=== PATIENT | female | born 1965 | race Caucasian/White ===

== ENCOUNTER 2020-09-02 04:01 | Emergency (ER) | payer MEDICARE, MEDICAID, SELFPAY ==
[2020-09-02] VITALS (8 sets, daily range): BP systolic 106–127; BP diastolic 58–75; PULSE 64–119; RESP 16–22; TEMP 36.1; O2SAT 95–97; BMI 29.5
--- NOTE | 2020-09-02 04:14 | CTR_ITS ---
PROCEDURE INFORMATION: Exam: CT Abdomen And Pelvis Without Contrast Exam date and time: 09/02/2020 4:22 AM Age: 54 years old Clinical indication: Abdominal pain; Flank; Right; Prior surgery; Surgery type: Cholecystectomy, hysterectomy; Patient HX: HX prior renal stones; Additional info: R flank pain TECHNIQUE: Imaging protocol: Computed tomography of the abdomen and pelvis without contrast. Radiation optimization: All CT scans at this facility use at least one of these dose optimization techniques: automated exposure control; mA and/or kV adjustment per patient size (includes targeted exams where dose is matched to clinical indication); or iterative reconstruction. COMPARISON: CT Abdomen/Pelvis Renal [id number] 01/22/2018 12:43 PM RADIATION DOSE METRICS: Total DLP (mGy-cm): 1278.47 FINDINGS: Liver: Normal. No mass. Gallbladder and bile ducts: Normal. No calcified stones. No ductal dilation. Pancreas: Normal. No ductal dilation. Spleen: Normal. No splenomegaly. Adrenal glands: Normal. No mass. Kidneys and ureters: There are multiple nonobstructing renal calculi present bilaterally largest are present within the right kidney measuring up to 7.8 mm. There is prominent hydronephrosis and hydroureter seen on the right. There is a partially obstructing distal right ureteral calculus seen along the right pelvic sidewall measuring 3 mm. A 2nd calcifications seen approximately 2.5 cm distal to the previous calcification measuring 3 mm in diameter. Stable calcifications seen within the right hemipelvis adjacent to the distal right ureter compatible with a phlebolith. Stomach and bowel: There is a prominent hiatal hernia present measuring 9.9 cm transverse dimension containing the proximal stomach. Appendix: The appendix is visualized and is normal in configuration. Intraperitoneal space: Unremarkable. No free air. No significant fluid collection. Vasculature: See Kidneys and ureters finding. Lymph nodes: Unremarkable. No enlarged lymph nodes. Urinary bladder: Unremarkable as visualized. Reproductive: Unremarkable as visualized. Bones/joints: Unremarkable. No acute fracture. Soft tissues: Unremarkable. CT/CT kidney stone [id number] IMPRESSION: 1. There are 2 partially obstructing distal right ureteral calculi present along the right pelvic sidewall, the more proximal calculus measures 3 mm, the more distal calcification measures approximately 3 mm . 2. Multiple bilateral nonobstructing renal calculi 3. Prominent hiatal hernia containing the proximal stomach Radiation Dose CTDIVOL = (mGy): DLP = 1278.47 (mGy-cm)
--- NOTE | 2020-09-02 04:14 | ED_ITS ---
Documented by User: Jeffry Dyer DO 09/02/20 04:52 HPI - Back Pain/Injury General: Chief Complaint: Back Pain/Injury Stated Complaint: back pain Time Seen by Provider: 09/02/20 04:14 History of Present Illness: HPI Narrative: 54-year-old lady with a history of multiple kidney stones. She wakes up this morning with right-sided back and flank pain radiating to her belly on the right side. No fever, no dysuria. No hematuria. She is very nauseated. MD elicited complaint: back pain Pertinent past history: kidney stones Onset (ago): minute(s) Timing: constant Severity: severe Similar Symptoms Previously: Yes Quality: stabbing Location: right lower back Radiation: abdomen Exacerbating factors: movement Relieving factors: none Associated symptoms: Reports nausea and vomiting; Deny chills, dysuria, fever(s) or hematuria Review of Systems Const: Denies: fever(s) or chills Card: Denies: chest pain or palpitations Resp: Denies: dyspnea, productive cough or non-productive cough GI: Reports: nausea and vomiting : Reports: flank pain; Denies: difficulty voiding, dysuria, urinary frequency or hematuria Neuro: Denies: dizziness or confusion Physical Exam Const: GENERAL APPEARANCE: cooperative, well developed, anxious and ill appearing ORIENTATION/CONSCIOUSNESS: Yes oriented to person, Yes oriented to place and Yes oriented to time HENMT: COMMON NORMALS: normocephalic, external ears normal and Normal external nose present HEAD & SCALP: normocephalic FACE & SINUS: normal facial exam NOSE: Normal external nose present and No nasal discharge present EXTERNAL EAR: Yes external ears normal Eye: COMMON NORMALS: Equal, round and reactive pupils present, EOMs intact bilaterally and conjunctivae normal EYELID: eyelids normal CONJUNCTIVA: Yes conjunctivae normal PUPIL: Yes Equal, round and reactive pupils present Neck/C-Spine: GENERAL: No tracheal deviation Chest: COMMONS NORMALS: normal inspection of the chest CHEST: No tenderness Resp: COMMON NORMALS: clear to auscultation bilaterally EFFORT & INSPECTION: No tachypneic, No respiratory distress, No retractions, No uses accessory muscles and No tracheal deviation AUSCULTATION: clear to auscultation bilaterally, no rhonchi, no wheezes and lung sounds not diminished Cardio: COMMON NORMALS: regular rate and regular rhythm RATE: regular rate RHYTHM: regular rhythm HEART SOUNDS: no murmurs PERIPHERAL PULSES: radial pulses present GI: INSPECTION: No abdominal distension AUSCULTATION: No Hyperactive bowel sounds present and No Hypoactive bowel sounds present PALPATION: Yes Tenderness to palpation present (GI) Details: RLQ, No Guarding due to palpation present (GI) and No Rigid due to palpation PERCUSSION: no dullness to percussion and no tympanic to percussion : BLADDER/KIDNEY EXAM: Yes CVA tenderness on the right Back/Pelvis: GENERAL BACK: Yes CVA tenderness Neuro: SENSORIUM/ORIENTATION: Yes oriented to person, Yes oriented to place and Yes oriented to time Psych: COMMON NORMALS: mental status grossly normal Skin: COMMON NORMALS: no rashes or lesions noted GENERAL SKIN EXAM: no rashes or lesions noted Course Vital Signs: Vital signs: Vital Signs Temperature 97.0 F L 09/02/20 04:06 Pulse Rate 74 09/02/20 06:00 Respiratory Rate 18 09/02/20 06:00 Blood Pressure 109/58 09/02/20 06:00 Pulse Oximetry 96 09/02/20 06:00 MDM - Back Pain/Injury MDM Narrative: Medical decision making narrative: 54-year-old female with right flank and belly pain. She has a history of kidney stones. Her white blood cell count is 6.1. Hemoglobin 13. She has been to CT, and appears to have a right ureteral stone with hydronephrosis. Awaiting further labs and urinalysis. She has received 1 mg of Dilaudid 4 mg of Zofran. She is getting another milligram of Dilaudid, as she is still in quite a bit of pain. She will be checked out to Dr. Eckert at shift change. Lab Data: Labs: Lab Results 09/02/20 09/02/20 09/02/20 Range/Units 04:30 04:30 04:30 WBC 6.1 (4.0-10.0) 10^3/ uL RBC 3.91 L (4.1-5.3) 10^6/u L Hgb 12.9 (11.5-15.3) g/dL Hct 38.9 (37.0-47.0) % MCV 99.5 H (81-99) fL MCH 33.0 (28.0-34.0) pg MCHC 33.2 (30.0-36.0) g/dL RDW 12.3 (12.1-15.1) % Plt Count 187 (130-400) 10^3/c mm MPV 9.2 (7.4-10.4) fL Neut % (Auto) 50.7 % Lymph % (Auto) 34.4 % [place] % (Auto) 9.3 % Eos % (Auto) 4.7 % Baso % (Auto) 0.7 % Neut # (Auto) 3.11 (1.8-7.7) 10^3/u L Lymph # (Auto) 2.1 (0.8-4.8) 10^3/u L [place] # (Auto) 0.6 (0.2-0.9) 10^3/u L Eos # (Auto) 0.3 (0.0-0.8) 10^3/u L Baso # (Auto) 0.0 (0.0-0.1) 10^3/u L Nucleated RBC % (a uto) 0 % Nucleated RBCs # 0.0 /100WBC Sodium 139 (136-145) mmol/L Potassium 4.0 (3.5-5.1) mmol/L Chloride 104 (98-107) mmol/L Carbon Dioxide 24 (22-29) mmol/L Anion Gap 15.0 (5-19) BUN 22 H (6-20) mg/dL Creatinine 0.6 (0.5-0.9) mg/dL GFR Calculation 105.0 (90-130) mL/min Glucose 125 H (65-115) mg/dL Calculated Osmolal ity 293 (285-295) mOsm/k g Calcium 8.9 (8.5-10.5) mg/dL Total Bilirubin 0.2 (0.15-1.2) mg/dL AST 16 (0-32) U/L ALT 14 (0-33) U/L Alkaline Phosphata se 72 (35-105) IU/L C-Reactive Protein 1.6 (0.0-4.9) mg/L Total Protein 6.4 L (6.6-8.7) g/dL Albumin 3.7 (3.5-5.2) g/dL Globulin 2.7 (1.3-4.6) g/dL Lipase 11 L (13-60) U/L Urine Color Yellow (Yellow) Urine Appearance Sl cloudy A (CLEAR) Urine pH 5 (5-7) Ur Specific Gravit y 1.025 (1.005-1.030) Urine Protein 1+ H (Negative) Urine Glucose (UA) Norm (Normal) Urine Ketones Negative (Negative) Urine Blood 3+ H (Negative) Urine Nitrate Negative (Negative) Urine Bilirubin Neg (Negative) Urine Urobilinogen Norm (Negative) mg/dL Ur Leukocyte Barbara ase 1+ H (Negative) Urine RBC 25-40 H (0-2) /hpf Urine WBC Too numerous to c nt H (0-5) /hpf Ur Squamous Epith Cells 5-10 H (0-5) /hpf Amorphous Sediment Not Reportable Urine Bacteria 1+ H (NONE) /hpf Discharge Plan Discharge Patient Disposition: Home Clinical Impression: Renal colic UTI (urinary tract infection) Qualifiers: Urinary tract infection type: site unspecified Hematuria presence: with hematuria Qualified Code(s): N39.0 - Urinary tract infection, site not specified Condition: Stable Prescriptions: New cefdinir 300 mg capsule 300 mg PO BID 10 Days Qty: 20 RF: 0 oxycodone-acetaminophen 10-325 mg tablet 1 tab PO Q6H PRN (Reason: pain) Qty: 20 RF: 0 promethazine 25 mg tablet 25 mg PO Q6H PRN (Reason: nausea and vomiting) Qty: 14 RF: 0 Discharge Orders: Discharge Order (Routine); Ordered 09/02/20 Ordered By: Kaylee Eckert Referrals: Jeremy Herbert MD [Physician] - 1-3 days (Call the office Thursday) Shari Gray DO [Primary Care Provider] - Discharge Diet: Usual diet Patient Instructions: Kidney Stones (ED), Urinary Tract Infection in Women (ED) Activity Restrictions/Additional Instructions: Return to the emergency department immediately if you develop a fever or if your pain cannot be controlled. Return as well for vomiting, inability to urinate. Call Dr. Herbert's office first thing in the morning on Thursday to let them know how you are doing and arrange follow-up. Use the pain medicine and nausea medicine as needed. Take the antibiotics exactly as prescribed. You can start your first dose tonight. You can also take [id number] Aleve or ibuprofen. Coding Level of Care Code ED Health Assistant for Tangela Fwd Exam Comprehensive Documented by User: Kaylee Eckert MD 09/02/20 06:13 HPI - Back Pain/Injury General: Chief Complaint: Back Pain/Injury Stated Complaint: back pain Time Seen by Provider: 09/02/20 04:14 Course ED course: I assumed care of this patient from Dr. Dyer at shift change. She was finally comfortable after her second dose of Dilaudid. She still having some pain and at times seemed quite uncomfortable. She declined further pain medicine. She does have evidence of UTI. I spoke to Dr. Herbert, who has seen the patient previously, and discussed the findings. The patient's preference is to go home. He agreed with that plan. I gave her a dose of Rocephin in the ER. I will send her home on some cefdinir. She also says she has done okay with oxycodone for kidney stones in the past. I prescribed that as well as Phenergan. She can also use itjo-swn-cxbmitc ibuprofen or Naprosyn. She has an allergy to Toradol that causes a rash but she is able to take those other NSAIDs. She understands that UTI with a kidney stone can be quite serious and she will return if she develops worsening symptoms including fever. Vital Signs: Vital signs: Vital Signs Temperature 97.0 F L 09/02/20 04:06 Pulse Rate 74 09/02/20 06:00 Respiratory Rate 18 09/02/20 06:00 Blood Pressure 109/58 09/02/20 06:00 Pulse Oximetry 96 09/02/20 06:00 MDM - Back Pain/Injury Lab Data: Labs: Lab Results 09/02/20 09/02/20 09/02/20 Range/Units 04:30 04:30 04:30 WBC 6.1 (4.0-10.0) 10^3/ uL RBC 3.91 L (4.1-5.3) 10^6/u L Hgb 12.9 (11.5-15.3) g/dL Hct 38.9 (37.0-47.0) % MCV 99.5 H (81-99) fL MCH 33.0 (28.0-34.0) pg MCHC 33.2 (30.0-36.0) g/dL RDW 12.3 (12.1-15.1) % Plt Count 187 (130-400) 10^3/c mm MPV 9.2 (7.4-10.4) fL Neut % (Auto) 50.7 % Lymph % (Auto) 34.4 % [place] % (Auto) 9.3 % Eos % (Auto) 4.7 % Baso % (Auto) 0.7 % Neut # (Auto) 3.11 (1.8-7.7) 10^3/u L Lymph # (Auto) 2.1 (0.8-4.8) 10^3/u L [place] # (Auto) 0.6 (0.2-0.9) 10^3/u L Eos # (Auto) 0.3 (0.0-0.8) 10^3/u L Baso # (Auto) 0.0 (0.0-0.1) 10^3/u L Nucleated RBC % (a uto) 0 % Nucleated RBCs # 0.0 /100WBC Sodium 139 (136-145) mmol/L Potassium 4.0 (3.5-5.1) mmol/L Chloride 104 (98-107) mmol/L Carbon Dioxide 24 (22-29) mmol/L Anion Gap 15.0 (5-19) BUN 22 H (6-20) mg/dL Creatinine 0.6 (0.5-0.9) mg/dL GFR Calculation 105.0 (90-130) mL/min Glucose 125 H (65-115) mg/dL Calculated Osmolal ity 293 (285-295) mOsm/k g Calcium 8.9 (8.5-10.5) mg/dL Total Bilirubin 0.2 (0.15-1.2) mg/dL AST 16 (0-32) U/L ALT 14 (0-33) U/L Alkaline Phosphata se 72 (35-105) IU/L C-Reactive Protein 1.6 (0.0-4.9) mg/L Total Protein 6.4 L (6.6-8.7) g/dL Albumin 3.7 (3.5-5.2) g/dL Globulin 2.7 (1.3-4.6) g/dL Lipase 11 L (13-60) U/L Urine Color Yellow (Yellow) Urine Appearance Sl cloudy A (CLEAR) Urine pH 5 (5-7) Ur Specific Gravit y 1.025 (1.005-1.030) Urine Protein 1+ H (Negative) Urine Glucose (UA) Norm (Normal) Urine Ketones Negative (Negative) Urine Blood 3+ H (Negative) Urine Nitrate Negative (Negative) Urine Bilirubin Neg (Negative) Urine Urobilinogen Norm (Negative) mg/dL Ur Leukocyte Barbara ase 1+ H (Negative) Urine RBC 25-40 H (0-2) /hpf Urine WBC Too numerous to c nt H (0-5) /hpf Ur Squamous Epith Cells 5-10 H (0-5) /hpf Amorphous Sediment Not Reportable Urine Bacteria 1+ H (NONE) /hpf Discharge Plan Discharge Patient Disposition: Home Clinical Impression: Renal colic UTI (urinary tract infection) Qualifiers: Urinary tract infection type: site unspecified Hematuria presence: with hematuria Qualified Code(s): N39.0 - Urinary tract infection, site not specified Condition: Stable Prescriptions: New cefdinir 300 mg capsule 300 mg PO BID 10 Days Qty: 20 RF: 0 oxycodone-acetaminophen 10-325 mg tablet 1 tab PO Q6H PRN (Reason: pain) Qty: 20 RF: 0 promethazine 25 mg tablet 25 mg PO Q6H PRN (Reason: nausea and vomiting) Qty: 14 RF: 0 Discharge Orders: Discharge Order (Routine); Ordered 09/02/20 Ordered By: Kaylee Eckert Referrals: Jeremy Herbert MD [Physician] - 1-3 days (Call the office Thursday) Shari Gray DO [Primary Care Provider] - Discharge Diet: Usual diet Patient Instructions: Kidney Stones (ED), Urinary Tract Infection in Women (ED) Activity Restrictions/Additional Instructions: Return to the emergency department immediately if you develop a fever or if your pain cannot be controlled. Return as well for vomiting, inability to urinate. Call Dr. Herbert's office first thing in the morning on Thursday to let them know how you are doing and arrange follow-up. Use the pain medicine and nausea medicine as needed. Take the antibiotics exactly as prescribed. You can start your first dose tonight. You can also take [id number] Aleve or ibuprofen. Coding Level of Care Code ED Health Assistant for Tangela Fwd Exam Comprehensive
[2020-09-02] MEDS: ondansetron 2 mg/ML SDV 2 mL 4 MG IVP (04:32)
[2020-09-02 04:35] LABS: Basophils % 0.7 %; Eosinophils # 0.3 10^3/uL (0.0-0.8); Eosinophils % 4.7 %; Hematocrit 38.9 % (37.0-47.0); Hemoglobin 12.9 g/dL (11.5-15.3); Lymphocytes # 2.1 10^3/uL (0.8-4.8); Lymphocytes % 34.4 %; Mean Corpuscular HGB Conc 33.2 g/dL (30.0-36.0); Mean Corpuscular Volume 99.5 fL (81-99); Mean Platelet Volume 9.2 fL (7.4-10.4); Monocytes # 0.6 10^3/uL (0.2-0.9); Monocytes % 9.3 %; Neutrophils # 3.11 10^3/uL (1.8-7.7); Neutrophils % 50.7 %; Nucleated Red Blood Cells % 0 %; Platelet Count 187 10^3/cmm (130-400); Red Blood Count 3.91 10^6/uL (4.1-5.3); Red Cell Distribution Width 12.3 % (12.1-15.1); White Blood Count 6.1 10^3/uL (4.0-10.0)
[2020-09-02] MEDS: HYDROmorphone 1 mg/mL INJ 1 mL IVP ×3 (04:35→06:35)
[2020-09-02] MEDS: sodium chloride 0.9% 1,000 ML 999 ML IV (04:37)
[2020-09-02 04:42] LABS: Urine Color Yellow (Yellow)
[2020-09-02 04:43] LABS: Add Urine Microscopic? YES; Bilirubin Urine Neg (Negative); Blood Urine 3+ (Negative); Glucose Urine UA Norm (Normal); Ketones Urine Negative (Negative); Leukocyte Esterase Urine 1+ (Negative); Nitrate Urine Negative (Negative); Protein Urine 1+ (Negative); Specific Gravity, Urine 1.025 (1.005-1.030); Urobilinogen Urine Norm (Negative); pH Urine 5 (5-7)
--- NOTE | 2020-09-02 04:49 | PC.NURSE ---
during pt rounding, pt stating no relief from pain. notified
[2020-09-02 04:58] LABS: Alanine Aminotransferase 14 U/L (0-33); Albumin Level 3.7 g/dL (3.5-5.2); Alkaline Phosphatase 72 IU/L (35-105); Aspartate Amino Transferase 16 U/L (0-32); Blood Urea Nitrogen 22 mg/dL (6-20); C Reactive Protein 1.6 mg/L (0.0-4.9); Calcium 8.9 mg/dL (8.5-10.5); Carbon Dioxide 24 mmol/L (22-29); Chloride 104 mmol/L (98-107); Globulin 2.7 g/dL (1.3-4.6); Glucose 125 mg/dL (65-115); Lipase 11 U/L (13-60); Osmolality Calculated 293 mOsm/kg (285-295); Sodium 139 mmol/L (136-145); Total Bilirubin 0.2 mg/dL (0.15-1.2); Total Protein 6.4 g/dL (6.6-8.7)
[2020-09-02 05:06] LABS: Add Urine Culture? Yes; Bacteria Urine 1+ /hpf; RBC Urine 25-40 /hpf (0-2); WBC Urine TOO NUMEROUS TO CNT /hpf (0-5)
[2020-09-02] MEDS: cefTRIAXone 1,000 MG in sodium chloride 0.9% (plus) 50 ML 100 MG IV (05:21)
--- NOTE | 2020-09-02 06:51 | PC.NURSE ---
pt requesting IVP pain meds prior to dc due to being Thursday and pharmacy opening late. Dr notified, orders placed in MAR
--- NOTE | 2020-09-04 08:04 | PC.NURSE ---
critical result for urine culture positive for ESBL taken and reported to Dr. Kebede
--- NOTE | 2020-09-04 15:08 | DCPLANNER ---
data deliverables manager had message to schedule a follow up appointment for patient with Dr. Herbert. data deliverables manager called the office of Dr. Herbert, spoke with Angeline, gave clinic patients information. data deliverables manager was told that patients information would be printed and reviewed. Clinic will call patient with appointment information.
--- NOTE | 2020-09-05 11:00 | DCPLANNER ---
Patient has a follow up appointment scheduled for , September 20, [address] at 2:[address] Herbert. Clinic will call patient with appointment information.
--- NOTE | 2020-11-02 12:24 | DCPLANNER ---
Patient had a follow up appointment with Dr. Herbert - patient did attend appointment
== END 2020-09-02 06:55 | disposition home or self-care (01) ==
PROVIDERS: Emergency Medicine; Emergency Provider Emergency Medicine; PCP Family Medicine
DX: N23 Unspecified renal colic (principal); N39.0 Urinary tract infection, site not specified
CPT/HCPCS: 12345; 74176; 80053; 81001; 83690; 85025; 86140; 87077; 87086; 87186; 96365; 96375; 96376; 99283; 99284; J0696; J1170; J2405; J7030

== ENCOUNTER 2020-09-14 07:41 | Outpatient (CLI) | payer MEDICARE, MEDICAID, SELFPAY ==
--- NOTE | 2020-09-14 07:55 | XR_ITS ---
WS: [id number] KUB, 09/14/2020 Clinical Data: Stones hx Comparison: CT abdomen and pelvis, 09/02/2020, KUB, 01/25/2018. Findings: No abnormal intraabdominal masses are seen. There is no dilatated small bowel or evidence of obstruc tion. There are bilateral renal calcifications. The distal right ureteral calcifications are not seen. Ther e is a large amount of fecal material present which obscures detail over both kidneys. There are clip s in the gallbladder fossa from a cholecystectomy. There are right lower quadrant sutures XR/XR KUB [id number] Impression: 1. Bilateral renal calculi. 2. No definite ureteral or bladder calculi.
== END 2020-09-14 07:42 | disposition home or self-care (01) ==
LOC: RAD 07:50
PROVIDERS: PCP Family Medicine; Visit Provider Nurse Practitioner Family
DX: N20.0 Calculus of kidney (principal); N20.1 Calculus of ureter
CPT/HCPCS: 74018; 81003; 87635

== ENCOUNTER 2020-09-20 12:52 | Day surgery (SDC) | payer MEDICARE, MEDICAID, SELFPAY ==
[2020-09-19 14:31] VITALS: BMI 26.6
--- NOTE | 2020-09-20 | SCC_ITS ---
Procedure Done: 1. Right retrograde ureteropyelogram 2. Cystoscopy, RIGHT: Ureteroscopy, ureteral stent 32.8 seconds of fluoroscopic guidance, for a cumulative dose of 7.09 mGy, was provided to Dr. Herbert by the radiology department. C-arm images of the abdomen were saved for the patient's permanent record. [facility]
--- NOTE | 2020-09-20 13:19 | SC_ITS ---
WS: [id number] Exam: C-arm FL for Urology Date/Time of Exam: 09/20/2020 1:19 PM Reason For Exam: Right ureteroscopy Limited AP C-arm images of the right abdomen are submitted for evaluation. A pigtail catheter is visualized in the proximal right ureter and right renal pelvis. Radiographic co ntrast has been injected through the catheter with opacification of the pyelocalyceal system. There i s mild fullness of the pyelocalyceal system. There is a filling defect within the lower calyx of the right kidney that corresponds to a renal stone which is been described previously. No other significa nt finding on this limited exam.
[2020-09-20 13:27] VITALS: BP 130/79; PULSE 42; RESP 18; TEMP 36.3; O2SAT 92
[2020-09-20] MEDS: sodium chloride 0.9% 1,000 ML 30 ML IV (13:39)
--- NOTE | 2020-09-20 13:40 | ANES.PREANE2 ---
Pre-Anesthetic Assessment Pre-Anesthetic Assessment: Height/Weight: Height 1.75 m Weight 81.647 kg Temp Pulse Resp BP Pulse Ox 97.3 F L 42 L 18 130/79 92 09/20/20 13:27 09/20/20 13:27 09/20/20 13:27 09/20/20 13:27 09/20/20 13:27 Preop Diagnosis: Refractory right renal colic secondary to 2 ureteral calculi Proposed Procedure: Operation Date: 09/20/20 14:25 Proposed Procedures p Laser Lithotripsy 44414 [id number] N20.0 N20.1(Not Applicable) - Jeremy Herbert MD s Cystoscopy(Not Applicable) - Jeremy Herbert MD s Retrograde Pyelogram(Right) - Jeremy Herbert MD s Ureteral Stent Placement(Not Applicable) - MD charli Pappas Ureteroscopy(Not Applicable) - Jeremy Herbert MD Familial anesthetic complications: Hard time waking up Was Beta Chikis taken within 24 hours: Yes Last intake: Intake NPO > 8 hrs Last Liquid Date 09/19/20 Last Liquid Time 23:30 Last Solid Date 09/19/20 Last Solid Time 23:30 Social: Social History: Tobacco Exam: Pre-Anes Outpt Exam: alert, oriented x 3 and regular rate & rhythm Additional Exam Findings (including area of procedure): coarse breath sounds b/l --> patient going to take inhalers Airway: Cervical ROM: WNL MP: 3 Dentition: Chipped Pulmonary: Pulmonary: Sleep apnea CV/HEM: CV/HEM: HTN GI: GI: GERD and Hiatus hernia Musc/skel: Musc/skel: Lower Back Pain Anesthetic Plan: ASA status: 2 Anesthesia: General Risk of > 500 ml blood loss (7ml/kg in children): No Meds/Allergies Current Medications: Current Medications Generic Name Dose Route Start Last Admin Trade Name Freq PRN Reason Stop Dose Admin Sodium Chloride 1,000 mls @ 30 ml s/hr 09/20/20 13:30 09/20/20 13:39 Sodium Chloride 0.9% IV 09/21/20 13:29 30 mls/hr .Q24H CHRIS Administration PFSH Anesthesia PFSH: Medical History Recurrent UTI Renal calculi Right ureteral calculus Surgical History H/O lithotripsy Hx of section X4 Hx of cholecystectomy Hx of hysterectomy Status post extracorporeal shock wave therapy Family History Other CAD (coronary artery disease) Cancer Chronic kidney disease (CKD) Hypertension Social History Smoking and tobacco status: current every day smoker Alcohol intake: current Alcohol intake frequency: holidays/special occasions only Adopted: No Caregiver/support person: No Lives independently: No Household members: spouse Marital status: Current occupational status: retired Data Anesthesia Cardiac Studies: No Data to Display
--- NOTE | 2020-09-20 14:45 | P.HPUD_ITS ---
Surgery/Procedure H&P Update DATE OF PROCEDURE: September 20, 2020 DATE H&P PERFORMED: 09/14/20 H&P UPDATE INFORMATION: I have reviewed H&P completed within last 30 days, I have examined patient prior to procedure, No changes to prior documentation and H&P is in [facility] on date indicated PREOP DIAGNOSIS: Refractory right renal colic secondary to 2 ureteral calculi PLANNED PROCEDURE: Operation Date: 09/20/20 14:25 Proposed Procedures p Laser Lithotripsy 31496 [id number] N20.0 N20.1(Not Applicable) - Jeremy Herbert MD s Cystoscopy(Not Applicable) - Jeremy Herbert MD s Retrograde Pyelogram(Right) - MD charli Pappas Ureteral Stent Placement(Not Applicable) - MD charli Pappas Ureteroscopy(Not Applicable) - Jeremy Herbert MD
--- NOTE | 2020-09-20 14:46 | P.OP_ITS ---
Operative Report Date of procedure: September 20, 2020 Pre-op Diagnosis: Refractory right renal colic secondary to 2 ureteral calculi Post-op diagnosis: same Procedure Done: 1. Right retrograde ureteropyelogram 2. Cystoscopy, RIGHT: Ureteroscopy, ureteral stent Pathology: none sent Surgeon: Keon Anesthesia: General Estimated blood loss: Minimal Urine output: Not measured Complications: None Findings: 1. Normal right retrograde ureteropyelogram 2. No evidence of residual stones in the right ureter. Findings are consistent with spontaneously passed stones. 3. Could not identify an obvious source of her persistent pain. Condition: stable Disposition: PACU Brief History: Kush is a very pleasant 55-year-old white female with a history of recurrent UTIs as well as recurrent urolithiasis. Recently she presented with complaints of right flank pain to the emergency department and a CT scan demonstrated 2 stones in the right distal ureter with moderate obstructive changes proximally. Urine culture did grow bacteria but there was no evidence of any systemic concerns. She was placed on antibiotic therapy and preferred to try to see if she could pass the stones. She continues to do well from a infectious perspective but continued to have significant pain on the right flank down into the right groin. Ultimately she elected to proceed with intervention because of the severity of pain. Admitted now for endoscopic treatment of the stones. We discussed stent versus no stent and she would prefer not to have one if it is safe to do so. Procedure: After routine preoperative evaluation examination and obtaining of informed consent she was taken to the operating suite on 09/20/2020 where general anesthesia was administered without difficulty after appropriate timeout was performed SCDs confirmed to be functioning, preoperative antibiotics administered, beta-daryl protocol confirmed. Prepped and draped in usual sterile fashion in dorsolithotomy position paying careful attention to avoiding pressure points. 21 Moldovan cystoscope with 30 degree lens was introduced into the urethra meatus and advanced into the bladder under videoscopy. Bladder was systematically examined. No stones were seen. No gross abnormality identified. An 8 Moldovan cone-tipped catheter was intubated into the right ureteral orifice for right retrograde ureteropyelogram: Contrast was injected in essentially the ureter appeared normal in its course and caliber without any obvious filling defects consistent with the stone seen on CT scan. Flexible tip guidewire was advanced up the right ureter bypassing the area of the stones curling in the upper pole calyx. An offset semirigid ureteroscope was then advanced up the ureter next to the guidewire. The scope was passed all the way to the UPJ and no stones were identified. The ureter did appear to be somewhat dilated and consistent with recently passed stones. The ureter was carefully inspected as the scope was removed and entry findings were confirmed, no stones. The cystoscope was then backloaded over the guidewire and a 4.7 Moldovan by 26 cm double-pigtail stent was advanced over the guidewire through the cystoscope into appropriate position as confirmed via fluoroscopy and cystoscopy. A string was left attached to the stent and was secured to the mons pubis with tape. The bladder was drained after reinspection and again confirmation of no stones in the bladder. She tolerated the procedure well without complications and was awakened in the operating room and returned to the recovery room in stable condition. PLANS: 1. Anticipate discharge from outpatient surgery today 2. Continue oral antibiotics 3. Try to maintain the stent through the weekend and then can remove at home or in my clinic on Thursday. We will schedule a follow-up on Thursday for that.
[2020-09-20] MEDS: midazolam 1 mg/mL INJ 2 mL 2 MG IVP (14:48)
[2020-09-20] MEDS: levofloxacin-dextrose 5 % 500 MG/100 ML PREMIX 100 MG IV (14:57)
[2020-09-20] MEDS: iohexol 300 mg/mL 50 mL Btl VAGINAL (15:20)
[2020-09-20 15:35] VITALS: BP 134/60; PULSE 81; RESP 16; TEMP 36.3; O2SAT 97
[2020-09-20 15:40] VITALS: BP 122/58; PULSE 50; RESP 20; O2SAT 100
[2020-09-20 15:45] VITALS: BP 126/56; PULSE 55; RESP 20; O2SAT 100
--- NOTE | 2020-09-20 15:54 | ANE.PACU2 ---
Inpatient post-anesthesia follow up: Airway intact: Yes Vital signs: Temperature 97.4 F Pulse Rate 55 Respiratory Rate 20 Blood Pressure 126/56 Pulse Oximetry 100 Oxygen Delivery Me thod Room Air Oxygen Flow Rate 10 Fraction of Inspir ed Oxygen Hydration adequate: Yes Nausea and vomiting: No Pain level: 2 Mental status: Baseline
[2020-09-20 16:10] VITALS: BP 108/69; PULSE 56; RESP 18; TEMP 36.3; O2SAT 100
[2020-09-20] MEDS: HYDROcodone-acetaminophen 5-325 mg Tablet 1 TAB PO (16:18)
== END 2020-09-20 16:43 | disposition home or self-care (01) ==
PROVIDERS: PCP Family Medicine; Visit Provider Urology
PROC: 0TJB8ZZ Inspection of Bladder, Via Natural or Artificial Opening Endoscopic (ICD-10-PCS; CPT 52000; 2020-09-20 14:25)
PROC: (CPT 74420; 2020-09-20 14:25)
PROC: (CPT 50605; 2020-09-20 14:25)
PROC: 0TJ98ZZ Inspection of Ureter, Via Natural or Artificial Opening Endoscopic (ICD-10-PCS; CPT 52351; 2020-09-20 14:25)
DX: N20.2 Calculus of kidney with calculus of ureter (principal); G47.30 Sleep apnea, unspecified; I10 Essential (primary) hypertension; K21.9 Gastro-esophageal reflux disease without esophagitis; F17.210 Nicotine dependence, cigarettes, uncomplicated
CPT/HCPCS: 52332; 52351; 12345; 76000; 96374; C2625; J0131; J1956; J2250; J2405; J2704; J2710; J3010; J3490; J7030; Q9967

== ENCOUNTER 2020-10-06 04:09 | Inpatient (IN) | payer MEDICARE, MEDICAID, SELFPAY ==
[2020-10-06] VITALS (27 sets, daily range): BP systolic 88–133; BP diastolic 52–96; PULSE 81–121; RESP 16–22; TEMP 36.7–37.2; O2SAT 94–98
--- NOTE | 2020-10-06 | SCC_ITS ---
Procedure Done: 1. Cystoscopy, RIGHT: Ureteroscopy laser and stent 2. Right retrograde ureteropyelogram 27.3 seconds of fluoroscopic guidance, for a cumulative dose of 7.89 mGy, was provided to Dr. Herbert by the radiology department. C-arm images of the abdomen were saved for the patient's permanent record. [facility]
--- NOTE | 2020-10-06 05:58 | PM.HP ---
Providers/Chief Complaint Admitting Physician: Avelino Santos MD Primary Care Provider: Shari Gray DO History of Present Illness Kush Cruz is a 55 year old female with past medical history of recurrent UTI, COPD, GERD, depression, dyslipidemia, is a direct admit from [facility] ER patient was seen at the ER for severe right flank pain, as well as right-sided abdominal pain, she was worked up for right flank pain, CT abdomen pelvis without contrast showed, 7 * 7 mm stone in the right distal ureter, with severe right hydroureteronephrosis, with marked right perinephric edema, and moderate right perinephric fluid. Patient was transferred for the management of above-mentioned findings. Upon arrival, she is complaining of severe right flank pain, described the pain as sharp, 10 out of 10 in severity, radiating to right groin, mildly relieved with pain medication ,associated with nausea as well as 1 episode of nonbilious nonbloody vomiting. On review of system she denies any fever, hematuria, cough, chest pain. Pertinent labs done at [facility] ER : Urinalysis: Dirty , CBC and CMP has been reviewed, no significant abnormality, BUN and creatinine: 21/1.01, normal LFT, normal electrolytes. CBC: No leukocytosis, stable H&H ( ) Vitals: Afebrile, tachycardic, tachypneic, saturating above 90% on 2 liters oxygen via nasal cannula. Review of Systems Const: Denies: fever(s), chills, body aches, change in appetite or diaphoresis Card: Denies: palpitations, edema, swelling of feet/ankles, dyspnea on exertion, orthopnea or leg pain with exertion Resp: Denies: dyspnea, productive cough, wheezing or pain on inspiration : Denies: flank pain Musc: Denies: extremity swelling Neuro: Denies: headache(s), difficulty walking or confusion Medications/Allergies Home Medications Medication Instructions Recorded Confirmed Last Taken Type promethazine 25 mg PO Q6H PRN #14 tab 09/02/20 09/20/20 09/18/20 Rx albuterol sulfate 90 mcg/actuation 2 puff INHALATION Q6H PRN 09/14/20 09/20/20 09/20/20 History aerosol inhaler atorvastatin 20 mg tablet 20 mg PO DAILY 09/14/20 09/20/20 09/19/20 History ibuprofen 200 mg capsule 200 mg PO Q6H PRN 09/14/20 09/20/20 09/19/20 History metoprolol tartrate 50 mg tablet 50 mg PO BID 09/14/20 09/20/20 09/20/20 10:00 History sulfamethoxazole 800 1 tab PO BID #20 tab 09/14/20 09/20/20 09/19/20 Rx mg-trimethoprim 160 mg tablet tamsulosin 0.4 mg capsule 0.4 mg PO DAILY #30 cap 09/14/20 09/20/20 09/19/20 Rx zolpidem 10 mg tablet 10 mg PO .AT NIGHT tab 09/14/20 09/20/20 09/19/20 History Allergies Allergy/AdvReac Type Severity Reaction Status Date / Time ketorolac [From Toradol] Allergy ALGY-Rash Verified 09/19/20 14:25 simvastatin Allergy ADR-Vomitin Verified 09/19/20 14:25 g PFSH Acute PFSH: Medical History Recurrent UTI Renal calculi Right ureteral calculus Surgical History H/O lithotripsy Hx of section X4 Hx of cholecystectomy Hx of hysterectomy Status post extracorporeal shock wave therapy Family History Other CAD (coronary artery disease) Cancer Chronic kidney disease (CKD) Hypertension Social History Smoking and tobacco status: current every day smoker Alcohol intake: current Alcohol intake frequency: holidays/special occasions only Adopted: No Caregiver/support person: No Lives independently: No Household members: spouse Marital status: Current occupational status: retired Vitals/I&O/Wt Weight last 48 hrs Weight 85.411 kg Weight 85.36 kg Physical Exam Const: COMMON NORMALS: patient oriented x3 HENMT: COMMON NORMALS: normocephalic and atraumatic HEAD & SCALP: normocephalic and atraumatic Eye: COMMON NORMALS: no scleral icterus Chest: COMMONS NORMALS: normal inspection of the chest and normal palpation of entire chest wall CHEST: Yes Symmetrical chest wall rise Resp: COMMON NORMALS: normal respiratory effort, No retractions, No use of accessory muscles and clear to auscultation bilaterally EFFORT & INSPECTION: Yes symmetric chest movement AUSCULTATION: clear to auscultation bilaterally Cardio: COMMON NORMALS: regular rate, regular rhythm, S1 normal heart sound present, S2 normal heart sound present, No gallops present (Cardio), No murmurs present (Cardio), No rub (Cardio) and Peripheral pulses 2+ throughout RATE: regular rate RHYTHM: regular rhythm HEART SOUNDS: S1 normal heart sound present and S2 normal heart sound present PERIPHERAL PULSES: Peripheral pulses 2+ throughout GI: COMMON NORMALS: Normal to inspection, nondistended, normoactive bowel sounds present, Soft to palpation, non-tender, No hepatosplenomegaly present and no masses AUSCULTATION: Yes normoactive bowel sounds PALPATION: Yes Soft to palpation and Yes No hepatosplenomegaly present RECTAL EXAM: deferred : OTHER: Rt CVA Tenderness Present Extremity: COMMON NORMALS: no clubbing, cyanosis or edema and no pedal edema Neuro: COMMON NORMALS: patient oriented x3 A&P Assessment and plan (1) Hydronephrosis due to obstruction of ureter: severe right hydroureteronephrosis IV hydration normal saline 150 cc an hour. Morphine 2 mg IV every 4 hours daily Continue tamsulosin Urology consult Ceftriaxone 1 mg IV every 24h hours daily Status: Acute (2) Right ureteral calculus: Plan as 1 Status: Acute (3) Renal calculi: Plan as 1 Status: Acute (4) Recurrent UTI: Continue ceftriaxone 1 mg IV every 24 hours daily Status: Acute (5) COPD (chronic obstructive pulmonary disease): Currently saturating well on 2 L oxygen via nasal cannula, no wheezing, no rhonchi no rales Nebs as needed Continue supplemental oxygen Status: Acute (6) GERD (gastroesophageal reflux disease): Status: Acute (7) Depression: Status: Acute Additional A&P Information DVT PPX: On loveox 40 mg s Daily Code Status:Full code Disposition :Home Attestations Medical Necessity Statement*: Patient is to be in hospital for the management of severe right hydroureteronephrosis. Anticipated length of stay greater than 2 midnight. Coding Level of Care Code Acute Prosthetic Lab Technician for [facility] Fwd Diagnoses Hydronephrosis due to obstruction of ureter N13.2 Right ureteral calculus N20.1 Renal calculi N20.0 Recurrent UTI N39.0 COPD (chronic obstructive pulmonary disease) J44.9 GERD (gastroesophageal reflux disease) K21.9 Depression F32.9
[2020-10-06] MEDS: morphine 4 mg/mL SDV 1 mL 2 MG IVP ×5 (05:59→23:21)
[2020-10-06] MEDS: enoxaparin 40 mg/0.4 mL Syringe SUBCUT (06:17)
[2020-10-06] MEDS: sodium chloride 0.9% 1,000 ML 150 ML IV ×2 (06:17→13:46)
[2020-10-06] MEDS: famotidine 20 mg/2 mL INJ IVP ×2 (06:19→18:10)
[2020-10-06 06:45] LABS: Basophils % 0.3 %; Hematocrit 35.4 % (37.0-47.0); Hemoglobin 12.1 g/dL (11.5-15.3); Lymphocytes # 0.3 10^3/uL (0.8-4.8); Lymphocytes % 3.4 %; Mean Corpuscular HGB Conc 34.2 g/dL (30.0-36.0); Mean Corpuscular Hemoglobin 32.5 pg (28.0-34.0); Mean Corpuscular Volume 95.2 fL (81-99); Mean Platelet Volume 9.2 fL (7.4-10.4); Monocytes # 0.4 10^3/uL (0.2-0.9); Monocytes % 5.7 %; Neutrophils # 6.99 10^3/uL (1.8-7.7); Neutrophils % 90.3 %; Nucleated Red Blood Cells % 0 %; Platelet Count 139 10^3/cmm (130-400); Red Blood Count 3.72 10^6/uL (4.1-5.3); Red Cell Distribution Width 12.2 % (12.1-15.1); White Blood Count 7.7 10^3/uL (4.0-10.0)
[2020-10-06 06:56] LABS: Lactic Sepsis W/Reflex 1.1 mmol/L (0.5-2.2)
[2020-10-06] MEDS: cefTRIAXone 2,000 MG in sodium chloride 0.9% (plus) 50 ML 100 MG IV (07:33)
[2020-10-06 07:59] LABS: Alanine Aminotransferase 9 U/L (0-33); Albumin Level 3.5 g/dL (3.5-5.2); Alkaline Phosphatase 56 IU/L (35-105); Anion Gap 14.2 (5-19); Aspartate Amino Transferase 13 U/L (0-32); Blood Urea Nitrogen 18 mg/dL (6-20); Carbon Dioxide 25 mmol/L (22-29); Chloride 102 mmol/L (98-107); Globulin 2.2 g/dL (1.3-4.6); Glucose 119 mg/dL (65-115); Osmolality Calculated 289 mOsm/kg (285-295); Potassium 3.2 mmol/L (3.5-5.1); Sodium 138 mmol/L (136-145); Total Bilirubin 0.7 mg/dL (0.15-1.2); Total Protein 5.7 g/dL (6.6-8.7)
--- NOTE | 2020-10-06 08:07 | P.CONIM_ITS ---
Providers/Reason For Consult Consulting Physican/Specialty*: Herbert/urology Reason for Consult*: Large obstructing right distal ureteral stone with UTI Attending Physician: Debra Simpson MD Primary Care Provider: Shari Gray DO History of Present Illness History of Present Illness Kush Cruz is a 55 year old female well-known to me with a history of complicated urolithiasis and multiple episodes of UTIs and obstructing stones with a least 1 episode of urinary sepsis related to that. She was recently diagnosed via CT scan in early September to have 2 small stones that were obstructing in her right distal ureter. She continued to have pain. Could not clearly see the stones on follow-up KUBs but because of the pain she was taken to the operating room on 09/20/2020 where ureteroscopy and retrograde pyelogram showed that the stones had passed. The severely dilated RIGHT ureter had normalized in size. It was presumed at that time that she probably had some edematous changes causing the symptoms. She was known to have other stones in her kidney that were much larger than the stones that she had passed. A string was left on the stent and she was instructed to remove it after the weekend. She presented to our emergency department after evaluation at [facility] ER for severe increasing right-sided flank pain. A CT scan was performed there that showed a 7 x 7 right distal ureteral stone with severe right hydroureteronephrosis. Was transferred for further evaluation. White count was normal. She was afebrile. Her urine though showed evidence of an infection and for that reason she was started on antibiotics. This morning her pain is still quite severe. Her vital signs are stable. I have recommended proceeding to the operating room for treatment of the stone in the absence of any septic symptoms and specifically to avoid progression to sepsis due to obstructive infectious process. If her clinical picture deteriorates prior to time available in the operating room a stent will be the priority with delayed treatment of the stone. I have reviewed the CT scan report and waiting for loading of the CT scan images to confirm the above from [facility]. Have discussed with Ms. Cruz the plans and options she has elected to proceed with surgical intervention including cystoscopy, RIGHT: Retrograde, ureteroscopy, laser, stent. Given her propensity to drop stones down probably in response to a dilated ureter from multiple ureteral stone episodes we will also reviewed the possibility of trying to become stone free with ESWL or other residual renal calculi at some point. Informed consent was obtained. Review of Systems Narrative: Constitutional: No fever or chills. Significant malaise and discomfort associated with renal colic. HEENT: No change in vision change in hearing difficulty swallowing Cardiovascular: Denies chest pain palpitations Respiratory: No shortness of breath. No wheezing no coughing Gastrointestinal: Severe abdominal pain associated with right renal colic. Also has some nausea. Genitourinary: Right renal colic. Does have some urinary urgency. Musculoskeletal: No deformity, no joint warmth Skin: Denies jaundice rashes or lesions Neuro: Denies seizures, slurred speech, unilateral extremity weakness Psychiatric: Severe anxiety related to her renal colic. No other mental status changes. Oriented. Alert. Endocrine: No flushing. Hematologic lymphatic: Denies easy bruising easy bleeding or lymphadenopathy Allergic: No hives Meds/Allergies Home Medications and Allergies Home Medications Medication Instructions Recorded Confirmed Last Taken Type promethazine 25 mg PO Q6H PRN #14 tab 09/02/20 09/20/20 09/18/20 Rx albuterol sulfate 90 mcg/actuation 2 puff INHALATION Q6H PRN 09/14/20 09/20/20 09/20/20 History aerosol inhaler atorvastatin 20 mg tablet 20 mg PO DAILY 09/14/20 09/20/20 09/19/20 History ibuprofen 200 mg capsule 200 mg PO Q6H PRN 09/14/20 09/20/20 09/19/20 History metoprolol tartrate 50 mg tablet 50 mg PO BID 09/14/20 09/20/20 09/20/20 10:00 History sulfamethoxazole 800 1 tab PO BID #20 tab 09/14/20 09/20/20 09/19/20 Rx mg-trimethoprim 160 mg tablet tamsulosin 0.4 mg capsule 0.4 mg PO DAILY #30 cap 09/14/20 09/20/20 09/19/20 Rx zolpidem 10 mg tablet 10 mg PO .AT NIGHT tab 09/14/20 09/20/20 09/19/20 History Allergies Allergy/AdvReac Type Severity Reaction Status Date / Time ketorolac [From Toradol] Allergy ALGY-Rash Verified 09/19/20 14:25 simvastatin Allergy ADR-Vomitin Verified 09/19/20 14:25 g Current Medications Current Medications Generic Name Dose Route Start Last Admin Trade Name Freq PRN Reason Stop Dose Admin Enoxaparin Sodium 40 mg 10/06/20 06:00 10/06/20 06:17 Enoxaparin 40 Mg/0.4 Ml Syringe SUBCUT 40 mg Q24H CHRIS Administration Famotidine 20 mg 10/06/20 06:00 10/06/20 06:19 Famotidine 20 Mg/2 Ml Inj IVP 20 mg Q12H CHRIS Administration Sodium Chloride 1,000 mls @ 150 mls/hr 10/06/20 06:00 10/06/20 06:17 Sodium Chloride 0.9% IV 150 mls/hr .Q6H40M CHRIS Administration Ceftriaxone Sodium 2,000 mg/ 50 mls @ 100 mls/hr 10/06/20 06:00 10/06/20 07:33 Sodium Chloride IV 100 mls/hr Q24H CHRIS Administration Protocol Morphine Sulfate 2 mg 10/06/20 05:49 10/06/20 08:01 Morphine 4 Mg/Ml Sdv 1 Ml IVP 2 mg Q4H PRN Administration SEVERE PAIN PFSH Acute PFSH: Medical History Recurrent UTI Renal calculi Right ureteral calculus Surgical History H/O lithotripsy Hx of section X4 Hx of cholecystectomy Hx of hysterectomy Status post extracorporeal shock wave therapy Family History Other CAD (coronary artery disease) Cancer Chronic kidney disease (CKD) Hypertension Social History Smoking and tobacco status: current every day smoker Alcohol intake: current Alcohol intake frequency: holidays/special occasions only Adopted: No Caregiver/support person: No Lives independently: No Household members: spouse Marital status: Current occupational status: retired Vitals/I&O/Wt Last Vital Signs Temp 98.1 F 10/06/20 05:49 Pulse 120 H 10/06/20 06:34 Resp 16 10/06/20 08:01 BP 131/73 10/06/20 05:49 Pulse Ox 96 10/06/20 08:01 Weight last 48 hrs Weight 188 lb 4.8 oz Weight 188 lb 3 oz Physical Exam Const: COMMON NORMALS: alert and well nourished GENERAL APPEARANCE: well kempt and well developed ORIENTATION/CONSCIOUSNESS: not confused HENMT: COMMON NORMALS: normocephalic and atraumatic HEAD & SCALP: normocephalic and atraumatic Eye: COMMON NORMALS: conjunctivae normal and no scleral icterus CONJUNCTIVA: Yes conjunctivae normal Neck/C-Spine: COMMON NORMALS: full ROM GENERAL: Yes normal visual inspection Lymph: LYMPHATIC: no lymphadenopathy noted and no lymphedema noted Resp: COMMON NORMALS: normal respiratory effort and clear to auscultation elena aterally EFFORT & INSPECTION: No labored and No Actively coughing AUSCULTATION: clear to auscultation bilaterally Cardio: COMMON NORMALS: regular rate and regular rhythm RATE: regular rate RHYTHM: regular rhythm GI: PALPATION: No Bladder palpation abnormal : COMMON NORMALS: No no CVA tenderness and Yes normal external appearance BLADDER/KIDNEY EXAM: No no CVA tenderness, No Bladder palpation abnormal and Yes CVA tenderness on the right Back/Pelvis: COMMON NORMALS: negative for no CVA tenderness Extremity: COMMON NORMALS: no clubbing, cyanosis or edema Neuro: COMMON NORMALS: no focal motor deficits SENSORIUM/ORIENTATION: Yes alert Psych: COMMON NORMALS: mental status grossly normal APPEARANCE: Yes well kempt ATTITUDE: Yes engaged MOOD & AFFECT: Yes anxious (Secondary to the pain) MEMORY/COGNITION: Yes memory grossly intact and Yes cognition grossly intact INSIGHT: Good insight present (Psych) JUDGEMENT: Good judgement present (Psych) Skin: COMMON NORMALS: no rashes or lesions noted and no jaundice GENERAL SKIN EXAM: no rashes or lesions noted A&P Assessment and plan (1) Right ureteral calculus: Severe refractory symptoms secondary to large distal ureteral stone. Complicated by UTI. Recommend urgent trip to the operating room for cystoscopy, retrograde, ureteroscopy, laser, stent. Status: Acute (2) Renal calculi: Status: Acute (3) Acute cystitis with hematuria: No evidence of sepsis. Status: Acute (4) Hydronephrosis due to obstruction of ureter: Status: Acute Consult Attestations Medical Necessity Statement: Refractory severe renal colic from a large obstructing right distal ureteral stone complicated by UTI. No evidence of sepsis yet. Will require surgical intervention. Coding Level of Care Code Acute Acquisition Associate for [facility] Fwd Exam Comprehensive Diagnoses Right ureteral calculus N20.1 Renal calculi N20.0 Acute cystitis with hematuria N30.01 Hydronephrosis due to obstruction of ureter N13.2
--- NOTE | 2020-10-06 08:31 | PC.NURSE ---
NOTIFIED DR. TA OF PTS AM MEDS, RECEIVED VERBAL ORDER TO HOLD PO AM MEDS AT THIS TIME. PT IS NPO AT THIS TIME.
[2020-10-06 08:37] LABS: Calcium 8.5 mg/dL (8.5-10.5)
[2020-10-06] MEDS: morphine 4 mg/mL SDV 1 mL 1 MG IVP (09:24)
--- NOTE | 2020-10-06 09:45 | PC.NURSE ---
PT TAKEN TO THE OR FOR SURGERY
--- NOTE | 2020-10-06 10:03 | P.ANESASSM_ITS ---
Pre-Anesthetic Assessment Pre-Anesthetic Assessment: Height/Weight: Height 1.75 m Weight 85.36 kg Temp Pulse Resp BP Pulse Ox 98.3 F 105 H 16 132/84 95 10/06/20 08:00 10/06/20 08:28 10/06/20 09:24 10/06/20 08:00 10/06/20 09:24 Preop Diagnosis: Refractory right renal colic secondary to 2 ureteral calculi Proposed Procedure: Operation Date: 10/06/20 12:05 Proposed Procedures p Cystoscopy(Not Applicable) - Jeremy Herbert MD s Ureteroscopy, Cystoscopy & Laser with Stent(Right) - Jeremy Herbert MD Was Beta Chikis taken within 24 hours: N/A Social: Social History: Tobacco and No alcohol Exam: Pre-Anes Outpt Exam: alert, oriented x 3 and regular rate & rhythm Additional Exam Findings (including area of procedure): Rhonchi Airway: Submandibular: WNL Cervical ROM: WNL MP: 2 Dentition: Full Pulmonary: Pulmonary: COPD CV/HEM: CV/HEM: None reported : : UTI Comments: Renal calculi Hepatic: Hepatic: None reported GI: GI: GERD Metabolic: Metabolic: None reported Musc/skel: Musc/skel: None reported Neuropsych: Neuropsych: Anxiety and Depression Anesthetic Plan: ASA status: 3 Anesthesia: General Risk of > 500 ml blood loss (7ml/kg in children): No Meds/Allergies Current Medications: Current Medications Generic Name Dose Route Start Last Admin Trade Name Freq PRN Reason Stop Dose Admin Atorvastatin Calci um 20 mg 10/06/20 09:00 10/06/20 08:31 Atorvastatin 40 Mg Tablet PO Not Given DAILY CHRIS Enoxaparin Sodium 40 mg 10/06/20 06:00 10/06/20 06:17 Enoxaparin 40 Mg /0.4 Ml Syringe SUBCUT 40 mg Q24H CHRIS Administration Famotidine 20 mg 10/06/20 06:00 10/06/20 06:19 Famotidine 20 Mg /2 Ml Inj IVP 20 mg Q12H CHRIS Administration Sodium Chloride 1,000 mls @ 150 m ls/hr 10/06/20 06:00 10/06/20 06:17 Sodium Chloride 0.9% IV 150 mls/hr .Q6H40M CHRIS Administration Ceftriaxone Sodium 2,000 mg/ 50 mls @ 100 mls/ hr 10/06/20 06:00 10/06/20 07:33 Sodium Chloride IV 100 mls/hr Q24H CHRIS Administration Protocol Metoprolol Tartrat e 50 mg 10/06/20 09:00 10/06/20 08:31 Metoprolol Tartr ate 50 Mg Tablet PO Not Given BID CHRIS Tamsulosin HCl 0.4 mg 10/06/20 09:00 10/06/20 08:31 Tamsulosin 0.4 M g Capsule PO Not Given DAILY CHRIS PFSH Anesthesia PFSH: Medical History Recurrent UTI Renal calculi Right ureteral calculus Surgical History H/O lithotripsy Hx of section X4 Hx of cholecystectomy Hx of hysterectomy Status post extracorporeal shock wave therapy Family History Other CAD (coronary artery disease) Cancer Chronic kidney disease (CKD) Hypertension Social History Smoking and tobacco status: current every day smoker Alcohol intake: current Alcohol intake frequency: holidays/special occasions only Adopted: No Caregiver/support person: No Lives independently: No Household members: spouse Marital status: Current occupational status: retired Data Anesthesia CBC & Chem 7: 10/06/20 06:22 10/06/20 06:22 Other Labs: Laboratory Results - last 48 hr 10/06/20 10/06/20 10/06/20 06:22 06:22 06:22 WBC 7.7 RBC 3.72 L Hgb 12.1 Hct 35.4 L MCV 95.2 MCH 32.5 MCHC 34.2 RDW 12.2 Plt Count 139 MPV 9.2 Neut % (Auto) 90.3 Lymph % (Auto) 3.4 [place] % (Auto) 5.7 Eos % (Auto) 0.0 Baso % (Auto) 0.3 Neut # (Auto) 6.99 Lymph # (Auto) 0.3 L [place] # (Auto) 0.4 Eos # (Auto) 0.0 Baso # (Auto) 0.0 Nucleated RBC % (auto) 0 Nucleated RBCs # 0.0 PT 12.40 INR 0.90 Sodium 138 Potassium 3.2 L Chloride 102 Carbon Dioxide 25 Anion Gap 14.2 BUN 18 Creatinine 1.1 H GFR Calculation 52.0 L Glucose 119 H Calculated Osmolality 289 Lactic Acid Calcium 8.5 Total Bilirubin 0.7 AST 13 ALT 9 Alkaline Phosphatase 56 Total Protein 5.7 L Albumin 3.5 Globulin 2.2 10/06/20 06:22 WBC RBC Hgb Hct MCV MCH MCHC RDW Plt Count MPV Neut % (Auto) Lymph % (Auto) [place] % (Auto) Eos % (Auto) Baso % (Auto) Neut # (Auto) Lymph # (Auto) [place] # (Auto) Eos # (Auto) Baso # (Auto) Nucleated RBC % (auto) Nucleated RBCs # PT INR Sodium Potassium Chloride Carbon Dioxide Anion Gap BUN Creatinine GFR Calculation Glucose Calculated Osmolality Lactic Acid 1.1 Calcium Total Bilirubin AST ALT Alkaline Phosphatase Total Protein Albumin Globulin Cardiac Studies: No Data to Display
[2020-10-06] MEDS: HYDROmorphone 1 mg/mL INJ 1 mL 0.5 MG IVP (10:05)
--- NOTE | 2020-10-06 10:06 | PM.OP ---
Operative Report Date of procedure: October 06, 2020 Pre-op Diagnosis: Refractory right renal colic from large right distal ureteral stone Post-op diagnosis: same Post-op Findings: Same Procedure Done: 1. Cystoscopy, RIGHT: Ureteroscopy laser and stent 2. Right retrograde ureteropyelogram Implants: 7 x 28 ureteral stent Pathology: Stone fragments (sand) Surgeon: Keon Anesthesia: General Estimated blood loss: Minimal Urine output: Not measured Complications: None Findings: Large stone found in the expected position. Fragmented with laser lithotripsy. Stent left indwelling Condition: stable Disposition: PACU Brief History: Kush is a very pleasant 55-year-old white female with a history of complicated stones including urosepsis related to stones obstructive pyelonephritis and multiple spontaneously passed stones as well as interventions required. About a month ago she was evaluated for 2 small right distal ureteral stones that were causing obstruction but they were confirmed to have spontaneously passed at time of endoscopy. She had multiple stones in her right kidney and at that evaluation 1 was in the lower pole and one was in the upper pole. Since then she has dropped down the lower pole stone and presented to the emergency department this morning after being initially evaluated at [facility] for right renal colicky symptoms with CT scan showing a 7 mm plus stone in the right ureter near the pelvic inlet. Her pain was refractory. She was also discovered to have a bladder infection without any systemic symptoms of infection. White count was normal. No fever. Because of the refractory nature of her pain, the decreased likelihood of spontaneous passage based on the size, and the concern related to the acute cystitis with potential progression to sepsis, it was decided to proceed with surgical intervention with time available for treatment of the stone. Informed consent was obtained. Procedure: After urgent evaluation examination and obtaining of informed consent she was taken to the operating suite on 10/06/2020 where general anesthesia was administered without difficulty after appropriate timeout was performed, SCDs confirmed to be functioning, preoperative antibiotics administered, beta-daryl protocol confirmed. Prepped and draped in usual sterile fashion in dorsolithotomy position paying careful attention to avoiding pressure points 21 Dutch cystoscope with 30 degree lens was introduced into the urethral meatus and advanced into the bladder under videoscopy. The bladder was systematically examined. No stones were seen. An 8 Dutch cone-tipped catheter was intubated into the right ureteral orifice for right retrograde ureteropyelogram: Only enough contrast was injected to show the ureter distal to the stone and a very slight amount that projected proximal for no more than 1 inch. A flexible tip guidewire was then advanced up the right ureter bypassing the stone and curling in the area of the upper pole calyx. The distal ureter was dilated with a 15 Dutch 4 cm balloon with no waist. The wire was secured to the drapes as a safety wire. An offset semirigid ureteroscope was then advanced up the right ureter next to the wire to the stone which was identified in its expected position. A 365 ?m thulium superpulse laser fiber was utilized to fragment the stone to small pieces that were flushed out and withdrawn as well with parachute basket. The ureter was inspected and there was significant amount of edema around the location of the stone and for that reason it was decided to leave a stent in. A 7 Dutch by 28 cm double-pigtail stent without string was advanced over the guidewire through the cystoscope into appropriate position as confirmed via fluoroscopy and cystoscopy. The bladder was drained and the procedure was completed. She tolerated the procedure well without complications and no sign of progressive infectious concerns. WAs awakened in the operating room and returned to the recovery in stable condition. PLANS: 1. She will be continued on inpatient status for coverage of the infection with IV antibiotics.
[2020-10-06 10:07] LABS: Procalcitonin 7.27 ng/mL (0-0.5)
--- NOTE | 2020-10-06 10:24 | SUR.PREOP ---
1005- DILAUDID 0.5 MG GIVEN TO AYDEE OTERO PER DR DUGGAN FOR ADMINISTRATION WITH PROCEDURE.
--- NOTE | 2020-10-06 10:28 | SC_ITS ---
WS: [id number] [facility] REASON FOR EXAM: SURGICAL PROCEDURE FINDINGS: Single AP view of the right abdomen, intraprocedural. Proximal end of the ureteral stent just inferior to the cholecystectomy clips. Injected contrast is n ow identified. There may be calculi or calculus fragments related to the right kidney. SC/[facility] IMPRESSION: Ureteral stent placement as above.
[2020-10-06] MEDS: iohexol 300 mg/mL 50 mL Btl (OR ONLY) XX (11:10)
--- NOTE | 2020-10-06 11:45 | P.PCN_ITS ---
PACU note PACU note: VSS, Good respiratory effort, report to BANKRUPTCY PARALEGAL Post-Anesthesia Exam: awake Disposition: back to floor
--- NOTE | 2020-10-06 11:45 | PM.PACU ---
PACU note PACU note: VSS, Good respiratory effort, report to OVERHEAD CRANE TECHNICIAN Post-Anesthesia Exam: awake Disposition: back to floor
--- NOTE | 2020-10-06 11:49 | P.PN_ITS ---
Subjective Subjective: Interval history: Chart reviewed, taken to OR emergently earlier this AM for ureteroscopy and stent placement by Dr. Herbert. So far has been hemodynamically stable, afebrile. Seen upon return from OR, groggy and falling asleep while trying to eat lunch. Gurrola catheter in place. Seems to be wheezing, is on 2 L NC, will request Neb treatment. Medications: Reviewed: Yes Medication Review Details: Active Medications Generic Name Dose Route Start Last Admin Trade Name Freq PRN Reason Stop Dose Admin Acetaminophen 650 mg 10/06/20 05:49 Acetaminophen 32 5 Mg Tablet PO Q6H PRN Mild/Mod Pain Or Temp >/= 101 Albuterol Sulfate 2 puff 10/06/20 05:57 Albuterol 8 Gm M di INHALATION Q6H PRN sob Atorvastatin Calci um 20 mg 10/06/20 09:00 10/06/20 08:31 Atorvastatin 40 Mg Tablet PO Not Given DAILY CHRIS Bisacodyl 10 mg 10/06/20 05:49 Bisacodyl 5 Mg T ablet PO DAILY PRN CONSTIPATION Enoxaparin Sodium 40 mg 10/06/20 06:00 10/06/20 06:17 Enoxaparin 40 Mg /0.4 Ml Syringe SUBCUT 40 mg Q24H CHRIS Administration Famotidine 20 mg 10/06/20 06:00 10/06/20 06:19 Famotidine 20 Mg /2 Ml Inj IVP 20 mg Q12H CHRIS Administration Fentanyl 50 mcg 10/06/20 10:04 Fentanyl 50 Mcg/ Ml Inj 2ml IVP Q10M PRN Preop Pain Fentanyl 50 mcg 10/06/20 10:04 Fentanyl 50 Mcg/ Ml Inj 2ml IVP 10/07/20 10:05 Q5M PRN Pain level 6-10 P ACU Phase I Hydromorphone HCl 2 mg 10/06/20 05:49 Hydromorphone 4 Mg Tablet PO Q6H PRN SEVERE PAIN Hydromorphone HCl 0.25 mg 10/06/20 10:04 Hydromorphone 1 Mg/Ml Inj 1 Ml IVP 10/07/20 10:05 Q10M PRN Pain level 4-6 PA CU Phase I Hydromorphone HCl 0.5 mg 10/06/20 10:04 10/06/20 10:05 Hydromorphone 1 Mg/Ml Inj 1 Ml IVP 10/07/20 10:05 0.5 mg Q10M PRN Administration Pain level 7-10 P ACU Phase I Sodium Chloride 1,000 mls @ 150 m ls/hr 10/06/20 06:00 10/06/20 06:17 Sodium Chloride 0.9% IV 150 mls/hr .Q6H40M CHRIS Administration Ceftriaxone Sodium 2,000 mg/ 50 mls @ 100 mls/ hr 10/06/20 06:00 10/06/20 07:33 Sodium Chloride IV 100 mls/hr Q24H CHRIS Administration Protocol Sodium Chloride 1,000 mls @ 30 ml s/hr 10/06/20 10:15 Sodium Chloride 0.9% IV 10/07/20 10:14 .Q24H CHRIS Sodium Chloride 500 mls @ 999 mls /hr 10/06/20 10:04 Sodium Chloride 0.9% IV .Q31M PRN HYPOTENSION Meperidine HCl 12.5 mg 10/06/20 10:04 Meperidine 50 Mg /Ml Inj IVP 10/07/20 10:05 Q5M PRN Shivering PACU Ph ase I Metoprolol Tartrat e 50 mg 10/06/20 09:00 10/06/20 08:31 Metoprolol Tartr ate 50 Mg Tablet PO Not Given BID CHRSI Morphine Sulfate 2 mg 10/06/20 09:14 Morphine 4 Mg/Ml Sdv 1 Ml IVP Q2H PRN SEVERE PAIN Naloxone HCl 0.1 mg 10/06/20 05:49 Naloxone 0.4 Mg/ Ml Sdv IVP Q2M PRN OPIATERV Ondansetron HCl 4 mg 10/06/20 05:49 Ondansetron 2 Mg /Ml Sdv 2 Ml IVP Q8H PRN vomiting, or N/V if npo Ondansetron HCl 4 mg 10/06/20 10:04 Ondansetron 2 Mg /Ml Sdv 2 Ml IVP Q5M PRN NAUSEA AND VOMITI NG Ondansetron HCl 4 mg 10/06/20 10:04 Ondansetron 2 Mg /Ml Sdv 2 Ml IVP 10/07/20 10:05 Q5M PRN Nausea PACU Phase I Ondansetron HCl 4 mg 10/06/20 10:04 Ondansetron 2 Mg /Ml Sdv 2 Ml IVP Q15M PRN Nausea/Vomiting P ACU PHASE II Tamsulosin HCl 0.4 mg 10/06/20 09:00 10/06/20 08:31 Tamsulosin 0.4 M g Capsule PO Not Given DAILY [facility] Zolpidem Tartrate 10 mg 10/06/20 21:00 Zolpidem 10 Mg T ablet PO BEDTIME CHRIS ketorolac [From Toradol] Allergy (Verified 09/19/20 14:25) ALGY-Rash simvastatin Allergy (Verified 09/19/20 14:25) ADR-Vomiting Vitals/I&O/Wt Last Vital Signs Temp 98.0 F 10/06/20 11:34 Pulse 98 10/06/20 11:40 Resp 18 10/06/20 11:40 BP 117/75 10/06/20 11:40 Pulse Ox 97 10/06/20 11:40 10/05/20 10/06/20 10/06/20 22:59 06:59 14:59 Intake Total 0 / 0 Output Total 0 / 0 Balance 0 / 0 Weight last 48 hrs Weight 85.411 kg Weight 85.36 kg Physical Exam Const: COMMON NORMALS: no acute distress and patient oriented x3 GENERAL APPEARANCE: cooperative, comfortable and lethargic ORIENTATION/CONSCIOUSNESS: Yes lethargic HENMT: COMMON NORMALS: normocephalic, atraumatic, hearing grossly normal bilaterally and moist oral mucous membranes HEAD & SCALP: normocephalic and atraumatic Eye: COMMON NORMALS: Equal, round and reactive pupils present, EOMs intact bilaterally and conjunctivae normal CONJUNCTIVA: Yes conjunctivae normal PUPIL: Yes Equal, round and reactive pupils present Neck/C-Spine: COMMON NORMALS: full ROM GENERAL: Yes normal visual inspection and Yes trachea midline Resp: COMMON NORMALS: normal respiratory effort, No retractions and No use of accessory muscles EFFORT & INSPECTION: Yes able to speak in complete sen tences, Yes symmetric chest movement and No tachypneic AUSCULTATION: wheezes expiratory wheezes OTHER: -on 2 L NC Cardio: COMMON NORMALS: regular rate, regular rhythm, S1 normal heart sound present, S2 normal heart sound present and No murmurs present (Cardio) RATE: regular rate RHYTHM: regular rhythm HEART SOUNDS: S1 normal heart sound pr esent and S2 normal heart sound present GI: COMMON NORMALS: Normal to inspection, nondistended, normoactive bowel sounds present, Soft to palpation and non-tender PALPATION: Yes Soft to palpation : BLADDER/KIDNEY EXAM: Yes catheter in place Catheter type (Female): urethral Extremity: COMMON NORMALS: normal to inspection, full ROM and no clubbing, cyanosis or edema; negative for no pedal edema Neuro: COMMON NORMALS: patient oriented x3, moves all extremities, no focal motor deficits and no sensory deficits noted SENSORIUM/ORIENTATION: Yes lethargic Psych: COMMON NORMALS: mental status grossly normal, Normal thought process present, cooperative, normal affect and speech normal SPEECH: Yes normal speech THOUGHT PROCESS: Normal thought process present Skin: COMMON NORMALS: no rashes or lesions noted, no jaundice, no petechiae and no mottling GENERAL SKIN EXAM: no rashes or lesions noted Urinary Catheter Management^: Gurrola: Cath Placed During This Visit: yes Urinary Catheter Date of Insertion: 10/06/20 Urinary Catheter Time of Insertion: 11:22 Data : 10/06/20 06:22 10/06/20 06:22 A&P Assessment and plan (1) Right ureteral calculus: -with increased pain -known large distal ureteral stone -concurrent UTI -s/p emergent cystoscopy with R ureteroscopy laser and stent placement by Dr. Raheem fairbanks -IVF hydration, pain control, and antiemetics PRN -on Ceftriaxone -has Gurrola catheter in place Status: Acute (2) Renal calculi: -as noted above Status: Acute (3) Hydronephrosis due to obstruction of ureter: -s/p R ureteral stent placement Status: Acute (4) Depression: -resume meds Status: Chronic Qualifiers: Depression Type: unspecified Qualified Code(s): F32.9 - Major depressive disorder, single episode, unspecified (5) GERD (gastroesophageal reflux disease): -continue famotidine Status: Chronic Qualifiers: Esophagitis presence: esophagitis presence not specified Qualified C ode(s): K21.9 - Gastro-esophageal reflux disease without esophagitis (6) Recurrent UTI: -UA indicative of infection -f/u urine and blood cx -continue IV antibiotics; grew ESBL E.coli in last set of urine cx so switch to primaxin Status: Acute (7) COPD (chronic obstructive pulmonary disease): -not oxygen dependent at baseline -continue to monitor respiratory status -supplemental oxygen as needed Status: Chronic Qualifiers: COPD type: unspecified COPD Qualified Code(s): J44.9 - Chronic obstructive pulmonary disease, unspecified Additional A&P Information -diet when appropriate -GI ppx with PPI -DVT ppx with SCDs -Dispo: home -Code status: FULL code Attestations Medical Necessity Statement*: Patient requires hospitalization for continued IV antibiotic therapy, IV fluid hydration secondary to complicated UTI be with right ureteral stent placement due to hydronephrosis and large distal ureteral stone. Time Spent in Patient Care: 16 - 35 minutes (>than 50% of time spent in counselling and/or direct pt care on unit) . Coding Level of Care Code Acute It Engineer for Chg Fwd Exam Comprehensive Diagnoses Right ureteral calculus N20.1 Renal calculi N20.0 Hydronephrosis due to obstruction of ureter N13.2 Depression F32.9 Depression Type: unspecified GERD (gastroesophageal reflux disease) K21.9 Esophagitis presence: esophagitis presence not specified Recurrent UTI N39.0 COPD (chronic obstructive pulmonary disease) J44.9 COPD type: unspecified COPD
--- NOTE | 2020-10-06 11:50 | ANE.PACU2 ---
Inpatient post-anesthesia follow up: Airway intact: Yes Vital signs: Temperature 98.0 F Pulse Rate 98 Respiratory Rate 18 Blood Pressure 117/75 Pulse Oximetry 97 Oxygen Delivery Me thod Nasal Cannula Oxygen Flow Rate 2 Fraction of Inspir ed Oxygen Hydration adequate: Yes Nausea and vomiting: No Pain level: 5 Mental status: Baseline
--- NOTE | 2020-10-06 15:02 | PC.CHAP ---
Pastoral Care Encounter/Spiritual Assessment Type of Contact [] Declined senior safety management consultant visit [] Patient/Family/Request visit [] Outpatient visit [] Follow-up visit [] Physician referral [] Code/Alert [x] Routine visit [] Staff referral [] Actively dying [] Patient sleeping [] Family support [] [] Out of room [] Palliative care [] [] Receiving care in room [] Pre-surgical visit [] Trauma [] Long length of stay [] ICU visit [] Other: Relational/Emotional Strength [] Patient feels connected with others/family/visitors/staff [] Distress [] Loneliness/isolation [] Abandonment Spirituality of Patient [] Person of Sarah [] Attends Spiritism of their Sarah [] Believes in Prayer [] Reads Bible or Scientologist materials [] There are Spiritual issues to be addressed Hvac Installation Technician Interventions [] Prayer [] Active listening [] Non-anxious presence [] Spiritual/emotional support [] Crisis/trauma care [] Spiritual counseling [] Bereavement support [] Provided bereavement packet [] Provided Bible/devotional materials [] Provided toy/stuffed animal, coloring book to patient or family member [] Provided Communion [] Anointing/Convent [] Salvation [] Completed spiritual assessment [] Other: Impact on Illness or Injury [] Angry [] Fearful [] Anxious [] Often cries [] Exhaustion [] Unable to work [] Unable to attend anabaptism [] Unable to walk/stand [] Unable to read [] Unable to drive [] Unable to eat/drink [] Unable to sleep [] Unable to be with family [] Patient intubated [] Other: Summary Time spent with patient
[2020-10-06 17:05] LABS: Glucose Point of Care 173 mg/dL (70-110)
[2020-10-06] MEDS: metoprolol tartrate 50 mg Tablet PO (18:09)
[2020-10-07] VITALS (8 sets, daily range): BP systolic 109–130; BP diastolic 65–76; PULSE 82–104; RESP 16–20; TEMP 37.1; O2SAT 92–97
[2020-10-07] MEDS: sodium chloride 0.9% 1,000 ML 150 ML IV (00:46)
[2020-10-07] MEDS: morphine 4 mg/mL SDV 1 mL 2 MG IVP ×2 (02:26→04:50)
[2020-10-07 05:27] LABS: Basophils % 0.4 %; Eosinophils # 0.2 10^3/uL (0.0-0.8); Eosinophils % 1.9 %; Hematocrit 30.4 % (37.0-47.0); Hemoglobin 10.3 g/dL (11.5-15.3); Lymphocytes # 0.7 10^3/uL (0.8-4.8); Lymphocytes % 7.3 %; Mean Corpuscular HGB Conc 33.9 g/dL (30.0-36.0); Mean Corpuscular Hemoglobin 32.1 pg (28.0-34.0); Mean Corpuscular Volume 94.7 fL (81-99); Mean Platelet Volume 10.1 fL (7.4-10.4); Monocytes # 0.7 10^3/uL (0.2-0.9); Monocytes % 7.5 %; Neutrophils # 7.38 10^3/uL (1.8-7.7); Neutrophils % 80.7 %; Nucleated Red Blood Cells % 0 %; Platelet Count 105 10^3/cmm (130-400); Red Blood Count 3.21 10^6/uL (4.1-5.3); Red Cell Distribution Width 12.6 % (12.1-15.1); White Blood Count 9.2 10^3/uL (4.0-10.0)
[2020-10-07] MEDS: enoxaparin 40 mg/0.4 mL Syringe SUBCUT (05:42)
--- NOTE | 2020-10-07 05:53 | PC.NURSE ---
SHIFT SUMMARY Has received IV Morphine several times tonight for c/o pain in RLQ abdomen. Tried po Dilaudid once but c/o did not help. Is going to try it again this morning. Wants to go home but is aware cannot go if pain is unrelieved and may need to have more IV antibiotics for infection. Has had 1050 ml urine output per Gurrola. Urine cloudy with mucous and sediment small amt of blood streaking once. Pt was up to bathroom X2 attempt to have a BM. c/o some pressure. Only passed gas. Has taken po fluids well. IV infusing at 150ml/hr rate.
[2020-10-07 05:58] LABS: Anion Gap 10.5 (5-19); Blood Urea Nitrogen 18 mg/dL (6-20); Calcium 8.2 mg/dL (8.5-10.5); Carbon Dioxide 24 mmol/L (22-29); Chloride 104 mmol/L (98-107); Glomerular Filtration Rate 65.5 mL/min (90-130); Glucose 107 mg/dL (65-115); Magnesium 1.4 mg/dL (1.7-2.3); Osmolality Calculated 282 mOsm/kg (285-295); Phosphorus 1.9 mg/dL (2.5-4.5); Potassium 3.5 mmol/L (3.5-5.1); Sodium 135 mmol/L (136-145)
[2020-10-07] MEDS: famotidine 20 mg/2 mL INJ IVP (06:30)
[2020-10-07 06:57] LABS: Slide Review Slide Review Perform
[2020-10-07] MEDS: ipratropium-albuterol 3 mL Neb INHALATION (08:18)
[2020-10-07] MEDS: atorvastatin 40 mg Tablet 20 MG PO (08:23)
[2020-10-07] MEDS: metoprolol tartrate 50 mg Tablet PO (08:24)
--- NOTE | 2020-10-07 08:24 | P.DS_ITS ---
Discharge Providers Date of Admission: 10/06/20 04:09 Date of Discharge: October 07, 2020 Attending Provider at Admission: Avelino Santos MD Attending Provider at Discharge: Debra Simpson MD Primary Care Provider: Shari Gray DO Diagnoses at Discharge Discharge Diagnosis (1) Right ureteral calculus: Status: Resolved Permanent problem details: Left mid/distal Large obstructing ureteral stone complicated by UTI. Treated with urgent ureteroscopy laser lithotripsy 10/06/20 (2) Renal calculi: Status: Acute (3) Hydronephrosis due to obstruction of ureter: Status: Resolved (4) Depression: Status: Chronic Qualifiers: Depression Type: unspecified Qualified Code(s): F32.9 - Major depressive disorder, single episode, unspecified (5) GERD (gastroesophageal reflux disease): Status: Chronic Qualifiers: Esophagitis presence: esophagitis presence not specified Qualified Code(s): K21.9 - Gastro-esophageal reflux disease without esophagitis (6) Recurrent UTI: Status: Acute (7) COPD (chronic obstructive pulmonary disease): Status: Chronic Qualifiers: COPD type: unspecified COPD Qualified Code(s): J44.9 - Chronic obstructive pulmonary disease, unspecified Reason for Visit Reason for Visit: Brief History: Refractory right renal colicky symptoms secondary to large right ureteral calculus with acute cystitis symptoms. Hospital Course Hospital Course Patient was initially evaluated at [facility] and was found to have a 8 was transferred to [facility] emergency department and direct admitted to the hospitalist service for refractory symptoms. Mm stone in the right distal ureter causing obstruction. Urinalysis did show evidence of a UTI but her white count was elevated and she had no fever. Her pain was very poorly controlled. On the morning of 10/06/2020 she was evaluated by urology and recommendations were made to proceed to surgical intervention due to the severity of her symptoms and the concern regarding her UTI. Intraoperatively she was found to have a large obstructing stone as expected per CT scan. Her urine did look infected. She was hemodynamically stable and for that reason the stone was treated with laser lithotripsy and she did well. There is no evidence of any progression of infectious concerns intraoperatively or postoperatively. Remained afebrile throughout her postoperative course. Pain resolved after procedure. She was still having some stent discomfort but this was well controlled. Was maintained on antibiotics through her hospital stay and continued at discharge. Discharged on postoperative day #1 in stable condition. She was originally placed on inpatient status anticipating >2 midnight hospital stay but she improved dramatically after treatment of the stone and antibiotic therapy. She was deemed to be a good candidate for further convalescence at home. Reviewed the need to communicate regarding her pending cultures. Was to continue antibiotics until after treatment of the remaining large renal calculi with ESWL most likely on 10/15/2020. Physical Exam Const: COMMON NORMALS: no acute distress, alert and well nourished GENERAL APPEARANCE: well kempt and well developed ORIENTATION/CONSCIOUSNESS: not confused OTHER: Huge improvement clinically. Pain well controlled. HENMT: COMMON NORMALS: normocephalic and atraumatic HEAD & SCALP: normocephalic and atraumatic Eye: COMMON NORMALS: conjunctivae normal and no scleral icterus CONJUNCTIVA: Yes conjunctivae normal Neck/C-Spine: COMMON NORMALS: full ROM GENERAL: Yes normal visual inspection Resp: COMMON NORMALS: normal respiratory effort EFFORT & INSPECTION: No labored and No Actively coughing Extremity: COMMON NORMALS: no clubbing, cyanosis or edema Neuro: COMMON NORMALS: no focal motor deficits SENSORIUM/ORIENTATION: Yes alert Psych: COMMON NORMALS: mental status grossly normal APPEARANCE: Yes grossly normal and Yes well kempt ATTITUDE: Yes calm and Yes engaged Skin: COMMON NORMALS: no rashes or lesions noted GENERAL SKIN EXAM: no rashes or lesions noted Urinary Catheter Management^: Gurrola: Cath Placed During This Visit: yes Reason for Continuing Indwelling Catheter: Acute Urinary Retention or Obstruction Urinary Catheter Date of Insertion: 10/06/20 Urinary Catheter Time of Insertion: 11:22 Discharge Data Data Completed and Pending: Pending at discharge Category Date Time Status C-arm FL for Urol ogy Routine Exams 10/06/20 10:28 Taken Blood Culture Sta t Lab 10/06/20 15:43 Results Magnesium AM LABS Lab 10/08/20 04:00 Ordered Magnesium AM LABS Lab 10/09/20 04:00 Ordered Phosphorus AM LAB S Lab 10/08/20 04:00 Ordered Phosphorus AM LAB S Lab 10/09/20 04:00 Ordered Stone Analysis Ro utine Lab 10/06/20 11:30 Ordered Urine Culture Rou alisson Lab 10/06/20 08:00 Received Labs from last 24 hours 1210/07/20 10/07/20 04:49 04:49 04:49 WBC 9.2 RBC 3.21 L Hgb 10.3 L Hct 30.4 L MCV 94.7 MCH 32.1 MCHC 33.9 RDW 12.6 Plt Count 105 L MPV 10.1 Neut % (Auto) 80.7 Lymph % (Auto) 7.3 [place] % (Auto) 7.5 Eos % (Auto) 1.9 Baso % (Auto) 0.4 Neut # (Auto) 7.38 Lymph # (Auto) 0.7 L [place] # (Auto) 0.7 Eos # (Auto) 0.2 Baso # (Auto) 0.0 Nucleated RBC % (a uto) 0 Nucleated RBCs # 0.0 Sodium 135 L Potassium 3.5 Chloride 104 Carbon Dioxide 24 Anion Gap 10.5 BUN 18 Creatinine 0.9 GFR Calculation 65.5 L Glucose 107 POC Glucose Calculated Osmolal ity 282 L Calcium 8.2 L Phosphorus 1.9 L Magnesium 1.4 L Total Protein Procalcitonin 10/06/20 10/06/20 16:55 06:22 WBC RBC Hgb Hct MCV MCH MCHC RDW Plt Count MPV Neut % (Auto) Lymph % (Auto) [place] % (Auto) Eos % (Auto) Baso % (Auto) Neut # (Auto) Lymph # (Auto) [place] # (Auto) Eos # (Auto) Baso # (Auto) Nucleated RBC % (a uto) Nucleated RBCs # Sodium Potassium 3.2 L Chloride Carbon Dioxide Anion Gap BUN Creatinine 1.1 H GFR Calculation 52.0 L Glucose 119 H POC Glucose 173 Calculated Osmolal ity Calcium 8.5 Phosphorus Magnesium Total Protein 5.7 L Procalcitonin 7.27 H Vitals: Last Vital Signs Temp 98.7 F 10/07/20 07:29 Pulse 104 H 10/07/20 08:18 Resp 18 10/07/20 08:18 BP 111/65 10/07/20 07:29 Pulse Ox 92 10/07/20 08:18 Discharge Plan Discharge Patient Disposition: Home Condition: Stable Prescriptions: New levofloxacin 500 mg tablet 500 mg PO DAILY 14 Days Qty: 14 RF: 1 Deputy 5-325 mg tablet 1 tab PO Q8H PRN (Reason: pain) Qty: 15 RF: 0 Continued atorvastatin 20 mg tablet 20 mg PO DAILY@09 RF: 0 metoprolol tartrate 50 mg tablet 50 mg PO Q12H RF: 0 zolpidem 10 mg tablet 10 mg PO DAILY@2100 RF: 0 ibuprofen 200 mg capsule 200 mg PO Q6H PRN (Reason: Pain) RF: 0 albuterol sulfate [Ventolin HFA] 90 mcg/actuation HFA aerosol inhaler 2 puff inhalation Q6H PRN (Reason: sob) RF: 0 tamsulosin 0.4 mg capsule 0.4 mg PO DAILY Qty: 30 RF: 0 promethazine 25 mg tablet 25 mg PO Q6H PRN (Reason: nausea and vomiting) Qty: 14 RF: 0 omeprazole 40 mg capsule,delayed release(DR/EC) 40 mg PO DAILY@09 RF: 0 alprazolam 0.25 mg tablet 0.25 mg PO BID PRN (Reason: Anxiety) RF: 0 buspirone 15 mg tablet 15 mg PO BID@,21 RF: 0 Symbicort 160-4.5 mcg/actuation HFA aerosol inhaler See Rx Instructions .ROUTE .COMPLEX RF: 0 Discontinued sulfamethoxazole-trimethoprim 800-160 mg tablet 1 tab PO BID Qty: 20 RF: 0 Discharge Orders: Discharge Order (Routine); Ordered 10/07/20 Ordered By: Jeremy Herbert Referrals: Jeremy Herbert MD [Physician] - 10/10/20 (With KUB first before visit. Tentative plan for ESWL 10/15/2020.) Discharge Diet: Usual diet Discharge Activity: Increase activity as tolerated Activity Restrictions/Additional Instructions: 1. Plan on shockwave treatment to the kidney stone that remains 05/15/2020. We will follow-up Thursday of next week for confirmation of that along with a plain x-ray. 2. Please call my office Thursday or Thursday to confirm culture results and correctness of Levaquin as your antibiotic. Discharge Attestations Time Spent in Discharge Care*: greater than 30 min Quality Metrics Clinical Quality Measures During this hospital stay, did patient experience: None Coding Level of Care Code Acute Senior It Auditor for Tjg Fwd Diagnoses Right ureteral calculus N20.1 Renal calculi N20.0 Hydronephrosis due to obstruction of ureter N13.2 Depression F32.9 Depression Type: unspecified GERD (gastroesophageal reflux disease) K21.9 Esophagitis presence: esophagitis presence not specified Recurrent UTI N39.0 COPD (chronic obstructive pulmonary disease) J44.9 COPD type: unspecified COPD
[2020-10-07] MEDS: acetaminophen 325 mg Tablet 650 MG PO (08:26)
--- NOTE | 2020-10-07 08:42 | P.PN_ITS ---
Subjective Subjective: Interval history: Hemodynamically stable, afebrile, on RA, had 1050 mL urine output overnight. Is POD # 1 s/p emergent cystoscopy, ureteroscopy and R stent placement. Discontinue Gurrola catheter, required 2 mg dose of Morphine IV and 2 mg dose of dilaudid PO overnight for pain control. Discharge home today. Medications: Reviewed: Yes Medication Review Details: Active Medications Generic Name Dose Route Start Last Admin Trade Name Freq PRN Reason Stop Dose Admin Acetaminophen 650 mg 10/06/20 05:49 10/07/20 08:26 Acetaminophen 32 5 Mg Tablet PO 650 mg Q6H PRN Administration Mild/Mod Pain Or Temp >/= 101 Albuterol/Ipratrop ium 3 ml 10/06/20 15:30 10/07/20 08:18 Ipratropium-Albu terol 3 Ml Neb INHALATION 3 ml Q6H PRN Administration SHORTNESS OF JUAN TH Atorvastatin Calci um 20 mg 10/06/20 09:00 10/07/20 08:23 Atorvastatin 40 Mg Tablet PO 20 mg DAILY CHRIS Administration Bisacodyl 10 mg 10/06/20 05:49 Bisacodyl 5 Mg T ablet PO DAILY PRN CONSTIPATION Enoxaparin Sodium 40 mg 10/06/20 06:00 10/07/20 05:42 Enoxaparin 40 Mg /0.4 Ml Syringe SUBCUT 40 mg Q24H CHRIS Administration Famotidine 20 mg 10/06/20 06:00 10/07/20 06:30 Famotidine 20 Mg /2 Ml Inj IVP 20 mg Q12H CHRIS Administration Hydromorphone HCl 2 mg 10/06/20 05:49 10/07/20 06:22 Hydromorphone 4 Mg Tablet PO 2 mg Q6H PRN Administration SEVERE PAIN Sodium Chloride 1,000 mls @ 150 m ls/hr 10/06/20 06:00 10/07/20 00:46 Sodium Chloride 0.9% IV 150 mls/hr .Q6H40M CHRIS Administration Imipenem/Cilastati n Sodium 500 100 mls @ 200 mls /hr 10/06/20 13:00 10/07/20 08:19 mg/ Sodium Chlor ruben IV 200 mls/hr Q6H CHRIS Administration Protocol Levofloxacin 500 mg 10/08/20 06:00 Levofloxacin 500 Mg Tablet PO DAILY@0600 [facility] Protocol Metoprolol Tartrat e 50 mg 10/06/20 09:00 10/07/20 08:24 Metoprolol Tartr ate 50 Mg Tablet PO 50 mg BID CHRIS Administration Morphine Sulfate 2 mg 10/06/20 09:14 10/07/20 04:50 Morphine 4 Mg/Ml Sdv 1 Ml IVP 2 mg Q2H PRN Administration SEVERE PAIN Naloxone HCl 0.1 mg 10/06/20 05:49 Naloxone 0.4 Mg/ Ml Sdv IVP Q2M PRN OPIATERV Ondansetron HCl 4 mg 10/06/20 05:49 Ondansetron 2 Mg /Ml Sdv 2 Ml IVP Q8H PRN vomiting, or N/V if npo Zolpidem Tartrate 10 mg 10/06/20 21:00 10/06/20 20:29 Zolpidem 10 Mg T ablet PO 10 mg BEDTIME CHRIS Administration ketorolac [From Toradol] Allergy (Verified 09/19/20 14:25) ALGY-Rash simvastatin Allergy (Verified 09/19/20 14:25) ADR-Vomiting Vitals/I&O/Wt Last Vital Signs Temp 98.7 F 10/07/20 07:29 Pulse 104 H 10/07/20 08:18 Resp 18 10/07/20 08:18 BP 111/65 10/07/20 07:29 Pulse Ox 92 10/07/20 08:18 10/06/20 10/07/20 10/07/20 22:59 06:59 14:59 Intake Total 1740 / 2890 580 / 3470 Output Total 1050 / 1050 350 / 350 Balance 1740 / 2890 -470 / 2420 -350 / -350 Weight last 48 hrs Weight 85.411 kg Weight 85.36 kg Physical Exam Const: COMMON NORMALS: no acute distress, patient oriented x3 and alert GENERAL APPEARANCE: cooperative and comfortable HENMT: COMMON NORMALS: normocephalic, atraumatic, hearing grossly normal bilaterally and moist oral mucous membranes HEAD & SCALP: normocephalic and atraumatic Eye: COMMON NORMALS: Equal, round and reactive pupils present, EOMs intact bilaterally and conjunctivae normal CONJUNCTIVA: Yes conjunctivae normal PUPIL: Yes Equal, round and reactive pupils present Neck/C-Spine: COMMON NORMALS: full ROM GENERAL: Yes normal visual inspection and Yes trachea midline Resp: COMMON NORMALS: normal respiratory effort, No retractions and No use of accessory muscles EFFORT & INSPECTION: Yes able to speak in complete sentences, Yes symmetric chest movement and No tachypneic AUSCULTATION: wheezes expiratory wheezes OTHER: -on RA Cardio: COMMON NORMALS: regular rate, regular rhythm, S1 normal heart sound present, S2 normal heart sound present and No murmurs present (Cardio) RATE: regular rate RHYTHM: regular rhythm HEART SOUNDS: S1 normal heart sound present and S2 normal heart sound present GI: COMMON NORMALS: Normal to inspection, nondistended, normoactive bowel sounds present, Soft to palpation and non-tender PALPATION: Yes Soft to palpation : BLADDER/KIDNEY EXAM: Yes catheter in place Catheter type (Female): urethral Extremity: COMMON NORMALS: normal to inspection, full ROM and no clubbing, cyanosis or edema; negative for no pedal edema Neuro: COMMON NORMALS: patient oriented x3, moves all extremities, no focal motor deficits and no sensory deficits noted SENSORIUM/ORIENTATION: Yes alert Psych: COMMON NORMALS: mental status grossly normal, Normal thought process present, cooperative, normal affect and speech normal SPEECH: Yes normal speech THOUGHT PROCESS: Normal thought process present Skin: COMMON NORMALS: no rashes or lesions noted, no jaundice, no petechiae and no mottling GENERAL SKIN EXAM: no rashes or lesions noted Urinary Catheter Management^: Gurrola: Cath Placed During This Visit: yes Reason for Continuing Indwelling Catheter: Acute Urinary Retention or Obstru ction Urinary Catheter Date of Insertion: 10/06/20 Urinary Catheter Time of Insertion: 11:22 Data : 10/07/20 04:49 10/07/20 04:49 Micro: Microbiology 10/06/20 08:00 Urine Culture - Preliminary Urine,Voided 10/06/20 15:43 Blood Culture - Preliminary Blood SPECIMEN COLLECTED 10/06/20 06:22 Blood Culture - Preliminary Blood SPECIMEN COLLECTED A&P Assessment and plan (1) Right ureteral calculus: -with increased pain -known large distal ureteral stone -concurrent UTI -s/p emergent cystoscopy with R ureteroscopy laser and stent placement by Dr. Herbert: POD # 1 -IVF hydration, pain control, and antiemetics PRN -on Ceftriaxone -has Gurrola catheter in place; d/c today Status: Resolved (2) Renal calculi: -as noted above Status: Acute (3) Hydronephrosis due to obstruction of ureter: -s/p R ureteral stent placement; POD # 1 Status: Resolved (4) Depression: -resume meds Status: Chronic Qualifiers: Depression Type: unspecified Qualified Code(s): F32.9 - Major depressive disorder, single episode, unspecified (5) GERD (gastroesophageal reflux disease): -continue famotidine Status: Chronic Qualifiers: Esophagitis presence: esophagitis presence not specified Qualified Code(s): K21.9 - Gastro-esophageal reflux disease without esophagitis (6) Recurrent UTI: -UA indicative of infection -f/u blood cx -urine cx: GNRs, low colony count -continue IV antibiotics; grew ESBL E.coli in last set of urine cx so switched to primaxin Status: Acute (7) COPD (chronic obstructive pulmonary disease): -not oxygen dependent at baseline -continue to monitor respiratory status -supplemental oxygen as needed Status: Chronic Qualifiers: COPD type: unspecified COPD Qualified Code(s): J44.9 - Chronic obstructive pulmonary disease, unspecified Additional A&P Information -diet when appropriate -GI ppx with PPI -DVT ppx with SCDs -Dispo: home -Code status: FULL code Attestations Medical Necessity Statement*: Discharge home today Time Spent in Patient Care: less than 15 minutes (>than 50% of time spent in counselling and/or direct pt care on unit) . Coding Level of Care Code Acute Temporary Office Assistant for Chg Fwd Exam Comprehensive Diagnoses Right ureteral calculus N20.1 Renal calculi N20.0 Hydronephrosis due to obstruction of ureter N13.2 Depression F32.9 Depression Type: unspecified GERD (gastroesophageal reflux disease) K21.9 Esophagitis presence: esophagitis presence not specified Recurrent UTI N39.0 COPD (chronic obstructive pulmonary disease) J44.9 COPD type: unspecified COPD
[2020-10-07] MEDS: levoFLOXacin 500 mg Tablet PO (09:52)
--- NOTE | 2020-10-08 11:03 | PC.RESP ---
Smoking Cessation and Pulmonary Rehab packet sent to patient.
[2020-10-14 03:23] LABS: Stone Source RIGHT URETERAL STONE
--- NOTE | 2020-10-15 15:19 | PC.SOCIAL ---
Discussed with Dr Guillaume Micro results showing 1 of 4 BC positive for Ecoli ESBL. Per Dr Guillaume this is likely not a contaminate. Since patient has been dc'd since 10/07/2020 recommend to follow up and see how patient is doing. If asymptomatic including no fever have her continue oral Levaquin and follow up with PCP. Called patient who indicates she overall does not feel well. She is weaker than normal and has no energy. She is not having fever at this time. She saw Dr Herbert today and wanted me to reach out to him first to see if he recommends anything other than what she is currently on. Called Rocío Herbert nurse and per Rocío it would be best if this is discussed with primary care. Per Rocío patient procedure has been rescheduled with Dr Herbert to 10/22/2020. Called Dr Gray office and spoke with her nurse Melvina. She was very helpful. We discussed micro results and patient not feeling well. She was in agreement that culture results be faxed to her attention and she will call patient to get her in tomorrow with Dr Gray. Faxed results with confirmation that they were sent successfully. Called patient back to update her and she verbalized understanding. She also indicates Melvina has called her and appt is set for tomorrow at 11am. She appreciates the follow up call and plans to attend appointment.
== END 2020-10-07 10:05 | disposition home or self-care (01) | DRG 661 ==
PROVIDERS: Urology; Admitting Provider Internal Medicine; PCP Family Medicine; Visit Provider Family Medicine
PROC: 0TJB8ZZ Inspection of Bladder, Via Natural or Artificial Opening Endoscopic (ICD-10-PCS; CPT 52000; principal; 2020-10-06 11:45)
PROC: 0TJ98ZZ Inspection of Ureter, Via Natural or Artificial Opening Endoscopic (ICD-10-PCS; CPT 52351; 2020-10-06 11:45)
PROC: 0T768DZ Dilation of Right Ureter with Intraluminal Device, Via Natural or Artificial Opening Endoscopic (ICD-10-PCS; 2020-10-06 11:45)
PROC: 0T768DZ Dilation of Right Ureter with Intraluminal Device, Via Natural or Artificial Opening Endoscopic (ICD-10-PCS; CPT 50605; 2020-10-06 11:45)
PROC: 0T768DZ Dilation of Right Ureter with Intraluminal Device, Via Natural or Artificial Opening Endoscopic (ICD-10-PCS; CPT 74420; 2020-10-06 11:45)
DX: N13.2 Hydronephrosis with renal and ureteral calculous obstruction (principal); Z87.440 Personal history of urinary (tract) infections; J44.9 Chronic obstructive pulmonary disease, unspecified; K21.9 Gastro-esophageal reflux disease without esophagitis; F32.9 Major depressive disorder, single episode, unspecified; E78.5 Hyperlipidemia, unspecified; F17.210 Nicotine dependence, cigarettes, uncomplicated; Z87.442 Personal history of urinary calculi; N39.0 Urinary tract infection, site not specified; B96.20 Unspecified Escherichia coli [E. coli] as the cause of diseases classified elsewhere
CPT/HCPCS: 12345; 36415; 36416; 76000; 80048; 80053; 82365; 82962; 83605; 83735; 84100; 84145; 85025; 85610; 87040; 87077; 87086; 87186; 87205; 88300; 94640; 96372; 96375; C2625; J0330; J0696; J0743; J1100; J1170; J1650; J2270; J2405; J2704; J3010; J3490; J7030

== ENCOUNTER 2020-10-15 08:03 | Outpatient (CLI) | payer MEDICARE, MEDICAID, SELFPAY ==
--- NOTE | 2020-10-15 07:15 | XR_ITS ---
WS: [id number] KUB, 10/15/2020 Clinical Data: RENAL STONE Comparison: C-arm fluoroscopy of the right abdomen, 10/06/2020. Findings: The right ureteral stent appears to extend from the bladder into the right renal pelvis. There is a l arge amount of fecal material throughout the colon obscuring detail. There are clips in the right upp er quadrant from surgery. XR/XR KUB [id number] Impression: Satisfactory placement of right ureteral stent.
== END 2020-10-15 08:04 | disposition home or self-care (01) ==
PROVIDERS: PCP Family Medicine; Visit Provider Urology
DX: N20.0 Calculus of kidney (principal); Z96.0 Presence of urogenital implants
CPT/HCPCS: 74018; 81003

== ENCOUNTER → 2020-10-16 16:02 | Outpatient (BNVA) | payer MEDICARE, MEDICAID, SELFPAY | PROVIDERS: PCP Family Medicine; Visit Provider Urology | DX: Z20.828 Contact with and (suspected) exposure to other viral communicable diseases (principal); N20.0 Calculus of kidney; Z01.812 Encounter for preprocedural laboratory examination | CPT/HCPCS: 87635 ==

== ENCOUNTER 2020-10-22 11:44 | Day surgery (SDC) | payer MEDICARE, MEDICAID, SELFPAY ==
[2020-10-19 12:40] VITALS: BMI 26.6
--- NOTE | 2020-10-22 11:53 | XRR_ITS ---
PROCEDURE INFORMATION: Exam: XR Abdomen, 1 View Exam date and time: 10/22/2020 12:09 PM Age: 55 years old Clinical indication: Screening exam; Other: Preop right eswl TECHNIQUE: Imaging protocol: XR of the abdomen. Views: Frontal supine view of the abdomen. 1 View. COMPARISON: CR XR KUB [id number] 10/15/2020 8:15 AM FINDINGS: Tubes, catheters and devices: A right side ureteral stent is in place in good position appearing similar to prior examination. Gastrointestinal tract: Normal. No bowel dilation. Evidence of cholecystectomy is seen with metallic surgical clips in the right upper quadrant. There is moderate colonic fecal stasis in the ascending and transverse colon. Organs: The right kidney is partially obscured by colonic contents. Bones/joints: Unremarkable. XR/XR KUB [id number] IMPRESSION: 1. No acute findings. 2. Status post cholecystectomy 3. Right side ureteral stent in good position.
[2020-10-22 12:16] VITALS: BP 129/44; PULSE 66; RESP 18; TEMP 36.6; O2SAT 96
--- NOTE | 2020-10-22 12:39 | W.PM.OPSUD ---
Surgery/Procedure H&P Update DATE OF PROCEDURE: October 22, 2020 DATE H&P PERFORMED: 10/15/20 H&P UPDATE INFORMATION: I have reviewed H&P completed within last 30 days, I have examined patient prior to procedure, No changes to prior documentation and H&P is in [facility] [place] on date indicated PREOP DIAGNOSIS: Right renal calculus PLANNED PROCEDURE: Operation Date: 10/22/20 13:25 Proposed Procedures p right ESWL 92871 n20.0(Right) - Jeremy Herbert MD
--- NOTE | 2020-10-22 12:50 | ANES.PREANE2 ---
Pre-Anesthetic Assessment Pre-Anesthetic Assessment: Height/Weight: Height 1.75 m Weight 81.647 kg Temp Pulse Resp BP Pulse Ox 97.8 F 66 18 129/44 96 10/22/20 12:16 10/22/20 12:16 10/22/20 12:16 10/22/20 12:16 10/22/20 12:16 Preop Diagnosis: Right renal calculus Proposed Procedure: Operation Date: 10/22/20 13:25 Proposed Procedures p right ESWL 50905 n20.0(Right) - Jeremy Herbert MD Was Beta Chikis taken within 24 hours: Yes Last intake: Intake Last Liquid Date 10/21/20 Last Solid Date 10/21/20 Social: Social History: Tobacco and No alcohol Exam: Pre-Anes Outpt Exam: alert, oriented x 3 and regular rate & rhythm Additional Exam Findings (including area of procedure): Rhonchi Airway: Submandibular: WNL Cervical ROM: WNL MP: 2 Dentition: Full Pulmonary: Pulmonary: COPD CV/HEM: CV/HEM: HTN : Comments: Stones Hepatic: Hepatic: None reported GI: GI: GERD Metabolic: Metabolic: None reported Musc/skel: Musc/skel: None reported Neuropsych: Neuropsych: Anxiety Anesthetic Plan: ASA status: 3 Anesthesia: General Risk of > 500 ml blood loss (7ml/kg in children): No PFSH Anesthesia PFSH: Medical History Recurrent UTI Renal calculi Right ureteral calculus Left mid/distal Large obstructing ureteral stone complicated by UTI. Treated with urgent ureteroscopy laser lithotripsy 10/06/20 Surgical History H/O lithotripsy Hx of section X4 Hx of cholecystectomy Hx of hysterectomy Status post extracorporeal shock wave therapy Family History Other CAD (coronary artery disease) Cancer Chronic kidney disease (CKD) Hypertension Social History Smoking and tobacco status: current every day smoker Alcohol intake: current Alcohol intake frequency: holidays/special occasions only Adopted: No Caregiver/support person: No Lives independently: No Household members: spouse Marital status: Current occupational status: retired Data Anesthesia Cardiac Studies: No Data to Display
[2020-10-22] MEDS: midazolam 1 mg/mL INJ 2 mL 2 MG IVP (13:14)
[2020-10-22] MEDS: sodium chloride 0.9% 1,000 ML 30 ML IV (13:15)
[2020-10-22 13:50] VITALS: RESP 18
[2020-10-22] MEDS: fentaNYL 50 mcg/mL INJ 2mL IVP (13:50)
[2020-10-22] MEDS: levofloxacin-dextrose 5 % 500 MG/100 ML PREMIX 100 MG IV (14:00)
--- NOTE | 2020-10-22 14:49 | P.OP_ITS ---
Operative Report Date of procedure: October 22, 2020 Pre-op Diagnosis: Right renal calculus Post-op diagnosis: same Procedure Done: 1. Extracorporeal shockwave lithotripsy right upper pole stone Pathology: none sent Surgeon: Keon Title I Instructional Assistant: Lithotripsy Kennel Technician: Rolando Youngblood Anesthesia: General Estimated blood loss: None Urine output: Not measured Complications: None Findings: Stone easily localized. Treated with 2500 shocks with excellent fragmentation. Condition: stable Disposition: PACU Brief History: Kush is a very pleasant 55-year-old white female with a history of bilateral renal calculi requiring multiple procedures over the years. She recently was treated for obstructing stone in the right mid ureter. Prior to that she had passed a couple small stones. There is a residual right upper pole stone and she wanted to try to become free of all the larger stones in her kidneys. Admitted today for ESWL to the right upper pole calculus. Procedure: After routine preoperative evaluation examination and obtaining of informed consent she was taken to the operating suite on 10/22/2020 where general anesthesia was administered without difficulty after appropriate timeout was performed, SCDs confirmed to be functioning, preoperative antibiotics administered, beta-daryl protocol confirmed. Positioned on the Dornier unit such that the stone was located at the focal point with a shock head positioned posteriorly. The stone was easily identified. Shockwave was initiated at a rate of 70 and later advanced to 90. Intensity was initiated at 1 and advanced to 4 with a several minute pause after about 300 shocks. The stone appeared to change early. By the completion of the procedure it could not be readily identified. She was cardiac gated due to some intermittent PVCs but without any blood pressure issues. Tolerated the procedure well without complications and was awakened in the operating room and returned to the recovery room in stable condition. PLANS: 1. Anticipate discharge from outpatient surgery 2. Follow-up in approximately 1 week with a plain x-ray possible stent removal.
[2020-10-22 14:53] VITALS: BP 132/60; PULSE 63; RESP 18; TEMP 36.1; O2SAT 99
[2020-10-22 15:00] VITALS: BP 125/72; PULSE 64; RESP 17; TEMP 36.1; O2SAT 96
[2020-10-22 15:07] VITALS: BP 111/69; PULSE 65; RESP 18; TEMP 36.1; O2SAT 97
[2020-10-22] MEDS: HYDROcodone-acetaminophen 5-325 mg Tablet 1 TAB PO (15:44)
[2020-10-22 15:45] VITALS: BP 131/82; PULSE 62; RESP 18; O2SAT 97
--- NOTE | 2020-10-22 16:06 | ANE.PACU2 ---
Inpatient post-anesthesia follow up: Airway intact: Yes Vital signs: Temperature 97 F Pulse Rate 62 Respiratory Rate 18 Blood Pressure 131/82 Pulse Oximetry 97 Oxygen Delivery Me thod Room Air Oxygen Flow Rate Fraction of Inspir ed Oxygen Hydration adequate: Yes Nausea and vomiting: No Pain level: 2 Mental status: Baseline
== END 2020-10-22 16:05 | disposition home or self-care (01) ==
PROVIDERS: PCP Family Medicine; Visit Provider Urology
PROC: (CPT 50590; principal; 2020-10-22 13:25)
DX: N20.0 Calculus of kidney (principal); J44.9 Chronic obstructive pulmonary disease, unspecified; I10 Essential (primary) hypertension; K21.9 Gastro-esophageal reflux disease without esophagitis; F41.9 Anxiety disorder, unspecified; Z82.49 Family history of ischemic heart disease and other diseases of the circulatory system; F17.210 Nicotine dependence, cigarettes, uncomplicated
CPT/HCPCS: 50590; 12345; 74018; J1956; J2250; J2370; J2704; J2710; J3010; J3490; J7030

== ENCOUNTER 2020-10-30 13:30 | Outpatient (CLI) | payer MEDICARE, MEDICAID, SELFPAY ==
--- NOTE | 2020-10-30 13:34 | XR_ITS ---
WS: [id number] Exam: XR KUB [id number] Date/Time of Exam: 10/30/2020 1:34 PM Reason For Exam: stones Comparison 10/22/2020. A right ureteral stent is in place appearing to be in satisfactory position unchanged. There are calc ifications visualized over both renal silhouette suggesting renal calculi. No bowel obstruction or f ree air. Signs of prior cholecystectomy. Moderate amount retained stool in the colon. Visualized orga n margins are intact. XR/XR KUB [id number] IMPRESSION: 1. Right ureteral stent appearing be in the satisfactory position unchanged. 2. Small calcifications are visualized over both renal silhouettes that may rep resent renal calculi.
== END 2020-10-30 13:31 | disposition home or self-care (01) ==
PROVIDERS: PCP Family Medicine; Visit Provider Urology
DX: N20.0 Calculus of kidney (principal); Z96.0 Presence of urogenital implants
CPT/HCPCS: 74018

== ENCOUNTER → 2020-10-31 14:15 | Outpatient (BNVA) | payer MEDICARE, MEDICAID, SELFPAY | PROVIDERS: PCP Family Medicine; Visit Provider Urology | DX: N30.01 Acute cystitis with hematuria (principal); Z96.0 Presence of urogenital implants | CPT/HCPCS: 81003; 87086 ==

== ENCOUNTER 2020-12-27 07:08 | Emergency (ER) | payer MEDICARE, MEDICAID, SELFPAY ==
[2020-12-27 07:14] VITALS: BP 150/95; PULSE 98; RESP 18; TEMP 36.3; O2SAT 97; BMI 26.6
--- NOTE | 2020-12-27 07:24 | W.ED.FEMALGU ---
HPI - Female Genitourinary General: Chief complaint: Urogenital-Female Stated complaint: R flank pain Time Seen by Provider: 12/27/20 07:14 Source: patient Mode of arrival: ambulatory Limitations: no limitations History of Present Illness: HPI Narrative: 55-year-old female comes in with right flank pain and nausea and vomiting starting at 4:00 this morning. Patient has had a history of renal calculi in the past. Patient comes in appears to be moderate to severe pain. Patient appears well. Patient appears no acute distress. Patient in October 2020 had a obstructing renal calculi that required intervention due to secondary infection. Patient had a stent removed at the end of 2019. Patient also has a history of COPD, depression, GERD, hiatal hernia, hysterectomy, cholecystectomy. Review of Systems General: Reports: 10 or more systems reviewed and unremarkable except in HPI and below : Reports: flank pain (right side) PFSH ED PFSH: Medical History Recurrent UTI Renal calculi Right ureteral calculus Left mid/distal Large obstructing ureteral stone complicated by UTI. Treated with urgent ureteroscopy laser lithotripsy 10/06/20 Surgical History H/O lithotripsy Hx of section X4 Hx of cholecystectomy Hx of hysterectomy Status post extracorporeal shock wave therapy Family History Mother , at age 53 Heart attack Father No problems noted. Other CAD (coronary artery disease) Cancer Chronic kidney disease (CKD) Hypertension Social History Smoking and tobacco status: current every day smoker Alcohol intake: current Alcohol intake frequency: holidays/special occasions only Adopted: No Caregiver/support person: No Lives independently: No Household members: spouse Marital status: Current occupational status: retired History of recent travel: No Physical Exam Const: COMMON NORMALS: no acute distress and patient oriented x3 GENERAL APPEARANCE: cooperative HENMT: COMMON NORMALS: normocephalic and Normal external nose present HEAD & SCALP: normal to inspection and normocephalic NOSE: Normal external nose present MOUTH: Normal oral and palatal mucosa present Eye: GENERAL EYE: appearance normal, both eyes and all related structures Neck/C-Spine: COMMON NORMALS: full ROM Chest: COMMONS NORMALS: normal inspection of the chest Resp: COMMON NORMALS: normal respiratory effort EFFORT & INSPECTION: Yes able to speak in complete sentences Cardio: COMMON NORMALS: regular rate and regular rhythm RATE: regular rate RHYTHM: regular rhythm GI: COMMON NORMALS: non-tender : BLADDER/KIDNEY EXAM: Yes CVA tenderness on the right Back/Pelvis: COMMON NORMALS: thoracic and lumbar spine normal to inspection Extremity: COMMON NORMALS: normal to inspection Neuro: COMMON NORMALS: patient oriented x3 and moves all extremities Psych: COMMON NORMALS: mental status grossly normal and cooperative Skin: COMMON NORMALS: no rashes or lesions noted GENERAL SKIN EXAM: no rashes or lesions noted Course ED course: 832, radiologist contacted me regarding abnormal CT of the abdomen pelvis, notes significant hydronephrosis of the right kidney with a 4.7 mm stone distally in the ureter. There is also noticeable edema around the kidney. wjw Vital Signs: Vital signs: Vital Signs Temperature 97.3 F L 12/27/20 07:14 Pulse Rate 92 12/27/20 08:00 Respiratory Rate 18 12/27/20 09:22 Blood Pressure 160/85 12/27/20 08:00 Pulse Oximetry 97 12/27/20 08:14 MDM - Female MDM Narrative: Medical decision making narrative: 55-year-old female comes in today with complaints of right flank pain with nausea and vomiting starting this morning. Patient believes she has a renal stone. Patient does have a history of multiple renal stones. Patient routinely sees Dr. Herbert for the care of her renal stones. Last episode was in September of this year. Exam notes right flank pain tenderness upon percussion. Abdomen soft nontender. Bowel sounds are normal. Skin is warm and dry. Vital signs are normal. Patient denies any fever. Differential diagnosis includes not limited to renal calculi, UTI, pyelonephritis, bowel obstruction, appendicitis. Urinalysis noted no white blood cells or significant amount of blood, patient's white blood cell count on her lab was 6.8, potassium was 3.0, blood glucose [address], [address] scan of the abdomen pelvis for renal study indicated a 4.7 mm distal stone with significant hydronephrosis to the right kidney. Reviewed the exam with Dr. Herbert who recommended patient home and rest and medications for pain control and recommendations to follow-up with him in the office. No signs of significant infection was noted at this time. We was able to get patient's pain under control with morphine and hydromorphone. Patient reports understanding of care plan and understands the need for follow-up or return to the ER. Lab Data: Labs: Lab Results 12/27/20 12/27/20 12/27/20 Range/Units 07:37 07:37 08:45 WBC 6.8 (4.0-10.0) 10^3/ uL RBC 3.70 L (4.1-5.3) 10^6/u L Hgb 12.0 (11.5-15.3) g/dL Hct 36.4 L (37.0-47.0) % MCV 98.4 (81-99) fL MCH 32.4 (28.0-34.0) pg MCHC 33.0 (30.0-36.0) g/dL RDW 13.2 (12.1-15.1) % Plt Count 173 (130-400) 10^3/c mm MPV 9.3 (7.4-10.4) fL Neut % (Auto) 62.1 % Lymph % (Auto) 25.0 % [place] % (Auto) 8.8 % Eos % (Auto) 3.1 % Baso % (Auto) 0.7 % Neut # (Auto) 4.21 (1.8-7.7) 10^3/u L Lymph # (Auto) 1.7 (0.8-4.8) 10^3/u L [place] # (Auto) 0.6 (0.2-0.9) 10^3/u L Eos # (Auto) 0.2 (0.0-0.8) 10^3/u L Baso # (Auto) 0.1 (0.0-0.1) 10^3/u L Nucleated RBC % (a uto) 0 % Nucleated RBCs # 0.0 /100WBC Sodium 139 (136-145) mmol/L Potassium 3.0 L (3.5-5.1) mmol/L Chloride 103 (98-107) mmol/L Carbon Dioxide 26 (22-29) mmol/L Anion Gap 13.0 (5-19) BUN 18 (6-20) mg/dL Creatinine 0.6 (0.5-0.9) mg/dL GFR Calculation 104.6 (90-130) mL/min Glucose 128 H (65-115) mg/dL Calculated Osmolal ity 292 (285-295) mOsm/k g Calcium 8.7 (8.5-10.5) mg/dL Total Bilirubin 0.2 (0.15-1.2) mg/dL AST 10 (0-32) U/L ALT 9 (0-33) U/L Alkaline Phosphata se 70 (35-105) IU/L Total Protein 6.2 L (6.6-8.7) g/dL Albumin 3.7 (3.5-5.2) g/dL Globulin 2.5 (1.3-4.6) g/dL Urine Color Yellow (Yellow) Urine Appearance Clear (CLEAR) Urine pH 7 (5-7) Ur Specific Gravit y 1.010 (1.005-1.030) Urine Protein Neg (Negative) Urine Glucose (UA) Norm (Normal) Urine Ketones Negative (Negative) Urine Blood Neg (Negative) Urine Nitrate Negative (Negative) Urine Bilirubin Neg (Negative) Urine Urobilinogen Norm (Negative) mg/dL Ur Leukocyte Barbara ase Negative (Negative) Discharge Plan Discharge Patient Disposition: Home Clinical Impression: Renal calculi Condition: Stable Prescriptions: New hydrocodone-acetaminophen 7.5-325 mg tablet 1 tab PO Q6H PRN (Reason: pain) Qty: 20 RF: 0 Continued tamsulosin 0.4 mg capsule See Rx Instructions .ROUTE .COMPLEX Qty: 30 RF: 0 No Action atorvastatin 20 mg tablet 20 mg PO DAILY@09 RF: 0 metoprolol tartrate 50 mg tablet 50 mg PO Q12H RF: 0 ibuprofen 200 mg capsule 200 mg PO Q6H PRN (Reason: Pain) RF: 0 albuterol sulfate [Ventolin HFA] 90 mcg/actuation HFA aerosol inhaler 2 puff inhalation Q6H PRN (Reason: sob) RF: 0 sulfamethoxazole-trimethoprim 800-160 mg tablet 1 tab PO BID Qty: 20 RF: 0 promethazine 25 mg tablet 25 mg PO Q6H PRN (Reason: nausea and vomiting) Qty: 14 RF: 0 omeprazole 40 mg capsule,delayed release(DR/EC) 40 mg PO DAILY@09 RF: 0 alprazolam 0.25 mg tablet 0.25 mg PO BID PRN (Reason: Anxiety) RF: 0 budesonide-formoterol [Symbicort] 160-4.5 mcg/actuation HFA aerosol inhaler See Rx Instructions .ROUTE .COMPLEX RF: 0 Discharge Orders: Discharge ED (Routine); Ordered 12/27/20 Ordered By: Joselo Pedro Referrals: Shari Gray DO [Primary Care Provider] - Discharge Diet: Usual diet Discharge Activity: Increase activity as tolerated Patient Instructions: Renal Colic (ED), Opioid Safety Activity Restrictions/Additional Instructions: Medications as directed. Follow-up with Dr. Herbert's office in the morning. Return to the emergency department for high fever or uncontrolled pain. Coding Level of Care Code ED Box Truck [employer]her for Tangela Reyes Exam Comprehensive
--- NOTE | 2020-12-27 07:26 | CT_ITS ---
WS: [id number] CT ABDOMEN PELVIS TECHNIQUE: Noncontrast CT of the abdomen and pelvis with coronal and sagittal reformatted images. CLINICAL INFORMATION: right flank pain COMPARISON: CT October 06, 2020 DLP: 1596.[address] scans at [facility] use at least one of these dose optimization techniques: automat ed exposure control; mA and/or kV adjustment per patient size (includes targeted exams where dose is matched to clinical indication); or iterative reconstruction. FINDINGS: Obstructing calculus in the distal one third right ureter in the pelvis measuring 4.7 mm. Advanced ri ght hydronephrosis with right ureterectasis. Inflammatory stranding and edema about the right kidney. Normal liver. Cholecystectomy clips. Large esophageal hiatal hernia. Slight hazy groundglass infiltra te in the right middle lobe with parenchymal nodularity. This may be infectious or inflammatory. A fe w micronodular infiltrates in right lower lobe. Normal noncontrast spleen. Fatty atrophy of the pancreas. Aortic calcification. Sigmoid diverticulosi s. No evidence of high-grade small or large bowel obstruction. Grade 1-2 [address] on L[address]. [address]/CT kidney stone [id number] IMPRESSION: 1. Obstructing distal one third right ureteral stone measuring 4.7 mm. Advance d right hydronephrosis with ureterectasis. 2. Large esophageal hiatal hernia. 3. Sigmoid diverticulosis. No evidence of acute diverticulitis. 4. Slight hazy groundglass infiltrates with micronodular in the right middle l obe. A few micronodular infiltrates in right lower lobe. This is likely infecti ous or inflammatory. Recommend correlation for pneumonitis. Notified DONNA Patel at 12/27/2020 8:32 AM.
[2020-12-27 07:38] VITALS: RESP 18
[2020-12-27] MEDS: ondansetron 2 mg/ML SDV 2 mL 4 MG IVP (07:38)
[2020-12-27] MEDS: morphine 4 mg/mL SDV 1 mL IVP ×2 (07:38→08:14)
[2020-12-27 07:50] LABS: Basophils # 0.1 10^3/uL (0.0-0.1); Basophils % 0.7 %; Eosinophils # 0.2 10^3/uL (0.0-0.8); Eosinophils % 3.1 %; Hematocrit 36.4 % (37.0-47.0); Lymphocytes # 1.7 10^3/uL (0.8-4.8); Mean Corpuscular Hemoglobin 32.4 pg (28.0-34.0); Mean Corpuscular Volume 98.4 fL (81-99); Mean Platelet Volume 9.3 fL (7.4-10.4); Monocytes # 0.6 10^3/uL (0.2-0.9); Monocytes % 8.8 %; Neutrophils # 4.21 10^3/uL (1.8-7.7); Neutrophils % 62.1 %; Nucleated Red Blood Cells % 0 %; Platelet Count 173 10^3/cmm (130-400); Red Cell Distribution Width 13.2 % (12.1-15.1); White Blood Count 6.8 10^3/uL (4.0-10.0)
[2020-12-27 08:00] VITALS: BP 160/85; PULSE 92; RESP 18; O2SAT 98
[2020-12-27 08:07] LABS: Alanine Aminotransferase 9 U/L (0-33); Albumin Level 3.7 g/dL (3.5-5.2); Alkaline Phosphatase 70 IU/L (35-105); Aspartate Amino Transferase 10 U/L (0-32); Blood Urea Nitrogen 18 mg/dL (6-20); Calcium 8.7 mg/dL (8.5-10.5); Carbon Dioxide 26 mmol/L (22-29); Chloride 103 mmol/L (98-107); Globulin 2.5 g/dL (1.3-4.6); Glomerular Filtration Rate 104.6 mL/min (90-130); Glucose 128 mg/dL (65-115); Osmolality Calculated 292 mOsm/kg (285-295); Sodium 139 mmol/L (136-145); Total Bilirubin 0.2 mg/dL (0.15-1.2); Total Protein 6.2 g/dL (6.6-8.7)
[2020-12-27 08:14] VITALS: RESP 18; O2SAT 97
[2020-12-27 09:22] VITALS: RESP 18
[2020-12-27] MEDS: HYDROmorphone 1 mg/mL INJ 1 mL IVP (09:22)
[2020-12-27 09:57] LABS: Add Urine Microscopic? NO
[2020-12-27 10:00] LABS: Bilirubin Urine Neg (Negative); Blood Urine Neg (Negative); Glucose Urine UA Norm (Normal); Ketones Urine Negative (Negative); Leukocyte Esterase Urine Negative (Negative); Nitrate Urine Negative (Negative); Protein Urine Neg (Negative); Urine Appearance Clear (CLEAR); Urine Color Yellow (Yellow); Urobilinogen Urine Norm (Negative); pH Urine 7 (5-7)
[2020-12-27 10:12] VITALS: BP 118/68; PULSE 94; RESP 18; O2SAT 95
== END 2020-12-27 10:12 | disposition home or self-care (01) ==
PROVIDERS: Emergency Provider Nurse Practitioner Family; PCP Family Medicine
DX: R11.2 Nausea with vomiting, unspecified (principal); N20.0 Calculus of kidney; Z87.442 Personal history of urinary calculi; F17.210 Nicotine dependence, cigarettes, uncomplicated
CPT/HCPCS: 74176; 80053; 81003; 85025; 96374; 96375; 96376; 99283; J1170; J2270; J2405

== ENCOUNTER 2021-01-13 19:58 | Inpatient (IN) | payer MEDICARE, MEDICAID, SELFPAY ==
[2021-01-13 20:02] VITALS: BP 195/81; PULSE 126; RESP 26; TEMP 36.4; O2SAT 90; BMI 233.3
--- NOTE | 2021-01-13 20:19 | XR_ITS ---
WS: [id number] XR chest 1V portable [id number] REASON FOR EXAM: dyspnea FINDINGS: The heart appears more prominent than on the previous examination of 09/29/2017. The heart is at the upper limits of normal in size. Moderate sized hiatal hernia present on previous examination of 09/29/2017. Calcified granulomatous disease in both hemithoraces. Questionable linear densities with vague lung o pacification in the right lower midlung field. Not readily identifiable on the previous examination. Degenerative changes in both glenohumeral joints. Mild degenerative spondylosis in the mid and lower thoracic spine. XR/XR chest 1V portable [id number] IMPRESSION: Increased prominence of the cardiac silhouette compared with the previous exami nation as above. Equivocal findings for pulmonary infiltrate. Follow-up chest x-ray in one week as clinically warranted.
--- NOTE | 2021-01-13 20:28 | ECG_ITS ---
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 Measurements Intervals [place] Rate: 118 P: 77 AL: 115 QRS: 59 QRSD: 127 T: 12 QT: 251 QTc: 352 Interpretive Statements SINUS TACHYCARDIA WITH SHORT AL INTERVAL POSSIBLE RIGHT VENTRICULAR CONDUCTION DELAY [RSR (QR) IN V1/V2] NONSPECIFIC ST & T-WAVE ABNORMALITY ABNORMAL RHYTHM ECG Compared to ECG 09/29/2017 23:39:32 Sinus rhythm no longer present Incomplete right bundle-branch block no longer present T-wave abnormality still present Electronically Signed On 01-13-2021 22:44:[address] Ramirez M[address] [id number]
--- NOTE | 2021-01-13 20:29 | ED_ITS ---
HPI - SOB/Dyspnea General: Chief Complaint: Shortness of Breath/Dyspnea Stated Complaint: SOB Time Seen by Provider: 01/13/21 20:15 History of Present Illness: HPI Narrative: The patient is a 55-year-old female with past medical history anxiety, asthma, COPD who comes to the ER complaining of increasing shortness of breath over the last week. She says she has been out of town in [place] and did not want to go to the hospital there because she knew she would be admitted and did not want to get admitted out of state she wanted to hang out with her children. MD elicited complaint: shortness of breath Associated symptoms: Deny abdominal pain, chest pain, dizziness, extremity pain, orthopnea, palpitations or polyuria Review of Systems General: Reports: 10 or more systems reviewed and unremarkable except in HPI and below Const: Denies: fatigue Eyes: Denies: change in vision, blurry vision or eye redness ENMT: Denies: throat pain, swelling of lips/tongue, ear or mastoid pain or nasal congestion Card: Denies: chest pain, palpitations, irregular heart rhythm, edema, dyspnea on exertion or orthopnea Resp: Reports: dyspnea; Denies: productive cough or non-productive cough GI: Denies: abdominal pain, diarrhea or GI cramping : Denies: flank pain, difficulty voiding, urinary frequency or urinary urgency Musc: Denies: neck pain, back pain, extremity pain, joint pain, joint redness, limited range of motion or muscle weakness Skin/Breast: Denies: rash, pruritus, erythema, skin pain or skin tenderness Neuro: Denies: headache(s), numbness in extremities, weakness in extremities, sensory changes, difficulty walking, dizziness, confusion or Slurred speech present Psych: Denies: anxiety or depression Endo: Denies: polyuria All/Imm: Denies: urticaria, throat swelling or tongue swelling PFSH ED PFSH: Medical History (Updated 01/15/21 @ 11:28 by Reece Ballard MD) HTN (hypertension) Hyperlipidemia Recurrent UTI Renal calculi Right ureteral calculus Left mid/distal Large obstructing ureteral stone complicated by UTI. Treated with urgent ureteroscopy laser lithotripsy 10/06/20 Surgical History H/O lithotripsy Hx of section X4 Hx of cholecystectomy Hx of hysterectomy Status post extracorporeal shock wave therapy Family History Mother , at age 53 Heart attack Father No problems noted. Other CAD (coronary artery disease) Cancer Chronic kidney disease (CKD) Hypertension Social History Smoking and tobacco status: current every day smoker Alcohol intake: current Alcohol intake frequency: holidays/special occasions only Adopted: No Caregiver/support person: No Lives independently: No Household members: spouse Marital status: Current occupational status: retired History of recent travel: No Physical Exam Const: COMMON NORMALS: no acute distress, average body habitus, patient oriented x3, no limitations, healthy appearing, alert and well nourished GENERAL APPEARANCE: cooperative, comfortable, well kempt and well developed ORIENTATION/CONSCIOUSNESS: Yes awake, Yes oriented to person, Yes oriented to place and Yes oriented to time HENMT: COMMON NORMALS: normocephalic, external ears normal and Normal external nose present HEAD & SCALP: normal to inspection and normocephalic NOSE: Normal external nose present EXTERNAL EAR: Yes external ears normal MOUTH: Normal oral and palatal mucosa present THROAT: posterior oropharynx normal Eye: COMMON NORMALS: Equal, round and reactive pupils present and EOMs intact bilaterally GENERAL EYE: appearance normal, both eyes and all related structures PUPIL: Yes Equal, round and reactive pupils present Neck/C-Spine: COMMON NORMALS: full ROM, no lymphadenopathy, no meningeal signs and no JVD GENERAL: Yes normal visual inspection Lymph: LYMPHATIC: no lymphadenopathy noted Chest: COMMONS NORMALS: normal inspection of the chest and normal palpation of entire chest wall Resp: COMMON NORMALS: normal respiratory effort, No retractions, No use of accessory muscles, clear to auscultation bilaterally and percussion normal EFFORT & INSPECTION: Yes able to speak in complete sentences AUSCULTATION: clear to auscultation bilaterally PERCUSSION: percussion normal Cardio: COMMON NORMALS: no JVD, regular rhythm, S1 normal heart sound present, S2 normal heart sound present and Peripheral pulses 2+ throughout RATE: tachycardic RHYTHM: regular rhythm HEART SOUNDS: S1 normal heart sound present and S2 normal heart sound present PERIPHERAL PULSES: Peripheral pulses 2+ throughout GI: COMMON NORMALS: Normal to inspection, nondistended, normoactive bowel sounds present, Soft to palpation, non-tender and no masses INSPECTION: Yes normal to inspection PALPATION: Yes Soft to palpation : COMMON NORMALS: Yes no CVA tenderness BLADDER/KIDNEY EXAM: Yes no CVA tenderness Back/Pelvis: COMMON NORMALS: no CVA tenderness, thoracic and lumbar spine normal to inspection, no thoracic nor lumbar tenderness and thoraco-lumbar ROM normal Extremity: COMMON NORMALS: normal to inspection, full ROM, capillary refill normal, no joint enlargement and no pedal edema GENERAL: Yes normal exam except as noted Neuro: COMMON NORMALS: patient oriented x3, CN's II-XII intact bilaterally, moves all extremities, no focal motor deficits, no sensory deficits noted and gait normal SENSORIUM/ORIENTATION: Yes alert, Yes oriented to person, Yes oriented to place and Yes oriented to time MENINGEAL SIGNS: Yes no meningeal signs Psych: COMMON NORMALS: mental status grossly normal, Normal thought process present, cooperative, normal affect and speech normal APPEARANCE: Yes well kempt ATTITUDE: Yes calm SPEECH: Yes normal speech THOUGHT PROCESS: Normal thought process present Skin: COMMON NORMALS: no rashes or lesions noted GENERAL SKIN EXAM: no rashes or lesions noted Course Vital Signs: Vital signs: Vital Signs Temperature 97.9 F 01/15/21 07:08 Pulse Rate 91 01/15/21 08:25 Respiratory Rate 16 01/15/21 08:22 Blood Pressure 118/56 01/15/21 07:08 Pulse Oximetry 94 01/15/21 08:22 MDM - SOB/Dyspnea MDM Narrative: Medical decision making narrative: the patient came to ED complaining of dyspnea for past week worse today after a long road trip. Troponin was elevated to 200 and CTA shows bilateral PEs with mild right heart strain. She was consented and given lovenox. Dr. Johnson accepts for admission Lab Data: Labs: Lab Results 01/13/21 01/13/21 01/13/21 Range/Units 21:05 21:05 21:05 WBC 7.6 (4.0-10.0) 10^3/ uL RBC 3.64 L (4.1-5.3) 10^6/u L Hgb 11.8 (11.5-15.3) g/dL Hct 36.1 L (37.0-47.0) % MCV 99.2 H (81-99) fL MCH 32.4 (28.0-34.0) pg MCHC 32.7 (30.0-36.0) g/dL RDW 13.6 (12.1-15.1) % Plt Count 222 (130-400) 10^3/c mm MPV 9.3 (7.4-10.4) fL Neut % (Auto) 90.3 % Lymph % (Auto) 6.9 % [place] % (Auto) 2.1 % Eos % (Auto) 0.0 % Baso % (Auto) 0.3 % Neut # (Auto) 6.83 (1.8-7.7) 10^3/u L Lymph # (Auto) 0.5 L (0.8-4.8) 10^3/u L [place] # (Auto) 0.2 (0.2-0.9) 10^3/u L Eos # (Auto) 0.0 (0.0-0.8) 10^3/u L Baso # (Auto) 0.0 (0.0-0.1) 10^3/u L Nucleated RBC % (a uto) 0 % Nucleated RBCs # 0.0 /100WBC D-Dimer 3.05 H (0-0.59) ug/mIFE U Sodium 140 (136-145) mmol/L Potassium 3.5 (3.5-5.1) mmol/L Chloride 103 (98-107) mmol/L Carbon Dioxide 22 (22-29) mmol/L Anion Gap 18.5 (5-19) BUN 18 (6-20) mg/dL Creatinine 0.7 (0.5-0.9) mg/dL GFR Calculation 87.5 L (90-130) mL/min Glucose 148 H (65-115) mg/dL Calculated Osmolal ity 295 (285-295) mOsm/k g Lactate (0.5-2.2) mmol/L Calcium 9.1 (8.5-10.5) mg/dL Total Bilirubin 0.2 (0.15-1.2) mg/dL AST 43 H (0-32) U/L ALT 32 (0-33) U/L Alkaline Phosphata se 86 (35-105) IU/L Troponin T Baselin e (0-10) ng/L Troponin T 120 Min [place] (0-10) ng/L Delta Troponin T (0-10) ABS# Troponin T Hi Sens 6Hr (0-10) ng/L Troponin T Hi Sens 6Hr Delta (0-12) ng/L NT-Pro-B Natriuret Pep 773 H (0-125) pg/mL Total Protein 6.9 (6.6-8.7) g/dL Albumin 4.3 (3.5-5.2) g/dL Globulin 2.6 (1.3-4.6) g/dL HCG, Qual (Negative) Urine Color (Yellow) Urine Appearance (CLEAR) Urine pH (5-7) Ur Specific Gravit y (1.005-1.030) Urine Protein (Negative) Urine Glucose (UA) (Normal) Urine Ketones (Negative) Urine Blood (Negative) Urine Nitrate (Negative) Urine Bilirubin (Negative) Urine Urobilinogen (Negative) mg/dL Ur Leukocyte Barbara ase (Negative) Urine RBC (0-2) /hpf Urine WBC (0-5) /hpf Ur Squamous Epith Cells (0-5) /hpf Amorphous Sediment Urine Bacteria (NONE) /hpf SARS-CoV-2 Ag (Rap id) (Negative) 01/13/21 01/13/21 01/13/21 Range/Units 21:05 21:05 21:05 WBC (4.0-10.0) 10^3/ uL RBC (4.1-5.3) 10^6/u L Hgb (11.5-15.3) g/dL Hct (37.0-47.0) % MCV (81-99) fL MCH (28.0-34.0) pg MCHC (30.0-36.0) g/dL RDW (12.1-15.1) % Plt Count (130-400) 10^3/c mm MPV (7.4-10.4) fL Neut % (Auto) % Lymph % (Auto) % [place] % (Auto) % Eos % (Auto) % Baso % (Auto) % Neut # (Auto) (1.8-7.7) 10^3/u L Lymph # (Auto) (0.8-4.8) 10^3/u L [place] # (Auto) (0.2-0.9) 10^3/u L Eos # (Auto) (0.0-0.8) 10^3/u L Baso # (Auto) (0.0-0.1) 10^3/u L Nucleated RBC % (a uto) % Nucleated RBCs # /100WBC D-Dimer (0-0.59) ug/mIFE U Sodium (136-145) mmol/L Potassium (3.5-5.1) mmol/L Chloride (98-107) mmol/L Carbon Dioxide (22-29) mmol/L Anion Gap (5-19) BUN (6-20) mg/dL Creatinine (0.5-0.9) mg/dL GFR Calculation (90-130) mL/min Glucose (65-115) mg/dL Calculated Osmolal ity (285-295) mOsm/k g Lactate 1.8 (0.5-2.2) mmol/L Calcium (8.5-10.5) mg/dL Total Bilirubin (0.15-1.2) mg/dL AST (0-32) U/L ALT (0-33) U/L Alkaline Phosphata se (35-105) IU/L Troponin T Baselin e 200 H* (0-10) ng/L Troponin T 120 Min [place] (0-10) ng/L Delta Troponin T (0-10) ABS# Troponin T Hi Sens 6Hr (0-10) ng/L Troponin T Hi Sens 6Hr Delta (0-12) ng/L NT-Pro-B Natriuret Pep (0-125) pg/mL Total Protein (6.6-8.7) g/dL Albumin (3.5-5.2) g/dL Globulin (1.3-4.6) g/dL HCG, Qual Negative (Negative) Urine Color (Yellow) Urine Appearance (CLEAR) Urine pH (5-7) Ur Specific Gravit y (1.005-1.030) Urine Protein (Negative) Urine Glucose (UA) (Normal) Urine Ketones (Negative) Urine Blood (Negative) Urine Nitrate (Negative) Urine Bilirubin (Negative) Urine Urobilinogen (Negative) mg/dL Ur Leukocyte Barbara ase (Negative) Urine RBC (0-2) /hpf Urine WBC (0-5) /hpf Ur Squamous Epith Cells (0-5) /hpf Amorphous Sediment Urine Bacteria (NONE) /hpf SARS-CoV-2 Ag (Rap id) (Negative) 01/13/21 01/13/21 01/14/21 Range/Units 21:05 22:07 00:00 WBC (4.0-10.0) 10^3/ uL RBC (4.1-5.3) 10^6/u L Hgb (11.5-15.3) g/dL Hct (37.0-47.0) % MCV (81-99) fL MCH (28.0-34.0) pg MCHC (30.0-36.0) g/dL RDW (12.1-15.1) % Plt Count (130-400) 10^3/c mm MPV (7.4-10.4) fL Neut % (Auto) % Lymph % (Auto) % [place] % (Auto) % Eos % (Auto) % Baso % (Auto) % Neut # (Auto) (1.8-7.7) 10^3/u L Lymph # (Auto) (0.8-4.8) 10^3/u L [place] # (Auto) (0.2-0.9) 10^3/u L Eos # (Auto) (0.0-0.8) 10^3/u L Baso # (Auto) (0.0-0.1) 10^3/u L Nucleated RBC % (a uto) % Nucleated RBCs # /100WBC D-Dimer (0-0.59) ug/mIFE U Sodium (136-145) mmol/L Potassium (3.5-5.1) mmol/L Chloride (98-107) mmol/L Carbon Dioxide (22-29) mmol/L Anion Gap (5-19) BUN (6-20) mg/dL Creatinine (0.5-0.9) mg/dL GFR Calculation (90-130) mL/min Glucose (65-115) mg/dL Calculated Osmolal ity (285-295) mOsm/k g Lactate (0.5-2.2) mmol/L Calcium (8.5-10.5) mg/dL Total Bilirubin (0.15-1.2) mg/dL AST (0-32) U/L ALT (0-33) U/L Alkaline Phosphata se (35-105) IU/L Troponin T Baselin e (0-10) ng/L Troponin T 120 Min [place] 236.7 H (0-10) ng/L Delta Troponin T 36.7 H* (0-10) ABS# Troponin T Hi Sens 6Hr (0-10) ng/L Troponin T Hi Sens 6Hr Delta (0-12) ng/L NT-Pro-B Natriuret Pep (0-125) pg/mL Total Protein (6.6-8.7) g/dL Albumin (3.5-5.2) g/dL Globulin (1.3-4.6) g/dL HCG, Qual (Negative) Urine Color Yellow (Yellow) Urine Appearance Clear (CLEAR) Urine pH 7 (5-7) Ur Specific Gravit y 1.010 (1.005-1.030) Urine Protein Trace (Negative) Urine Glucose (UA) Trace H (Normal) Urine Ketones Negative (Negative) Urine Blood Neg (Negative) Urine Nitrate Negative (Negative) Urine Bilirubin Neg (Negative) Urine Urobilinogen Norm (Negative) mg/dL Ur Leukocyte Barbara ase Negative (Negative) Urine RBC 0-4 H (0-2) /hpf Urine WBC 0-4 H (0-5) /hpf Ur Squamous Epith Cells 0-4 H (0-5) /hpf Amorphous Sediment Not Reportable Urine Bacteria Trace (NONE) /hpf SARS-CoV-2 Ag (Rap id) Negative (Negative) 01/14/21 Range/Units 04:15 WBC (4.0-10.0) 10^3/ uL RBC (4.1-5.3) 10^6/u L Hgb (11.5-15.3) g/dL Hct (37.0-47.0) % MCV (81-99) fL MCH (28.0-34.0) pg MCHC (30.0-36.0) g/dL RDW (12.1-15.1) % Plt Count (130-400) 10^3/c mm MPV (7.4-10.4) fL Neut % (Auto) % Lymph % (Auto) % [place] % (Auto) % Eos % (Auto) % Baso % (Auto) % Neut # (Auto) (1.8-7.7) 10^3/u L Lymph # (Auto) (0.8-4.8) 10^3/u L [place] # (Auto) (0.2-0.9) 10^3/u L Eos # (Auto) (0.0-0.8) 10^3/u L Baso # (Auto) (0.0-0.1) 10^3/u L Nucleated RBC % (a uto) % Nucleated RBCs # /100WBC D-Dimer (0-0.59) ug/mIFE U Sodium (136-145) mmol/L Potassium (3.5-5.1) mmol/L Chloride (98-107) mmol/L Carbon Dioxide (22-29) mmol/L Anion Gap (5-19) BUN (6-20) mg/dL Creatinine (0.5-0.9) mg/dL GFR Calculation (90-130) mL/min Glucose (65-115) mg/dL Calculated Osmolal ity (285-295) mOsm/k g Lactate (0.5-2.2) mmol/L Calcium (8.5-10.5) mg/dL Total Bilirubin (0.15-1.2) mg/dL AST (0-32) U/L ALT (0-33) U/L Alkaline Phosphata se (35-105) IU/L Troponin T Baselin e (0-10) ng/L Troponin T 120 Min [place] (0-10) ng/L Delta Troponin T (0-10) ABS# Troponin T Hi Sens 6Hr 229.7 H (0-10) ng/L Troponin T Hi Sens 6Hr Delta 29.7 H* (0-12) ng/L NT-Pro-B Natriuret Pep (0-125) pg/mL Total Protein (6.6-8.7) g/dL Albumin (3.5-5.2) g/dL Globulin (1.3-4.6) g/dL HCG, Qual (Negative) Urine Color (Yellow) Urine Appearance (CLEAR) Urine pH (5-7) Ur Specific Gravit y (1.005-1.030) Urine Protein (Negative) Urine Glucose (UA) (Normal) Urine Ketones (Negative) Urine Blood (Negative) Urine Nitrate (Negative) Urine Bilirubin (Negative) Urine Urobilinogen (Negative) mg/dL Ur Leukocyte Barbara ase (Negative) Urine RBC (0-2) /hpf Urine WBC (0-5) /hpf Ur Squamous Epith Cells (0-5) /hpf Amorphous Sediment Urine Bacteria (NONE) /hpf SARS-CoV-2 Ag (Rap id) (Negative) Discharge Plan Discharge Patient Disposition: Admitted As Inpatient Admit Provider: Donn Johnson Clinical Impression: Pulmonary embolism Condition: Stable Coding Level of Care Code ED Socially Responsible Investment Adviser for Tangela Reyes
[2021-01-13 21:08] VITALS: BP 181/109; PULSE 115; RESP 19; O2SAT 97
[2021-01-13] MEDS: sodium chloride 0.9% 1,000 ML 999 ML IV (21:08)
[2021-01-13 21:15] VITALS: BP 181/109; PULSE 111; RESP 17; O2SAT 97
[2021-01-13 21:28] LABS: Basophils % 0.3 %; Hematocrit 36.1 % (37.0-47.0); Hemoglobin 11.8 g/dL (11.5-15.3); Lymphocytes # 0.5 10^3/uL (0.8-4.8); Lymphocytes % 6.9 %; Mean Corpuscular HGB Conc 32.7 g/dL (30.0-36.0); Mean Corpuscular Hemoglobin 32.4 pg (28.0-34.0); Mean Corpuscular Volume 99.2 fL (81-99); Mean Platelet Volume 9.3 fL (7.4-10.4); Monocytes # 0.2 10^3/uL (0.2-0.9); Monocytes % 2.1 %; Neutrophils # 6.83 10^3/uL (1.8-7.7); Neutrophils % 90.3 %; Nucleated Red Blood Cells % 0 %; Platelet Count 222 10^3/cmm (130-400); Red Blood Count 3.64 10^6/uL (4.1-5.3); Red Cell Distribution Width 13.6 % (12.1-15.1); White Blood Count 7.6 10^3/uL (4.0-10.0)
[2021-01-13 21:30] LABS: HCG, Serum Qual Negative (Negative)
[2021-01-13 21:37] LABS: Lactate (Lactic Acid level) 1.8 mmol/L (0.5-2.2)
[2021-01-13 21:39] LABS: SARS Covid-2 Antigen Negative (Negative)
[2021-01-13 21:48] LABS: Troponin(5th) Baseline 200 ng/L (0-10)
[2021-01-13 21:49] LABS: Alanine Aminotransferase 32 U/L (0-33); Albumin Level 4.3 g/dL (3.5-5.2); Alkaline Phosphatase 86 IU/L (35-105); Anion Gap 18.5 (5-19); Aspartate Amino Transferase 43 U/L (0-32); Blood Urea Nitrogen 18 mg/dL (6-20); Calcium 9.1 mg/dL (8.5-10.5); Carbon Dioxide 22 mmol/L (22-29); Chloride 103 mmol/L (98-107); Globulin 2.6 g/dL (1.3-4.6); Glomerular Filtration Rate 87.5 mL/min (90-130); Glucose 148 mg/dL (65-115); NT Pro B Type Natriuretic Pept 773 pg/mL (0-125); Osmolality Calculated 295 mOsm/kg (285-295); Potassium 3.5 mmol/L (3.5-5.1); Sodium 140 mmol/L (136-145); Total Bilirubin 0.2 mg/dL (0.15-1.2); Total Protein 6.9 g/dL (6.6-8.7)
--- NOTE | 2021-01-13 21:52 | CTR_ITS ---
PROCEDURE INFORMATION: Exam: CT Angiography Chest With Contrast Exam date and time: 01/13/2021 10:26 PM Age: 55 years old Clinical indication: Abnormal findings; Abnormal diagnostic tests; Elevated d-dimer; Patient HX: Elev d-dimer w SOB worsening x 1 week; Additional info: R/O pe TECHNIQUE: Imaging protocol: Computed tomographic angiography of the chest with contrast. 3D rendering (Not supervised by radiologist): MIP and/or 3D reconstructed images were created by the technologist. Radiation optimization: All CT scans at this facility use at least one of these dose optimization techniques: automated exposure control; mA and/or kV adjustment per patient size (includes targeted exams where dose is matched to clinical indication); or iterative reconstruction. Contrast material: OMNI 350; Contrast volume: 70 ml; Contrast route: INTRAVENOUS (IV); COMPARISON: CT chest w con* [id number] 08/21/2015 10:01 AM RADIATION DOSE METRICS: Total DLP (mGy-cm): 602.3 FINDINGS: Pulmonary arteries: Bilateral segmental to subsegmental branch pulmonary emboli. Aorta: Unremarkable. No aortic aneurysm. No aortic dissection. Lungs: Right middle lobe atelectasis versus infiltrate. Pleural spaces: Unremarkable. No pneumothorax. No pleural effusion. Heart: Mild leftward deviation of the intraventricular septum with right ventricular enlargement suggesting a degree of right heart strain. Mediastinal space: Large hiatal hernia. Lymph nodes: Unremarkable. No enlarged lymph nodes. Kidneys and ureters: Bilateral nonobstructing renal calyceal stones. Bones/joints: Unremarkable. No acute fracture. Soft tissues: Unremarkable. CT/CT angio chest PE protcl [id number] IMPRESSION: 1. Bilateral segmental to subsegmental branch pulmonary emboli. 2. Mild leftward deviation of the intraventricular septum with right ventricular enlargement suggesting a degree of right heart strain. 3. Right middle lobe atelectasis versus infiltrate. 4. Bilateral nonobstructing renal calyceal stones. 5. Large hiatal hernia. THIS REPORT CONTAINS FINDINGS THAT MAY BE CRITICAL TO PATIENT CARE. The findings were verbally communicated via telephone conference with [facility] at 11:24 PM CDT on 01/13/2021. The findings were acknowledged and understood. Radiation Dose CTDIVOL = (mGy): DLP = 602.3 (mGy-cm)
[2021-01-13 21:57] LABS: D Dimer 3.05 ug/mIFEU (0-0.59)
[2021-01-13 22:22] LABS: Add Urine Microscopic? YES; Bilirubin Urine Neg (Negative); Blood Urine Neg (Negative); Glucose Urine UA Trace (Normal); Ketones Urine Negative (Negative); Leukocyte Esterase Urine Negative (Negative); Nitrate Urine Negative (Negative); Protein Urine Trace (Negative); Urine Appearance Clear (CLEAR); Urine Color Yellow (Yellow); Urobilinogen Urine Norm (Negative); pH Urine 7 (5-7)
[2021-01-13 22:30] VITALS: BP 156/119; PULSE 114; RESP 20; O2SAT 95
[2021-01-13 22:32] LABS: Add Urine Culture? No; Bacteria Urine TRACE /hpf; RBC Urine 0-4 /hpf (0-2); Squamous Epithelial Cell Urine 0-4 /hpf (0-5); WBC Urine 0-4 /hpf (0-5)
[2021-01-13] MEDS: iohexol 350 mg/mL 100 mL Btl IV (22:52)
[2021-01-14] VITALS (30 sets, daily range): BP systolic 120–181; BP diastolic 67–98; PULSE 90–125; RESP 18–41; TEMP 36.5–36.9; O2SAT 92–96
[2021-01-14] MEDS: enoxaparin 80 mg/0.8 mL Syringe 70 MG SUBCUT ×2 (00:15→10:31)
[2021-01-14] MEDS: LORazepam 2 mg/mL INJ 1 mL 0.5 MG IVP (00:20)
--- NOTE | 2021-01-14 00:24 | P.HP_ITS ---
Providers/Chief Complaint Primary Care Provider: Shari Gray DO Chief Complaint: SOB History of Present Illness Kush Cruz is a 55 year old female with a history of recurrent nephrolithiasis, has had multiple procedures over the years, recently had infected right ureteral calculus in early October 2020 underwent ESWL, history of COPD, hypertension, anxiety, chronic pain on hydrocodone, hyperlipidemia who presents to [facility] due to complaints of shortness of breath. Patient tells me that she traveled down to [facility] to see her daughter, about a week ago, she started to develop shortness of breath, shortness of breath primarily with exertion, but she still was able to see the sites in [facility] and still have a good time. However she notices that over the next few days she started develop more shortness of breath with minimal exertion, no fevers, chills, no cough, she is a smoker, no hemoptysis, no calf pain, no calf swelling. She tells me that she was driving back this weekend from [facility], [facility] when she was noticing that she became quite short of breath with even minimal exertion such as getting out of her car, when she got to [place], she came to the emergency room. In the emergency room patient was found to have elevated troponins as high as 200, CT angiogram showing a bilateral segmental and subsegmental PEs, she has sinus tachycardia, evidence of right heart strain, blood pressures she was hypertensive, respiratory rate 15-20, hospitalist team was called for admission. Review of Systems Const: Denies: fever(s), chills, fatigue or malaise Eyes: Denies: change in vision or blurry vision ENMT: Denies: nasal congestion Card: Denies: chest pain, palpitations, irregular heart rhythm, edema, lightheadedness, syncope or pre-syncope Resp: Reports: dyspnea; Denies: productive cough, non-productive cough or wheezing GI: Denies: abdominal pain, nausea, vomiting, hematemesis, diarrhea, constipation, hematochezia or melena : Denies: flank pain, dysuria or urinary frequency Musc: Denies: neck pain or back pain Skin/Breast: Denies: rash Neuro: Denies: headache(s), dizziness or vertigo Endo: Denies: polyuria or polydipsia Medications/Allergies Home Medications Medication Instructions Recorded Confirmed Last Taken Type promethazine 25 mg PO Q6H PRN #14 tab 09/02/20 10/31/20 10/05/20 Rx albuterol sulfate 90 mcg/actuation 2 puff INHALATION Q6H PRN 09/14/20 10/31/20 09/20/20 History aerosol inhaler atorvastatin 20 mg tablet 20 mg PO DAILY@09/14/20 10/31/20 10/05/20 History ibuprofen 200 mg capsule 200 mg PO Q6H PRN 09/14/20 10/31/20 10/05/20 History metoprolol tartrate 50 mg tablet 50 mg PO Q12H 09/14/20 10/31/20 09/20/20 10:00 History alprazolam 0.25 mg PO BID PRN 10/06/20 10/31/20 Unknown History budesonide-formoterol [Symbicort] See Rx Instructions .ROUTE .COMPLEX 10/06/20 10/31/20 Unknown History omeprazole 40 mg PO DAILY@10/06/20 10/31/20 Unknown History sulfamethoxazole 800 1 tab PO BID #20 tab 11/01/20 Unknown Rx mg-trimethoprim 160 mg tablet hydrocodone-acetaminophen 1 tab PO Q6H PRN #20 tab 12/27/20 Unknown Rx tamsulosin See Rx Instructions .ROUTE 12/27/20 Unknown Rx .COMPLEX #30 cap Allergies Allergy/AdvReac Type Severity Reaction Status Date / Time ketorolac [From Toradol] Allergy ALGY-Rash Verified 01/13/21 20:08 simvastatin Allergy ADR-Vomitin Verified 01/13/21 20:08 g PFSH Acute PFSH: Medical History Recurrent UTI Renal calculi Right ureteral calculus Left mid/distal Large obstructing ureteral stone complicated by UTI. Treated with urgent ureteroscopy laser lithotripsy 10/06/20 Surgical History H/O lithotripsy Hx of section X4 Hx of cholecystectomy Hx of hysterectomy Status post extracorporeal shock wave therapy Family History Mother , at age 53 Heart attack Father No problems noted. Other CAD (coronary artery disease) Cancer Chronic kidney disease (CKD) Hypertension Social History Smoking and tobacco status: current every day smoker Alcohol intake: current Alcohol intake frequency: holidays/special occasions only Adopted: No Caregiver/support person: No Lives independently: No Household members: spouse Marital status: Current occupational status: retired History of recent travel: No Vitals/I&O/Wt Last Vital Signs Temp 97.5 F L 01/13/21 20:02 Pulse 114 H 01/13/21 22:30 Resp 20 H 01/13/21 22:30 BP 156/119 01/13/21 22:30 Pulse Ox 95 01/13/21 22:30 Weight last 48 hrs Weight 716.676 kg Physical Exam Const: COMMON NORMALS: no acute distress and patient oriented x3 GENERAL APPEARANCE: cooperative and comfortable HENMT: COMMON NORMALS: normocephalic HEAD & SCALP: normocephalic Eye: COMMON NORMALS: Equal, round and reactive pupils present and EOMs intact bilaterally GENERAL EYE: appearance normal, both eyes and all related structures PUPIL: Yes Equal, round and reactive pupils present Neck/C-Spine: COMMON NORMALS: full ROM, no lymphadenopathy, no JVD and Thyroid normal THYROID: Thyroid normal Lymph: LYMPHATIC: no lymphadenopathy noted Resp: COMMON NORMALS: normal respiratory effort, No retractions, No use of accessory muscles and clear to auscultation bilaterally AUSCULTATION: clear to auscultation bilaterally Cardio: COMMON NORMALS: no JVD, regular rate, regular rhythm, S1 normal heart sound present, S2 normal heart sound present, No gallops present (Cardio), No clicks present (Cardio) and No murmurs present (Cardio) RATE: tachycardic HEART SOUNDS: S1 normal heart sound present and S2 normal heart sound present GI: COMMON NORMALS: Normal to inspection, nondistended, normoactive bowel sounds present, Soft to palpation, non-tender and No hepatosplenomegaly present PALPATION: Yes Soft to palpation and Yes No hepatosplenomegaly present Extremity: COMMON NORMALS: normal to inspection, full ROM and no pedal edema Neuro: COMMON NORMALS: patient oriented x3, CN's II-XII intact bilaterally, moves all extremities and no focal motor deficits Psych: COMMON NORMALS: mental status grossly normal, Normal thought process present and cooperative THOUGHT PROCESS: Normal thought process present Data : 01/13/21 21:05 01/13/21 21:05 A&P Assessment and plan (1) Bilateral pulmonary embolism: Bilateral segmental and subsegmental PEs with evidence of right heart strain,with sinus tachycardia -Etiology possibly secondary to surgeries, long drive to [place] Plan: -Admit to CSU -Therapeutic Lovenox -Cardiac echocardiogram -Bilateral lower extremity ultrasound -Full code -Lovenox for DVT prophylaxis Status: Acute (2) NSTEMI (non-ST elevated myocardial infarction): Baseline troponin 200 EKG shows sinus tachycardia, no acute ST-T wave changes No chest pain complaints Likely type II NSTEMI from right heart strain from pulmonary emboli Plan: -Admit to CSU, continue aspirin, statin, beta-daryl -Continue Lovenox -Trend troponins, serial EKGs, serial troponins -Cardiac echo -Discussed with cardiology based on clinical findings Status: Acute (3) COPD (chronic obstructive pulmonary disease): Status: Chronic Qualifiers: COPD type: unspecified COPD Qualified Code(s): J44.9 - Chronic obstructive pulmonary disease, unspecified Attestations Medical Necessity Statement*: Patient requires hospitalization, outpatient with observation, for bilateral pulmonary emboli, NSTEMI Coding Level of Care Code Acute Radio Despatcher for [facility] Fwd Exam Comprehensive Diagnoses Bilateral pulmonary embolism I26.99 NSTEMI (non-ST elevated myocardial infarction) I21.4 COPD (chronic obstructive pulmonary disease) J44.9 COPD type: unspecified COPD
[2021-01-14 01:27] LABS: Troponin 5 2HR 236.7 ng/L (0-10); Troponin 5 2HR Delta 36.7 ABS# (0-10)
--- NOTE | 2021-01-14 02:09 | USCV_ITS ---
Kush Cruz Age: 55 Gender: F : 1965 Exam Date: 01/14/2021 06:15 Ordering Phys: Donn Johnson MD Technologist: Ayleen Ramos [place] [facility] [place]: SOB HISTORY: SOB PROCEDURES: Venous duplex imaging was performed in bilateral lower extremities. The following venous structures were evaluated: common femoral vein, profunda vein, proximal portion of the greater saphenous vein, superficial femoral vein, and the popliteal vein. In addition, the posterior tibial and peroneal trunk were evaluated. Serial compression, augmentation maneuvers, and spectral Doppler flow evaluation were performed. FINDINGS: No evidence of DVT seen in any vessel visualized at this time. CONCLUSIONS No evidence of right lower extremity DVT. No evidence of left lower extremity DVT. Feliciano Pandey MD (Electronically Signed) Final Date: 14 January 2021 09:05 S
--- NOTE | 2021-01-14 02:09 | USCV_ITS ---
Kush Cruz Age: 55 Gender: F : 1965 Exam Date: 01/14/2021 15:45 Ordering Phys: Donn Johnson MD Technologist: Ayleen Ramos Exam Location: [facility] [place] Indication: RIGHT HEAT STRAIN BP: 120 / 67 HR: 92 Rhythm: Other Technical Quality: Fair MEASUREMENTS (Male / Female) Normal Values 2D ECHO LV Diastolic Diameter PLAX 4.1 cm 4.2 - 5.9 / 3.9 - 5.3 cm LV Systolic Diameter PLAX 3.0 cm IVS Diastolic Thickness 1.4 cm 0.6 - 1.0 / 0.6 - 0.9 cm IVS Systolic Thickness 1.8 cm LVPW Diastolic Thickness 1.3 cm 0.6 - 1.0 / 0.6 - 0.9 cm LVPW Systolic Thickness 1.9 cm LV Ejection Fraction 2D Teich 52.8 % LV Ejection Fraction MOD 2C 65.1 % LV Ejection Fraction 2C AL 64.6 % LA Diameter 3.3 cm LA Width 3.6 cm LA Height 4.9 cm RA Width 3.2 cm RA Height 4.8 cm Aorta at Sinotubular Diameter 2.8 cm M-MODE LV Diastolic Diameter MM 4.7 cm 4.2 - 5.9 / 3.9 - 5.3 cm LV Systolic Diameter MM 3.3 cm LV Ejection Fraction MM Teich 57.9 % IVS Diastolic Thickness MM 1.2 cm 0.6 - 1.0 / 0.6 - 0.9 cm IVS Systolic Thickness MM 1.8 cm LVPW Diastolic Thickness MM 1.1 cm 0.6 - 1.0 / 0.6 - 0.9 cm LVPW Systolic Thickness MM 1.5 cm Aortic Annulus Diameter 3.0 cm LA Ao Ratio MM 1.1 MV E Point Septal Separation 0.5 cm DOPPLER LVOT Peak Velocity 108.7 cm/s MV Area PHT 4.9 cm squared Mitral E to A Ratio 0.9 MV E' Velocity 25.5 cm/s Mitral E to MV E' Ratio 6.8 Mitral E to LV E' Lateral Ratio 8.3 Mitral E to LV E' Septal Ratio 5.8 TR Peak Velocity 311.9 cm/s TR Peak Gradient 38.9 mmHg TR Mean Velocity 219.9 cm/s TR Mean Gradient 22.7 mmHg TR Velocity Time Integral 90.7 cm Right Atrial Pressure 3.0 mmHg Pulmonary Artery Systolic Pressu 41.9 mmHg PV Peak Velocity 60.0 cm/s RV Acceleration Time 0.1 s RV Ejection Time 0.3 s RV AcT/ET 0.2 FINDINGS Left Ventricle Normal left ventricular size, systolic function and wall thickness, with no regional wall motion abnormalities. Left ventricular ejection fraction is estimated at 65 %. Grade II diastolic dysfunction, moderately elevated filling pressures. Flattened septum in systole consistent with right ventricle pressure overload. Right Ventricle Dilated right ventricle with decreased right ventricular systolic function. There is akinesis of right ventricular free wall with relative sparing of apical segment. Right ventricular systolic pressure 41.9 mmHg. Right Atrium Normal right atrial size. Left Atrium Mildly increased left atrial size. Mitral Valve Thickened mitral valve. No mitral valve stenosis. Trace mitral valve regurgitation. Aortic Valve Structurally normal trileaflet aortic valve. Tricuspid Valve Structurally normal tricuspid valve. [id number] tricuspid valve regurgitation. Pulmonic Valve Structurally normal pulmonic valve. No pulmonary valve stenosis. Trace pulmonary valve regurgitation. Pericardium No pericardial effusion. Aorta Normal-sized aortic root. Inferior vena cava not well visualized. CONCLUSIONS 1. Normal left ventricular size, systolic function and wall thickness, with no regional wall motion abnormalities. Left ventricular ejection fraction is estimated at 65 %. Grade II diastolic dysfunction, moderately elevated filling pressures. Flattened septum in systole consistent with right ventricle pressure overload. 2. Dilated right ventricle with decreased right ventricular systolic function. There is akinesis of right ventricular free wall with relative sparing of apical segment. 3. [id number] tricuspid valve regurgitation. 4. Pulmonary artery pressure estimated at 42 mmHg. 5. These findings are suggestive of Perkins sign. Onelia Gabriel MD (Electronically Signed) Final Date: 14 January 2021 17:40 S
[2021-01-14] MEDS: metoprolol tartrate 50 mg Tablet PO ×2 (03:05→13:56)
[2021-01-14] MEDS: HYDROcodone-acetaminophen 7.5-325 mg Tablet 1 TAB PO ×4 (03:36→20:51)
[2021-01-14] MEDS: quetiapine 25 mg Tablet 50 MG PO (03:37)
[2021-01-14 05:10] LABS: Troponin 5 6HR 229.7 ng/L (0-10); Troponin 5 6HR Delta 29.7 ng/L (0-12)
--- NOTE | 2021-01-14 07:35 | PC.NURSE ---
Patient recieved on unit via ER personell and wheel chair. Patient alert and oriented with no skin issues noted at this time. Patient voicing pain in lower back which is known to be chronic pain. No chest pain or SOB at this time. Patient requested her seroquel that she takes at home and got order from provider to continue this medication. Patient voicing pain continually but drifting off to snoring shortly after. Patient also wears a Bipap at pressure of 14 mmHg at home. No oxygen usage but does have nebulizer that she states only used once or twice a month. Patient does have a harsh non productive cough noted. Provider notified and SCD therapy on hold at this time due to bilateral pulmonary emboli. Bedside report given this am to Lalit MASTERS and Sara MASTERS. Will continue to monitor and assist as needed following CPOC.
[2021-01-14] MEDS: albuterol 8 gm MDI 2 PUFF INHALATION (08:09)
[2021-01-14] MEDS: aspirin 81 mg EC Tablet PO (08:29)
[2021-01-14] MEDS: atorvastatin 40 mg Tablet 20 MG PO (08:29)
[2021-01-14] MEDS: pantoprazole DR 40 mg Tablet PO (08:29)
[2021-01-14] MEDS: tamsulosin 0.4 mg Capsule PO (08:29)
--- NOTE | 2021-01-14 09:00 | PC.OT ---
OT screen completed. Pt independently doffed/donned socks, ambulated to bathroom and completed toileting, washed hands at sink, as well as moved her bedside table to the other side of her bed to sit in bedside chair, no devices needed, no loss of balance. Pt reported no concerns for return to home. OT not indicated at this time.
--- NOTE | 2021-01-14 09:43 | PC.CHAP ---
Pastoral Care Encounter/Spiritual Assessment Type of Contact [] Declined holistic pulser visit [] Patient/Family/Request visit [] Outpatient visit [] Follow-up visit [] Physician referral [] Code/Alert [x] Routine visit [] Staff referral [] Actively dying [] Patient sleeping [] Family support [] [] Out of room [] Palliative care [] [] Receiving care in room [] Pre-surgical visit [] Trauma [] Long length of stay [] ICU visit [] Other: Relational/Emotional Strength [] Patient feels connected with others/family/visitors/staff [] Distress [] Loneliness/isolation [] Abandonment Spirituality of Patient [] Person of Sarah [] Attends Tenriism of their Sarah [] Believes in Prayer [] Reads Bible or Sabianism materials [] There are Spiritual issues to be addressed [place] Utility Worker Interventions [x] Prayer [x] Active listening [x] Non-anxious presence [x] Spiritual/emotional support [] Crisis/trauma care [] Spiritual counseling [] Bereavement support [] Provided bereavement packet [] Provided Bible/devotional materials [] Provided toy/stuffed animal, coloring book to patient or family member [] Provided Communion [] Anointing/[place] [] Salvation [x] Completed spiritual assessment [] Other: Impact on Illness or Injury [] Angry [] Fearful [] Anxious [] Often cries [] Exhaustion [] Unable to work [] Unable to attend druze [] Unable to walk/stand [] Unable to read [] Unable to drive [] Unable to eat/drink [] Unable to sleep [] Unable to be with family [] Patient intubated [] Other: Summary patient setting in chair.. feeling much stronger.. working on computer. Time spent with patient 10 min
[2021-01-14] MEDS: ALPRAZolam 0.25 mg Tablet PO ×2 (10:36→20:51)
--- NOTE | 2021-01-14 15:14 | PC.NURSE ---
Ultrasound called Called Ultrasound x2 to perform her echocardiogram.
--- NOTE | 2021-01-14 18:13 | PM.CONSULT ---
Providers/Reason For Consult Consulting Physican/Specialty*: Hector Verde MD/ Pulmonary Critical Care Medicine Reason for Consult*: Bilateral PE with Right heart strain Requesting Physcian: Abdifatah Winston Attending Physician: Abdifatah Winston Primary Care Provider: Shari Gray DO History of Present Illness History of Present Illness Kush Cruz is a 55 year old female with a history of recurrent nephrolithiasis, has had multiple procedures over the years, recently had infected right ureteral calculus in early October 2020 underwent ESWL, history of COPD, hypertension, anxiety, chronic pain on hydrocodone, hyperlipidemia admitted to [facility] for bilateral PE after a long drive to and fro to [facility] from [facility]. She reportedly drove to [facility] to see her daughter about a week ago and then developed shortness of breath with exertion but was able to visit several places and drove back last weekend to [place] and noticed shortness of breath even with minimal exertion like getting out of her car which prompted her to come to [facility] ER Yesterday. She denied fevers, chills, cough, hemoptysis, leg pain, calf swelling. In the emergency room patient was found to have elevated troponins as high as 200, CT angiogram showing a bilateral segmental and subsegmental PEs and evidence of right heart strain. Patient is hemodynamically stable with sinus tachycardia. Today seen patient at bedside and saturating 95% on room air. She reported improvement in her dyspnea and denied any chest pain since admission. Currently on Lovenox 70 mg twice daily for PE. Bilateral lower extremity Doppler did not show any evidence of DVT. Patient underwent 3 procedures for her recurrent nephrolithiasis in September-October 2020 but none of them led to prolonged immobilization. She also reported driving long distances for several years now. Admitted smoking half pack per day for last 31 years still smoking currently. Reported being diagnosed with COPD and says she uses Symbicort and had PFTs several months ago. Review of Systems General: Reports: 10 or more systems reviewed and unremarkable except in HPI and below Meds/Allergies Home Medications and Allergies Home Medications Medication Instructions Recorded Confirmed Last Taken Type albuterol sulfate 90 mcg/actuation 2 puff INHALATION Q6H PRN 09/14/20 01/14/21 09/20/20 History aerosol inhaler atorvastatin 20 mg tablet 20 mg PO DAILY@09 09/14/20 01/14/21 10/05/20 History metoprolol tartrate 50 mg tablet 100 mg PO Q12H 09/14/20 01/14/21 09/20/20 10:00 History budesonide-formoterol [Symbicort] See Rx Instructions .ROUTE .COMPLEX 10/06/20 01/14/21 Unknown History omeprazole 40 mg PO DAILY@09 10/06/20 01/14/21 Unknown History tamsulosin See Rx Instructions .ROUTE 12/27/20 01/14/21 Unknown Rx .COMPLEX #30 cap ibuprofen 800 mg PO Q6H PRN 01/14/21 01/14/21 Unknown History oxycodone-acetaminophen 1 tab PO Q12H PRN 01/14/21 01/14/21 Unknown History quetiapine 100 mg PO BID@01/14/21 01/14/21 Unknown History Allergies Allergy/AdvReac Type Severity Reaction Status Date / Time ketorolac [From Toradol] Allergy ALGY-Rash Verified 01/13/21 20:08 simvastatin Allergy ADR-Vomitin Verified 01/13/21 20:08 g Current Medications Current Medications Generic Name Dose Route Start Last Admin Trade Name Freq PRN Reason Stop Dose Admin Hydrocodone Bitart/Acetaminophen 1 tab 01/14/21 02:09 01/14/21 16:25 Hydrocodone-Acetaminophen 7.5-325 Mg Tablet PO 1 tab Q6H PRN Administration pain Albuterol Sulfate 2 puff 01/14/21 02:09 01/14/21 08:09 Albuterol 8 Gm Mdi INHALATION 2 puff Q6H PRN Administration sob Alprazolam 0.25 mg 01/14/21 02:09 01/14/21 10:36 Alprazolam 0.25 Mg Tablet PO 0.25 mg BID PRN Administration Anxiety Aspirin 81 mg 01/14/21 09:00 01/14/21 08:29 Aspirin 81 Mg Ec Tablet PO 81 mg DAILY CHRIS Administration Atorvastatin Calcium 20 mg 01/14/21 09:00 01/14/21 08:29 Atorvastatin 40 Mg Tablet PO 20 mg DAILY@09 CHRIS Administration Enoxaparin Sodium 70 mg 01/14/21 11:30 01/14/21 10:31 Enoxaparin 80 Mg/0.8 Ml Syringe SUBCUT 70 mg Q12H CHRIS Administration Metoprolol Tartrate 50 mg 01/14/21 02:09 01/14/21 13:56 Metoprolol Tartrate 50 Mg Tablet PO 50 mg Q12H CHRIS Administration Pantoprazole Sodium 40 mg 01/14/21 09:00 01/14/21 08:[address] 40 Mg Tablet PO 40 mg DAILY@09 CHRIS Administration Quetiapine Fumarate 50 mg 01/14/21 03:30 01/14/21 03:37 Quetiapine 25 Mg Tablet PO 50 mg BEDTIME CHRIS Administration Fluticasone/Salmeterol 1 puff 01/14/21 08:00 01/14/21 08:08 Fluticasone-Salmeterol 500-50 Diskus INHALATION 1 puff BID.RESPIRATORY CHRIS Administration Tamsulosin HCl 0.4 mg 01/14/21 09:00 01/14/21 08:29 Tamsulosin 0.4 Mg Capsule PO 0.4 mg DAILY CHRIS Administration PFSH Acute PFSH: Medical History (Updated 01/16/21 @ 08:16 by Hector Verde MD) HTN (hypertension) Hyperlipidemia Recurrent UTI Renal calculi Right ureteral calculus Left mid/distal Large obstructing ureteral stone complicated by UTI. Treated with urgent ureteroscopy laser lithotripsy 10/06/20 Surgical History H/O lithotripsy Hx of section X4 Hx of cholecystectomy Hx of hysterectomy Status post extracorporeal shock wave therapy Family History Mother , at age 53 Heart attack Father No problems noted. Other CAD (coronary artery disease) Cancer Chronic kidney disease (CKD) Hypertension Social History Smoking and tobacco status: current every day smoker Alcohol intake: current Alcohol intake frequency: holidays/special occasions only Adopted: No Caregiver/support person: No Lives independently: No Household members: spouse Marital status: Current occupational status: retired History of recent travel: No Vitals/I&O/Wt Last Vital Signs Temp 97.9 F 01/14/21 16:00 Pulse 94 01/14/21 16:00 Resp 20 H 01/14/21 16:00 BP 134/85 03/15/21 16:00 Pulse Ox 95 01/14/21 16:00 01/14/21 01/14/21 01/14/21 06:59 14:59 22:59 Intake Total 1120 / 1120 798 / 798 444 / 1242 Balance 1120 / 1120 798 / 798 444 / 1242 Weight last 48 hrs Weight 1580 lb Physical Exam Narrative: EXAM NARRATIVE: General: alert, NAD HEENT: conj clear, EOMI, PERRL, mmm, Neck: supple, no meningismus Heme: no cervical LAP Pulmonary: Bilateral air entry present throughout, diffuse mid to end expiratory wheeze bilaterally Cardiovascular: rrr, nl s1s2, no mrg Abdomen: soft, nt, nd, no r/g, bs+ Extremities: pulses +, no edema, no c/c : no CVA tenderness Skin: intact, no rash MSK: no back or neck pain Neurologic: grossly intact Data Labs: Other Labs: Laboratory Results WBC 7.6 10^3/uL (4.0- 10.0) 01/13/21 21:05 RBC 3.64 10^6/uL (4.1 -5.3) L 01/13/21 21:05 Hgb 11.8 g/dL (11.5-1 5.3) 01/13/21 21:05 Hct 36.1 % (37.0-47.0 ) L 01/13/21 21:05 MCV 99.2 fL (81-99) H 01/13/21 21:05 MCH 32.4 pg (28.0-34. 0) 01/13/21 21:05 MCHC 32.7 g/dL (30.0-3 6.0) 01/13/21 21:05 RDW 13.6 % (12.1-15.1 ) 01/13/21 21:05 Plt Count 222 10^3/cmm (130 -400) 01/13/21 21:05 MPV 9.3 fL (7.4-10.4) 01/13/21 21:05 Neut % (Auto) 90.3 % 01/13/21 21:05 Lymph % (Auto) 6.9 % 01/13/21 21:05 [place] % (Auto) 2.1 % 01/13/21 21:05 Eos % (Auto) 0.0 % 01/13/21 21:05 Baso % (Auto) 0.3 % 01/13/21 21:05 Neut # (Auto) 6.83 10^3/uL (1.8 -7.7) 01/13/21 21:05 Lymph # (Auto) 0.5 10^3/uL (0.8- 4.8) L 01/13/21 21:05 [place] # (Auto) 0.2 10^3/uL (0.2- 0.9) 01/13/21 21:05 Eos # (Auto) 0.0 10^3/uL (0.0- 0.8) 01/13/21 21:05 Baso # (Auto) 0.0 10^3/uL (0.0- 0.1) 01/13/21 21:05 Nucleated RBC % (a uto) 0 % 01/13/21 21: Nucleated RBCs # 0.0 /100WBC 01/13/21 21:05 D-Dimer 3.05 ug/mIFEU (0- 0.59) H 01/13/21 21:05 Sodium 140 mmol/L (136-1 45) 01/13/21 21:05 Potassium 3.5 mmol/L (3.5-5 .1) 01/13/21 21:05 Chloride 103 mmol/L (98-10 7) 01/13/21 21:05 Carbon Dioxide 22 mmol/L (22-29) 01/13/21 21:05 Anion Gap 18.5 (5-19) 01/13/21 21:05 BUN 18 mg/dL (6-20) 01/13/21 21:05 Creatinine 0.7 mg/dL (0.5-0. 9) 01/13/21 21:05 GFR Calculation 87.5 mL/min (90-1 30) L 01/13/21 21:05 Glucose 148 mg/dL (65-115 ) H 01/13/21 21:05 Calculated Osmolal ity 295 mOsm/kg (285- 295) 01/13/21 21:05 Lactate 1.8 mmol/L (0.5-2 .2) 01/13/21 21:05 Calcium 9.1 mg/dL (8.5-10 .5) 01/13/21 21:05 Total Bilirubin 0.2 mg/dL (0.15-1 .2) 01/13/21 21:05 AST 43 U/L (0-32) H 01/13/21 21:05 ALT 32 U/L (0-33) 01/13/21 21:05 Alkaline Phosphata se 86 IU/L (35-105) 01/13/21 21:05 Troponin T Baselin e 200 ng/L (0-10) H* 01/13/21 21:05 Troponin T 120 Min tunica-biloxi 236.7 ng/L (0-10) H 01/14/21 00:00 Delta Troponin T 36.7 ABS# (0-10) H* 01/14/21 00:00 Troponin T Hi Sens 6Hr 229.7 ng/L (0-10) H 01/14/21 04:15 Troponin T Hi Sens 6Hr Delta 29.7 ng/L (0-12) H* 01/14/21 04:15 NT-Pro-B Natriuret Pep 773 pg/mL (0-125) H 01/13/21 21:05 Total Protein 6.9 g/dL (6.6-8.7 ) 01/13/21 21:05 Albumin 4.3 g/dL (3.5-5.2 ) 01/13/21 21:05 Globulin 2.6 g/dL (1.3-4.6 ) 01/13/21 21:05 HCG, Qual Negative (Negati ve) 01/13/21 21:05 Urine Color Yellow (Yellow) 01/13/21 22:07 Urine Appearance Clear (CLEAR) 01/13/21 22:07 Urine pH 7 (5-7) 01/13/21 22:07 Ur Specific Gravit y 1.010 (1.005-1.0 30) 01/13/21 22:07 Urine Protein Trace (Negative) 01/13/21 22:07 Urine Glucose (UA) Trace (Normal) H 01/13/21 22:07 Urine Ketones Negative (Negati ve) 01/13/21 22:07 Urine Blood Neg (Negative) 01/13/21 22:07 Urine Nitrate Negative (Negati ve) 01/13/21 22:07 Urine Bilirubin Neg (Negative) 01/13/21 22:07 Urine Urobilinogen Norm mg/dL (Negat anny) 01/13/21 22:07 Ur Leukocyte Barbara ase Negative (Negati ve) 01/13/21 22:07 Urine RBC 0-4 /hpf (0-2) H 01/13/21 22:07 Urine WBC 0-4 /hpf (0-5) H 01/13/21 22:07 Ur Squamous Epith Cells 0-4 /hpf (0-5) H 01/13/21 22:07 Amorphous Sediment Not Reportable 01/13/21 22:07 Urine Bacteria Trace /hpf (NONE) 01/13/21 22:07 SARS-CoV-2 Ag (Rap id) Negative (Negati ve) 01/13/21 21:05 Impressions Chest X-Ray 01/13/21 20:19 IMPRESSION: Increased prominence of the cardiac silhouette compared with the previous examination as above. Equivocal findings for pulmonary infiltrate. Follow-up chest x-ray in one week as clinically warranted. Chest CTA 01/13/21 21:52 IMPRESSION: 1. Bilateral segmental to subsegmental branch pulmonary emboli. 2. Mild leftward deviation of the intraventricular septum with right ventricular enlargement suggesting a degree of right heart strain. 3. Right middle lobe atelectasis versus infiltrate. 4. Bilateral nonobstructing renal calyceal stones. 5. Large hiatal hernia. THIS REPORT CONTAINS FINDINGS THAT MAY BE CRITICAL TO PATIENT CARE. The findings were verbally communicated via telephone conference with TRAM ART at 11:24 PM CDT on 01/13/2021. The findings were acknowledged and understood. Radiation Dose CTDIVOL = (mGy): DLP = 602.3 (mGy-cm) A&P Assessment and plan (1) NSTEMI (non-ST elevated myocardial infarction): Status: Acute (2) Bilateral pulmonary embolism: Status: Acute (3) COPD (chronic obstructive pulmonary disease): Status: Chronic Qualifiers: COPD type: unspecified COPD Qualified Code(s): J44.9 - Chronic obstructive pulmonary disease, unspecified (4) BRAYDON (obstructive sleep apnea): Status: Acute #Provoked bilateral PE - On therapeutic elliquis 10 mg PO q 12 - [place] for RLL pleuritic chest pain - pending ECHo to evaluate RV pressures # COPD - On Duoneb scheduled nebs - counselled to quit smoking - PFTs as outpatient # Patient reported using CPAP at night for BRAYDON - Does not remember her settings - sleep retitration as outpt. #Significantly elevated Troponins likely secondary to PE # Cannot rule out underlying CAD - in view of significant CAD risk factors - cardiology consulted and pt is planned to get Stress test - Echo pending - ASA, lipitor, metoprolol recommendations conveyed to Hospitalist taking care of the patient. Consult Attestations Medical Necessity Statement: Continue admission for assessment management of exten additionally assess for underlying coronary disease given elevated troponin, risk factors. Time Spent in Patient Care: (>than 50% of time spent in counselling and/or direct pt care on unit). Critical Care Time: Critical Care Time (min): 45 Coding Level of Care Code New Pt Acute Ore Crusher for Tangela Reyes Patient Type New History Comprehensive Exam Comprehensive Medical Decision Making High Complexity Diagnoses NSTEMI (non-ST elevated myocardial infarction) I21.4 Bilateral pulmonary embolism I26.99 COPD (chronic obstructive pulmonary disease) J44.9 COPD type: unspecified COPD BRAYDON (obstructive sleep apnea) G47.33 Time Spent (min) 45
--- NOTE | 2021-01-14 18:19 | PM.CONSULT ---
Providers/Reason For Consult Consulting Physican/Specialty*: Dr. Gabriel, cardiology Reason for Consult*: Elevated troponin Attending Physician: Abdifatah Winston Primary Care Provider: Shari Gray DO History of Present Illness History of Present Illness Kush Cruz is a 55 year old female past medical history of hypertension, hyperlipidemia chronic active smoker who presented with complaints of shortness of breath and one episode of chest discomfort. Patient took a 2-week trip to [facility]. She drove her car for 10 to 11 hours up there and then got back yesterday. Patient states that on her way home she was feeling short of breath with minimal exertion and had 1 episode of sharp chest discomfort. She came to the ER right away on arrival to [place]. She was found to have bilateral PE on CT chest. she smokes half pack per day and has been doing so since 24 years of age. Patient states that she is pretty active at baseline with her grandchildren and takes care of her 9-year-old grandchild who lives with her. Denies having any exertional dyspnea or chest discomfort. She gives family history of massive AK in mother in her 50s. Prior cardiac work-up. On arrival to ER her troponins were noted to be elevated and hence I have been asked to evaluate the patient. Review of Systems Const: Denies: fever(s), chills, fatigue or malaise Eyes: Denies: change in vision or blurry vision ENMT: Denies: nasal congestion Card: Denies: chest pain, palpitations, irregular heart rhythm, edema, lightheadedness, syncope or pre-syncope Resp: Reports: dyspnea; Denies: productive cough, non-productive cough or wheezing GI: Denies: abdominal pain, nausea, vomiting, hematemesis, diarrhea, constipation, hematochezia or melena : Denies: flank pain, dysuria or urinary frequency Musc: Denies: neck pain or back pain Skin/Breast: Denies: rash Neuro: Denies: headache(s), dizziness or vertigo Endo: Denies: polyuria or polydipsia Meds/Allergies Home Medications and Allergies Home Medications Medication Instructions Recorded Confirmed Last Taken Type albuterol sulfate 90 mcg/actuation 2 puff INHALATION Q6H PRN 11/13/20 03/15/21 11/19/20 History aerosol inhaler atorvastatin 20 mg tablet 20 mg PO DAILY@09/14/20 01/14/21 10/05/20 History metoprolol tartrate 50 mg tablet 100 mg PO Q12H 09/14/20 01/14/21 09/20/20 10:00 History budesonide-formoterol [Symbicort] See Rx Instructions .ROUTE .COMPLEX 10/06/20 01/14/21 Unknown History omeprazole 40 mg PO DAILY@10/06/20 01/14/21 Unknown History tamsulosin See Rx Instructions .ROUTE 12/27/20 01/14/21 Unknown Rx .COMPLEX #30 cap ibuprofen 800 mg PO Q6H PRN 01/14/21 01/14/21 Unknown History oxycodone-acetaminophen 1 tab PO Q12H PRN 01/14/21 01/14/21 Unknown History quetiapine 100 mg PO BID@01/14/21 01/14/21 Unknown History Allergies Allergy/AdvReac Type Severity Reaction Status Date / Time ketorolac [From Toradol] Allergy ALGY-Rash Verified 01/13/21 20:08 simvastatin Allergy ADR-Vomitin Verified 01/13/21 20:08 g Current Medications Current Medications Generic Name Dose Route Start Last Admin Trade Name Freq PRN Reason Stop Dose Admin Hydrocodone Bitart/Acetaminophen 1 tab 01/14/21 02:09 01/14/21 16:25 Hydrocodone-Acetaminophen 7.5-325 Mg Tablet PO 1 tab Q6H PRN Administration pain Albuterol Sulfate 2 puff 01/14/21 02:09 01/14/21 08:09 Albuterol 8 Gm Mdi INHALATION 2 puff Q6H PRN Administration sob Alprazolam 0.25 mg 01/14/21 02:09 01/14/21 10:36 Alprazolam 0.25 Mg Tablet PO 0.25 mg BID PRN Administration Anxiety Aspirin 81 mg 01/14/21 09:00 01/14/21 08:29 Aspirin 81 Mg Ec Tablet PO 81 mg DAILY CHRIS Administration Atorvastatin Calcium 20 mg 01/14/21 09:00 01/14/21 08:29 Atorvastatin 40 Mg Tablet PO 20 mg DAILY@09 CHRIS Administration Enoxaparin Sodium 70 mg 01/14/21 11:30 01/14/21 10:31 Enoxaparin 80 Mg/0.8 Ml Syringe SUBCUT 70 mg Q12H CHRIS Administration Metoprolol Tartrate 50 mg 01/14/21 02:09 01/14/21 13:56 Metoprolol Tartrate 50 Mg Tablet PO 50 mg Q12H CHRIS Administration Pantoprazole Sodium 40 mg 01/14/21 09:00 01/14/21 08:[address] 40 Mg Tablet PO 40 mg DAILY@09 CHRIS Administration Quetiapine Fumarate 50 mg 01/14/21 03:30 01/14/21 03:37 Quetiapine 25 Mg Tablet PO 50 mg BEDTIME CHRIS Administration Fluticasone/Salmeterol 1 puff 01/14/21 08:00 01/14/21 08:08 Fluticasone-Salmeterol 500-50 Diskus INHALATION 1 puff BID.RESPIRATORY CHRIS Administration Tamsulosin HCl 0.4 mg 01/14/21 09:00 01/14/21 08:29 Tamsulosin 0.4 Mg Capsule PO 0.4 mg DAILY CHRIS Administration PFSH Acute PFSH: Medical History (Updated 01/14/21 @ 18:36 by Onelia Gabriel MD) HTN (hypertension) Hyperlipidemia Recurrent UTI Renal calculi Right ureteral calculus Left mid/distal Large obstructing ureteral stone complicated by UTI. Treated with urgent ureteroscopy laser lithotripsy 10/06/20 Surgical History H/O lithotripsy Hx of section X4 Hx of cholecystectomy Hx of hysterectomy Status post extracorporeal shock wave therapy Family History Mother , at age 53 Heart attack Father No problems noted. Other CAD (coronary artery disease) Cancer Chronic kidney disease (CKD) Hypertension Social History Smoking and tobacco status: current every day smoker Alcohol intake: current Alcohol intake frequency: holidays/special occasions only Adopted: No Caregiver/support person: No Lives independently: No Household members: spouse Marital status: Current occupational status: retired History of recent travel: No Vitals/I&O/Wt Last Vital Signs Temp 97.9 F 01/14/21 16:00 Pulse 94 01/14/21 16:00 Resp 20 H 01/14/21 16:00 BP 134/85 01/14/21 16:00 Pulse Ox 95 01/14/21 16:00 01/14/21 01/14/21 01/14/21 06:59 14:59 22:59 Intake Total 1120 / 1120 798 / 798 444 / 1242 Balance 1120 / 1120 798 / 798 444 / 1242 Weight last 48 hrs Weight 1580 lb Physical Exam Narrative: EXAM NARRATIVE: GENERAL: Averagely built and averagely nourished in no acute distress HEENT: Extraocular movement intact. Pupils equal round reactive to light. No pallor or icterus. NECK: central trachea, no JVD. No carotid bruit. CARDIOVASCULAR SYSTEM: S1-S2 regular. No S3 or S4 present. No murmur rubs or gallops. RESPIRATORY SYSTEM: Chest clear to auscultation. No wheezes rhonchi or rubs heard. No use of accessory muscles. ABDOMEN: Soft, nontender and nondistended. Normal bowel sounds present. EXTREMITIES: No cyanosis or clubbing. Trace edema. No signs of chronic venous insufficiency. EMPLOYMENT INSTRUCTIONAL ASSOCIATE: Patient is alert oriented ?3. No focal neurological deficits. SKIN: Normal turgor and temperature. No breakdown, rash or nail changes noted. PSYCH: Normal insight and judgment. No suicidal or homicidal ideations. Data Labs: Other Labs: Baseline troponin T of 200 at 2 hr of 237 and at 6 hours of 230. NT proBNP 773. Rapid Covid antigen testing negative. Imaging^: Other Imaging: I personally reviewed and interpreted this imaging study as follows: My impression: Echocardiogram 14 January 2021 CONCLUSIONS 1. Normal left ventricular size, systolic function and wall thickness, with no regional wall motion abnormalities. Left ventricular ejection fraction is estimated at 65 %. Grade II diastolic dysfunction, moderately elevated filling pressures. Flattened septum in systole consistent with right ventricle pressure overload. 2. Dilated right ventricle with decreased right ventricular systolic function. There is akinesis of right ventricular free wall with relative sparing of apical segment. 3. [id number] tricuspid valve regurgitation. 4. Pulmonary artery pressure estimated at 42 mmHg. 5. These findings are suggestive of Perkins sign. Radiologist's impression: Venous duplex 14 January 2021 with no evidence of DVT. CTA Chest: Radiologist's impression: IMPRESSION: 1. Bilateral segmental to subsegmental branch pulmonary emboli. 2. Mild leftward deviation of the intraventricular septum with right ventricular enlargement suggesting a degree of right heart strain. 3. Right middle lobe atelectasis versus infiltrate. 4. Bilateral nonobstructing renal calyceal stones. 5. Large hiatal hernia. Other Data: Other data: EKG showed sinus tachycardia with short AR interval of 415 ms. Possible right ventricular conduction delay. Nonspecific ST and T wave abnormality. A&P Assessment and plan (1) Bilateral pulmonary embolism: Provoked PE first episode; -Currently on therapeutic Lovenox. Status: Acute (2) NSTEMI (non-ST elevated myocardial infarction): NSTEMI type II in setting of PE. -Patient does have multiple CAD risk factors of hypertension, dyslipidemia, smoking and family history. -She would benefit from stress testing, however patient is symptom-free in the hospital. -Patient's shortness of breath has significantly improved since arrival to the ER initiation of therapeutic Lovenox. No recurrent episodes of chest discomfort. -Current to monitor patient's symptoms closely -Continue aspirin, statin and beta-daryl. Status: Acute (3) GERD (gastroesophageal reflux disease): Status: Chronic Qualifiers: Esophagitis presence: esophagitis presence not specified Qualified Code(s): K21.9 - Gastro-esophageal reflux disease without esophagitis (4) HTN (hypertension): Status: Acute Qualifiers: Hypertension type: essential hypertension Qualified Code(s): I10 - Essential (primary) hypertension (5) Hyperlipidemia: Status: Acute Qualifiers: Hyperlipidemia type: mixed hyperlipidemia Qualified Code(s): E78.2 - Mixed hyperlipidemia Additional A&P Information RV dysfunction from acute PE Thank you for allowing me to participate in patient's care. Please feel free to call with questions or concerns Consult Attestations Medical Necessity Statement: As per primary team Coding Level of Care Code Acute Coating Supervisor for [facility] Fwd Diagnoses Bilateral pulmonary embolism I26.99 NSTEMI (non-ST elevated myocardial infarction) I21.4 GERD (gastroesophageal reflux disease) K21.9 Esophagitis presence: esophagitis presence not specified HTN (hypertension) I10 Hypertension type: essential hypertension Hyperlipidemia E78.2 Hyperlipidemia type: mixed hyperlipidemia
--- NOTE | 2021-01-14 20:37 | P.PN_ITS ---
Subjective Subjective: Interval history: She states overall is doing little bit better. Denies chest pain. Has been getting up little bit. Doing all right on room air. Denies cough. Denies hemoptysis. Denies dizziness or lightheadedness. No lower extremity swelling. Vitals/I&O/Wt Last Vital Signs Temp 98 F 01/14/21 20:00 Pulse 91 01/14/21 20:00 Resp 24 H 01/14/21 20:00 BP 122/73 01/14/21 20:00 Pulse Ox 93 01/14/21 20:00 01/14/21 01/14/21 01/14/21 06:59 14:59 22:59 Intake Total 1120 / 1120 798 / 798 444 / 1242 Balance 1120 / 1120 798 / 798 444 / 1242 Weight last 48 hrs Weight 716.676 kg Physical Exam Narrative: EXAM NARRATIVE: Up in chair. In good spirits. Const: COMMON NORMALS: no acute distress and patient oriented x3 HENMT: COMMON NORMALS: oropharynx normal Neck/C-Spine: COMMON NORMALS: no JVD Resp: COMMON NORMALS: normal respiratory effort and clear to auscultation bilaterally AUSCULTATION: clear to auscultation bilaterally Cardio: COMMON NORMALS: no JVD, regular rhythm, S1 normal heart sound present, S2 normal heart sound present and No murmurs present (Cardio) RHYTHM: regular rhythm HEART SOUNDS: S1 normal heart sound present and S2 normal heart sound present GI: COMMON NORMALS: Normal to inspection, nondistended, normoactive bowel sounds present, Soft to palpation and non-tender PALPATION: Yes Soft to palpation Extremity: COMMON NORMALS: no joint enlargement and no pedal edema Neuro: COMMON NORMALS: patient oriented x3 and moves all extremities Skin: COMMON NORMALS: no rashes or lesions noted GENERAL SKIN EXAM: no rashes or lesions noted Data : 01/13/21 21:05 01/13/21 21:05 A&P Assessment and plan (1) Bilateral pulmonary embolism: Pending echo with septal flattening, consistent with right ventricular pressure overload. Normal EF. Grade 2 diastolic dysfunction. Akinesis of right ventricular free wall. Decreased systolic function. Mild to moderate TR. PA pressure 42 mmHg by estimate. Discussed with her. Intermediate risk PE. Signs of RV overload, will diminish systolic function. Does not appear to have signs of right heart failure at this time. Hemodynamically stable. Doing well on room air. Does have quite significant troponin elevation. Discussed with her consideration of demand ischemia, consideration of underlying coronary disease given multiple risk factors. Appreciate cardiology, pulmonology consultation. Continue anticoagulation. Consider transition tomorrow to oral therapy. For now given elevated risk of worsening outcome, monitor in the hospital. She is agreeable with plan. Status: Acute (2) NSTEMI (non-ST elevated myocardial infarction): Given risk factors for CAD would benefit from risk stratification. Appreciate cardiology recommendations with regards to modality and timing. Status: Acute (3) COPD (chronic obstructive pulmonary disease): Status: Chronic Qualifiers: COPD type: unspecified COPD Qualified Code(s): J44.9 - Chronic obstructive pulmonary disease, unspecified Attestations Medical Necessity Statement*: Requires admission or 2 midnights for assessment of management of extensive bilateral PE, with troponin elevation lady with risk factors for CAD, with signs of right ventricular overload and intermediate risk of deterioration and complications. Monitor in the hospital while initiating and transitioning to oral anticoagulation. Coding Level of Care Code Acute Digital Content Coordinator for [facility]ild Diagnoses Bilateral pulmonary embolism I26.99 NSTEMI (non-ST elevated myocardial infarction) I21.4 COPD (chronic obstructive pulmonary disease) J44.9 COPD type: unspecified COPD
[2021-01-14] MEDS: quetiapine 100 mg Tablet PO (20:51)
[2021-01-14] MEDS: ipratropium-albuterol 3 mL Neb NEBULIZER (20:52)
[2021-01-15] VITALS (18 sets, daily range): BP systolic 99–120; BP diastolic 56–73; PULSE 80–101; RESP 14–24; TEMP 36.4–36.8; O2SAT 90–97
[2021-01-15] MEDS: enoxaparin 80 mg/0.8 mL Syringe 70 MG SUBCUT (00:18)
[2021-01-15] MEDS: metoprolol tartrate 50 mg Tablet PO ×2 (02:16→15:26)
[2021-01-15] MEDS: ipratropium-albuterol 3 mL Neb NEBULIZER ×4 (02:49→20:19)
[2021-01-15] MEDS: HYDROcodone-acetaminophen 7.5-325 mg Tablet 1 TAB PO ×4 (03:39→21:39)
[2021-01-15 05:01] LABS: Basophils % 0.7 %; Eosinophils # 0.2 10^3/uL (0.0-0.8); Eosinophils % 2.9 %; Hematocrit 31.7 % (37.0-47.0); Hemoglobin 10.1 g/dL (11.5-15.3); Lymphocytes # 2.4 10^3/uL (0.8-4.8); Lymphocytes % 43.8 %; Mean Corpuscular HGB Conc 31.9 g/dL (30.0-36.0); Mean Corpuscular Hemoglobin 32.4 pg (28.0-34.0); Mean Corpuscular Volume 101.6 fL (81-99); Mean Platelet Volume 9.5 fL (7.4-10.4); Monocytes # 0.4 10^3/uL (0.2-0.9); Monocytes % 7.2 %; Nucleated Red Blood Cells % 0 %; Platelet Count 180 10^3/cmm (130-400); Red Blood Count 3.12 10^6/uL (4.1-5.3); Red Cell Distribution Width 13.8 % (12.1-15.1); White Blood Count 5.6 10^3/uL (4.0-10.0)
[2021-01-15 05:23] LABS: Alanine Aminotransferase 39 U/L (0-33); Albumin Level 3.4 g/dL (3.5-5.2); Alkaline Phosphatase 69 IU/L (35-105); Anion Gap 15.4 (5-19); Aspartate Amino Transferase 30 U/L (0-32); Blood Urea Nitrogen 26 mg/dL (6-20); Calcium 8.4 mg/dL (8.5-10.5); Carbon Dioxide 21 mmol/L (22-29); Chloride 107 mmol/L (98-107); Globulin 2.4 g/dL (1.3-4.6); Glomerular Filtration Rate 87.5 mL/min (90-130); Glucose 137 mg/dL (65-115); Magnesium 1.6 mg/dL (1.7-2.3); Osmolality Calculated 297 mOsm/kg (285-295); Phosphorus 4.2 mg/dL (2.5-4.5); Potassium 3.4 mmol/L (3.5-5.1); Sodium 140 mmol/L (136-145); Thyroid Stimulating Hormone 1.75 uIU/mL (0.27-4.20); Total Bilirubin 0.2 mg/dL (0.15-1.2); Total Protein 5.8 g/dL (6.6-8.7)
[2021-01-15 05:25] LABS: Lactate (Lactic Acid level) 2.5 mmol/L (0.5-2.2)
[2021-01-15 05:27] LABS: NT Pro B Type Natriuretic Pept 2298 pg/mL (0-125)
--- NOTE | 2021-01-15 08:58 | PC.CHAP ---
Pastoral Care Encounter/Spiritual Assessment Type of Contact [] Declined nurse assessor visit [] Patient/Family/Request visit [] Outpatient visit [] Follow-up visit [] Physician referral [] Code/Alert [x] Routine visit [] Staff referral [] Actively dying [] Patient sleeping [] Family support [] [] Out of room [] Palliative care [] [] Receiving care in room [] Pre-surgical visit [] Trauma [] Long length of stay [] ICU visit [] Other: Relational/Emotional Strength [] Patient feels connected with others/family/visitors/staff [] Distress [] Loneliness/isolation [] Abandonment Spirituality of Patient [] Person of Sarah [] Attends Orthodox of their Sarah [] Believes in Prayer [] Reads Bible or Caodaism materials [] There are Spiritual issues to be addressed Handy Man Interventions [x] Prayer [] Active listening [] Non-anxious presence [] Spiritual/emotional support [] Crisis/trauma care [] Spiritual counseling [] Bereavement support [] Provided bereavement packet [] Provided Bible/devotional materials [] Provided toy/stuffed animal, coloring book to patient or family member [] Provided Communion [] Anointing/Ball [] Salvation [x] Completed spiritual assessment [] Other: Impact on Illness or Injury [] Angry [] Fearful [] Anxious [] Often cries [] Exhaustion [] Unable to work [] Unable to attend islam [] Unable to walk/stand [] Unable to read [] Unable to drive [] Unable to eat/drink [] Unable to sleep [] Unable to be with family [] Patient intubated [] Other: Summary breathing has improved.. setting up in bed and hoping to return home today Time spent with patient 5 min
[2021-01-15] MEDS: pantoprazole DR 40 mg Tablet PO (09:09)
[2021-01-15] MEDS: quetiapine 100 mg Tablet PO ×2 (09:10→18:17)
[2021-01-15] MEDS: atorvastatin 40 mg Tablet 20 MG PO (09:10)
[2021-01-15] MEDS: aspirin 81 mg EC Tablet PO (09:11)
--- NOTE | 2021-01-15 09:38 | P.PN_ITS ---
Subjective Subjective: Interval history: She has episodes of sharp pleuritic chest pain today. Continues to have shortness of breath though somewhat improved. Medications: Reviewed: Yes Medication Review Details: Current Medications Acetaminophen (Acetaminophen 325 Mg Tablet) 650 mg PO Q6H PRN PRN Reason: Mild/Mod Pain Or Temp >/= 101 Hydrocodone Bitart/Acetaminophen (Hydrocodone-Acetaminophen 7.5-325 Mg Tablet) 1 tab PO Q6H PRN PRN Reason: pain Last Admin: 01/15/21 09:09 Dose: 1 tab Documented by: Albuterol Sulfate (Albuterol 8 Gm Mdi) 2 puff INHALATION Q6H PRN PRN Reason: sob Last Admin: 01/14/21 08:09 Dose: 2 puff Documented by: Albuterol/Ipratropium (Ipratropium-Albuterol 3 Ml Neb) 3 ml NEBULIZER Q6H.RESPIRATORY [facility] Last Admin: 01/15/21 08:22 Dose: 3 ml Documented by: Alprazolam (Alprazolam 0.25 Mg Tablet) 0.25 mg PO BID PRN PRN Reason: Anxiety Last Admin: 01/14/21 20:51 Dose: 0.25 mg Documented by: Apixaban (Apixaban 5 Mg Tablet) 10 mg PO Q12H [facility] Aspirin (Aspirin 81 Mg Ec Tablet) 81 mg PO DAILY [facility] Last Admin: 01/15/21 09:11 Dose: 81 mg Documented by: Atorvastatin Calcium (Atorvastatin 40 Mg Tablet) 20 mg PO DAILY@09 [facility] Last Admin: 01/15/21 09:10 Dose: 20 mg Documented by: Metoprolol Tartrate (Metoprolol Tartrate 50 Mg Tablet) 50 mg PO Q12H [facility] Last Admin: 01/15/21 02:16 Dose: 50 mg Documented by: Ondansetron HCl (Ondansetron 2 Mg/Ml Sdv 2 Ml) 4 mg IVP Q8H PRN PRN Reason: vomiting, or N/V if npo Pantoprazole Sodium (Pantoprazole Dr 40 Mg Tablet) 40 mg PO DAILY@09 [facility] Last Admin: 01/15/21 09:09 Dose: 40 mg Documented by: Quetiapine Fumarate (Quetiapine 100 Mg Tablet) 100 mg PO BID [facility] Last Admin: 01/15/21 09:10 Dose: 100 mg Documented by: Fluticasone/Salmeterol (Fluticasone-Salmeterol 500-50 Diskus) 1 puff INHALATION BID.RESPIRATORY [facility] Last Admin: 01/15/21 08:22 Dose: 1 puff Documented by: Tamsulosin HCl (Tamsulosin 0.4 Mg Capsule) 0.4 mg PO DAILY [facility] Last Admin: 01/15/21 09:12 Dose: Not Given Documented by: Vitals/I&O/Wt Last Vital Signs Temp 97.9 F 01/15/21 07:08 Pulse 91 01/15/21 08:25 Resp 16 01/15/21 08:22 BP 118/56 01/15/21 07:08 Pulse Ox 94 01/15/21 08:22 01/14/21 01/15/21 01/15/21 22:59 06:59 14:59 Intake Total 444 / 1242 150 / 1392 240 / 240 Balance 444 / 1242 150 / 1392 240 / 240 Weight last 48 hrs Weight 1580 lb Physical Exam Narrative: EXAM NARRATIVE: GENERAL: Averagely built and averagely nourished in no acute distress HEENT: Extraocular movement intact. Pupils equal round reactive to light. No pallor or icterus. NECK: central trachea, no JVD. No carotid bruit. CARDIOVASCULAR SYSTEM: S1-S2 regular. No S3 or S4 present. No murmur rubs or gallops. RESPIRATORY SYSTEM: Chest clear to auscultation. No wheezes rhonchi or rubs heard. No use of accessory muscles. ABDOMEN: Soft, nontender and nondistended. Normal bowel sounds present. EXTREMITIES: No cyanosis or clubbing. Trace edema. No signs of chronic venous insufficiency. INFORMATION SERVICES MANAGER: Patient is alert oriented ?3. No focal neurological deficits. SKIN: Normal turgor and temperature. No breakdown, rash or nail changes noted. PSYCH: Normal insight and judgment. No suicidal or homicidal ideations. Data : 01/15/21 04:34 01/15/21 04:34 A&P Assessment and plan (1) Bilateral pulmonary embolism: Provoked PE first episode; -Currently on therapeutic Lovenox. Status: Acute (2) NSTEMI (non-ST elevated myocardial infarction): Likely NSTEMI type II in setting of PE. -Patient does have multiple CAD risk factors of hypertension, dyslipidemia, smoking and family history. -Patient's shortness of breath has significantly improved since arrival to the ER initiation of therapeutic Lovenox. -Current to monitor patient's symptoms closely -Continue aspirin, statin and beta-daryl. -Plan for stress test in morning. Status: Acute (3) GERD (gastroesophageal reflux disease): Status: Chronic Qualifiers: Esophagitis presence: esophagitis presence not specified Qualified Code(s): K21.9 - Gastro-esophageal reflux disease without esophagitis (4) HTN (hypertension): Status: Acute Qualifiers: Hypertension type: essential hypertension Qualified Code(s): I10 - Essential (primary) hypertension (5) Hyperlipidemia: Status: Acute Qualifiers: Hyperlipidemia type: mixed hyperlipidemia Qualified Code(s): E78.2 - Mixed hyperlipidemia Additional A&P Information RV dysfunction from acute PE: Repeat echocardiogram as an outpatient. Thank you for allowing me to participate in patient's care. Please feel free to call with questions or concerns Attestations Medical Necessity Statement*: As per primary team Time Spent in Patient Care: 16 - 35 minutes (>than 50% of time spent in counselling and/or direct pt care on unit) . Coding Level of Care Code Acute Recruitment Manager for [facility] Diagnoses Bilateral pulmonary embolism I26.99 NSTEMI (non-ST elevated myocardial infarction) I21.4 GERD (gastroesophageal reflux disease) K21.9 Esophagitis presence: esophagitis presence not specified HTN (hypertension) I10 Hypertension type: essential hypertension Hyperlipidemia E78.2 Hyperlipidemia type: mixed hyperlipidemia
[2021-01-15] MEDS: apixaban 5 mg Tablet 10 MG PO ×2 (11:02→21:39)
--- NOTE | 2021-01-15 13:44 | ECG_ITS ---
[facility] Test Date: 2021-01-16 Pat Name: Kush Cruz Department: Room: 111 Gender: Female [place] Actor: : 1965 Requested By: Onelia Gabriel Order Number: [id number] Rachele MD: Onelia Gabriel M.D. Interpretive Statements NAME OF STUDY: LEXISCAN SESTAMIBI STRESS TEST INDICATION: Chest pain/nstemi, PROCEDURE: At the baseline, the blood pressure was 134/77 mmHg, oxygen saturation 92% with a heart rate of 87 beats per minute. The electrocardiogram showed normal sinus rhythm, normal axis with nonspecific T wave changes. The Lexiscan was infused over a period of 20 seconds. A total of 0.4 milligrams of Lexiscan was infused. The stress phase was continued for a total of 5 minutes. Heart rate at the end of the stress phase was 97 bpm, oxygen saturation 90 with a blood pressure of 149/55 mmHg. The EKG at the peak infusion revealed sinus rhythm with no significant ST-T wave changes. Sestamibi was injected 20 seconds after the Lexiscan infusion. Blood pressure at the end of the recovery phase was 141/59 mmHg, oxygen saturation 88% with a heart rate of 96 beats per minute. CONCLUSION: 1. Normal EKG response to LexiScan infusion. 2. No LexiScan induced chest pain or cardiac arrhythmia. 3. Normal blood pressure and heart rate response. 4. Sestamibi/sestamibi perfusion scan pending; see separate report. Electronically Signed On 01-16-2021 10:57:16 CDT by Onelia Gabriel M.D. [id number]
--- NOTE | 2021-01-15 21:09 | PM.PN ---
Subjective Subjective: Interval history: She is doing all right today, although he is having some chest discomfort which is made worse by inspiration on the right side. Appears he required some oxygen overnight. Did not have her CPAP. Was not started on CPAP, but was placed on nasal cannula of several liters. Vitals/I&O/Wt Last Vital Signs Temp 98.2 F 01/15/21 20:44 Pulse 98 01/15/21 20:44 Resp 21 H 01/15/21 20:44 BP 99/69 01/15/21 20:44 Pulse Ox 90 01/15/21 20:44 01/15/21 01/15/21 01/15/21 06:59 14:59 22:59 Intake Total 150 / 1392 684 / 684 240 / 924 Balance 150 / 1392 684 / 684 240 / 924 Physical Exam Narrative: EXAM NARRATIVE: Up in bed. In good spirits. Const: COMMON NORMALS: no acute distress and patient oriented x3 HENMT: COMMON NORMALS: oropharynx normal Neck/C-Spine: COMMON NORMALS: no JVD Resp: COMMON NORMALS: normal respiratory effort and clear to auscultation bilaterally AUSCULTATION: clear to auscultation bilaterally Cardio: COMMON NORMALS: no JVD, regular rhythm, S1 normal heart sound present, S2 normal heart sound present and No murmurs present (Cardio) RHYTHM: regular rhythm HEART SOUNDS: S1 normal heart sound present and S2 normal heart sound present GI: COMMON NORMALS: Normal to inspection, nondistended, normoactive bowel sounds present, Soft to palpation and non-tender PALPATION: Yes Soft to palpation Extremity: COMMON NORMALS: no joint enlargement and no pedal edema Neuro: COMMON NORMALS: patient oriented x3 and moves all extremities Skin: COMMON NORMALS: no rashes or lesions noted GENERAL SKIN EXAM: no rashes or lesions noted Data : 01/15/21 04:34 01/15/21 04:34 A&P Assessment and plan (1) Bilateral pulmonary embolism: Appears to be, hypoxic overnight requiring several liters of oxygen, although also did not have CPAP which she normally uses. Patient is being brought for tonight. Will also request for overnight pulse oximetry monitoring tonight, pending additional assessment by stress testing tomorrow. We also transition her today to [facility] after discussion of different options of anticoagulation, and risks and benefits. Monitor oxygenation, saturations appear to have decreased to bit into the low 90s. Blood pressure appears to be also softer. Will cut down metoprolol to 12.5 mg twice a day. Hold tamsulosin for now. Pending echo with septal flattening, consistent with right ventricular pressure overload. Normal EF. Grade 2 diastolic dysfunction. Akinesis of right ventricular free wall. Decreased systolic function. Mild to moderate TR. PA pressure 42 mmHg by estimate. Status: Acute (2) NSTEMI (non-ST elevated myocardial infarction): Appreciate cardiology recommendation. Discussed today. Additional assessment requested for tomorrow with stress testing. Given risk factors for CAD would benefit from risk stratification. Status: Acute (3) COPD (chronic obstructive pulmonary disease): Status: Chronic Qualifiers: COPD type: unspecified COPD Qualified Code(s): J44.9 - Chronic obstructive pulmonary disease, unspecified Additional A&P Information Hypokalemia: Replaced Attestations Medical Necessity Statement*: Continue admission for assessment management of extensive PE, with noted hypoxia, continue oxygenation monitoring, transition to oral anticoagulation, monitor blood pressure which is becoming lower, optimize antihypertensives, additionally assess for underlying coronary disease given elevated troponin, risk factors. Coding Level of Care Code Acute Shovel Loader Operator for [facility] Amy Diagnoses Bilateral pulmonary embolism I26.99 NSTEMI (non-ST elevated myocardial infarction) I21.4 COPD (chronic obstructive pulmonary disease) J44.9 COPD type: unspecified COPD
[2021-01-15] MEDS: potassium chloride ER 20 mEq Tablet PO (21:40)
[2021-01-15] MEDS: magnesium sulfate premix 2 GM/50 ML PIGGYBACK IV (21:40)
[2021-01-16] VITALS (86 sets, daily range): BP systolic 113–141; BP diastolic 55–103; PULSE 74–105; RESP 11–27; TEMP 36.6–37.3; O2SAT 86–97
--- NOTE | 2021-01-16 | NMCV_ITS ---
NM rolanda perf SPECT r/s* [id number] Kush Cruz Age: 55 Gender: F : 1965 Exam Date: 01/16/2021 07:33 Ordering Phys: Onelia Gabriel MD ([email or web address]) Technologist: PRINCESS Sharma Exam Location: [facility] Indications: SHORTNESS OF BREATH STRESS TEST Please see separate stress test report in [facility] for full findings IMAGE PROTOCOL Rest/Stress 1 Lexiscan Day Radiopharmaceutical Dose (mCi) Administration Site Administered by Rest: Tc-99m 10.8 IV PRINCESS Sharma Sestamibi Stress:Tc-99m 32.7 IV PRINCESS Connelly Sestamibi Rest: 16-Jan-2021 60 Discovery 630 Stress: 16-Jan-2021 30 Discovery 630 0.4mg Lexiscan. Images obtained in supine and prone position. SPECT RESULTS Technical Quality: Excellent Raw Data Analysis: Normal Image Corrections: No attenuation or motion correction applied Summed Stress Score: 0 Summed Rest Score: 0 Summed Difference Score: 0 PERFUSION FINDINGS SPECT images demonstrate homogeneous tracer distribution throughout the myocardium. FUNCTIONAL RESULTS (calculated via Gated SPECT) Stress Image LV EF (%): 67 Stress EDV (mL):100 TID: 1.49 Stress ESV (mL):33 FUNCTIONAL FINDINGS: The left ventricle is normal in size. Transient Ischemia Dilatation of 1.5. There is normal left ventricular systolic function. The left ventricular ejection fraction is normal with a value of 67%. There is normal left ventricular wall thickening with no regional wall motion abnormality. Normal end-diastolic and end-systolic volumes. IMPRESSIONS 1. Myocardial perfusion imaging is normal. 2. Overall left ventricular systolic function is normal without regional wall motion abnormalities. 3. The left ventricular ejection fraction is normal with a value of 67%. 4. Transient ischemic dilation index elevated at 1.5. This may represent hypertensive response or subendocardial ischemia. Clinical correlation is advised. 5. No prior similar studies to compare. Onelia Gabriel MD (Electronically Signed) Final Date: 16 January 2021 10:40 S
[2021-01-16] MEDS: ipratropium-albuterol 3 mL Neb NEBULIZER ×2 (02:39→15:20)
[2021-01-16] MEDS: HYDROcodone-acetaminophen 7.5-325 mg Tablet 1 TAB PO ×3 (03:49→17:30)
[2021-01-16 04:48] LABS: Basophils % 0.4 %; Eosinophils # 0.1 10^3/uL (0.0-0.8); Eosinophils % 2.6 %; Hematocrit 28.7 % (37.0-47.0); Hemoglobin 9.2 g/dL (11.5-15.3); Lymphocytes # 1.5 10^3/uL (0.8-4.8); Lymphocytes % 32.3 %; Mean Corpuscular HGB Conc 32.1 g/dL (30.0-36.0); Mean Corpuscular Hemoglobin 32.5 pg (28.0-34.0); Mean Corpuscular Volume 101.4 fL (81-99); Mean Platelet Volume 9.7 fL (7.4-10.4); Monocytes # 0.5 10^3/uL (0.2-0.9); Monocytes % 9.7 %; Neutrophils # 2.52 10^3/uL (1.8-7.7); Neutrophils % 54.6 %; Nucleated Red Blood Cells % 0 %; Platelet Count 161 10^3/cmm (130-400); Red Blood Count 2.83 10^6/uL (4.1-5.3); Red Cell Distribution Width 13.8 % (12.1-15.1); White Blood Count 4.6 10^3/uL (4.0-10.0)
[2021-01-16 05:13] LABS: Alanine Aminotransferase 32 U/L (0-33); Albumin Level 3.2 g/dL (3.5-5.2); Alkaline Phosphatase 63 IU/L (35-105); Anion Gap 13.9 (5-19); Aspartate Amino Transferase 19 U/L (0-32); Blood Urea Nitrogen 28 mg/dL (6-20); Carbon Dioxide 21 mmol/L (22-29); Chloride 108 mmol/L (98-107); Globulin 2.2 g/dL (1.3-4.6); Glomerular Filtration Rate 87.5 mL/min (90-130); Glucose 92 mg/dL (65-115); Magnesium 2.1 mg/dL (1.7-2.3); Osmolality Calculated 293 mOsm/kg (285-295); Potassium 3.9 mmol/L (3.5-5.1); Sodium 139 mmol/L (136-145); Total Bilirubin 0.2 mg/dL (0.15-1.2); Total Protein 5.4 g/dL (6.6-8.7)
[2021-01-16 05:16] LABS: NT Pro B Type Natriuretic Pept 1908 pg/mL (0-125)
--- NOTE | 2021-01-16 06:45 | PC.PT ---
Supervising therapist wrote for D/C PT on 01/14/21. Please refer to OT note for further information.
--- NOTE | 2021-01-16 08:15 | P.PN_ITS ---
Subjective Subjective: Interval history: No new complaints. Medications: Reviewed: Yes Medication Review Details: Current Medications Acetaminophen (Acetaminophen 325 Mg Tablet) 650 mg PO Q6H PRN PRN Reason: Mild/Mod Pain Or Temp >/= 101 Hydrocodone Bitart/Acetaminophen (Hydrocodone-Acetaminophen 7.5-325 Mg Tablet) 1 tab PO Q6H PRN PRN Reason: pain Last Admin: 01/15/21 09:09 Dose: 1 tab Documented by: Albuterol Sulfate (Albuterol 8 Gm Mdi) 2 puff INHALATION Q6H PRN PRN Reason: sob Last Admin: 01/14/21 08:09 Dose: 2 puff Documented by: Albuterol/Ipratropium (Ipratropium-Albuterol 3 Ml Neb) 3 ml NEBULIZER Q6H.RESPIRATORY [facility] Last Admin: 01/15/21 08:22 Dose: 3 ml Documented by: Alprazolam (Alprazolam 0.25 Mg Tablet) 0.25 mg PO BID PRN PRN Reason: Anxiety Last Admin: 01/14/21 20:51 Dose: 0.25 mg Documented by: Apixaban (Apixaban 5 Mg Tablet) 10 mg PO Q12H [facility] Aspirin (Aspirin 81 Mg Ec Tablet) 81 mg PO DAILY [facility] Last Admin: 01/15/21 09:11 Dose: 81 mg Documented by: Atorvastatin Calcium (Atorvastatin 40 Mg Tablet) 20 mg PO DAILY@09 [facility] Last Admin: 01/15/21 09:10 Dose: 20 mg Documented by: Metoprolol Tartrate (Metoprolol Tartrate 50 Mg Tablet) 50 mg PO Q12H [facility] Last Admin: 01/15/21 02:16 Dose: 50 mg Documented by: Ondansetron HCl (Ondansetron 2 Mg/Ml Sdv 2 Ml) 4 mg IVP Q8H PRN PRN Reason: vomiting, or N/V if npo Pantoprazole Sodium (Pantoprazole Dr 40 Mg Tablet) 40 mg PO DAILY@09 [facility] Last Admin: 01/15/21 09:09 Dose: 40 mg Documented by: Quetiapine Fumarate (Quetiapine 100 Mg Tablet) 100 mg PO BID [facility] Last Admin: 01/15/21 09:10 Dose: 100 mg Documented by: Fluticasone/Salmeterol (Fluticasone-Salmeterol 500-50 Diskus) 1 puff INHALATION BID.RESPIRATORY [facility] Last Admin: 01/15/21 08:22 Dose: 1 puff Documented by: Tamsulosin HCl (Tamsulosin 0.4 Mg Capsule) 0.4 mg PO DAILY [facility] Last Admin: 01/15/21 09:12 Dose: Not Given Documented by: Vitals/I&O/Wt Last Vital Signs Temp 97.8 F 01/16/21 07:30 Pulse 87 01/16/21 07:30 Resp 18 01/16/21 07:30 BP 128/84 01/16/21 07:30 Pulse Ox 95 01/16/21 07:30 01/15/21 01/16/21 01/16/21 22:59 06:59 14:59 Intake Total 540 / 1224 480 / 1704 Balance 540 / 1224 480 / 1704 Physical Exam Narrative: EXAM NARRATIVE: GENERAL: Averagely built and averagely nourished in no acute distress HEENT: Extraocular movement intact. Pupils equal round reactive to light. No pallor or icterus. NECK: central trachea, no JVD. No carotid bruit. CARDIOVASCULAR SYSTEM: S1-S2 regular. No S3 or S4 present. No murmur rubs or gallops. RESPIRATORY SYSTEM: Chest clear to auscultation. No wheezes rhonchi or rubs heard. No use of accessory muscles. ABDOMEN: Soft, nontender and nondistended. Normal bowel sounds present. EXTREMITIES: No cyanosis or clubbing. Trace edema. No signs of chronic venous insufficiency. 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 No focal neurological deficits. SKIN: Normal turgor and temperature. No breakdown, rash or nail changes noted. PSYCH: Normal insight and judgment. No suicidal or homicidal ideations. Data : 01/16/21 04:19 01/16/21 04:19 A&P Assessment and plan (1) Bilateral pulmonary embolism: Provoked PE first episode; -On Eliquis Status: Acute (2) NSTEMI (non-ST elevated myocardial infarction): Likely NSTEMI type II in setting of PE. -Patient does have multiple CAD risk factors of hypertension, dyslipidemia, smoking and family history. -Patient's shortness of breath has significantly improved since arrival to the ER initiation of therapeutic Lovenox. -Current to monitor patient's symptoms closely -Continue aspirin, statin and beta-daryl. -No ischemia on stress test. TID elevated but clinically asymptomatic. -Manage medically. -Follow up in 4-6 week in [facility]. Status: Acute (3) GERD (gastroesophageal reflux disease): Status: Chronic Qualifiers: Esophagitis presence: esophagitis presence not specified Qualified Code(s): K21.9 - Gastro-esophageal reflux disease without esophagitis (4) HTN (hypertension): Status: Acute Qualifiers: Hypertension type: essential hypertension Qualified Code(s): I10 - Essential (primary) hypertension (5) Hyperlipidemia: Status: Acute Qualifiers: Hyperlipidemia type: mixed hyperlipidemia Qualified Code(s): E78.2 - Mixed hyperlipidemia Additional A&P Information RV dysfunction from acute PE: Repeat echocardiogram as an outpatient. Thank you for allowing me to participate in patient's care. Please feel free to call with questions or concerns Attestations Medical Necessity Statement*: Stable to be discharged Time Spent in Patient Care: 16 - 35 minutes (>than 50% of time spent in counselling and/or direct pt care on unit) . Coding Level of Care Code Acute Music Artist for [facility] Diagnoses Bilateral pulmonary embolism I26.99 NSTEMI (non-ST elevated myocardial infarction) I21.4 GERD (gastroesophageal reflux disease) K21.9 Esophagitis presence: esophagitis presence not specified HTN (hypertension) I10 Hypertension type: essential hypertension Hyperlipidemia E78.2 Hyperlipidemia type: mixed hyperlipidemia
[2021-01-16] MEDS: regadenoson 0.4 Mg/5 ml Syringe IVP (08:18)
[2021-01-16] MEDS: quetiapine 100 mg Tablet PO ×2 (10:34→17:30)
[2021-01-16] MEDS: aspirin 81 mg EC Tablet PO (10:34)
[2021-01-16] MEDS: apixaban 5 mg Tablet 10 MG PO ×2 (10:35→17:30)
[2021-01-16] MEDS: metoprolol tartrate 25 mg Tablet 12.5 MG PO (10:35)
[2021-01-16] MEDS: pantoprazole DR 40 mg Tablet PO (10:35)
[2021-01-16] MEDS: atorvastatin 40 mg Tablet 20 MG PO (10:36)
--- NOTE | 2021-01-16 11:00 | PC.NURSE ---
Patient returned from nuclear medicine at 0945. Patient asked for a pain pill at 0955. Patient off unit at 1000. She told that she was taking a walk . Patient returned to unit at 1030. She tated she was outside talking to her .
--- NOTE | 2021-01-16 20:40 | P.DS_ITS ---
Discharge Providers Date of Admission: 01/14/21 20:29 Date of Discharge: January 16, 2021 Attending Provider at Admission: Donn Johnson MD Attending Provider at Discharge: Abdifatah Winston Primary Care Provider: Shari Gray DO Diagnoses at Discharge Discharge Diagnosis (1) Bilateral pulmonary embolism: Status: Acute (2) NSTEMI (non-ST elevated myocardial infarction): Status: Acute (3) GERD (gastroesophageal reflux disease): Status: Chronic Qualifiers: Esophagitis presence: esophagitis presence not specified Qualified Code(s): K21.9 - Gastro-esophageal reflux disease without esophagitis (4) HTN (hypertension): Status: Acute Qualifiers: Hypertension type: essential hypertension Qualified Code(s): I10 - Essential (primary) hypertension (5) Hyperlipidemia: Status: Acute Qualifiers: Hyperlipidemia type: mixed hyperlipidemia Qualified Code(s): E78.2 - Mixed hyperlipidemia Reason for Visit Reason for Visit: SOB Hospital Course Hospital Course Very pleasant 55-year-old lady traveling here from [place], was admitted and treated for extensive bilateral PE noted on work-up on admission with CTA, with imaging features of right ventricular overload, although without clinical right heart failure. She was treated with Lovenox initially, subsequent transition to Eliquis. Lower extremity ultrasound negative for VTE. He remained hemodyna mically stable. Consideration was given to catheter directed thrombolysis, although she did well without requiring this. Was noted to have elevated troponins on presentation, and with risk factors for coronary disease, including smoking, hypertension, family history, was additionally assessed by cardiology. Was assessed by echocardiography with normal ejection fraction, grade 2 diastolic function, dilated right ventricle, kinesis of right ventricular free wall with relative sparing of apical segment, mild to moderate TVR, pulmonary artery pressure 42 mmHg. Underwent additional assessment by stress testing without finding of acute ischemia, but with transient ischemic dilation index elevated at 1.5. Possibly presenting hypertensive response or subendocardial ischemia. Discussed results with cardiology and with her. She is encouraged to continue to optimize risk factors of coronary disease. We have had extensive discussion regarding smoking cessation, optimization of blood pressure control. Please assist her with these tasks. She is asked to follow-up with cardiology. She qualified for 2 L of oxygen by nasal cannula with exertion which is arranged for her. She will continue on CPAP nightly for BRAYDON. Physical Exam Narrative: EXAM NARRATIVE: Up in bed. In good spirits. Denies any discomfort. Happy about discharge. Feels ready to return home. Const: COMMON NORMALS: no acute distress and patient oriented x3 HENMT: COMMON NORMALS: oropharynx normal Neck/C-Spine: COMMON NORMALS: no JVD Resp: COMMON NORMALS: normal respiratory effort and clear to auscultation bilaterally AUSCULTATION: clear to auscultation bilaterally Cardio: COMMON NORMALS: no JVD, regular rhythm, S1 normal heart sound present, S2 normal heart sound present and No murmurs present (Cardio) RHYTHM: regular rhythm HEART SOUNDS: S1 normal heart sound present and S2 normal heart sound present GI: COMMON NORMALS: Normal to inspection, nondistended, normoactive bowel sounds present, Soft to palpation and non-tender PALPATION: Yes Soft to palpation Extremity: COMMON NORMALS: no joint enlargement and no pedal edema Neuro: COMMON NORMALS: patient oriented x3 and moves all extremities Skin: COMMON NORMALS: no rashes or lesions noted GENERAL SKIN EXAM: no rashes or lesions noted Discharge Data Data Completed and Pending: Completed Studies During Hospitalization Category Date Time Status CT angio chest PE protcl [id number] Stat Cat Scan 01/13/21 21:52 Completed Sestamibi Stress Test Request Routi ne Exams 01/15/21 13:44 Completed XR chest 1V palmer ble [id number] Urgent Exams 01/13/21 20:19 Completed NM rolanda perf SPECT r/s* [id number] Routin e Nuc Med 01/16/21 Completed CV echo complete* [id number] Routine Ultrasound 01/14/21 02:09 [place] [id number] Routin e Ultrasound 01/14/21 02:09 Completed Pending at discharge Category Date Time Status Arterial Blood Ga s W/Coox Stat Lab 01/13/21 20:19 Ordered Labs from last 24 hours 01/16/21 01/16/21 01/16/21 04:19 04:19 04:19 WBC 4.6 RBC 2.83 L Hgb 9.2 L Hct 28.7 L MCV 101.4 H MCH 32.5 MCHC 32.1 RDW 13.8 Plt Count 161 MPV 9.7 Neut % (Auto) 54.6 Lymph % (Auto) 32.3 [place] % (Auto) 9.7 Eos % (Auto) 2.6 Baso % (Auto) 0.4 Neut # (Auto) 2.52 Lymph # (Auto) 1.5 [place] # (Auto) 0.5 Eos # (Auto) 0.1 Baso # (Auto) 0.0 Nucleated RBC % (a uto) 0 Nucleated RBCs # 0.0 Sodium 139 Potassium 3.9 Chloride 108 H Carbon Dioxide 21 L Anion Gap 13.9 BUN 28 H Creatinine 0.7 GFR Calculation 87.5 L Glucose 92 Calculated Osmolal ity 293 Calcium 8.0 L Magnesium 2.1 Total Bilirubin 0.2 AST 19 ALT 32 Alkaline Phosphata se 63 NT-Pro-B Natriuret Pep 1908 H Total Protein 5.4 L Albumin 3.2 L Globulin 2.2 Vitals: Last Vital Signs Temp 99.1 F 01/16/21 14:42 Pulse 105 H 01/16/21 16:40 Resp 21 H 01/16/21 16:40 BP 141/103 01/16/21 16:40 Pulse Ox 93 01/16/21 16:40 Discharge Plan Discharge Patient Disposition: Home Condition: Stable Prescriptions: New metoprolol tartrate 25 mg Tablet 12.5 mg PO Q12H Qty: 15 RF: 0 Eliquis 5 mg Tablet 10 mg PO Q12H Qty: 120 RF: 0 aspirin 81 mg Tablet,Delayed Release (Dr/Ec) 81 mg PO DAILY Qty: 30 RF: 0 nicotine 14 mg/24 hr patch 24 hour 1 patch transdermal DAILY Qty: 30 RF: 0 nicotine (polacrilex) 2 mg gum 2 mg buccal Q1H PRN (Reason: nicotine cravings) Qty: 120 RF: 0 Continued atorvastatin 20 mg tablet 20 mg PO DAILY@ RF: 0 albuterol sulfate [Ventolin HFA] 90 mcg/actuation HFA aerosol inhaler 2 puff inhalation Q6H PRN (Reason: sob) RF: 0 ibuprofen 800 mg tablet 800 mg PO Q6H PRN (Reason: Pain) RF: 0 quetiapine 100 mg tablet 100 mg PO BID@ RF: 0 oxycodone-acetaminophen 5-325 mg tablet 1 tab PO Q12H PRN (Reason: Pain) RF: 0 omeprazole 40 mg capsule,delayed release(DR/EC) 40 mg PO DAILY@09 RF: 0 budesonide-formoterol [Symbicort] 160-4.5 mcg/actuation HFA aerosol inhaler See Rx Instructions .ROUTE .COMPLEX RF: 0 Held tamsulosin 0.4 mg capsule See Rx Instructions .ROUTE .COMPLEX Qty: 30 RF: 0 Hold Instructions: Resume on 01/30/21. Discontinued metoprolol tartrate 50 mg tablet 100 mg PO Q12H RF: 0 Discharge Orders: Discharge Order (Routine); Ordered 01/16/21 Ordered By: Abdifatah Winston Other Ambulatory Orders: DME: Oxygen (Order) Location: None Selected Ordered By: Abdifatah Winston Referrals: Shari Gray DO [Primary Care Provider] - 4-7 days Onelia Gabriel MD [Physician] - 1 month (February 14 at 11:00) Discharge Diet: Usual diet Discharge Activity: Increase activity as tolerated and Oxygen as instructed Patient Instructions: Apixaban (By mouth), Pulmonary Embolism (DC), How to Stop Smoking (GEN) Activity Restrictions/Additional Instructions: Target oxygen saturation of 92%. If you experience severe shortness of breath, chest pain, fainting or any other concerning symptoms call 911 immmediately. Please stop smoking as discussed. Please never smoke anywhere near oxygen due to severe fire risk, risk of skin and airway lee and . Please continue to monitor your blood pressures. Your metoprolol dose was decreased to avoid low blood pressures. Please hold tamsulosin for now as well. If blood pressure is low, do not take metoprolol. Contact your doctor. If pressures very low, (less than 80/40), please call 911. Please avoid any injury. Be mindful that Eliquis and aspirin increase your risk of bleeding. Discharge Attestations Time Spent in Discharge Care*: greater than 30 min Quality Metrics Clinical Quality Measures During this hospital stay, did patient experience: VTE Contraindication to Overlap Therapy: Overlap therapy prescribed VTE Discharge Education: Education about anticoagulant therapy/Care Notes given, Education about treatment options/disease process, Medication side effects education and Follow-up arranged Coding Level of Care Code Acute Chg FW DC note Diagnoses Bilateral pulmonary embolism I26.99 NSTEMI (non-ST elevated myocardial infarction) I21.4 GERD (gastroesophageal reflux disease) K21.9 Esophagitis presence: esophagitis presence not specified HTN (hypertension) I10 Hypertension type: essential hypertension Hyperlipidemia E78.2 Hyperlipidemia type: mixed hyperlipidemia
== END 2021-01-16 18:00 | disposition home or self-care (01) | DRG 280 ==
LOC: ER 20:15 → CSU 01-14 00:48
PROVIDERS: Admitting Provider Family Medicine; Emergency Provider Family Medicine; PCP Family Medicine; Visit Provider Internal Medicine
DX: I21.4 Non-ST elevation (NSTEMI) myocardial infarction (principal); I26.99 Other pulmonary embolism without acute cor pulmonale; J44.9 Chronic obstructive pulmonary disease, unspecified; K21.9 Gastro-esophageal reflux disease without esophagitis; G47.33 Obstructive sleep apnea (adult) (pediatric); E78.2 Mixed hyperlipidemia; I10 Essential (primary) hypertension; F17.210 Nicotine dependence, cigarettes, uncomplicated
CPT/HCPCS: 36415; 71045; 71275; 78452; 80053; 81001; 83605; 83735; 83880; 84100; 84443; 84484; 84703; 85025; 85378; 87426; 93005; 93017; 93306; 93970; 94640; 94660; 94762; 96361; 96372; 96374; 96375; 99285; A9500; G0378; J1650; J2060; J2785; J3475; J3535; J7030; Q9967

== ENCOUNTER 2021-05-09 08:39 | Outpatient (CLI) | payer MEDICARE, MEDICAID, SELFPAY ==
--- NOTE | 2021-05-09 08:53 | XR_ITS ---
WS: [id number] KUB, AP view, 05/09/2021 Clinical Data: stones Comparison: KUB, 10/20/2020. Findings: The right ureteral stent has been removed. There are calcifications overlying both kidneys. There are clips in the right upper quadrant from a cholecystectomy. Fecal material and colon gas obscure detai l over both kidneys. XR/XR KUB [id number] Impression: Bilateral renal calculi.
== END 2021-05-09 08:40 | disposition home or self-care (01) ==
PROVIDERS: PCP Family Medicine; Visit Provider Urology
DX: N20.0 Calculus of kidney (principal)
CPT/HCPCS: 74018; 81003

== ENCOUNTER 2021-06-07 11:02 | Outpatient (CLI) | payer MEDICARE, MEDICAID, SELFPAY ==
[2021-06-07 11:52] LABS: Basophils # 0.1 10^3/uL (0.0-0.1); Basophils % 1.1 %; Eosinophils # 0.3 10^3/uL (0.0-0.8); Eosinophils % 4.4 %; Hematocrit 29.2 % (37.0-47.0); Hemoglobin 8.9 g/dL (11.5-15.3); Lymphocytes # 1.6 10^3/uL (0.8-4.8); Lymphocytes % 28.2 %; Mean Corpuscular HGB Conc 30.5 g/dL (30.0-36.0); Mean Corpuscular Hemoglobin 29.3 pg (28.0-34.0); Mean Corpuscular Volume 96.1 fL (81-99); Mean Platelet Volume 9.8 fL (7.4-10.4); Monocytes # 0.5 10^3/uL (0.2-0.9); Monocytes % 8.8 %; Neutrophils # 3.27 10^3/uL (1.8-7.7); Neutrophils % 57.3 %; Nucleated Red Blood Cells % 0 %; Platelet Count 303 10^3/cmm (130-400); Red Blood Count 3.04 10^6/uL (4.1-5.3); Red Cell Distribution Width 15.1 % (12.1-15.1); White Blood Count 5.7 10^3/uL (4.0-10.0)
[2021-06-07 12:34] LABS: Alanine Aminotransferase 9 U/L (0-33); Albumin Level 3.9 g/dL (3.5-5.2); Alkaline Phosphatase 83 IU/L (35-105); Anion Gap 12.9 (5-19); Aspartate Amino Transferase 12 U/L (0-32); Blood Urea Nitrogen 15 mg/dL (6-20); Calcium 8.4 mg/dL (8.5-10.5); Carbon Dioxide 24 mmol/L (22-29); Chloride 108 mmol/L (98-107); Globulin 2.5 g/dL (1.3-4.6); Glucose 91 mg/dL (65-115); Magnesium 1.5 mg/dL (1.7-2.3); NT Pro B Type Natriuretic Pept 297 pg/mL (0-125); Osmolality Calculated 292 mOsm/kg (285-295); Potassium 3.9 mmol/L (3.5-5.1); Sodium 141 mmol/L (136-145); Total Bilirubin 0.2 mg/dL (0.15-1.2); Total Protein 6.4 g/dL (6.6-8.7)
== END 2021-06-07 11:03 | disposition home or self-care (01) ==
LOC: LAB 11:09
PROVIDERS: PCP Family Medicine; Visit Provider Internal Medicine Cardiovascular Disease
DX: E78.2 Mixed hyperlipidemia (principal); I26.09 Other pulmonary embolism with acute cor pulmonale; I10 Essential (primary) hypertension; Z20.822 Contact with and (suspected) exposure to COVID-19
CPT/HCPCS: 80053; 83735; 83880; 85025; 87635

== ENCOUNTER 2023-06-07 10:38 | Emergency (ER) | payer MEDICARE, MEDICAID, SELFPAY ==
[2023-06-07 10:58] VITALS: BP 133/96; PULSE 100; RESP 20; O2SAT 91; BMI 28.0
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
[2023-06-07] MEDS: HYDROmorphone 1 mg/mL INJ 1 mL 0.5 MG IVP ×2 (11:24→15:54)
[2023-06-07] MEDS: ondansetron 2 mg/ML SDV 2 mL 4 MG IVP (11:24)
[2023-06-07 11:50] VITALS: PULSE 80; O2SAT 95
[2023-06-07 11:56] LABS: Basophils # 0.1 10^3/uL (0.0-0.1); Basophils % 0.4 %; Eosinophils # 0.1 10^3/uL (0.0-0.8); Eosinophils % 0.5 %; Hematocrit 37.4 % (37.0-47.0); Hemoglobin 11.8 g/dL (11.5-15.3); Lymphocytes % 7.2 %; Mean Corpuscular HGB Conc 31.6 g/dL (30.0-36.0); Mean Corpuscular Hemoglobin 28.7 pg (28.0-34.0); Mean Platelet Volume 9.7 fL (7.4-10.4); Monocytes # 0.9 10^3/uL (0.2-0.9); Monocytes % 6.3 %; Neutrophils # 11.71 10^3/uL (1.8-7.7); Neutrophils % 85.2 %; Nucleated Red Blood Cells % 0 %; Platelet Count 259 10^3/cmm (130-400); Red Blood Count 4.11 10^6/uL (4.1-5.3); Red Cell Distribution Width 14.8 % (12.1-15.1); White Blood Count 13.7 10^3/uL (4.0-10.0)
[2023-06-07 12:04] LABS: Alanine Aminotransferase 10 U/L (0-33); Albumin Level 3.9 g/dL (3.5-5.2); Alkaline Phosphatase 90 U/L (35-105); Anion Gap 16.5 (5-19); Aspartate Amino Transferase 12 U/L (0-32); Blood Urea Nitrogen 14 mg/dL (6-20); Calcium 8.9 mg/dL (8.5-10.5); Carbon Dioxide 23 mmol/L (22-29); Chloride 101 mmol/L (98-107); Creatinine Clr Calc Pharmacy 74.4508; Globulin 2.8 g/dL (1.3-4.6); Glomerular Filtration Rate 57.6 mL/min (90-130); Glucose 110 mg/dL (65-115); Lipase 16 U/L (13-60); Osmolality Calculated 285 mOsm/kg (285-295); Potassium 3.5 mmol/L (3.5-5.1); Sodium 137 mmol/L (136-145); Total Bilirubin 0.4 mg/dL (0.15-1.2); Total Protein 6.7 g/dL (6.6-8.7)
[2023-06-07] MEDS: acetaminophen 1,000 MG/100 ML PIGGYBACK 400 MG IV (12:32)
[2023-06-07] MEDS: LORazepam 2 mg/mL INJ 1 mL 0.5 MG IVP (12:32)
[2023-06-07 12:43] LABS: Specific Gravity, Urine 1.015 (1.005-1.030); Urine Appearance Cloudy (CLEAR); Urine Color Yellow (Yellow); pH Urine 6 (5-7)
[2023-06-07 12:44] LABS: Add Urine Microscopic? YES; Bilirubin Urine Neg (Negative); Blood Urine 3+ (Negative); Glucose Urine UA Norm (Normal); Ketones Urine Negative (Negative); Leukocyte Esterase Urine 1+ (Negative); Nitrate Urine Positive (Negative); Protein Urine 3+ (Negative); Urobilinogen Urine Norm (Negative)
[2023-06-07 12:47] LABS: RBC Urine 40-50 /hpf (0-2); WBC Urine TOO NUMEROUS TO CNT /hpf (0-5)
[2023-06-07 12:48] LABS: Squamous Epithelial Cell Urine RARE /hpf (0-5)
[2023-06-07 12:49] LABS: Add Urine Culture? Yes; Bacteria Urine 4+ /hpf
--- NOTE | 2023-06-07 12:51 | CTR_ITS ---
PROCEDURE INFORMATION: Exam: CT Abdomen And Pelvis Without Contrast Exam date and time: 06/07/2023 2:19 PM Age: 57 years old Clinical indication: Abdominal pain; Flank; Right; Prior surgery; Surgery date: 6+ months; Surgery type: Gb, hyster, multiple renal calculus; Additional info: R flank pain/rlq pain, hematuria, UTI, HX stones TECHNIQUE: Imaging protocol: Computed tomography of the abdomen and pelvis without contrast. Radiation optimization: All CT scans at this facility use at least one of these dose optimization techniques: automated exposure control; mA and/or kV adjustment per patient size (includes targeted exams where dose is matched to clinical indication); or iterative reconstruction. REPORTING DATA: Count of CT and Cardiac NM exams in prior 12 months: This patient has received 0 known CTs and 0 known cardiac nuclear medicine studies in the 12 months prior to the current study. COMPARISON: CT abdomen pelvis w con* [id number] 05/07/2021 3:14 PM RADIATION DOSE METRICS: Total DLP (mGy-cm): 748.83 FINDINGS: Detailed evaluation of the abdominal and pelvic viscera is somewhat limited in the absence of intravenous contrast. Inferior thorax: Hyperinflation and mild interstitial prominence. Large hiatal hernia and prominent posterior mediastinal fat. Liver: Fatty infiltration of the liver. 11 mm lipoma in the hepatic dome. Gallbladder and bile ducts: Status post cholecystectomy. Pancreas: No pancreatic mass or ductal dilatation. Spleen: No splenomegaly. Adrenal glands: Unremarkable adrenals. Kidneys and ureters: Multiple subcentimeter nonobstructing bilateral renal calculi, including a 6 mm left renal calculus. Left renal scarring. Extensive infiltration of left perinephric fat along with mild perinephric fluid and thickening of the perirenal fascia. Marked right hydronephrosis, without obstructing urolithiasis. If pyelonephritis is of clinical concern, delayed postcontrast CT imaging may be of benefit for further evaluation if clinically indicated. Stomach and bowel: Proximal duodenal dilatation with abrupt transition in caliber in the midline of the transverse duodenum. Mild small bowel dilatation without a focal transition zone. Diverticula, without pericolonic inflammation. Appendix : No acute appendicitis. Intraperitoneal space: No significant intraperitoneal fluid. Vasculature: Vascular calcification. No abdominal aortic aneurysm. Lymph nodes: Multiple lymph nodes, the majority of which are subcentimeter in size. Urinary bladder: Circumferential bladder wall thickening. Reproductive: Status post hysterectomy. Bones/joints: 8 mm anterolisthesis of L4 on L5. Degenerative change and disc bulging with spinal stenosis at the L4-L5 level. Soft tissues: Injection granulomata. CT/CT kidney stone [id number] IMPRESSION: 1. Extensive infiltration of left perinephric fat along with mild perinephric fluid and thickening of the perirenal fascia. Marked right hydronephrosis, without obstructing urolithiasis. If pyelonephritis is of clinical concern, delayed postcontrast CT imaging may be of benefit for further evaluation if clinically indicated. 2. Multiple subcentimeter nonobstructing bilateral renal calculi, including a 6 mm left renal calculus. 3. Circumferential bladder wall thickening. 4. Additional findings as described above.
[2023-06-07] MEDS: sodium chloride 0.9% 1,000 ML 999 ML IV (14:31)
[2023-06-07 14:48] LABS: Lactic Sepsis W/Reflex 1.6 mmol/L (0.5-2.2)
--- NOTE | 2023-06-07 14:56 | PC.PHAR ---
Addendum entered by Vannesa Tyler 06/07/23 15:00: pt states she no longer has any kind of inhalers Original Note: pt states she takes care of her own medications-pt states she hasnt take any of her medications for 2 weeks except for her quetiapine 100mg hs ext shows last filled 08/19/22 30d/s 100mg bid pt states she had a build up of this medication-pt states she uses [facility] to fill her rxs called [facility] wp states they havent filled for the pt recently-notes are made in the pharmacy comments
[2023-06-07] MEDS: cefTRIAXone 1,000 MG in sodium chloride 0.9% (plus) 50 ML 100 MG IV (15:56)
[2023-06-07 18:36] VITALS: BP 141/90; PULSE 68; RESP 18; O2SAT 96
[2023-06-07 19:00] VITALS: BP 131/69; PULSE 58; RESP 18; O2SAT 96
[2023-06-07] MEDS: lactated ringers 1,000 ML 100 ML IV (19:18)
== END 2023-06-07 21:01 | disposition left against medical advice (07) ==
PROVIDERS: Physician Assistant; Emergency Provider Emergency Medicine; PCP Family Medicine
DX: A41.9 Sepsis, unspecified organism (principal); N11.1 Chronic obstructive pyelonephritis; J44.9 Chronic obstructive pulmonary disease, unspecified; I10 Essential (primary) hypertension; E78.5 Hyperlipidemia, unspecified; Z87.442 Personal history of urinary calculi; F17.210 Nicotine dependence, cigarettes, uncomplicated
CPT/HCPCS: 36415; 74176; 80053; 81001; 83605; 83690; 85025; 87040; 87077; 87086; 87186; 87205; 96365; 96366; 96367; 96376; 99285; J0131; J0696; J1170; J2060; J2405; J7030; J7120

== ENCOUNTER 2023-06-07 21:28 | Emergency (ER) | payer MEDICARE, MEDICAID, SELFPAY ==
[2023-06-07 21:44] VITALS: BP 86/61; PULSE 113; RESP 16; TEMP 36.8; O2SAT 91; BMI 28.0
--- NOTE | 2023-06-07 21:45 | W.ED.FEMALGU ---
HPI - Female Genitourinary General: Chief complaint: Urogenital-Female Stated complaint: Uti\Possible Kidney Stone Time Seen by Provider: 06/07/23 21:40 History of Present Illness: Mr. Cruz returns to the emergency department shortly after leaving against medical advice having to deal with personal issues. No significant changes since prior. Denies chest pain, shortness of breath, fevers. Has had return of pain identical to prior. Moderate to severe in intensity. No other specific changes in health, exacerbating, or alleviating factors identified. Review of Systems General: Reports: 10 or more systems reviewed and unremarkable except in HPI and below PFSH ED PFSH: Medical History Bilateral pulmonary embolism COPD (chronic obstructive pulmonary disease) GERD (gastroesophageal reflux disease) HTN (hypertension) Hyperlipidemia BRAYDON (obstructive sleep apnea) Recurrent UTI Renal calculi Right flank pain Right ureteral calculus Left mid/distal Large obstructing ureteral stone complicated by UTI. Treated with urgent ureteroscopy laser lithotripsy 10/06/20 Right ureteral calculus Surgical History H/O lithotripsy Hx of section X4 Hx of cholecystectomy Hx of hysterectomy Status post extracorporeal shock wave therapy Family History Mother , at age 53 Heart attack Father No problems noted. Other CAD (coronary artery disease) Cancer Chronic kidney disease (CKD) Hypertension Social History Smoking and tobacco status: current every day smoker Alcohol intake: current Alcohol intake frequency: holidays/special occasions only Adopted: No Caregiver/support person: No Lives independently: No Household members: spouse Marital status: Current occupational status: retired Physical Exam Const: COMMON NORMALS: alert GENERAL APPEARANCE: cooperative and well developed HENMT: COMMON NORMALS: normocephalic and atraumatic HEAD & SCALP: normocephalic and atraumatic Eye: COMMON NORMALS: conjunctivae normal CONJUNCTIVA: Yes conjunctivae normal SCLERA: sclerae normal Neck/C-Spine: COMMON NORMALS: supple GENERAL: Yes trachea midline Resp: COMMON NORMALS: normal respiratory effort AUSCULTATION: wheezes Cardio: COMMON NORMALS: regular rhythm RATE: tachycardic RHYTHM: regular rhythm GI: COMMON NORMALS: Soft to palpation PALPATION: Yes Soft to palpation and No Tenderness to palpation present (GI) : OTHER: Right flank tenderness, no peritonitis Extremity: GENERAL: Yes normal exam except as noted and No edema Neuro: COMMON NORMALS: moves all extremities SENSORIUM/ORIENTATION: Yes alert and No Orientation impaired Psych: COMMON NORMALS: mental status grossly normal and Normal thought process present THOUGHT PROCESS: Normal thought process present Course Vital Signs: Vital signs: Vital Signs Temperature 98.2 F 06/07/23 21:44 Pulse Rate 113 H 06/07/23 21:44 Respiratory Rate 16 06/07/23 21:44 Blood Pressure 86/61 06/07/23 21:44 Pulse Oximetry 91 06/07/23 21:44 Oxygen Delivery Me thod Room Air 06/07/23 21:44 MDM - Female Medical Decision Making Patient returns. She remains satisfactory for transfer and we are pending bed at [facility] where she was previously accepted. I will order additional fluids, recheck lactic acid, continue symptom treatment. Discussed with Dr. Dang Per urology note previously for informational purposes: [facility] [address] [address] Preload Signed Patient: Kush Cruz Age/Sex: 55 / F ADM Date: 05/22/[address]: Jeremy Herbert MD Report Number: [id number] Urological Complaints Details Kush Cruz PCP: Dr. Gray Problems following: UROLITHIASIS Multi-stone former. ?Multiple procedures required over the years. Bilateral renal calculi Right ureteroscopy laser lithotripsy without stent December 2016 Multiple other stones treated including an infected right ureteral calculus early October 2020 and right upper pole stone treated late October 2020 to try to become stone free. CURRENT VISIT 05/22/21:? UROLOGY F/U Chronic right ureteral stone, ? impacted, discovered in but due to other health concerns and patient's decisions not followed up on until recently after stone reconfirmed on emergent CT in [place] while traveling. 6mm, obstructing, with mod-severe hydronephrosis. Films obtained and reviewed. Stone not readily ID'd on KUB. Now for f/u to plan for definitive therapy Current data UA: KUB: Symptoms: Discussion: PRIOR VISITS 05/09/2021: UROLOGY follow-up visit Last visit was 10/30/2020 in follow-up of UROLITHIASIS having undergone ESWL to right upper pole stone with what appeared to be some residual stone fragments. Stent was removed without difficulty.? Scheduled for follow-up KUB. Summary of outside records: [facility] 01/14/21 -01/16/21. Admitted for extensive bilateral pulmonary emboli and treated accordingly.? Remained hemodynamically stable. Converted to Eliquis at discharge. Oxygen was prescribed. Follow-up scheduled with Dr. Gray and Dr. Gabriel ?? ? Called recently with concern of a stone. Current data Additional information: 12/27/2020 CT scan revealed a 4.7 mm obstructing right distal ureteral stone./ Additional history: Began vomiting blood on 05/06/2021. She was taken to the [facility], received blood. She elected to leave the hospital and come home. She was told that her right flank pain was related to a kidney stone. UA: 0-3 RBCs KUB: unable to identify a calcification in the area of the right ureter. Symptoms: Has been experiencing intermittent right flank pain since December. Denies passage of stone. Discussion: CT Report from [facility] notes a 6mm right mid ureteral calculus with moderate to severe right hydronephrosis. Recommend obtaining the CT scan from [place] before proceeding with surgical intervention. Suspect that the stone seen on 05/07/2021 CT is the same stone identified on 12/27/2020. She is scheduled to she her primary care today to discuss workup for GI bleed. Plan: follow-up TBA. Reviewed the importance of follow-up and treating the stone.? Her right kidney is at risk.? We will find a time next week to treat the stone. 01/29/2021: UROLOGY follow-up visit? DID NOT KEEP APPOINTMENT 10/30/2020: UROLOGY follow-up visit Last visit in the clinic was on 10/15/2020 in preparation for treatment of right upper pole stone. On 10/22/2020 she underwent ESWL to a right upper pole stone with what appeared to be good change.? She had been previously treated with laser lithotripsy of an obstructing right mid ureteral stone with infectious complications.? She wanted to try to become stone free. Back now for reevaluation. Current data UA: Too numerous to count RBCs.? 0-4 white cells.? Some bacteria.? Nitrite positive. KUB: Stent in good position.? There still appears to be some of the right upper pole stone remaining. Symptoms: Typical stent symptoms.? No fever or chills.? She is still quite tired and has not recovered her energy but she is doing better every day. Discussion: Recommended stent removal CYSTOSCOPY/STENT REMOVAL: Timeout performed prior to the procedure Anesthesia: none Informed consent obtained Routine prep. ?? ? Findings: Stent in the expected position.? Minimal encrustation.? No other gross bladder pathology noted. Grasping forceps used through the cystoscope to easily remove the stent. 10/15/2020: UROLOGY follow-up visit Last office visit was 09/14/2020 for follow-up of right distal ureteral stones diagnosed on 09/02/2020. Was unable to identify the stones on KUB. She continued to remain symptomatic. Plan was to proceed with surgical intervention on 09/20/2020. On 09/20/2020, she underwent cystoscopy, right ureteroscopy, right retrograde ureteropyelogram, ureteral stent. Operative findings: Ureter appeared to be somewhat dilated and consistent with recent passage of stones. Stent was left in place and she was instructed that she could remove it at home. Summary of outside records: [facility] (10/06/2020 through 10/07/2020) Hospitalized for a large left mid/distal right ureteral calculus complicated by UTI. Underwent ureteroscopy with laser lithotripsy on 10/06/2020. Was discharged home on LEVAQUIN. Back now for follow-up. Has elected to proceed with ESWL to try to become stone free.? Target will be right upper pole stone 10/10/2020: UROLOGY follow-up visit ? DID NOT KEEP APPOINTMENT 09/14/2020: UROLOGY follow-up visit ? Summary of my old records: Last visit was December 2017 in follow-up of complex stone disease with 2 large stones previously treated with ESWL in the development of Steinstrasse around the stent requiring laser lithotripsy to free the stent for removal. ?There was no real encrustation just stent impacted in cluster of small fragments surrounding the stent. Stone analysis: 30% calcium oxalate monohydrate 70% calcium phosphate She missed her 07/28/2018 and 09/01/2018 appointments. ? Summary of outside records: Emergency department visit 09/02/2020 Presented with complaints of acute onset of right flank pain typical for prior renal colic with abrupt onset that same day.? Severe nausea and emesis.? No fever or chills.? No dysuria. Work-up: Urinalysis showed too numerous to count white cells 25-40 red cells 5-10 squamous epithelial cells and nitrite negative urine. White count was normal. Creatinine 0.6. Clinically she did not have a significant urinary tract infection but she was covered with antibiotics. CT scan: 2 partially obstructing right distal ureteral stones both measuring about 3 mm. Multiple bilateral renal calculi. She elected conservative trial in hopes of spontaneous passage.? Urine culture grew >100,000 ESBL E. coli; sensitive to Augmentin, Cipro, Levaquin, nitrofurantoin, tetracycline, and Bactrim; resistant to cefuroxime, and ampicillin. Urology consult was requested. Current data UA: 0-4 WBCs, nitrite negative KUB: Unable to identify the right distal ureteral stones on KUB, able to identify bilateral renal stones. Symptoms: Continues to have right flank pain and occasional nausea. Denies fever or chills. States that she had some irritative voiding symptoms the day after she was seen in the ER but has not had any since then, she has not been straining her urine. Discussion: Unable to identify the stones on today's KUB, she continues to remain symptomatic. She would like to proceed with surgical intervention later next week. We will plan on cystoscopy, right: Retrograde, ureteroscopy, laser, stent; reviewed risk, benefits, and alternatives; informed consent obtained. Will prescribe BACTRIM DS based on recent urine culture. Will also prescribe tamsulosin and Percocet. Instructed her to strain all voids. Plan: Outpatient surgery 09/20/2020. Dictated By: Jeremy Herbert MD Signed By: <Electronically signed by Jeremy Herbert MD>\ Signed Date/Time: 05/22/21 0543 Medical Records I reviewed the patient's medical records. Lab Data I reviewed the patient's lab results. Discharge Plan Discharge Patient Disposition: Xfer Short-Term Hosp Clinical Impression: Pyelonephritis, Sepsis, Ureteral obstruction Condition: Stable Referrals: Shari Gray DO [Primary Care Provider] - Coding Level of Care Code ED Supervisor Adult Education for Tangela Reyes
[2023-06-07 22:12] VITALS: PULSE 100; RESP 16; O2SAT 99
[2023-06-07] MEDS: ipratropium-albuterol 3 mL Neb INHALATION (22:12)
[2023-06-07] MEDS: lactated ringers 1,000 ML 999 ML IV (22:17)
[2023-06-07 22:18] VITALS: RESP 24; O2SAT 98
[2023-06-07] MEDS: HYDROmorphone 1 mg/mL INJ 1 mL 0.5 MG IVP (22:18)
[2023-06-07 22:25] VITALS: BP 96/78; PULSE 102; RESP 22; O2SAT 92
[2023-06-07 22:30] LABS: Lactic Sepsis W/Reflex 2.8 mmol/L (0.5-2.2)
[2023-06-07] MEDS: sodium chloride 0.9% 1,000 ML 999 ML IV (23:00)
[2023-06-07 23:03] VITALS: BP 115/63; PULSE 98; RESP 20; O2SAT 94
[2023-06-07 23:59] LABS: Reflex Lactate Order REFLEX LACTIC ORDERD
[2023-06-08 00:25] VITALS: RESP 20; O2SAT 97
[2023-06-08] MEDS: HYDROmorphone 1 mg/mL INJ 1 mL 0.5 MG IVP (00:25)
[2023-06-08 00:29] VITALS: BP 102/81; PULSE 94; RESP 25; O2SAT 98
[2023-06-08 00:48] LABS: Lactic Acid level (Lactate) 1.5 mmol/L (0.5-2.2)
[2023-06-08 01:07] VITALS: BP 135/83; PULSE 97; RESP 20; O2SAT 98
--- NOTE | 2023-06-08 06:17 | PC.NURSE ---
Blood culture results faxed to [facility] by abraham castrejon.
== END 2023-06-08 01:10 | disposition short-term general hospital (02) ==
PROVIDERS: Emergency Medicine; Emergency Provider Emergency Medicine; PCP Family Medicine
DX: A41.9 Sepsis, unspecified organism (principal); N11.1 Chronic obstructive pyelonephritis
CPT/HCPCS: 36415; 83605; 94640; 96361; 96374; 99284; J1170; J7030; J7120

== ENCOUNTER 2023-07-27 15:38 | Emergency (ER) | payer MEDICARE, MEDICAID, SELFPAY ==
[2023-07-27 15:56] VITALS: BP 162/84; PULSE 99; RESP 15; TEMP 36.8; O2SAT 95; BMI 28.0
--- NOTE | 2023-07-27 17:39 | W.ED.FEMALGU ---
HPI - Female Genitourinary General: Chief complaint: Urogenital-Female Stated complaint: urinary Time Seen by Provider: 07/27/23 17:39 Source: patient Mode of arrival: ambulatory [facility] ED PFSH: Medical History Bilateral pulmonary embolism COPD (chronic obstructive pulmonary disease) GERD (gastroesophageal reflux disease) HTN (hypertension) Hyperlipidemia BRAYDON (obstructive sleep apnea) Recurrent UTI Renal calculi Right flank pain Right ureteral calculus Left mid/distal Large obstructing ureteral stone complicated by UTI. Treated with urgent ureteroscopy laser lithotripsy 10/06/20 Right ureteral calculus Surgical History H/O lithotripsy Hx of section X4 Hx of cholecystectomy Hx of hysterectomy Status post extracorporeal shock wave therapy Family History Mother , at age 53 Heart attack Father No problems noted. Other CAD (coronary artery disease) Cancer Chronic kidney disease (CKD) Hypertension Social History Smoking and tobacco status: current every day smoker Alcohol intake: current Alcohol intake frequency: holidays/special occasions only Adopted: No Caregiver/support person: No Lives independently: No Household members: spouse Marital status: Current occupational status: retired Course Vital Signs: Vital signs: Vital Signs Temperature 98.3 F 07/27/23 15:56 Pulse Rate 99 07/27/23 15:56 Respiratory Rate 15 07/27/23 15:56 Blood Pressure 162/84 07/27/23 15:56 Pulse Oximetry 95 07/27/23 15:56 Oxygen Delivery Nd thod Room Air 07/27/23 15:56 Discharge Plan Discharge Condition: Stable Prescriptions: No Action metoprolol tartrate 25 mg tablet 25 mg PO Q12H Qty: 180 0RF Eliquis 5 mg tablet 5 mg PO Q12H Qty: 60 1RF Rx Instructions: MUST make follow-up for further refills atorvastatin 20 mg tablet 20 mg PO DAILY@09 Qty: 30 1RF Rx Instructions: MUST make follow-up for further refills furosemide [Lasix] 20 mg tablet 20 mg PO DAILY Qty: 30 0RF Rx Instructions: MUST make follow-up for further refills quetiapine 100 mg tablet 100 mg PO BEDTIME nicotine 14 mg/24 hr patch 24 hour 1 patch transdermal DAILY Qty: 30 0RF omeprazole 40 mg capsule,delayed release(DR/EC) 40 mg PO DAILY Referrals: Shari Gray DO [Primary Care Provider] - Coding Level of Care Code ED Wildlife Rehabilitator for Tangela Reyes
[2023-07-27 18:11] LABS: Add Urine Culture? Yes; Add Urine Microscopic? YES; Bacteria Urine TRACE /hpf; Bilirubin Urine Neg (Negative); Blood Urine 3+ (Negative); Glucose Urine UA Norm (Normal); Ketones Urine Negative (Negative); Leukocyte Esterase Urine 2+ (Negative); Nitrate Urine Negative (Negative); Protein Urine 3+ (Negative); RBC Urine TOO NUMEROUS TO CNT /hpf (0-2); Squamous Epithelial Cell Urine 0-4 /hpf (0-5); Urine Appearance Cloudy (CLEAR); Urine Color Brown (Yellow); Urobilinogen Urine Norm (Negative); WBC Urine 0-4 /hpf (0-5); pH Urine 5 (5-7)
== END 2023-07-27 17:54 | disposition left against medical advice (07) ==
PROVIDERS: Emergency Medicine; Emergency Provider Family Medicine; PCP Family Medicine
DX: Z53.21 Procedure and treatment not carried out due to patient leaving prior to being seen by health care provider (principal)
CPT/HCPCS: 81001; 87086; 99283

== ENCOUNTER 2023-07-29 13:18 | Emergency (ER) | payer MEDICARE, MEDICAID, SELFPAY ==
[2023-07-29 13:25] VITALS: BP 130/78; PULSE 109; RESP 18; TEMP 36.6; O2SAT 97; BMI 28.0
--- NOTE | 2023-07-29 13:33 | ED_ITS ---
HPI - Female Genitourinary General: Chief complaint: Urogenital-Female Stated complaint: was here a couple a days ago same thing Time Seen by Provider: 07/29/23 13:32 Source: patient Mode of arrival: ambulatory Limitations: no limitations History of Present Illness: Patient is a 57-year-old female with past medical history including PE, COPD, hypertension, recurrent UTI, history of nephrolithiasis requiring intervention?presents to ED today with complaint of gross hematuria, dysuria, frequency and urgency and concerns for urinary tract infection. Patient was seen at our facility on 06/[address] scan showing: CT/CT kidney stone [id number] IMPRESSION: 1. Extensive infiltration of left perinephric fat along with mild perinephric fluid and thickening of the perirenal fascia. Marked right hydronephrosis, without obstructing urolithiasis. If pyelonephritis is of clinical concern, delayed postcontrast CT imaging may be of benefit for further evaluation if clinically indicated. 2. Multiple subcentimeter nonobstructing bilateral renal calculi, including a 6 mm left renal calculus. 3. Circumferential bladder wall thickening. 4. Additional findings as described above. Patient was subsequently transferred to [facility] where she received a right ureter stent. Patient states she has not followed up with urology following this appointment. She states she did travel to [facility] recently (about 2 weeks ago) to visit her kids/grandchildren and states she began having UTI-like symptoms while there. She states she was seen at a clinic there and had a urinalysis performed which looked positive for infection so was placed on 7 to 10 days of Bactrim. Subsequent culture showed no growth. Patient states she completed this course but symptoms have not improved. She is not running fevers. MD elicited complaint: dysuria, pelvic pain, back pain and flank pain Pertinent past history: pyelonephritis and other (kidney stones) Onset (ago): day(s) Severity: moderate Female Urogenital Radiation: Suprapubic and R Flank Quality of pain: sharp and stabbing Vaginal discharge: none Vaginal bleeding: none Urinary symptoms: Dysuria, Flank Pain, Frequency, Hematuria and Urgency Exacerbating factors: urination Relieving factors: none Associated symptoms: Reports no associated symptoms and abdominal pain; Deny headache(s) or nausea Treatment prior to arrival: none Patient : No Review of Systems Const: Denies: fever(s), chills, body aches, fatigue or malaise Card: Denies: chest pain Resp: Denies: dyspnea GI: Reports: abdominal pain; Denies: nausea, vomiting, diarrhea or change in bowel habits : Reports: flank pain, difficulty voiding, dysuria, urinary frequency, urinary urgency, urinary hesitancy and hematuria Musc: Reports: back pain (R flank); Denies: neck pain, extremity pain, extremity swelling, joint pain or joint swelling Skin/Breast: Denies: rash Neuro: Denies: headache(s) or dizziness PFSH ED PFSH: Medical History Bilateral pulmonary embolism COPD (chronic obstructive pulmonary disease) GERD (gastroesophageal reflux disease) HTN (hypertension) Hyperlipidemia BRAYDON (obstructive sleep apnea) Recurrent UTI Renal calculi Right flank pain Right ureteral calculus Left mid/distal Large obstructing ureteral stone complicated by UTI. Treated with urgent ureteroscopy laser lithotripsy 10/06/20 Right ureteral calculus Surgical History H/O lithotripsy Hx of section X4 Hx of cholecystectomy Hx of hysterectomy Status post extracorporeal shock wave therapy Family History Mother , at age 53 Heart attack Father No problems noted. Other CAD (coronary artery disease) Cancer Chronic kidney disease (CKD) Hypertension Social History Smoking and tobacco status: current every day smoker Alcohol intake: current Alcohol intake frequency: holidays/special occasions only Adopted: No Caregiver/support person: No Lives independently: No Household members: spouse Marital status: Current occupational status: retired Physical Exam Const: COMMON NORMALS: no acute distress, average body habitus, patient oriented x3, no limitations, alert and well nourished GENERAL APPEARANCE: cooperative ORIENTATION/CONSCIOUSNESS: Yes awake, Yes oriented to person, Yes oriented to place and Yes oriented to time HENMT: COMMON NORMALS: normocephalic and atraumatic HEAD & SCALP: normal to inspection, normocephalic and atraumatic Eye: COMMON NORMALS: no scleral icterus Neck/C-Spine: COMMON NORMALS: full ROM, no lymphadenopathy, supple and no meningeal signs Resp: COMMON NORMALS: normal respiratory effort and clear to auscultation bi laterally AUSCULTATION: clear to auscultation bilaterally Cardio: COMMON NORMALS: regular rate and regular rhythm RATE: regular rate RHYTHM: regular rhythm GI: COMMON NORMALS: Normal to inspection, nondistended, normoactive bowel sounds present, Soft to palpation, No hepatosplenomegaly present and no masses INSPECTION: Yes normal to inspection PALPATION: Yes Soft to palpation, Yes Tenderness to palpation present (GI) (suprapubic), No Guarding due to palpation present (GI), No Rigid due to palpation and Yes No hepatosplenomegaly present : BLADDER/KIDNEY EXAM: Yes CVA tenderness on the right Back/Pelvis: COMMON NORMALS: thoracic and lumbar spine normal to inspection, no thoracic nor lumbar tenderness and thoraco-lumbar ROM normal GENERAL BACK: Yes CVA tenderness Extremity: COMMON NORMALS: normal to inspection GENERAL: Yes normal exam except as noted Neuro: COMMON NORMALS: patient oriented x3, moves all extremities, no focal motor deficits and no sensory deficits noted SENSORIUM/ORIENTATION: Yes alert, Yes oriented to person, Yes oriented to place and Yes oriented to time MENINGEAL SIGNS: Yes no meningeal signs Skin: COMMON NORMALS: no rashes or lesions noted GENERAL SKIN EXAM: no rashes or lesions noted Course Vital Signs: Vital signs: Vital Signs Temperature 97.9 F 07/29/23 13:25 Pulse Rate 85 07/29/23 15:35 Respiratory Rate 18 07/29/23 15:18 Blood Pressure 153/98 07/29/23 16:10 Pulse Oximetry 97 07/29/23 16:10 Oxygen Delivery Me thod Room Air 07/29/23 16:10 MDM - Female Medical Decision Making Patient here for complaints of hematuria, urgency, frequency, dysuria. She had a urine culture performed in [facility]. I was able to view these results on patient's portal on her phone. Culture showed no growth. She is here for continued symptoms. She has a known right ureter stent that was placed in early June. She has not had any urology follow-up for this. Stent was performed by Dr. Taylor [facility]. I spoke to Dr. Bryant who is on-call for their group today and he feels like symptoms are most likely just related to the presence of the ureter stent and not necessarily infection-recommend she contact Dr. Taylor's office for follow up. She is not tachycardic or febrile. She has a normal white count. I will go ahead and place her on antibiotics as a precautionary as I do not know when she will receive urology follow up. She will be discharged home with pain and nausea meds. Of note her potassium and magnesium are low. She was provided supplementation for these. Recommend these get rechecked through primary care within the next 1 to 2 weeks. Return ED precautions given. Lab Data 07/29/23 13:52 07/29/23 13:52 Laboratory Results WBC 6.05 10^3/uL (3.29-11.43) 07/29/23 13:52 RBC 4.02 10^6/uL (3.85-5.65) 07/29/23 13:52 Hgb 12.10 g/dL (11.27-16.99) 07/29/23 13:52 Hct 36.3 % (36-47) 07/29/23 13:52 MCV 90.3 fl (85-98) 07/29/23 13:52 MCH 30.1 pg (27-33) 07/29/23 13:52 MCHC 33.3 g/dL (30-55) 07/29/23 13:52 RDW 14.4 % (12.1-15.1) 07/29/23 13:52 Plt Count 191 10^3/cmm (157-399) 07/29/23 13:52 MPV 9.2 fL (7.4-10.4) 07/29/23 13:52 Neut % (Auto) 67.3 % 07/29/23 13:52 Lymph % (Auto) 21.5 % 07/29/23 13:52 Kings % (Auto) 6.9 % 07/29/23 13:52 Eos % (Auto) 3.3 % 07/29/23 13:52 Baso % (Auto) 0.7 % 07/29/23 13:52 Neut # (Auto) 4.07 10^3/uL (1.8-7.7) 07/29/23 13:52 Lymph # (Auto) 1.3 10^3/uL (0.8-4.8) 07/29/23 13:52 Kings # (Auto) 0.4 10^3/uL (0.2-0.9) 07/29/23 13:52 Eos # (Auto) 0.2 10^3/uL (0.0-0.8) 07/29/23 13:52 Baso # (Auto) 0.0 10^3/uL (0.0-0.1) 07/29/23 13:52 Nucleated RBC % (auto) 0 % 07/29/23 13:52 Nucleated RBCs # 0.0 /100WBC 07/29/23 13:52 Sodium 139 mmol/L (136-145) 07/29/23 13:52 Potassium 2.9 mmol/L (3.5-5.1) L 07/29/23 13:52 Chloride 102 mmol/L (98-107) 07/29/23 13:52 Carbon Dioxide 24 mmol/L (22-29) 07/29/23 13:52 Anion Gap 15.9 (5-19) 07/29/23 13:52 BUN 22 mg/dL (6-20) H 07/29/23 13:52 Creatinine 1.1 mg/dL (0.5-0.9) H 07/29/23 13:52 GFR Calculation 51.6 mL/min (90-130) L 07/29/23 13:52 Glucose 123 mg/dL (65-115) H 07/29/23 13:52 Calculated Osmolality 293 mOsm/kg (285-295) 07/29/23 13:52 Lactic Acid 1.8 mmol/L (0.5-2.2) 07/29/23 13:52 Calcium 8.8 mg/dL (8.5-10.5) 07/29/23 13:52 Magnesium 1.5 mg/dL (1.7-2.3) L 07/29/23 13:52 Total Bilirubin 0.4 mg/dL (0.15-1.2) 07/29/23 13:52 AST 10 U/L (0-32) 07/29/23 13:52 ALT 9 U/L (0-33) 07/29/23 13:52 Alkaline Phosphatase 91 U/L (35-105) 07/29/23 13:52 Total Protein 6.8 g/dL (6.6-8.7) 07/29/23 13:52 Albumin 4.1 g/dL (3.5-5.2) 07/29/23 13:52 Globulin 2.7 g/dL (1.3-4.6) 07/29/23 13:52 Urine Color Red (Yellow) A 07/29/23 13:49 Urine Appearance Cloudy (CLEAR) A 07/29/23 13:49 Urine pH 6 (5-7) 07/29/23 13:49 Ur Specific [place] 1.020 (1.005-1.030) 07/29/23 13:49 Urine Protein 3+ (Negative) H 07/29/23 13:49 Urine Glucose (UA) Trace (Normal) H 07/29/23 13:49 Urine Ketones 1+ (Negative) H 07/29/23 13:49 Urine Blood 3+ (Negative) H 07/29/23 13:49 Urine Nitrate Negative (Negative) 07/29/23 13:49 Urine Bilirubin Neg (Negative) 07/29/23 13:49 Urine Urobilinogen Norm mg/dL (Negative) 07/29/23 13:49 Ur Leukocyte Esterase 2+ (Negative) H 07/29/23 13:49 Urine RBC Too numerous to cnt /hpf (0-2) H 07/29/23 13:49 Urine WBC 10-15 /hpf (0-5) H 07/29/23 13:49 Ur Squamous Epith Cells Rare /hpf (0-5) 07/29/23 13:49 Amorphous Sediment Not Reportable 07/29/23 13:49 Urine Bacteria Trace /hpf (NONE) 07/29/23 13:49 Urine Mucus None /hpf 07/29/23 13:49 All radiology interpretation(s) finalized by discharge Discharge Plan Discharge Patient Disposition: Home Clinical Impression: Ureteral stent present Condition: Stable Prescriptions: New Cipro 500 mg tablet 500 mg PO Q12H Qty: 14 0RF hydrocodone-acetaminophen 5-325 mg tablet 1 tab PO Q6H PRN (Reason: pain) Qty: 14 0RF ondansetron 4 mg tablet,disintegrating 4 mg PO Q8H PRN (Reason: nausea and vomiting) Qty: 14 0RF No Action metoprolol tartrate 25 mg tablet 25 mg PO Q12H Qty: 180 0RF atorvastatin 20 mg tablet 20 mg PO DAILY@09 Qty: 30 1RF Rx Instructions: MUST make follow-up for further refills quetiapine 100 mg tablet 100 mg PO BEDTIME omeprazole 40 mg capsule,delayed release(/EC) 40 mg PO DAILY Discharge Orders: Discharge ED (Routine); Ordered 07/29/23 Ordered By: Kathia Morris Referrals: Shari Gray DO [Primary Care Provider] - Activity Restrictions/Additional Instructions: As we discussed please contact Dr. Taylor's office with [facility] and schedule your follow-up visit. You need to return to the emergency department for severe worsening pain, fevers, repetitive episodes of vomiting, inability to hold down your antibiotics, generally feeling worse or unwell, or any other concerns you may have. Coding Level of Care Code ED Syrup Maker Cook for Tangela Reyes
--- NOTE | 2023-07-29 13:50 | CT_ITS ---
WS: [id number] CT ABDOMEN AND PELVIS NONCONTRAST HISTORY: R flank/abd pain/hematuria/ureter stent/UTI symptoms TECHNIQUE: Imaging performed through the abdomen and pelvis. Coronal and sagittal reformats are submi tted. All CT scans at [facility] use at least one of these dose optimization techniques: auto mated exposure control; mA and/or kV adjustment per patient size (includes targeted exams where dose is matched to clinical indication); or iterative reconstruction. DLP: 634.56 mGy.cm COMPARISON: 06/07/2023 Lower thorax: Hyperinflated lungs. Normal size heart. Large hiatal hernia. Liver: Mild hepatic steatosis. Again noted is a lipoma near the hepatic dome. Gallbladder: Prior cholecystectomy. Pancreas: Normal size and attenuation. Normal pancreatic duct. No pancreatitis or mass. Spleen: Normal. Adrenal glands: Normal. No mass. Right kidney: Since the prior examination RIGHT ureteral stent has been placed but the proximal pigta il is in an extrarenal pelvis. The distal pigtail is in the urinary bladder. There is mild diffuse th ickening of the ureteral wall and also of the renal pelvis but much improved since the prior study. P reviously described perinephric stranding has resolved. Nonobstructing calcifications in the renal pe lvis. Left kidney: Numerous nonobstructing renal calculi. No perinephric stranding. Aorta: Mild atherosclerosis abdominal aorta with no aneurysm. No free fluid, intraperitoneal air or significant lymphadenopathy. GI tract: Large hiatal hernia. No small bowel obstruction. There is increased fecal material in the R IGHT colon. No obstructive process. Normal appendix. Minimal diverticular disease. Abdominal wall: Negative. No hernia. Pelvis: No free fluid. No adenopathy. Urinary bladder is only minimally distended. There is a tiny ca lcification in the LEFT posterior pelvis which is probably external to the bladder. Osseous structures: L4 anterolisthesis. IMPRESSION: 1. Double-pigtail RIGHT ureteral stent has been placed since 06/07/2023 with significant improvement i n the perinephric stranding and hydroureteronephrosis. There is still mild diffuse ureteral thickenin g and soft tissue thickening at the renal pelvis. May represent continued urinary tract infection. 2. 2. Normal appendix. 3. 3. No GI tract obstruction. 4. 4. Prior cholecystectomy.
[2023-07-29] MEDS: sodium chloride 0.9% 1,000 ML 999 ML IV (13:56)
[2023-07-29] MEDS: morphine 4 mg/mL SDV 1 mL IVP (13:57)
[2023-07-29] MEDS: ondansetron 2 mg/ML SDV 2 mL 4 MG IVP (13:57)
[2023-07-29 14:05] LABS: Basophils % 0.7 %; Eosinophils # 0.2 10^3/uL (0.0-0.8); Eosinophils % 3.3 %; Hematocrit 36.3 % (36-47); Lymphocytes # 1.3 10^3/uL (0.8-4.8); Lymphocytes % 21.5 %; Mean Corpuscular HGB Conc 33.3 g/dL (30-55); Mean Corpuscular Hemoglobin 30.1 pg (27-33); Mean Corpuscular Volume 90.3 fl (85-98); Mean Platelet Volume 9.2 fL (7.4-10.4); Monocytes # 0.4 10^3/uL (0.2-0.9); Monocytes % 6.9 %; Neutrophils # 4.07 10^3/uL (1.8-7.7); Neutrophils % 67.3 %; Nucleated Red Blood Cells % 0 %; Platelet Count 191 10^3/cmm (157-399); Red Blood Count 4.02 10^6/uL (3.85-5.65); Red Cell Distribution Width 14.4 % (12.1-15.1); White Blood Count 6.05 10^3/uL (3.29-11.43)
[2023-07-29 14:25] LABS: Glucose Urine UA Trace (Normal); Ketones Urine 1+ (Negative); Protein Urine 3+ (Negative); Urine Appearance Cloudy (CLEAR); Urine Color Red (Yellow); pH Urine 6 (5-7)
[2023-07-29 14:26] LABS: Add Urine Microscopic? YES; Bilirubin Urine Neg (Negative); Blood Urine 3+ (Negative); Leukocyte Esterase Urine 2+ (Negative); Nitrate Urine Negative (Negative); Urobilinogen Urine Norm (Negative)
[2023-07-29 14:26] LABS: Lactic Sepsis W/Reflex 1.8 mmol/L (0.5-2.2)
[2023-07-29 14:27] LABS: Alanine Aminotransferase 9 U/L (0-33); Albumin Level 4.1 g/dL (3.5-5.2); Alkaline Phosphatase 91 U/L (35-105); Anion Gap 15.9 (5-19); Aspartate Amino Transferase 10 U/L (0-32); Blood Urea Nitrogen 22 mg/dL (6-20); Calcium 8.8 mg/dL (8.5-10.5); Carbon Dioxide 24 mmol/L (22-29); Chloride 102 mmol/L (98-107); Globulin 2.7 g/dL (1.3-4.6); Glomerular Filtration Rate 51.6 mL/min (90-130); Glucose 123 mg/dL (65-115); Osmolality Calculated 293 mOsm/kg (285-295); Sodium 139 mmol/L (136-145); Total Bilirubin 0.4 mg/dL (0.15-1.2); Total Protein 6.8 g/dL (6.6-8.7)
[2023-07-29 14:28] LABS: Potassium 2.9 mmol/L (3.5-5.1)
[2023-07-29 14:37] LABS: Bacteria Urine TRACE /hpf; RBC Urine TOO NUMEROUS TO CNT /hpf (0-2); Squamous Epithelial Cell Urine RARE /hpf (0-5)
[2023-07-29 14:38] LABS: Add Urine Culture? Yes
[2023-07-29 14:46] LABS: Magnesium 1.5 mg/dL (1.7-2.3)
[2023-07-29] MEDS: potassium chloride ER 20 mEq Tablet 60 MEQ PO (14:49)
[2023-07-29 14:50] VITALS: BP 166/121; PULSE 84; RESP 18; O2SAT 95
[2023-07-29] MEDS: magnesium sulfate premix 1 GM/100 ML PIGGYBACK IV (15:11)
[2023-07-29 15:18] VITALS: BP 152/80; PULSE 89; RESP 18; O2SAT 94
--- NOTE | 2023-07-29 15:30 | ECG_ITS ---
[facility] Test Date: 2023-07-29 Pat Name: Kush Cruz Department: Room: Gender: Female Orthopedics Pediatric Physician: : 1965 Requested By: Kathia Morris Order Number: [id number] Rachele MD: Ave Ramirez M.D. Measurements Intervals [place] Rate: 131 P: 0 NH: 0 QRS: -28 QRSD: 103 T: 134 QT: 337 QTc: 497 Interpretive Statements ATRIAL FIBRILLATION WITH RAPID VENTRICULAR RESPONSE INCOMPLETE RIGHT BUNDLE BRANCH BLOCK [90+ ms QRS DURATION, TERMINAL R IN V1/V2, 40+ ms S IN I/aVL/V4/V5/V6] VOLTAGE CRITERIA FOR LVH [MEETS CRITERIA IN ONE OF: R(aVL), S(V1), R(V5), R(V5/V6)+S(V1)]POSSIBLE SEPTAL MYOCARDIAL INFARCTION , OF INDETERMINATE AGE [30 ms Q WAVE INV1/V2] POSSIBLE LATERAL MYOCARDIAL INFARCTION , OF INDETERMINATE AGE [30 ms Q WAVE IN I/aVL/V5/V6] INTERPRETATION BASED ON A DEFAULT AGE OF 40 YEARS Compared to ECG 01/13/2021 19:58:16 Incomplete right bundle-branch block now present.Left ventricular hypertrophy now present.Myocardial infarct finding now present.Sinus tachycardia no longer present.Short NH interval no longer present.T-wave abnormality no longer present Electronically Signed On 07-29-2023 21:03:[address] Ramirez M.D. [id number]
[2023-07-29 15:35] VITALS: BP 143/85; PULSE 85; O2SAT 91
[2023-07-29] MEDS: cefTRIAXone 1,000 MG in sodium chloride 0.9% (plus) 50 ML 100 MG IV (16:03)
[2023-07-29 16:10] VITALS: BP 153/98; O2SAT 97
[2023-07-29] MEDS: fentaNYL 50 mcg/mL INJ 2mL IVP (16:20)
== END 2023-07-29 17:26 | disposition home or self-care (01) ==
PROVIDERS: Emergency Provider Physician Assistant; PCP Family Medicine
DX: Z96.0 Presence of urogenital implants (principal); J44.9 Chronic obstructive pulmonary disease, unspecified; I10 Essential (primary) hypertension; E78.5 Hyperlipidemia, unspecified; Z87.440 Personal history of urinary (tract) infections; F17.210 Nicotine dependence, cigarettes, uncomplicated
CPT/HCPCS: 74176; 80053; 81001; 83605; 83735; 85025; 87086; 93005; 96365; 96366; 96367; 96375; 99285; J0696; J2270; J2405; J3010; J3475; J7030

== ENCOUNTER 2023-09-09 20:16 | Emergency (ER) | payer MEDICARE, MEDICAID, SELFPAY ==
[2023-09-09] VITALS (12 sets, daily range): BP systolic 116–176; BP diastolic 80–104; PULSE 78–99; RESP 15–27; TEMP 36.6; O2SAT 91–99; BMI 29.5
--- NOTE | 2023-09-09 20:19 | ECG_ITS ---
[facility] Test Date: 2023-09-09 Pat Name: Kush Cruz Department: Room: Gender: Female Record Keeper: : 1965 Requested By: Irvin Dang Order Number: [id number] Rachele MD: Ave Ramirez M.D. Measurements Intervals [place] Rate: 101 P: 81 VA: 103 QRS: 38 QRSD: 98 T: 34 QT: 334 QTc: 433 Interpretive Statements SINUS TACHYCARDIA WITH SHORT VA INTERVAL INCOMPLETE RIGHT BUNDLE BRANCH BLOCK [90+ ms QRS DURATION, TERMINAL R IN V1/V2, 40+ ms S IN I/aVL/V4/V5/V6] NONSPECIFIC ST & T-WAVE ABNORMALITY ABNORMAL RHYTHM ECG Compared to ECG 07/29/2023 15:49:01 Short VA interval now present T-wave abnormality now present Atrial fibrillation no longer present Left ventricular hypertrophy no longer present Myocardial infarct finding no longer present Electronically Signed On 09-10-2023 0:45:41 SEW ON OPERATOR by Ave Ramirez M.D. [email or web address] [id number] f
--- NOTE | 2023-09-09 20:19 | XRR_ITS ---
PROCEDURE INFORMATION: Exam: XR Chest Exam date and time: 09/09/2023 8:22 PM Age: 58 years old Clinical indication: Chest wall pain; Additional info: Cp TECHNIQUE: Imaging protocol: Radiologic exam of the chest. Views: 1 view. COMPARISON: CR XR chest 1V portable [id number] 01/13/2021 8:42 PM FINDINGS: Lungs: The lungs are clear. Pleural spaces: Unremarkable. No pleural effusion. No pneumothorax. Heart/Mediastinum: Unremarkable. No cardiomegaly. Bones/joints: Unremarkable. Soft tissues: Chronic 10 cm hiatus hernia. XR/XR chest 1V portable [id number] IMPRESSION: 1. No acute findings 2. Chronic moderate hiatus hernia
[2023-09-09 20:49] LABS: Basophils # 0.1 10^3/uL (0.0-0.1); Basophils % 0.5 %; Eosinophils # 0.2 10^3/uL (0.0-0.8); Eosinophils % 1.5 %; Hematocrit 34.8 % (36-47); Lymphocytes # 1.7 10^3/uL (0.8-4.8); Lymphocytes % 17.1 %; Mean Corpuscular HGB Conc 32.5 g/dL (30-55); Mean Corpuscular Hemoglobin 29.7 pg (27-33); Mean Corpuscular Volume 91.6 fl (85-98); Monocytes # 0.7 10^3/uL (0.2-0.9); Monocytes % 7.3 %; Neutrophils # 7.22 10^3/uL (1.8-7.7); Neutrophils % 73.3 %; Nucleated Red Blood Cells % 0 %; Platelet Count 205 10^3/cmm (157-399); Red Cell Distribution Width 14.7 % (12.1-15.1); White Blood Count 9.86 10^3/uL (3.29-11.43)
[2023-09-09] MEDS: aspirin 81 mg Chew Tablet 324 MG PO (20:54)
[2023-09-09] MEDS: morphine 4 mg/mL SDV 1 mL IVP ×2 (20:55→21:49)
[2023-09-09] MEDS: ondansetron 2 mg/ML SDV 2 mL 4 MG IVP (20:55)
[2023-09-09 21:11] LABS: Troponin(5th) Baseline 18 ng/L (0-10)
[2023-09-09 21:20] LABS: Alanine Aminotransferase 12 U/L (0-33); Albumin Level 4.4 g/dL (3.5-5.2); Alkaline Phosphatase 102 U/L (35-105); Blood Urea Nitrogen 16 mg/dL (6-20); Calcium 9.3 mg/dL (8.5-10.5); Carbon Dioxide 27 mmol/L (22-29); Globulin 2.6 g/dL (1.3-4.6); Glomerular Filtration Rate 57.4 mL/min (90-130); Glucose 109 mg/dL (65-115); NT Pro B Type Natriuretic Pept 759 pg/mL (0-125); Total Bilirubin 0.6 mg/dL (0.15-1.2)
--- NOTE | 2023-09-09 21:21 | W.ED.CHESTPA ---
HPI - Chest Pain General: Chief Complaint: Chest Pain Stated Complaint: chest pain,sob Time Seen by Provider: 09/09/23 20:37 History of Present Illness: patient presents to the ER with complaints of chest pain after arguing with her while doing lawn work. Patient reports this sharp chest pain in the center of her chest. She states she never had this before does not radiate it does not cause nausea vomiting shortness of breath. It does hurt worse upon inspiration and the pain waxes and wanes. Review of Systems General: Reports: 10 or more systems reviewed and unremarkable except in HPI and below PFSH ED PFSH: Medical History Bilateral pulmonary embolism COPD (chronic obstructive pulmonary disease) GERD (gastroesophageal reflux disease) HTN (hypertension) Hyperlipidemia BRAYDON (obstructive sleep apnea) Recurrent UTI Renal calculi Right flank pain Right ureteral calculus Left mid/distal Large obstructing ureteral stone complicated by UTI. Treated with urgent ureteroscopy laser lithotripsy 10/06/20 Right ureteral calculus Surgical History H/O lithotripsy Hx of section X4 Hx of cholecystectomy Hx of hysterectomy Status post extracorporeal shock wave therapy Family History Mother , at age 53 Heart attack Father No problems noted. Other CAD (coronary artery disease) Cancer Chronic kidney disease (CKD) Hypertension Social History Smoking and tobacco/nicotine status: current every day tobacco/nicotine user Alcohol intake: current Alcohol intake frequency: holidays/special occasions only Adopted: No Caregiver/support person: No Lives independently: No Household members: spouse Marital status: Current occupational status: retired Physical Exam Const: COMMON NORMALS: no acute distress, average body habitus, patient oriented x3, no limitations, healthy appearing, alert and well nourished HENMT: COMMON NORMALS: normocephalic, atraumatic, hearing grossly normal bilaterally, external ears normal, Normal external nose present, moist oral mucous membranes and oropharynx normal HEAD & SCALP: normocephalic and atraumatic NOSE: Normal external nose present EXTERNAL EAR: Yes external ears normal Neck/C-Spine: COMMON NORMALS: full ROM, no lymphadenopathy, supple, no meningeal signs, no JVD and Thyroid normal THYROID: Thyroid normal Chest: COMMONS NORMALS: normal inspection of the chest; negative for normal palpation of entire chest wall ( Tender to palpation reproduces pain) Resp: COMMON NORMALS: normal respiratory effort, No retractions, No use of accessory muscles and clear to auscultation bilaterally AUSCULTATION: clear to auscultation bilaterally Cardio: COMMON NORMALS: no JVD, regular rate, regular rhythm, S1 normal heart sound present, S2 normal heart sound present, No gallops present (Cardio), No clicks present (Cardio), No murmurs present (Cardio) and No rub (Cardio) RATE: regular rate RHYTHM: regular rhythm HEART SOUNDS: S1 normal heart sound present and S2 normal heart sound present GI: COMMON NORMALS: Normal to inspection, nondistended, normoactive bowel sounds present, Soft to palpation, non-tender, No hepatosplenomegaly present and no masses PALPATION: Yes Soft to palpation and Yes No hepatosplenomegaly present Neuro: COMMON NORMALS: patient oriented x3 SENSORIUM/ORIENTATION: Yes alert MENINGEAL SIGNS: Yes no meningeal signs Course Vital Signs: Vital signs: Vital Signs Temperature 97.9 F 09/09/23 20:25 Pulse Rate 89 09/09/23 23:10 Respiratory Rate 27 H 09/09/23 23:10 Blood Pressure 162/100 09/09/23 23:10 Pulse Oximetry 96 09/09/23 23:10 Oxygen Delivery Me thod Room Air 09/09/23 21:20 MDM - Chest Pain Medical Decision Making patient presented with chest pain patient was worked up in a standard cardiac fashion with serial EKGs, labs chest x-ray. Patient's findings did not suggest cardiac nature for this pain more chest wall pain. Patient be discharged home to follow-up with her PCP on a as needed basis Lab Data 09/09/23 20:40 09/09/23 20:40 Radiology Impressions Chest X-Ray 09/09/23 20:19 IMPRESSION: 1. No acute findings 2. Chronic moderate hiatus hernia Laboratory Results WBC 9.86 10^3/uL (3.29-11.43) 09/09/23 20:40 RBC 3.80 10^6/uL (3.85-5.65) L 09/09/23 20:40 Hgb 11.30 g/dL (11.27-16.99) 09/09/23 20:40 Hct 34.8 % (36-47) L 09/09/23 20:40 MCV 91.6 fl (85-98) 09/09/23 20:40 MCH 29.7 pg (27-33) 09/09/23 20:40 MCHC 32.5 g/dL (30-55) 09/09/23 20:40 RDW 14.7 % (12.1-15.1) 09/09/23 20:40 Plt Count 205 10^3/cmm (157-399) 09/09/23 20:40 MPV 9.0 fL (7.4-10.4) 09/09/23 20:40 Neut % (Auto) 73.3 % 09/09/23 20:40 Lymph % (Auto) 17.1 % 09/09/23 20:40 [place] % (Auto) 7.3 % 09/09/23 20:40 Eos % (Auto) 1.5 % 09/09/23 20:40 Baso % (Auto) 0.5 % 09/09/23 20:40 Neut # (Auto) 7.22 10^3/uL (1.8-7.7) 09/09/23 20:40 Lymph # (Auto) 1.7 10^3/uL (0.8-4.8) 09/09/23 20:40 [place] # (Auto) 0.7 10^3/uL (0.2-0.9) 09/09/23 20:40 Eos # (Auto) 0.2 10^3/uL (0.0-0.8) 09/09/23 20:40 Baso # (Auto) 0.1 10^3/uL (0.0-0.1) 09/09/23 20:40 Nucleated RBC % (auto) 0 % 09/09/23 20:40 Nucleated RBCs # 0.0 /100WBC 09/09/23 20:40 PT 12.40 SECONDS (12.1-14.9) 09/09/23 20:40 INR 0.90 (0.8-1.2) 09/09/23 20:40 Sodium 143 mmol/L (136-145) 09/09/23 20:40 Potassium 3.2 mmol/L (3.5-5.1) L 09/09/23 20:40 Chloride 102 mmol/L (98-107) 09/09/23 20:40 Carbon Dioxide 27 mmol/L (22-29) 09/09/23 20:40 Anion Gap 17.2 (5-19) 09/09/23 20:40 BUN 16 mg/dL (6-20) 09/09/23 20:40 Creatinine 1.0 mg/dL (0.5-0.9) H 09/09/23 20:40 GFR Calculation 57.4 mL/min (90-130) L 09/09/23 20:40 Glucose 109 mg/dL (65-115) 09/09/23 20:40 Calculated Osmolality 298 mOsm/kg (285-295) H 09/09/23 20:40 Calcium 9.3 mg/dL (8.5-10.5) 09/09/23 20:40 Total Bilirubin 0.6 mg/dL (0.15-1.2) 09/09/23 20:40 AST 17 U/L (0-32) 09/09/23 20:40 ALT 12 U/L (0-33) 09/09/23 20:40 Alkaline Phosphatase 102 U/L (35-105) 09/09/23 20:40 Troponin T Baseline 18 ng/L (0-10) H 09/09/23 20:40 Troponin T 120 Minute 16.19 ng/L (0-10) H 09/09/23 22:29 Delta Troponin T -1.81 ABS# (0-10) L 09/09/23 22:29 NT-Pro-B Natriuret Pep 759 pg/mL (0-125) H 09/09/23 20:40 Total Protein 7.0 g/dL (6.6-8.7) 09/09/23 20:40 Albumin 4.4 g/dL (3.5-5.2) 09/09/23 20:40 Globulin 2.6 g/dL (1.3-4.6) 09/09/23 20:40 XR interpretation done by ED provider, pending radiology final review EKG Data EKG 1: I personally reviewed and interpreted this EKG as follows: EKG interpretation date: 09/09/23 EKG interpretation time: 20:23 Prior EKG tracings: not available for review Interpretation: EKG showed ventricular rate 101 beats minute, FL interval 103, QRS duration 98, QTc 392, sinus tachycardia with a short FL interval, incomplete right bundle branch block abnormalities EKG 2: I personally reviewed and interpreted this EKG as follows: EKG interpretation date: 09/09/23 EKG interpretation time: 22:15 Prior EKG tracings: available for review Interpretation: EKG showed ventricular rate 91 beats a minute, FL interval 114, QRS duration 105, QTc of 413, sinus rhythm with incomplete right bundle branch block, short FL interval nonspecific ST-T wave abnormality Discharge Plan Discharge Patient Disposition: Home Clinical Impression: Atypical chest pain Condition: Stable Prescriptions: No Action metoprolol tartrate 25 mg tablet 25 mg PO Q12H Qty: 180 0RF atorvastatin 20 mg tablet 20 mg PO DAILY@09 Qty: 30 1RF Rx Instructions: MUST make follow-up for further refills quetiapine 100 mg tablet 100 mg PO BEDTIME omeprazole 40 mg capsule,delayed release(DR/EC) 40 mg PO DAILY Cipro 500 mg tablet 500 mg PO Q12H Qty: 14 0RF hydrocodone-acetaminophen 5-325 mg tablet 1 tab PO Q6H PRN (Reason: pain) Qty: 14 0RF ondansetron 4 mg tablet,disintegrating 4 mg PO Q8H PRN (Reason: nausea and vomiting) Qty: 14 0RF Discharge Orders: Discharge ED (Routine); Ordered 09/09/23 Ordered By: Polo Dior Referrals: Shari Gray DO [Primary Care Provider] - 7-10 days Patient Instructions: Chest Pain (ED) Activity Restrictions/Additional Instructions: your lab work benign in nature and did not reveal a cardiac source for your chest pain. Is felt you have more likely chest wall pain. Please follow-up with your family practice doctor in 7 to 10 days for further evaluation and treatment as needed. Coding Level of Care Code ED Jira Administrator for Tangela Reyes
[2023-09-09 21:24] LABS: Creatinine Clr Calc Pharmacy 75.3738
[2023-09-09 21:32] LABS: Chloride 102 mmol/L (98-107); Osmolality Calculated 298 mOsm/kg (285-295); Sodium 143 mmol/L (136-145)
[2023-09-09 21:33] LABS: Anion Gap 17.2 (5-19); Aspartate Amino Transferase 17 U/L (0-32); Potassium 3.2 mmol/L (3.5-5.1)
--- NOTE | 2023-09-09 22:15 | ECG_ITS ---
[facility] Test Date: 2023-09-09 Pat Name: Kush Cruz Department: Room: Gender: Female Teaseler: : 1965 Requested By: Irvin Dang Order Number: [id number] Rachele MD: Ave Ramirez M.D. Measurements Intervals [place] Rate: 91 P: 93 MD: 114 QRS: 43 QRSD: 105 T: 32 QT: 364 QTc: 449 Interpretive Statements SINUS RHYTHM WITH SHORT MD INTERVAL INCOMPLETE RIGHT BUNDLE BRANCH BLOCK [90+ ms QRS DURATION, TERMINAL R IN V1/V2, 40+ ms S IN I/aVL/V4/V5/V6] NONSPECIFIC ST & T-WAVE ABNORMALITY Compared to ECG 07/29/2023 15:49:01 Short MD interval now present T-wave abnormality now present Atrial fibrillation no longer present Left ventricular hypertrophy no longer present Myocardial infarct finding no longer present Electronically Signed On 09-10-2023 0:47:18 NURSE [address]OUND by Ave Ramirez M.D. [email or web address]
[2023-09-09 22:56] LABS: Troponin 5 2HR 16.19 ng/L (0-10)
[2023-09-09 22:57] LABS: Troponin 5 2HR Delta -1.81 ABS# (0-10)
== END 2023-09-09 23:21 | disposition home or self-care (01) ==
PROVIDERS: Emergency Medicine; Emergency Provider Emergency Medicine; PCP Family Medicine
DX: R07.89 Other chest pain (principal); Z72.0 Tobacco use; J44.9 Chronic obstructive pulmonary disease, unspecified; I10 Essential (primary) hypertension; E78.5 Hyperlipidemia, unspecified
CPT/HCPCS: 36415; 71045; 80053; 83880; 84484; 85025; 85610; 93005; 96374; 96375; 96376; 99285; J2270; J2405

== ENCOUNTER 2023-11-19 11:10 | Emergency (ER) | payer MEDICARE, MEDICAID, SELFPAY ==
[2023-11-19] VITALS (13 sets, daily range): BP systolic 130–150; BP diastolic 62–86; PULSE 85–104; RESP 16–22; TEMP 36.5; O2SAT 88–98; BMI 26.6
--- NOTE | 2023-11-19 13:56 | PC.PHAR ---
11/19/23-PT STATES TAKES NO MEDICATION AT THIS TIME.
--- NOTE | 2023-11-19 14:01 | CT_ITS ---
WS: [id number] CT ABDOMEN AND PELVIS NONCONTRAST HISTORY: flank pain, RIGHT, hematuria. TECHNIQUE: Imaging performed through the abdomen and pelvis. Coronal and sagittal reformats are submi tted. All CT scans at [facility] use at least one of these dose optimization techniques: auto mated exposure control; mA and/or kV adjustment per patient size (includes targeted exams where dose is matched to clinical indication); or iterative reconstruction. DLP: 586.96 mGy.cm COMPARISON: 07/29/2023 Lower thorax: Lung bases are clear. Heart size is normal. Large portion of the stomach is intrathorac ic. Liver: Hepatomegaly and hepatic steatosis. Small fatty lesion along the RIGHT diaphragmatic surface. Gallbladder: Prior cholecystectomy. Pancreas: Normal size and attenuation. Normal pancreatic duct. No pancreatitis or mass. Spleen: Normal. Adrenal glands: Normal. No mass. Right kidney: Abnormal RIGHT kidney. There is enlargement of the kidney with perinephric stranding an d decreased attenuation. Patient has an existing RIGHT ureteral stent which appears appropriate in po sition. Despite the stent there is dilatation of the renal pelvis and calyces. Periureteral stranding also identified. Heterogeneous soft tissue in the central renal pelvis. Left kidney: Nonobstructing calcifications in the renal pelvis. Focal area of cortical thinning mid k idney. Aorta: Normal abdominal aorta, no aneurysm or atherosclerosis. No free fluid, intraperitoneal air or significant lymphadenopathy. GI tract: Normal noncontrast imaging of the stomach, small bowel and colon. No obstruction or wall th ickening. Normal appendix. Abdominal wall: Negative. No hernia. Pelvis: No free fluid. No adenopathy. Normally distended urinary bladder. Osseous structures: 5 mm anterolisthesis of L4. IMPRESSION: 1. Existing double pigtail RIGHT ureteral stent in good position. 2. Enlargement and perinephric stranding of the RIGHT kidney with nonobstructing calcifications in t he renal pelvis. The amount of stranding and heterogeneity in the central renal pelvis appears progre ssed since 07/29/2023. Suspicious for an ongoing urinary tract infection. Cannot exclude pus in the ce ntral renal pelvis. 3. Nonobstructing LEFT renal calcifications with focal cortical thinning. 4. No GI tract obstruction. 5. Large portion of the stomach is intrathoracic. 6. Hepatic steatosis and hepatomegaly 7. Prior cholecystectomy.
--- NOTE | 2023-11-19 14:07 | W.ED.ABDPA2 ---
HPI - Abdominal Pain General: Chief Complaint: Abdominal Pain Stated Complaint: right side abd pain Time Seen by Provider: 11/19/23 14:00 Source: patient Mode of arrival: ambulatory History of Present Illness: 58-year-old female presents emergency room with complaints of left flank pain. She has a history of nephrolithiasis recently had a stent placed as far she is aware the right ureteral stent is still in place. She has not had any fever sweats chills she is having increasing dysuria urgency along with abdominal and flank pain for the last couple of days episode of hematuria last night. No fever at home. MD elicited complaint: abdominal pain Onset (ago): day(s) Pain Consistency: constant Location: L flank Severity: severe Quality: sharp Migration to: R flank Exacerbating factors: nothing Relieving factors: nothing Associated Symptoms: Reports dysuria, hematuria and nausea; Denies anorexia, belching, bloating, change in bowel habits, change in stool character, chills, coffee ground emesis, constipation, GI cramping, diarrhea, dyspepsia, excessive flatus, fever(s), heartburn, hematochezia, hematemesis, fecal incontinence, loose stools, melena, poor appetite, syncope and vomiting Review of Systems Const: Denies: fever(s) or chills Card: Denies: syncope Resp: Denies: dyspnea GI: Reports: nausea; Denies: vomiting, hematemesis, coffee ground emesis, heartburn, diarrhea, constipation, bloating, GI cramping, belching, excessive flatus, fecal incontinence, change in bowel habits, change in stool character, hematochezia or melena : Reports: dysuria and hematuria Musc: Denies: neck pain or back pain Skin/Breast: Denies: rash PFS ED PFSH: Medical History Bilateral pulmonary embolism COPD (chronic obstructive pulmonary disease) GERD (gastroesophageal reflux disease) HTN (hypertension) Hyperlipidemia BRAYDON (obstructive sleep apnea) Recurrent UTI Renal calculi Right flank pain Right ureteral calculus Left mid/distal Large obstructing ureteral stone complicated by UTI. Treated with urgent ureteroscopy laser lithotripsy 10/06/20 Right ureteral calculus Surgical History H/O lithotripsy Hx of section X4 Hx of cholecystectomy Hx of hysterectomy Status post extracorporeal shock wave therapy Family History Mother , at age 53 Heart attack Father No problems noted. Other CAD (coronary artery disease) Cancer Chronic kidney disease (CKD) Hypertension Social History Smoking and tobacco/nicotine status: current every day tobacco/nicotine user Alcohol intake: current Alcohol intake frequency: holidays/special occasions only Adopted: No Caregiver/support person: No Lives independently: No Household members: spouse Marital status: Current occupational status: retired Physical Exam Const: COMMON NORMALS: no acute distress GENERAL APPEARANCE: cooperative and comfortable ORIENTATION/CONSCIOUSNESS: Yes awake, Yes oriented to person, Yes oriented to place and Yes oriented to time HENMT: COMMON NORMALS: normocephalic, atraumatic and hearing grossly normal bilaterally HEAD & SCALP: normocephalic and atraumatic Resp: COMMON NORMALS: normal respiratory effort, No retractions, No use of accessory muscles and clear to auscultation bilaterally AUSCULTATION: clear to auscultation bilaterally Cardio: COMMON NORMALS: regular rhythm and No murmurs present (Cardio) RATE: tachycardic RHYTHM: regular rhythm GI: COMMON NORMALS: No hepatosplenomegaly present AUSCULTATION: Yes normoactive bowel sounds PALPATION: Yes Tenderness to palpation present (GI) Details: RUQ, No Guarding due to palpation present (GI) and Yes No hepatosplenomegaly present : BLADDER/KIDNEY EXAM: Yes CVA tenderness (Right greater than left) Back/Pelvis: GENERAL BACK: Yes CVA tenderness (Right greater than left) CVA tenderness: bilateral Extremity: COMMON NORMALS: normal to inspection, capillary refill normal, no clubbing, cyanosis or edema, no calf tenderness and no pedal edema Neuro: SENSORIUM/ORIENTATION: Yes oriented to person, Yes oriented to place and Yes oriented to time Skin: COMMON NORMALS: no rashes or lesions noted GENERAL SKIN EXAM: no rashes or lesions noted Course Vital Signs: Vital signs: Vital Signs Temperature 97.7 F 11/19/23 11:22 Pulse Rate 87 11/19/23 18:36 Respiratory Rate 16 11/19/23 18:36 Blood Pressure 140/78 11/19/23 18:36 Pulse Oximetry 97 11/19/23 18:36 Oxygen Delivery Me thod Nasal Cannula 11/19/23 17:11 Oxygen Flow Rate 2 11/19/23 17:11 MDM - Abdominal Pain Medical Decision Making Acute pyelonephritis. Blood pressure has been stable lactate normal she did require a little oxygen after pain medications. Concerning as she has a stent in place and evidence of a pyelonephritis. She responded well to fluid resuscitation but did require significant amount of pain medications to get the pain under control. She been cultured and started on IV antibiotics. We do not have urology here will transfer patient to [facility] they have excepted however there is a bit of a wait for beds. Scheduled IV antibiotics and pain medications have been written for the patient. Patient signed out to 2 oncoming nighttime physician in case any issues,. Medical Records I reviewed the patient's medical records. Lab Data I reviewed the patient's lab results. 11/19/23 14:13 11/19/23 14:13 Labs/Radiology: Laboratory Results WBC 5.37 10^3/uL (3.29-11.43) 11/19/23 14:13 RBC 3.70 10^6/uL (3.85-5.65) L 11/19/23 14:13 Hgb 10.70 g/dL (11.27-16.99) L 11/19/23 14:13 Hct 33.2 % (36-47) L 11/19/23 14:13 MCV 89.7 fl (85-98) 11/19/23 14:13 MCH 28.9 pg (27-33) 11/19/23 14:13 MCHC 32.2 g/dL (30-55) 11/19/23 14:13 RDW 14.9 % (12.1-15.1) 11/19/23 14:13 Plt Count 218 10^3/cmm (157-399) 11/19/23 14:13 MPV 9.2 fL (7.4-10.4) 11/19/23 14:13 Neut % (Auto) 57.9 % 11/19/23 14:13 Lymph % (Auto) 27.0 % 11/19/23 14:13 [place] % (Auto) 9.7 % 11/19/23 14:13 Eos % (Auto) 4.1 % 11/19/23 14:13 Baso % (Auto) 1.1 % 11/19/23 14:13 Neut # (Auto) 3.11 10^3/uL (1.8-7.7) 11/19/23 14:13 Lymph # (Auto) 1.5 10^3/uL (0.8-4.8) 11/19/23 14:13 [place] # (Auto) 0.5 10^3/uL (0.2-0.9) 11/19/23 14:13 Eos # (Auto) 0.2 10^3/uL (0.0-0.8) 11/19/23 14:13 Baso # (Auto) 0.1 10^3/uL (0.0-0.1) 11/19/23 14:13 Nucleated RBC % (auto) 0 % 11/19/23 14:13 Nucleated RBCs # 0.0 /100WBC 11/19/23 14:13 Sodium 141 mmol/L (136-145) 11/19/23 14:13 Potassium 3.3 mmol/L (3.5-5.1) L 11/19/23 14:13 Chloride 105 mmol/L (98-107) 11/19/23 14:13 Carbon Dioxide 23 mmol/L (22-29) 11/19/23 14:13 Anion Gap 16.3 (5-19) 11/19/23 14:13 BUN 22 mg/dL (6-20) H 11/19/23 14:13 Creatinine 0.8 mg/dL (0.5-0.9) 11/19/23 14:13 GFR Calculation 74.2 mL/min (90-130) L 11/19/23 14:13 Glucose 134 mg/dL (65-115) H 11/19/23 14:13 Calculated Osmolality 297 mOsm/kg (285-295) H 11/19/23 14:13 Lactic Acid 1.7 mmol/L (0.5-2.2) 11/19/23 14:13 Calcium 9.1 mg/dL (8.5-10.5) 11/19/23 14:13 Total Bilirubin 0.4 mg/dL (0.15-1.2) 11/19/23 14:13 AST 15 U/L (0-32) 11/19/23 14:13 ALT 13 U/L (0-33) 11/19/23 14:13 Alkaline Phosphatase 99 U/L (35-105) 11/19/23 14:13 Total Protein 6.8 g/dL (6.6-8.7) 11/19/23 14:13 Albumin 3.7 g/dL (3.5-5.2) 11/19/23 14:13 Globulin 3.1 g/dL (1.3-4.6) 11/19/23 14:13 Lipase 35 U/L (13-60) 11/19/23 14:13 Urine Color Yellow (Yellow) 11/19/23 13:40 Urine Appearance Cloudy (CLEAR) A 11/19/23 13:40 Urine pH 7 (5-7) 11/19/23 13:40 Ur Specific [place] 1.010 (1.005-1.030) 11/19/23 13:40 Urine Protein 2+ (Negative) H 11/19/23 13:40 Urine Glucose (UA) Norm (Normal) 11/19/23 13:40 Urine Ketones Negative (Negative) 11/19/23 13:40 Urine Blood 3+ (Negative) H 11/19/23 13:40 Urine Nitrate Positive (Negative) H 11/19/23 13:40 Urine Bilirubin Neg (Negative) 11/19/23 13:40 Urine Urobilinogen Norm mg/dL (Negative) 11/19/23 13:40 Ur Leukocyte Esterase 2+ (Negative) H 11/19/23 13:40 Urine RBC Too numerous to cnt /hpf (0-2) H 11/19/23 13:40 Urine WBC Too numerous to cnt /hpf (0-5) H 11/19/23 13:40 Ur Squamous Epith Cells 5-10 /hpf (0-5) H 11/19/23 13:40 Ur Transition Epith Cell 0-4 /hpf 11/19/23 13:40 Amorphous Sediment Not Reportable 11/19/23 13:40 Urine Bacteria 2+ /hpf (NONE) H 11/19/23 13:40 Urine Mucus 2+ /hpf 11/19/23 13:40 All radiology interpretation(s) finalized by discharge Discharge Plan Discharge Patient Disposition: Xfer Short-Term Hosp Clinical Impression: Pyelonephritis, Ureteral stent present Condition: Stable Referrals: Shari Gray DO [Primary Care Provider] - Coding Level of Care Code ED Senior Design Engineering Specialist for Tangela Reyes
[2023-11-19] MEDS: ondansetron 2 mg/ML SDV 2 mL 4 MG IVP (14:24)
[2023-11-19] MEDS: morphine 4 mg/mL SDV 1 mL IVP ×2 (14:24→15:12)
[2023-11-19] MEDS: sodium chloride 0.9% 1,000 ML 999 ML IV (14:27)
[2023-11-19 14:30] LABS: Basophils # 0.1 10^3/uL (0.0-0.1); Basophils % 1.1 %; Eosinophils # 0.2 10^3/uL (0.0-0.8); Eosinophils % 4.1 %; Hematocrit 33.2 % (36-47); Lymphocytes # 1.5 10^3/uL (0.8-4.8); Mean Corpuscular HGB Conc 32.2 g/dL (30-55); Mean Corpuscular Hemoglobin 28.9 pg (27-33); Mean Corpuscular Volume 89.7 fl (85-98); Mean Platelet Volume 9.2 fL (7.4-10.4); Monocytes # 0.5 10^3/uL (0.2-0.9); Monocytes % 9.7 %; Neutrophils # 3.11 10^3/uL (1.8-7.7); Neutrophils % 57.9 %; Nucleated Red Blood Cells % 0 %; Platelet Count 218 10^3/cmm (157-399); Red Cell Distribution Width 14.9 % (12.1-15.1); White Blood Count 5.37 10^3/uL (3.29-11.43)
[2023-11-19 14:41] LABS: Add Urine Microscopic? YES; Bilirubin Urine Neg (Negative); Blood Urine 3+ (Negative); Glucose Urine UA Norm (Normal); Ketones Urine Negative (Negative); Leukocyte Esterase Urine 2+ (Negative); Nitrate Urine Positive (Negative); Protein Urine 2+ (Negative); Urine Appearance Cloudy (CLEAR); Urine Color Yellow (Yellow); Urobilinogen Urine Norm (Negative); pH Urine 7 (5-7)
[2023-11-19 14:46] LABS: Add Urine Culture? Yes; Bacteria Urine 2+ /hpf; Mucus Urine 2+ /hpf; RBC Urine TOO NUMEROUS TO CNT /hpf (0-2); Transitional Epi Cells Urine 0-4 /hpf; WBC Urine TOO NUMEROUS TO CNT /hpf (0-5)
[2023-11-19 14:53] LABS: Alanine Aminotransferase 13 U/L (0-33); Albumin Level 3.7 g/dL (3.5-5.2); Alkaline Phosphatase 99 U/L (35-105); Anion Gap 16.3 (5-19); Aspartate Amino Transferase 15 U/L (0-32); Blood Urea Nitrogen 22 mg/dL (6-20); Calcium 9.1 mg/dL (8.5-10.5); Carbon Dioxide 23 mmol/L (22-29); Chloride 105 mmol/L (98-107); Creatinine Clr Calc Pharmacy 89.7196; Globulin 3.1 g/dL (1.3-4.6); Glomerular Filtration Rate 74.2 mL/min (90-130); Glucose 134 mg/dL (65-115); Lipase 35 U/L (13-60); Osmolality Calculated 297 mOsm/kg (285-295); Potassium 3.3 mmol/L (3.5-5.1); Sodium 141 mmol/L (136-145); Total Bilirubin 0.4 mg/dL (0.15-1.2); Total Protein 6.8 g/dL (6.6-8.7)
[2023-11-19 14:54] LABS: Lactic Sepsis W/Reflex 1.7 mmol/L (0.5-2.2)
[2023-11-19] MEDS: cefTRIAXone 2,000 MG in sodium chloride 0.9% (plus) 50 ML 100 MG IV (15:13)
[2023-11-19] MEDS: HYDROmorphone 1 mg/mL INJ 1 mL IVP ×2 (15:37→19:16)
--- NOTE | 2023-11-19 16:33 | PC.NURSE ---
normal saline- IV maintenance fluids delayed d/t not being verified by pharmacy.
[2023-11-19] MEDS: sodium chloride 0.9% 1,000 ML 125 ML IV (16:45)
--- NOTE | 2023-11-19 16:59 | PC.NURSE ---
pt oxygen saturation 88% room air, this nurse applied 2L oxygen via NC, currently 97% on 2L.
--- NOTE | 2023-11-19 18:57 | PC.NURSE ---
report called to Adriane Rodriguez at [facility], no further questions at time of report
--- NOTE | 2023-11-19 18:58 | PC.NURSE ---
sheyla Rivas at [facility] in [place] to keep pt NPO until she is cleared by their physician.
[2023-11-19] MEDS: cefTRIAXone 1,000 MG in sodium chloride 0.9% (plus) 50 ML 100 MG IV (19:05)
--- NOTE | 2023-11-19 20:38 | PC.NURSE ---
this nurse called [facility] and spoke with Uma, oscar Eaton of pts status of leaving AMA, had no further questions.
== END 2023-11-19 20:38 | disposition left against medical advice (07) ==
PROVIDERS: Family Medicine; Emergency Provider Emergency Medicine; PCP Family Medicine
DX: N12 Tubulo-interstitial nephritis, not specified as acute or chronic (principal); Z96.0 Presence of urogenital implants; Z72.0 Tobacco use; J44.9 Chronic obstructive pulmonary disease, unspecified; I10 Essential (primary) hypertension; E78.5 Hyperlipidemia, unspecified; Z87.442 Personal history of urinary calculi; Z53.29 Procedure and treatment not carried out because of patient's decision for other reasons
CPT/HCPCS: 36415; 74176; 80053; 81001; 83605; 83690; 85025; 87040; 87086; 96361; 96365; 96375; 96376; 99285; J0696; J1170; J2270; J2405; J7030

== ENCOUNTER 2023-11-20 00:33 | Emergency (ER) | payer MEDICARE, MEDICAID, SELFPAY ==
[2023-11-20 00:39] VITALS: BP 166/81; PULSE 86; RESP 20; TEMP 35.7; O2SAT 100
--- NOTE | 2023-11-20 00:44 | ED_ITS ---
HPI - Abdominal Pain 2 General: Chief Complaint: Abdominal Pain Stated Complaint: right abd pain Time Seen by Provider: 11/20/23 00:42 Source: patient Mode of arrival: ambulatory Limitations: no limitations History of Present Illness: 58-year-old female seen here yesterday s he had been diagnosed with pyelonephritis with a stent in place patient was going to be transferred to [facility] for urology patient is decided she want to sign out AGAINST MEDICAL ADVICE and she was going to drive herself to [place] she states that she was unable to get a ride in [place] and she has been having increasing pain and cannot stand the pain states pains in her right flank she rates it a 9 out of 10 she had nausea denies any vomiting Associated Symptoms: Reports dysuria; Denies chills, diarrhea, fever(s), nausea and vomiting Review of Systems 2 Const: Denies: fever(s), chills, body aches or change in appetite ENMT: Denies: throat pain or dental pain Card: Denies: chest pain Resp: Denies: dyspnea GI: Denies: abdominal pain, nausea, vomiting or diarrhea : Reports: flank pain and dysuria Musc: Denies: neck pain or back pain Skin/Breast: Denies: rash Neuro: Denies: headache(s) PFSH ED 2 PFSH: Medical History Right ureteral calculus Right flank pain BRAYDON (obstructive sleep apnea) Hyperlipidemia HTN (hypertension) Bilateral pulmonary embolism GERD (gastroesophageal reflux disease) COPD (chronic obstructive pulmonary disease) Right ureteral calculus Left mid/distal Large obstructing ureteral stone complicated by UTI. Treated with urgent ureteroscopy laser lithotripsy 10/06/20 Renal calculi Recurrent UTI Surgical History Hx of hysterectomy Hx of section X4 Status post extracorporeal shock wave therapy Hx of cholecystectomy H/O lithotripsy Family History Mother , at age 53 Heart attack Father No problems noted. Other CAD (coronary artery disease) Cancer Chronic kidney disease (CKD) Hypertension Social History Smoking and tobacco/nicotine status: current every day tobacco/nicotine user Alcohol intake: current Alcohol intake frequency: holidays/special occasions only Adopted: No Caregiver/support person: No Lives independently: No Household members: spouse Marital status: Current occupational status: retired Physical Exam 2 Const: COMMON NORMALS: patient oriented x3 HENMT: COMMON NORMALS: normocephalic and atraumatic HEAD & SCALP: n ormocephalic and atraumatic Eye: COMMON NORMALS: Equal, round and reactive pupils present and EOMs intact bilaterally PUPIL: Yes Equal, round and reactive pupils present Neck/C-Spine: COMMON NORMALS: full ROM and supple Chest: COMMONS NORMALS: normal inspection of the chest Resp: COMMON NORMALS: normal respiratory effort Cardio: COMMON NORMALS: regular rate, regular rhythm and No murmurs present (Cardio) RATE: regular rate RHYTHM: regular rhythm GI: COMMON NORMALS: Normal to inspection, nondistended, normoactive bowel sounds present, Soft to palpation, non-tender and no masses PALPATION: Yes Soft to palpation Extremity: COMMON NORMALS: normal to inspection and full ROM Neuro: COMMON NORMALS: patient oriented x3, moves all extremities and no focal motor deficits Psych: COMMON NORMALS: mental status grossly normal, Normal thought process present and cooperative THOUGHT PROCESS: Normal thought process present Skin: COMMON NORMALS: no rashes or lesions noted and no wounds GENERAL SKIN EXAM: no rashes or lesions noted Course 2 Vital Signs: Vital signs: Vital Signs Temperature 96.3 F L 11/20/23 00:39 Pulse Rate 86 11/20/23 00:39 Respiratory Rate 20 H 11/20/23 00:39 Blood Pressure 166/81 11/20/23 00:39 Pulse Oximetry 100 11/20/23 00:39 Oxygen Delivery Me thod Room Air 11/20/23 00:39 MDM - Abdominal Pain Medical Decision Making Patient presents here with flank pain does have pyelonephritis with a stent in place will transfer to [facility] for higher level care for urology. Patient given IV antibiotics here. Medical Records I reviewed the patient's medical records. Lab Data I reviewed the patient's lab results. 11/20/23 00:50 11/20/23 00:50 Labs/Radiology: Laboratory Results WBC 5.57 10^3/uL (3.29-11.43) 11/20/23 00:50 RBC 3.76 10^6/uL (3.85-5.65) L 11/20/23 00:50 Hgb 10.80 g/dL (11.27-16.99) L 11/20/23 00:50 Hct 34.8 % (36-47) L 11/20/23 00:50 MCV 92.6 fl (85-98) 11/20/23 00:50 MCH 28.7 pg (27-33) 11/20/23 00:50 MCHC 31.0 g/dL (30-55) 11/20/23 00:50 RDW 15.0 % (12.1-15.1) 11/20/23 00:50 Plt Count 207 10^3/cmm (157-399) 11/20/23 00:50 MPV 9.4 fL (7.4-10.4) 11/20/23 00:50 Neut % (Auto) 67.9 % 11/20/23 00:50 Lymph % (Auto) 22.4 % 11/20/23 00:50 [place] % (Auto) 5.9 % 11/20/23 00:50 Eos % (Auto) 2.7 % 11/20/23 00:50 Baso % (Auto) 0.9 % 11/20/23 00:50 Neut # (Auto) 3.78 10^3/uL (1.8-7.7) 11/20/23 00:50 Lymph # (Auto) 1.3 10^3/uL (0.8-4.8) 11/20/23 00:50 [place] # (Auto) 0.3 10^3/uL (0.2-0.9) 11/20/23 00:50 Eos # (Auto) 0.2 10^3/uL (0.0-0.8) 11/20/23 00:50 Baso # (Auto) 0.1 10^3/uL (0.0-0.1) 11/20/23 00:50 Nucleated RBC % (auto) 0 % 11/20/23 00:50 Nucleated RBCs # 0.0 /100WBC 11/20/23 00:50 Sodium 139 mmol/L (136-145) 11/20/23 00:50 Potassium 3.6 mmol/L (3.5-5.1) 11/20/23 00:50 Chloride 103 mmol/L (98-107) 11/20/23 00:50 Carbon Dioxide 24 mmol/L (22-29) 11/20/23 00:50 Anion Gap 15.6 (5-19) 11/20/23 00:50 BUN 19 mg/dL (6-20) 11/20/23 00:50 Creatinine 0.8 mg/dL (0.5-0.9) 11/20/23 00:50 GFR Calculation 74.2 mL/min (90-130) L 11/20/23 00:50 Glucose 122 mg/dL (65-115) H 11/20/23 00:50 Calculated Osmolality 292 mOsm/kg (285-295) 11/20/23 00:50 Calcium 9.0 mg/dL (8.5-10.5) 11/20/23 00:50 Total Bilirubin 0.2 mg/dL (0.15-1.2) 11/20/23 00:50 AST 79 U/L (0-32) H 11/20/23 00:50 ALT 44 U/L (0-33) H 11/20/23 00:50 Alkaline Phosphatase 126 U/L (35-105) H 11/20/23 00:50 Total Protein 6.9 g/dL (6.6-8.7) 11/20/23 00:50 Albumin 3.8 g/dL (3.5-5.2) 11/20/23 00:50 Globulin 3.1 g/dL (1.3-4.6) 11/20/23 00:50 All radiology interpretation(s) finalized by discharge Discharge Plan Discharge Patient Disposition: Xfer Short-Term Hosp Clinical Impression: Ureteral stent present, Pyelonephritis Condition: Stable Referrals: Shari Gray DO [Primary Care Provider] - Coding Level of Care Code ED [employer] Mechanical Designer for Tangela Reyes
[2023-11-20] MEDS: HYDROmorphone 1 mg/mL INJ 1 mL IVP ×5 (00:57→07:50)
[2023-11-20] MEDS: ondansetron 2 mg/ML SDV 2 mL 4 MG IVP (00:57)
[2023-11-20] MEDS: sodium chloride 0.9% 1,000 ML 999 ML IV (00:58)
[2023-11-20 01:04] LABS: Basophils # 0.1 10^3/uL (0.0-0.1); Basophils % 0.9 %; Eosinophils # 0.2 10^3/uL (0.0-0.8); Eosinophils % 2.7 %; Hematocrit 34.8 % (36-47); Lymphocytes # 1.3 10^3/uL (0.8-4.8); Lymphocytes % 22.4 %; Mean Corpuscular Hemoglobin 28.7 pg (27-33); Mean Corpuscular Volume 92.6 fl (85-98); Mean Platelet Volume 9.4 fL (7.4-10.4); Monocytes # 0.3 10^3/uL (0.2-0.9); Monocytes % 5.9 %; Neutrophils # 3.78 10^3/uL (1.8-7.7); Neutrophils % 67.9 %; Nucleated Red Blood Cells % 0 %; Platelet Count 207 10^3/cmm (157-399); Red Blood Count 3.76 10^6/uL (3.85-5.65); White Blood Count 5.57 10^3/uL (3.29-11.43)
[2023-11-20 01:27] LABS: Alanine Aminotransferase 44 U/L (0-33); Albumin Level 3.8 g/dL (3.5-5.2); Alkaline Phosphatase 126 U/L (35-105); Anion Gap 15.6 (5-19); Aspartate Amino Transferase 79 U/L (0-32); Blood Urea Nitrogen 19 mg/dL (6-20); Carbon Dioxide 24 mmol/L (22-29); Chloride 103 mmol/L (98-107); Creatinine Clr Calc Pharmacy 89.7196; Globulin 3.1 g/dL (1.3-4.6); Glomerular Filtration Rate 74.2 mL/min (90-130); Glucose 122 mg/dL (65-115); Osmolality Calculated 292 mOsm/kg (285-295); Potassium 3.6 mmol/L (3.5-5.1); Sodium 139 mmol/L (136-145); Total Bilirubin 0.2 mg/dL (0.15-1.2); Total Protein 6.9 g/dL (6.6-8.7)
[2023-11-20] MEDS: piperacillin-tazobactam 3.375 GM in sodium chloride 0.9% (plus) 50 ML IV (02:04)
[2023-11-20] MEDS: sodium chloride 0.9% 1,000 ML 75 ML IV (02:05)
[2023-11-20 02:35] VITALS: BP 147/85; PULSE 87; RESP 16; O2SAT 93
[2023-11-20 03:48] VITALS: BP 157/58; PULSE 81; RESP 16; O2SAT 93
[2023-11-20] MEDS: albuterol 8 gm MDI 2 PUFF INHALATION (04:49)
--- NOTE | 2023-11-20 04:49 | PC.NURSE ---
pt requesting albuterol inhaler at 0330. rn informed MD. when told that RT would be administering inhaler, pt states, I do not need anyone to give me the inhaler. I have one at home and use it all the time. I will just use it myself. RT notified. Pt self administered inhaler at 0353.
[2023-11-20 05:49] VITALS: BP 115/58; PULSE 76; RESP 16; O2SAT 100
--- NOTE | 2023-11-20 07:20 | PC.NURSE ---
ASSUMED CARE OF PATIENT AT 0700.
[2023-11-20 07:49] VITALS: BP 157/77; PULSE 59; O2SAT 96
[2023-11-20 07:50] VITALS: RESP 17; O2SAT 96
== END 2023-11-20 08:01 | disposition short-term general hospital (02) ==
PROVIDERS: Emergency Provider Emergency Medicine; PCP Family Medicine
DX: N12 Tubulo-interstitial nephritis, not specified as acute or chronic (principal); Z96.0 Presence of urogenital implants; Z72.0 Tobacco use; E78.5 Hyperlipidemia, unspecified; I10 Essential (primary) hypertension; J44.9 Chronic obstructive pulmonary disease, unspecified; Z87.442 Personal history of urinary calculi
CPT/HCPCS: 80053; 85025; 96361; 96374; 96375; 96376; 99284; J1170; J2405; J2543; J3535; J7030

== ENCOUNTER 2023-12-26 10:19 | Emergency (ER) | payer MEDICARE, MEDICAID, SELFPAY ==
[2023-12-26 10:23] VITALS: BP 184/97; PULSE 91; RESP 16; TEMP 36.8; O2SAT 98; BMI 26.6
--- NOTE | 2023-12-26 10:41 | CTR_ITS ---
PROCEDURE INFORMATION: Exam: CT Maxillofacial With Contrast; Mandible Exam date and time: 12/26/2023 11:01 AM Age: 58 years old Clinical indication: Other: Right mandibular abscess, swelling, TECHNIQUE: Imaging protocol: Computed tomography maxillofacial with intravenous contrast. Exam focused on the mandible. Radiation optimization: All CT scans at this facility use at least one of these dose optimization techniques: automated exposure control; mA and/or kV adjustment per patient size (includes targeted exams where dose is matched to clinical indication); or iterative reconstruction. Contrast material: OMNI 350; Contrast volume: 80 ml; Contrast route: INTRAVENOUS (IV); COMPARISON: No relevant prior studies available. RADIATION DOSE METRICS: Total DLP (mGy-cm): 692.88 FINDINGS: Orbital cavities: Orbits unremarkable. Bones/joints: No significant bony pathology. Paranasal sinuses: No significant sinus pathology. Salivary glands: Submandibular and parotid glands are intact. Lymph nodes: No lymphadenopathy. Soft tissues: There is a thick walled fluid collection in the subcutaneous fat anterior to the right mandible just lateral to midline measuring proximally 2.4 x 1.1 cm on series 4, image 25. There is bulging of the overlying skin surface. There is a adjacent infiltration of the subcutaneous fat. No underlying bony abnormality is visualized. Brain: No significant intracranial pathology. Vasculature: Vascular structures are intact. CT/CT facial bones w con [id number] IMPRESSION: Complex fluid collection in the subcutaneous fat anterior to the right mandible measuring up to 2.4 cm in greatest dimension adjacent fat infiltration and skin thickening consistent with history of abscess. Posttreatment clinical and/or CT follow-up recommended to exclude underlying fixed pathology including neoplasm.
--- NOTE | 2023-12-26 10:42 | ED_ITS ---
HPI - Skin/Abscess/Foreign Bdy 2 General: Chief complaint: Skin/Abscess/Foreign Body Stated complaint: wound right side of face Time Seen by Provider: 12/26/23 10:29 History of Present Illness: Patient presents to the ER with complaints of right mandibular wound that is swelling and draining painful. Patient was cleaning out her house when a milk crate fell down and struck the right side of her chin and caused an abrasion. Over the last 3 days this abrasion became swollen very painful and draining. Patient is not immunocompromised, has no problem swallowing or breathing. Review of Systems 2 General: Reports: 10 or more systems reviewed and unremarkable except in HPI and below PFSH ED 2 PFSH: Medical History Right ureteral calculus Right flank pain BRAYDON (obstructive sleep apnea) Hyperlipidemia HTN (hypertension) Bilateral pulmonary embolism GERD (gastroesophageal reflux disease) COPD (chronic obstructive pulmonary disease) Right ureteral calculus Left mid/distal Large obstructing ureteral stone complicated by UTI. Treated with urgent ureteroscopy laser lithotripsy 10/06/20 Renal calculi Recurrent UTI Surgical History Hx of hysterectomy Hx of section X4 Status post extracorporeal shock wave therapy Hx of cholecystectomy H/O lithotripsy Family History Mother , at age 53 Heart attack Father No problems noted. Other CAD (coronary artery disease) Cancer Chronic kidney disease (CKD) Hypertension Social History Smoking and tobacco/nicotine status: current every day tobacco/nicotine user Alcohol intake: current Alcohol intake frequency: holidays/special occasions only Adopted: No Caregiver/support person: No Lives independently: No Household members: spouse Marital status: Current occupational status: retired Physical Exam 2 Const: COMMON NORMALS: no acute distress, average body habitus, patient oriented x3, no limitations, healthy appearing, alert and well nourished HENMT: COMMON NORMALS: normocephalic, atraumatic, hearing grossly normal bilaterally, external ears normal, Normal external nose present, moist oral mucous membranes and oropharynx normal HEAD & SCALP: normocephalic and atraumatic NOSE: Normal external nose present EXTERNAL EAR: Yes external ears normal OTHER: Large swelling on right external mandibular region, erythematous, draining purulent material, no streaking, consistent with abscess and cellulitis Neck/C-Spine: COMMON NORMALS: full ROM, no lymphadenopathy, supple, no meningeal signs, no JVD and Thyroid normal THYROID: Thyroid normal Chest: COMMONS NORMALS: normal inspection of the chest and normal palpation of entire chest wall Resp: COMMON NORMALS: normal respiratory effort, No retractions, No use of accessory muscles and clear to auscultation bilaterally AUSCULTATION: clear to auscultation bilaterally Cardio: COMMON NORMALS: no JVD, regular rate, regular rhythm, S1 normal heart sound present, S2 normal heart sound present, No gallops present (Cardio), No clicks present (Cardio), No murmurs present (Cardio) and No rub (Cardio) R ATE: regular rate RHYTHM: regular rhythm HEART SOUNDS: S1 normal heart sound present and S2 normal heart sound present GI: COMMON NORMALS: Normal to inspection, nondistended, normoactive bowel sounds present, Soft to palpation, non-tender, No hepatosplenomegaly present and no masses PALPATION: Yes Soft to palpation and Yes No hepatosplenomegaly present Neuro: COMMON NORMALS: patient oriented x3 SENSORIUM/ORIENTATION: Yes alert MENINGEAL SIGNS: Yes no meningeal signs Procedures Abscess I/D Site: face (Right mandibular area) Side (if applicable): right Local Anesthetic: lidocaine 1% Amount of anesthesia used (mL): 2 Technique: incised with #11 blade Amount of fluid expressed (mL): 1 Irrigation: No Packing used?: none Course 2 Vital Signs: Vital signs: Vital Signs Temperature 98.2 F 12/26/23 10:23 Pulse Rate 91 12/26/23 10:23 Respiratory Rate 16 12/26/23 10:23 Blood Pressure 184/97 12/26/23 10:23 Pulse Oximetry 98 12/26/23 10:23 Oxygen Delivery Me thod Room Air 12/26/23 10:23 MDM - Skin/Abscess/Foreign Bdy Medicial Decision Making Patient lab work that included CBC CMP which was essentially benign. Patient contrasted CT scan of the face which showed a 2.4 cm complex fluid collection. This area was I&D there was minimal purulent discharge noted it appeared to be more thick and gelatinous. Patient tolerated the procedure well. This area was cultured. Patient was given 2 g Rocephin IV and will be sent home on Bactrim. Patient should follow-up within next week with her PCP. Differential Diagnosis Likely abscess of skin or subcutaneous tissue; Unlikely viral exanthem, dermatophytosis, urticaria or herpes zoster Medical Records I reviewed the patient's medical records. Lab Data I reviewed the patient's lab results. 12/26/23 10:51 12/26/23 10:[address] 12/26/23 10:41 IMPRESSION: Complex fluid collection in the subcutaneous fat anterior to the right mandible measuring up to 2.4 cm in greatest dimension adjacent fat infiltration and skin thickening consistent with history of abscess. Posttreatment clinical and/or CT follow-up recommended to exclude underlying fixed pathology including neoplasm. Laboratory Results WBC 5.87 10^3/uL (3.29-11.43) 12/26/23 10:51 RBC 4.18 10^6/uL (3.85-5.65) 12/26/23 10:51 Hgb 12.50 g/dL (11.27-16.99) 12/26/23 10:51 Hct 38.9 % (36-47) 12/26/23 10:51 MCV 93.1 fl (85-98) 12/26/23 10:51 MCH 29.9 pg (27-33) 12/26/23 10:51 MCHC 32.1 g/dL (30-55) 12/26/23 10:51 RDW 16.0 % (12.1-15.1) H 12/26/23 10:51 Plt Count 215 10^3/cmm (157-399) 12/26/23 10:51 MPV 9.3 fL (7.4-10.4) 12/26/23 10:51 Neut % (Auto) 65.0 % 12/26/23 10:51 Lymph % (Auto) 20.1 % 12/26/23 10:51 [place] % (Auto) 8.9 % 12/26/23 10:51 Eos % (Auto) 5.1 % 12/26/23 10:51 Baso % (Auto) 0.7 % 12/26/23 10:51 Neut # (Auto) 3.82 10^3/uL (1.8-7.7) 12/26/23 10:51 Lymph # (Auto) 1.2 10^3/uL (0.8-4.8) 12/26/23 10:51 [place] # (Auto) 0.5 10^3/uL (0.2-0.9) 12/26/23 10:51 Eos # (Auto) 0.3 10^3/uL (0.0-0.8) 12/26/23 10:51 Baso # (Auto) 0.0 10^3/uL (0.0-0.1) 12/26/23 10:51 Nucleated RBC % (auto) 0 % 12/26/23 10:51 Nucleated RBCs # 0.0 /100WBC 12/26/23 10:51 Sodium 142 mmol/L (136-145) 12/26/23 10:51 Potassium 3.3 mmol/L (3.5-5.1) L 12/26/23 10:51 Chloride 102 mmol/L (98-107) 12/26/23 10:51 Carbon Dioxide 28 mmol/L (22-29) 12/26/23 10:51 Anion Gap 15.3 (5-19) 12/26/23 10:51 BUN 16 mg/dL (6-20) 12/26/23 10:51 Creatinine 0.9 mg/dL (0.5-0.9) 12/26/23 10:51 GFR Calculation 64.8 mL/min (90-130) L 12/26/23 10:51 Glucose 75 mg/dL (65-115) 12/26/23 10:51 Calculated Osmolality 294 mOsm/kg (285-295) 12/26/23 10:51 Calcium 9.1 mg/dL (8.5-10.5) 12/26/23 10:51 Total Bilirubin 0.3 mg/dL (0.15-1.2) 12/26/23 10:51 AST 12 U/L (0-32) 12/26/23 10:51 ALT 9 U/L (0-33) 12/26/23 10:51 Alkaline Phosphatase 105 U/L (35-105) 12/26/23 10:51 Total Protein 7.5 g/dL (6.6-8.7) 12/26/23 10:51 Albumin 3.9 g/dL (3.5-5.2) 12/26/23 10:51 Globulin 3.6 g/dL (1.3-4.6) 12/26/23 10:51 All radiology interpretation(s) finalized by discharge Discharge Plan Discharge Patient Disposition: Home Clinical Impression: Abscess of face Condition: Stable Prescriptions: New Bactrim DS 800-160 mg tablet 1 tab PO BID Qty: 14 0RF Discharge Orders: Discharge ED (Routine); Ordered 12/26/23 Ordered By: Polo Dior Referrals: Shari Gray DO [Primary Care Provider] - 1 week Patient Instructions: Abscess (ED), Abscess Incision and Drainage (DC) Activity Restrictions/Additional Instructions: The wound was incised and drained. It was also cultured. You are given 2 g Rocephin in the ER. You will be sent home with a prescription for Bactrim DS. A culture will take about 3 days to get back if you hear from us we will probably be changing antibiotics otherwise continue on the Bactrim. Please keep wound clean and dry. Please follow-up with your family practice physician within the next 7 days for further evaluation. Coding Level of Care Code ED Clinical Data Assistant for Tangela Reyes
[2023-12-26 10:59] LABS: Basophils % 0.7 %; Eosinophils # 0.3 10^3/uL (0.0-0.8); Eosinophils % 5.1 %; Hematocrit 38.9 % (36-47); Lymphocytes # 1.2 10^3/uL (0.8-4.8); Lymphocytes % 20.1 %; Mean Corpuscular HGB Conc 32.1 g/dL (30-55); Mean Corpuscular Hemoglobin 29.9 pg (27-33); Mean Corpuscular Volume 93.1 fl (85-98); Mean Platelet Volume 9.3 fL (7.4-10.4); Monocytes # 0.5 10^3/uL (0.2-0.9); Monocytes % 8.9 %; Neutrophils # 3.82 10^3/uL (1.8-7.7); Nucleated Red Blood Cells % 0 %; Platelet Count 215 10^3/cmm (157-399); Red Blood Count 4.18 10^6/uL (3.85-5.65); White Blood Count 5.87 10^3/uL (3.29-11.43)
[2023-12-26] MEDS: iohexol 350 mg/mL 500 mL Btl (per mL) IV (11:04)
[2023-12-26 11:17] LABS: Alanine Aminotransferase 9 U/L (0-33); Albumin Level 3.9 g/dL (3.5-5.2); Alkaline Phosphatase 105 U/L (35-105); Aspartate Amino Transferase 12 U/L (0-32); Blood Urea Nitrogen 16 mg/dL (6-20); Calcium 9.1 mg/dL (8.5-10.5); Carbon Dioxide 28 mmol/L (22-29); Chloride 102 mmol/L (98-107); Globulin 3.6 g/dL (1.3-4.6); Glomerular Filtration Rate 64.8 mL/min (90-130); Glucose 75 mg/dL (65-115); Osmolality Calculated 294 mOsm/kg (285-295); Sodium 142 mmol/L (136-145); Total Bilirubin 0.3 mg/dL (0.15-1.2); Total Protein 7.5 g/dL (6.6-8.7)
[2023-12-26 11:18] LABS: Anion Gap 15.3 (5-19); Potassium 3.3 mmol/L (3.5-5.1)
[2023-12-26] MEDS: lidocaine 1% INJ 10 mL (per mL) INJECTION (11:54)
[2023-12-26] MEDS: cefTRIAXone 2,000 MG in sodium chloride 0.9% (plus) 50 ML 100 MG IV (12:11)
== END 2023-12-26 12:58 | disposition home or self-care (01) ==
PROVIDERS: Emergency Provider Emergency Medicine; PCP Family Medicine
DX: L02.01 Cutaneous abscess of face (principal); Z72.0 Tobacco use; E78.5 Hyperlipidemia, unspecified; I10 Essential (primary) hypertension; J44.9 Chronic obstructive pulmonary disease, unspecified
CPT/HCPCS: 10060; 36415; 70487; 80053; 85025; 87040; 87070; 87077; 87186; 96365; 99285; J0696; Q9967

== ENCOUNTER 2024-02-21 14:37 | Emergency (ER) | payer MEDICARE, MEDICAID, SELFPAY ==
[2024-02-21 14:42] VITALS: BP 175/115; PULSE 86; RESP 22; TEMP 36.3; O2SAT 99; BMI 28.0
--- NOTE | 2024-02-21 14:58 | XRR_ITS ---
PROCEDURE INFORMATION: Exam: XR Chest Exam date and time: 02/21/2024 3:19 PM Age: 58 years old Clinical indication: Cough and dyspnea; Patient HX: SOB; Dyspnea; Cough TECHNIQUE: Imaging protocol: Radiologic exam of the chest. Views: 1 view. COMPARISON: CR XR chest 1V portable [id number] 09/09/2023 8:22 PM FINDINGS: Lungs: Unremarkable. No consolidation. Pleural spaces: Unremarkable. No pleural effusion. No pneumothorax. Heart/Mediastinum: Small hiatal hernia. Bones/joints: Unremarkable. XR/XR chest 1V portable [id number] IMPRESSION: No acute findings.
--- NOTE | 2024-02-21 14:59 | ECG_ITS ---
[facility] Test Date: 2024-02-21 Pat Name: Kush Cruz Department: Room: Gender: Female V Belt Skiver: : 1965 Requested By: Les Roblero Order Number: [id number] Rahcele MD: Tio Whitfield M.D. Measurements Intervals [place] Rate: 82 P: 0 OK: 0 QRS: 60 QRSD: 104 T: 31 QT: 385 QTc: 452 Interpretive Statements Sinus rhythm with uniform premature ventricular contractions MODERATE ST DEPRESSION [0.05+ mV ST DEPRESSION] Compared to ECG 09/09/2023 22:15:55 Ventricular premature complex(es) now present Aberrant conduction of supraventricular beat(s) now present ST (T wave) deviation now present Short OK interval no longer present Incomplete right bundle-branch block no longer present T-wave abnormality no longer present Electronically Signed On 02-22-2024 15:01:20 CDT by Tio Whitfield M.D. [id number]
[2024-02-21 15:15] VITALS: BP 169/76; PULSE 82; O2SAT 94
[2024-02-21 15:30] VITALS: PULSE 72; O2SAT 98
--- NOTE | 2024-02-21 15:30 | ED_ITS ---
HPI - Back Pain/Injury 2 General: Chief Complaint: Back Pain/Injury Stated Complaint: sob, lower back pain Time Seen by Provider: 02/21/24 14:55 Source: patient Mode of arrival: ambulatory History of Present Illness: 58-year-old female who presents to the e mergency room with complaints of shortness of breath and low back pain. She notes that she has severe pain when she takes a deep breath or moves. This seems to be triggered by coughing fit she has been having recently particularly yesterday and last evening. No dysuria urgency or frequency no fever sweats or chills no productive cough no hemoptysis. MD elicited complaint: back pain Pertinent past history: prior back pain Onset (ago): hour(s) Timing: constant Severity: moderate Exacerbating factors: none Relieving factors: none Context: other (Coughing) Associated symptoms: Deny abdominal pain, arthralgias, chills, change in bowel habits, difficulty walking, dysuria, fatigue, fecal incontinence, fever(s), hematuria, myalgias, nausea, numbness, syncope, tingling/numbness/burning, urinary frequency, urinary urgency, vomiting or weakness Review of Systems 2 Const: Denies: fever(s), chills or fatigue Card: Reports: chest pain; Denies: palpitations, irregular heart rhythm or syncope Resp: Reports: dyspnea GI: Denies: abdominal pain, nausea, vomiting, fecal incontinence or change in bowel habits : Denies: dysuria, urinary urgency or hematuria Musc: Denies: neck pain or back pain Skin/Breast: Denies: rash Neuro: Denies: difficulty walking PFSH ED 2 PFSH: Medical History Right ureteral calculus Right flank pain BRAYDON (obstructive sleep apnea) Hyperlipidemia HTN (hypertension) Bilateral pulmonary embolism GERD (gastroesophageal reflux disease) COPD (chronic obstructive pulmonary disease) Right ureteral calculus Left mid/distal Large obstructing ureteral stone complicated by UTI. Treated with urgent ureteroscopy laser lithotripsy 10/06/20 Renal calculi Recurrent UTI Surgical History Hx of hysterectomy Hx of section X4 Status post extracorporeal shock wave therapy Hx of cholecystectomy H/O lithotripsy Family History Mother , at age 53 Heart attack Father No problems noted. Other CAD (coronary artery disease) Cancer Chronic kidney disease (CKD) Hypertension Social History Smoking and tobacco/nicotine status: current every day tobacco/nicotine user Alcohol intake: current Alcohol intake frequency: holidays/special occasions only Adopted: No Caregiver/support person: No Lives independently: No Household members: spouse Marital status: Current occupational status: retired Physical Exam 2 Const: COMMON NORMALS: no acute distress GENERAL APPEARANCE: cooperative and comfortable ORIENTATION/CONSCIOUSNESS: Yes awake, Yes oriented to person, Yes oriented to place and Yes oriented to time HENMT: COMMON NORMALS: normocephalic, atraumatic and hearing grossly normal bilaterally HEAD & SCALP: normocephalic and atraumatic Resp: COMMON NORMALS: normal respiratory effort, No retractions, No use of accessory muscles and clear to auscultation bilaterally AUSCULTATION: clear to auscultation bilaterally Cardio: COMMON NORMALS: regular rate, regular rhythm and No murmurs present (Cardio) RATE: regular rate RHYTHM: regular rhythm GI: COMMON NORMALS: Soft to palpation and No hepatosplenomegaly present A USCULTATION: Yes normoactive bowel sounds PALPATION: Yes Soft to palpation, No Tenderness to palpation present (GI), No Guarding due to palpation present (GI) and Yes No hepatosplenomegaly present Extremity: COMMON NORMALS: normal to inspection, capillary refill normal, no clubbing, cyanosis or edema, no calf tenderness and no pedal edema Neuro: SENSORIUM/ORIENTATION: Yes oriented to person, Yes oriented to place and Yes oriented to time Skin: COMMON NORMALS: no rashes or lesions noted GENERAL SKIN EXAM: no rashes or lesions noted Course 2 Vital Signs: Vital signs: Vital Signs Temperature 97.4 F L 02/21/24 14:42 Pulse Rate 81 02/21/24 16:46 Respiratory Rate 12 02/21/24 16:46 Blood Pressure 177/95 02/21/24 16:46 Pulse Oximetry 96 02/21/24 16:46 Oxygen Delivery Me thod Room Air 02/21/24 14:42 MDM - Back Pain/Injury Medical Decision Making Musculoskeletal back pain improved with medications will discharge patient home on steroid taper anti-inflammatories and muscle relaxer. Follow-up with primary care if persists. Differential Diagnosis Likely lumbar radiculopathy and strain of lumbar region Medical Records I reviewed the patient's medical records. Labs I reviewed the patient's lab results. 02/21/24 15:15 02/21/24 15:15 Radiology Impressions Chest X-Ray 02/21/24 14:58 IMPRESSION: No acute findings. Laboratory Results WBC 6.56 10^3/uL (3.29-11.43) 02/21/24 15:15 RBC 4.09 10^6/uL (3.85-5.65) 02/21/24 15:15 Hgb 12.50 g/dL (11.27-16.99) 02/21/24 15:15 Hct 37.6 % (36-47) 02/21/24 15:15 MCV 91.9 fl (85-98) 02/21/24 15:15 MCH 30.6 pg (27-33) 02/21/24 15:15 MCHC 33.2 g/dL (30-55) 02/21/24 15:15 RDW 14.3 % (12.1-15.1) 02/21/24 15:15 Plt Count 223 10^3/cmm (157-399) 02/21/24 15:15 MPV 9.5 fL (7.4-10.4) 02/21/24 15:15 Neut % (Auto) 58.1 % 02/21/24 15:15 Lymph % (Auto) 29.3 % 02/21/24 15:15 [place] % (Auto) 8.2 % 02/21/24 15:15 Eos % (Auto) 3.0 % 02/21/24 15:15 Baso % (Auto) 1.2 % 02/21/24 15:15 Neut # (Auto) 3.81 10^3/uL (1.8-7.7) 02/21/24 15:15 Lymph # (Auto) 1.9 10^3/uL (0.8-4.8) 02/21/24 15:15 [place] # (Auto) 0.5 10^3/uL (0.2-0.9) 02/21/24 15:15 Eos # (Auto) 0.2 10^3/uL (0.0-0.8) 02/21/24 15:15 Baso # (Auto) 0.1 10^3/uL (0.0-0.1) 02/21/24 15:15 Nucleated RBC % (auto) 0 % 02/21/24 15:15 Nucleated RBCs # 0.0 /100WBC 02/21/24 15:15 Sodium 134 mmol/L (136-145) L 02/21/24 15:15 Potassium 4.5 mmol/L (3.5-5.1) 02/21/24 15:15 Chloride 102 mmol/L (98-107) 02/21/24 15:15 Carbon Dioxide 21 mmol/L (22-29) L 02/21/24 15:15 Anion Gap 15.5 (5-19) 02/21/24 15:15 BUN 22 mg/dL (6-20) H 02/21/24 15:15 Creatinine 0.8 mg/dL (0.5-0.9) 02/21/24 15:15 GFR Calculation 74.2 mL/min (90-130) L 02/21/24 15:15 Glucose 91 mg/dL (65-115) 02/21/24 15:15 Calculated Osmolality 281 mOsm/kg (285-295) L 02/21/24 15:15 Calcium 8.8 mg/dL (8.5-10.5) 02/21/24 15:15 Total Bilirubin 0.2 mg/dL (0.15-1.2) 02/21/24 15:15 AST 17 U/L (0-32) 02/21/24 15:15 ALT 10 U/L (0-33) 02/21/24 15:15 Alkaline Phosphatase 110 U/L (35-105) H 02/21/24 15:15 Total Protein 6.6 g/dL (6.6-8.7) 02/21/24 15:15 Albumin 4.0 g/dL (3.5-5.2) 02/21/24 15:15 Globulin 2.6 g/dL (1.3-4.6) 02/21/24 15:15 No radiology studies performed this visit Discharge Plan Discharge Patient Disposition: Home Clinical Impression: Lumbar radicular pain Condition: Stable Prescriptions: New tizanidine 4 mg tablet 4 mg PO Q6H PRN (Reason: muscle spasticity) Qty: 20 0RF Rx Instructions: do not exceed 3 doses per 24 hrs prednisone 20 mg tablet 20 mg PO TID Qty: 15 0RF Rx Instructions: 1 p.o. 3 times daily x3 days, 1 p.o. twice daily x2 days, 1 p.o. daily x2 days diclofenac sodium 75 mg tablet,delayed release (DR/EC) 75 mg PO Q12H PRN (Reason: pain) Qty: 20 0RF Discharge Orders: Discharge ED (Routine); Ordered 02/21/24 Ordered By: Les Kebede Referrals: Shari Gray DO [Primary Care Provider] - Discharge Diet: Usual diet Discharge Activity: Limit activity as instructed Patient Instructions: Acute Low Back Pain (ED), Lumbar Radiculopathy (ED), Opioid Safety, Pain Management Activity Restrictions/Additional Instructions: Thank you for choosing [facility] for your healthcare needs today. Please realize this is an emergency room and that we are providing you with a medical screening exam and this may not be complete and all inclusive of all the testing and or work up that you may need to determine your ailment or severity of your illness. It is very important that you follow up as instructed or that you return to the Emergency Department should you have concerns or if your condition changes or worsens in any way. Follow-up with your primary care doctor if back pain persists. Coding Level of Care Code ED Bike Assembler for Tangela Reyes
[2024-02-21 15:33] VITALS: RESP 22; O2SAT 95
[2024-02-21] MEDS: morphine 4 mg/mL SDV 1 mL IVP ×2 (15:33→16:32)
[2024-02-21] MEDS: dexamethasone 10 mg/mL INJ IM (15:34)
[2024-02-21] MEDS: orphenadrine 30 mg/mL Inj 2 mL 60 MG IM (15:34)
[2024-02-21 15:38] LABS: Basophils # 0.1 10^3/uL (0.0-0.1); Basophils % 1.2 %; Eosinophils # 0.2 10^3/uL (0.0-0.8); Hematocrit 37.6 % (36-47); Lymphocytes # 1.9 10^3/uL (0.8-4.8); Lymphocytes % 29.3 %; Mean Corpuscular HGB Conc 33.2 g/dL (30-55); Mean Corpuscular Hemoglobin 30.6 pg (27-33); Mean Corpuscular Volume 91.9 fl (85-98); Mean Platelet Volume 9.5 fL (7.4-10.4); Monocytes # 0.5 10^3/uL (0.2-0.9); Monocytes % 8.2 %; Neutrophils # 3.81 10^3/uL (1.8-7.7); Neutrophils % 58.1 %; Nucleated Red Blood Cells % 0 %; Platelet Count 223 10^3/cmm (157-399); Red Blood Count 4.09 10^6/uL (3.85-5.65); Red Cell Distribution Width 14.3 % (12.1-15.1); White Blood Count 6.56 10^3/uL (3.29-11.43)
[2024-02-21 15:51] LABS: Alkaline Phosphatase 110 U/L (35-105); Blood Urea Nitrogen 22 mg/dL (6-20); Calcium 8.8 mg/dL (8.5-10.5); Carbon Dioxide 21 mmol/L (22-29); Chloride 102 mmol/L (98-107); Creatinine Clr Calc Pharmacy 91.9687; Globulin 2.6 g/dL (1.3-4.6); Glomerular Filtration Rate 74.2 mL/min (90-130); Glucose 91 mg/dL (65-115); Osmolality Calculated 281 mOsm/kg (285-295); Sodium 134 mmol/L (136-145); Total Bilirubin 0.2 mg/dL (0.15-1.2); Total Protein 6.6 g/dL (6.6-8.7)
[2024-02-21 16:01] LABS: Alanine Aminotransferase 10 U/L (0-33); Anion Gap 15.5 (5-19); Aspartate Amino Transferase 17 U/L (0-32); Potassium 4.5 mmol/L (3.5-5.1)
[2024-02-21 16:32] VITALS: RESP 20; O2SAT 98
[2024-02-21 16:46] VITALS: BP 177/95; PULSE 81; RESP 12; O2SAT 96
== END 2024-02-21 16:47 | disposition home or self-care (01) ==
PROVIDERS: Emergency Provider Family Medicine; PCP Family Medicine
DX: M54.16 Radiculopathy, lumbar region (principal); Z72.0 Tobacco use; E78.5 Hyperlipidemia, unspecified; I10 Essential (primary) hypertension; J44.9 Chronic obstructive pulmonary disease, unspecified
CPT/HCPCS: 71045; 80053; 85025; 93005; 96372; 96374; 96376; 99285; J1100; J2270; J2360

== ENCOUNTER 2024-05-03 03:21 | Emergency (ER) | payer MEDICARE, MEDICAID, SELFPAY ==
[2024-05-03] VITALS (8 sets, daily range): BP systolic 128–162; BP diastolic 80–118; PULSE 78–94; RESP 18; TEMP 36.3; O2SAT 94–97; BMI 28.0
--- NOTE | 2024-05-03 03:36 | CTR_ITS ---
PROCEDURE INFORMATION: Exam: CT Abdomen And Pelvis Without Contrast Exam date and time: 05/03/2024 3:53 AM Age: 58 years old Clinical indication: Pain; Prior surgery; Surgery date: 6+ months; Surgery type: Gb, hyst; Additional info: R flank pain TECHNIQUE: Imaging protocol: Computed tomography of the abdomen and pelvis without contrast. Radiation optimization: All CT scans at this facility use at least one of these dose optimization techniques: automated exposure control; mA and/or kV adjustment per patient size (includes targeted exams where dose is matched to clinical indication); or iterative reconstruction. COMPARISON: CT kidney stone [id number] 11/19/2023 2:58 PM RADIATION DOSE METRICS: Total DLP (mGy-cm): 550 FINDINGS: Lungs: Lung bases are clear as visualized. Diaphragm: There is a large hiatal hernia. Liver: Normal. No mass. Gallbladder and biliary ducts: There are surgical clips within the gallbladder fossa. Pancreas: Normal. No ductal dilation. Spleen: Normal. No splenomegaly. Adrenal glands: Normal. No mass. Kidneys and ureters: There is cortical scarring with nonobstructing renal calculi involving the left kidney. There are nonobstructing renal calculi involving the right kidney. There is severe hydronephrosis with proximal hydroureter to the mid to distal 3rd of the right ureter at which point there is a caliber change (series 3 image 148 through 152. There is slight hyperdensity to the ureter at the level of the caliber change however this could represent a not densely stone or could represent a slightly hyperdense mass. There is perinephric fat stranding on the right which may be related to a ruptured fornix or could be inflammatory in origin. Stomach and bowel: Unremarkable. No obstruction. No mucosal thickening. Appendix: No evidence of appendicitis. Intraperitoneal space: Unremarkable. No free air. No significant fluid collection. Vasculature: Unremarkable. No abdominal aortic aneurysm. Lymph nodes: There are multiple small retroperitoneal lymph nodes. No enlarged nodes are appreciated. Urinary bladder: Unremarkable as visualized. Bones/joints: There is grade 1 anterolisthesis of L4 in relation to L5 secondary to degenerative facets. No blastic or lytic bony lesions are identified. Soft tissues: Unremarkable. CT/CT kidney stone [id number] IMPRESSION: 1. Severe hydronephrosis as well as proximal and mid hydroureter. There is a caliber change involving the junction of the middle and distal 3rd of the right ureter which could be related to a ureteral mass (transitional cell carcinoma) or not densely calcified stone. Recommend urologic referral for further appropriate workup/follow-up. 2. Perinephric fat stranding on the right. This could be related to a ruptured fornix or could be inflammatory in origin. 3. Bilateral nephrolithiasis. 4. Large hiatal hernia.
--- NOTE | 2024-05-03 03:36 | W.ED.GENADLT ---
HPI - General Adult General: Chief complaint: Abdominal Pain Stated complaint: believes kidney stone Time Seen by Provider: 05/03/24 03:27 Source: patient Mode of arrival: ambulatory Limitations: no limitations History of Present Illness: 58-year-old female has had history of kidney stones in the past she states she been having right flank pain for the last 2 days without getting much worse today states the pain is currently a 9 out of 10 and feels like previous kidney stones. Denies any vomiting or diarrhea denies any fever. Denies any worsening from factors. Associated symptoms: Deny chest pain, dyspnea, headache(s), nausea, rash or vomiting Review of Systems Const: Denies: fever(s), chills, body aches or change in appetite ENMT: Denies: throat pain or dental pain Card: Denies: chest pain Resp: Denies: dyspnea GI: Denies: abdominal pain, nausea, vomiting or diarrhea : Reports: flank pain Musc: Denies: neck pain or back pain Skin/Breast: Denies: rash Neuro: Denies: headache(s) PFSH ED PFSH: Medical History Right ureteral calculus Right flank pain BRAYDON (obstructive sleep apnea) Hyperlipidemia HTN (hypertension) Bilateral pulmonary embolism GERD (gastroesophageal reflux disease) COPD (chronic obstructive pulmonary disease) Right ureteral calculus Left mid/distal Large obstructing ureteral stone complicated by UTI. Treated with urgent ureteroscopy laser lithotripsy 10/06/20 Renal calculi Recurrent UTI Surgical History Hx of hysterectomy Hx of section X4 Status post extracorporeal shock wave therapy Hx of cholecystectomy H/O lithotripsy Family History Mother , at age 53 Heart attack Father No problems noted. Other CAD (coronary artery disease) Cancer Chronic kidney disease (CKD) Hypertension Social History Smoking and tobacco/nicotine status: current every day tobacco/nicotine user Alcohol intake: current Alcohol intake frequency: holidays/special occasions only Adopted: No Caregiver/support person: No Lives independently: No Household members: spouse Marital status: Current occupational status: retired Physical Exam Const: COMMON NORMALS: no acute distress, patient oriented x3 and healthy appearing Neck/C-Spine: COMMON NORMALS: full ROM and supple Chest: COMMONS NORMALS: normal inspection of the chest Resp: COMMON NORMALS: normal respiratory effort GI: COMMON NORMALS: Normal to inspection, nondistended, normoactive bowel sounds present, Soft to palpation, non-tender and no masses PALPATION: Yes Soft to palpation Extremity: COMMON NORMALS: normal to inspection and full ROM Neuro: COMMON NORMALS: patient oriented x3, moves all extremities and no focal motor deficits Psych: COMMON NORMALS: mental status grossly normal, Normal thought process present and cooperative THOUGHT PROCESS: Normal thought process present Skin: COMMON NORMALS: no rashes or lesions noted and no wounds GENERAL SKIN EXAM: no rashes or lesions noted Course Vital Signs: Vital signs: Vital Signs Temperature 97.4 F L 05/03/24 03:36 Pulse Rate 94 05/03/24 03:36 Respiratory Rate 18 05/03/24 04:14 Blood Pressure 145/118 05/03/24 03:36 Pulse Oximetry 95 05/03/24 03:36 Oxygen Delivery Me thod Room Air 05/03/24 03:36 MDM - General Adult Medical Decision Making Patient presents here with flank pain she is found to have hydronephrosis with likely large kidney stone patient is excepted at [facility] for higher level care for urology capabilities Medical Records I reviewed the patient's medical records. Lab Data I reviewed the patient's lab results. 05/03/24 03:44 05/03/24 04:14 Radiology Impressions Abdomen/Pelvis CT 05/03/24 03:36 IMPRESSION: 1. Severe hydronephrosis as well as proximal and mid hydroureter. There is a caliber change involving the junction of the middle and distal 3rd of the right ureter which could be related to a ureteral mass (transitional cell carcinoma) or not densely calcified stone. Recommend urologic referral for further appropriate workup/follow-up. 2. Perinephric fat stranding on the right. This could be related to a ruptured fornix or could be inflammatory in origin. 3. Bilateral nephrolithiasis. 4. Large hiatal hernia. Laboratory Results WBC 6.41 10^3/uL (3.29-11.43) 05/03/24 03:44 RBC 4.05 10^6/uL (3.85-5.65) 05/03/24 03:44 Hgb 12.80 g/dL (11.27-16.99) 05/03/24 03:44 Hct 39.0 % (36-47) 05/03/24 03:44 MCV 96.3 fl (85-98) 05/03/24 03:44 MCH 31.6 pg (27-33) 05/03/24 03:44 MCHC 32.8 g/dL (30-55) 05/03/24 03:44 RDW 14.8 % (12.1-15.1) 05/03/24 03:44 Plt Count 192 10^3/cmm (157-399) 05/03/24 03:44 MPV 9.6 fL (7.4-10.4) 05/03/24 03:44 Neut % (Auto) 63.0 % 05/03/24 03:44 Lymph % (Auto) 24.3 % 05/03/24 03:44 [place] % (Auto) 8.6 % 05/03/24 03:44 Eos % (Auto) 3.0 % 05/03/24 03:44 Baso % (Auto) 0.8 % 05/03/24 03:44 Neut # (Auto) 4.04 10^3/uL (1.8-7.7) 05/03/24 03:44 Lymph # (Auto) 1.6 10^3/uL (0.8-4.8) 05/03/24 03:44 [place] # (Auto) 0.6 10^3/uL (0.2-0.9) 05/03/24 03:44 Eos # (Auto) 0.2 10^3/uL (0.0-0.8) 05/03/24 03:44 Baso # (Auto) 0.1 10^3/uL (0.0-0.1) 05/03/24 03:44 Nucleated RBC % (auto) 0 % 05/03/24 03:44 Nucleated RBCs # 0.0 /100WBC 05/03/24 03:44 Sodium 141 mmol/L (136-145) 05/03/24 04:14 Potassium 3.6 mmol/L (3.5-5.1) 05/03/24 04:14 Chloride 103 mmol/L (98-107) 05/03/24 04:14 Carbon Dioxide 26 mmol/L (22-29) 05/03/24 04:14 Anion Gap 15.6 (5-19) 05/03/24 04:14 BUN 22 mg/dL (6-20) H 05/03/24 04:14 Creatinine 1.1 mg/dL (0.5-0.9) H 05/03/24 04:14 GFR Calculation 51.4 mL/min (90-130) L 05/03/24 04:14 Glucose 97 mg/dL (65-115) 05/03/24 04:14 Calculated Osmolality 295 mOsm/kg (285-295) 05/03/24 04:14 Calcium 8.7 mg/dL (8.5-10.5) 05/03/24 04:14 Total Bilirubin 0.4 mg/dL (0.15-1.2) 05/03/24 04:14 AST 17 U/L (0-32) 05/03/24 04:14 ALT 11 U/L (0-33) 05/03/24 04:14 Alkaline Phosphatase 95 U/L (35-105) 05/03/24 04:14 Total Protein 6.6 g/dL (6.6-8.7) 05/03/24 04:14 Albumin 3.8 g/dL (3.5-5.2) 05/03/24 04:14 Globulin 2.8 g/dL (1.3-4.6) 05/03/24 04:14 Lipase 32 U/L (13-60) 05/03/24 04:14 Urine Color Yellow (Yellow) 05/03/24 03:44 Urine Appearance Clear (CLEAR) 05/03/24 03:44 Urine pH 6.5 (5-7) 05/03/24 03:44 Ur Specific [place] 1.015 (1.005-1.030) 05/03/24 03:44 Urine Protein 1+ (Negative) H 05/03/24 03:44 Urine Glucose (UA) Norm (Normal) 05/03/24 03:44 Urine Ketones Negative (Negative) 05/03/24 03:44 Urine Blood 2+ (Negative) H 05/03/24 03:44 Urine Nitrate Negative (Negative) 05/03/24 03:44 Urine Bilirubin Neg (Negative) 05/03/24 03:44 Urine Urobilinogen Neg mg/dL (Negative) 05/03/24 03:44 Ur Leukocyte Esterase Negative (Negative) 05/03/24 03:44 Urine RBC 10-15 /hpf (0-2) H 05/03/24 03:44 Urine WBC 0-4 /hpf (0-5) H 05/03/24 03:44 Ur Squamous Epith Cells 10-15 /hpf (0-5) H 05/03/24 03:44 Amorphous Sediment Not Reportable 05/03/24 03:44 Urine Bacteria None /hpf (NONE) 05/03/24 03:44 All radiology interpretation(s) finalized by discharge Discharge Plan Discharge Patient Disposition: Xfer Short-Term Hosp Clinical Impression: Kidney stone Condition: Stable Prescriptions: No Action levofloxacin 750 mg tablet 750 mg PO DAILY Qty: 7 0RF cetirizine [Zyrtec] 10 mg tablet 10 mg PO DAILY Qty: 30 0RF albuterol sulfate 90 mcg/actuation HFA aerosol inhaler 1 inh inhalation QID PRN (Reason: shortness of breath or wheezing) Qty: 8.5 0RF fluticasone propionate 50 mcg/actuation spray,suspension See Rx Instructions .ROUTE .COMPLEX Qty: 48 0RF Dose Instruction: SHAKE LIQUID AND USE 2 SPRAYS IN EACH NOSTRIL DAILY Rx Instructions: SHAKE LIQUID AND USE 2 SPRAYS IN EACH NOSTRIL DAILY fluticasone propion-salmeterol 250-50 mcg/dose blister with device See Rx Instructions .ROUTE .COMPLEX Qty: 180 0RF Dose Instruction: INHALE 1 PUFF BY MOUTH TWICE DAILY Rx Instructions: INHALE 1 PUFF BY MOUTH TWICE DAILY tizanidine 4 mg tablet 4 mg PO Q6H PRN (Reason: muscle spasticity) Qty: 20 0RF Rx Instructions: do not exceed 3 doses per 24 hrs prednisone 20 mg tablet 20 mg PO TID Qty: 15 0RF Rx Instructions: 1 p.o. 3 times daily x3 days, 1 p.o. twice daily x2 days, 1 p.o. daily x2 days diclofenac sodium 75 mg tablet,delayed release (DR/EC) 75 mg PO Q12H PRN (Reason: pain) Qty: 20 0RF Referrals: Shari Gray DO [Primary Care Provider] - Coding Level of Care Code ED Call Worker Person for Tangela Reyes
[2024-05-03 03:57] LABS: Basophils # 0.1 10^3/uL (0.0-0.1); Basophils % 0.8 %; Eosinophils # 0.2 10^3/uL (0.0-0.8); Lymphocytes # 1.6 10^3/uL (0.8-4.8); Lymphocytes % 24.3 %; Mean Corpuscular HGB Conc 32.8 g/dL (30-55); Mean Corpuscular Hemoglobin 31.6 pg (27-33); Mean Corpuscular Volume 96.3 fl (85-98); Mean Platelet Volume 9.6 fL (7.4-10.4); Monocytes # 0.6 10^3/uL (0.2-0.9); Monocytes % 8.6 %; Neutrophils # 4.04 10^3/uL (1.8-7.7); Nucleated Red Blood Cells % 0 %; Platelet Count 192 10^3/cmm (157-399); Red Blood Count 4.05 10^6/uL (3.85-5.65); Red Cell Distribution Width 14.8 % (12.1-15.1); White Blood Count 6.41 10^3/uL (3.29-11.43)
[2024-05-03 04:05] LABS: Add Urine Microscopic? YES; Bilirubin Urine Neg (Negative); Blood Urine 2+ (Negative); Glucose Urine UA Norm (Normal); Ketones Urine Negative (Negative); Leukocyte Esterase Urine Negative (Negative); Nitrate Urine Negative (Negative); Protein Urine 1+ (Negative); Specific Gravity, Urine 1.015 (1.005-1.030); Urine Appearance Clear (CLEAR); Urine Color Yellow (Yellow); Urobilinogen Urine Neg (Negative); pH Urine 6.5 (5-7)
[2024-05-03 04:06] LABS: Add Urine Culture? No; WBC Urine 0-4 /hpf (0-5)
[2024-05-03] MEDS: HYDROmorphone 1 mg/mL INJ 1 mL 0.5 MG IVP (04:14)
[2024-05-03] MEDS: ondansetron 2 mg/ML SDV 2 mL 4 MG IVP (04:15)
[2024-05-03] MEDS: sodium chloride 0.9% 1,000 ML 999 ML IV (04:15)
[2024-05-03 04:47] LABS: Alanine Aminotransferase 11 U/L (0-33); Albumin Level 3.8 g/dL (3.5-5.2); Alkaline Phosphatase 95 U/L (35-105); Anion Gap 15.6 (5-19); Aspartate Amino Transferase 17 U/L (0-32); Blood Urea Nitrogen 22 mg/dL (6-20); Calcium 8.7 mg/dL (8.5-10.5); Carbon Dioxide 26 mmol/L (22-29); Chloride 103 mmol/L (98-107); Globulin 2.8 g/dL (1.3-4.6); Glomerular Filtration Rate 51.4 mL/min (90-130); Glucose 97 mg/dL (65-115); Lipase 32 U/L (13-60); Osmolality Calculated 295 mOsm/kg (285-295); Potassium 3.6 mmol/L (3.5-5.1); Sodium 141 mmol/L (136-145); Total Bilirubin 0.4 mg/dL (0.15-1.2); Total Protein 6.6 g/dL (6.6-8.7)
[2024-05-03 04:49] LABS: Creatinine Clr Calc Pharmacy 66.8863
--- NOTE | 2024-05-03 05:10 | PC.NURSE ---
Report called to Alix Cordova RN at [facility] ED. All questions and concerns were addressed at time of report.
[2024-05-03] MEDS: HYDROmorphone 1 mg/mL INJ 1 mL IVP ×2 (05:21→07:30)
== END 2024-05-03 09:53 | disposition short-term general hospital (02) ==
PROVIDERS: Emergency Provider Emergency Medicine; PCP Family Medicine
DX: N13.2 Hydronephrosis with renal and ureteral calculous obstruction (principal); E78.5 Hyperlipidemia, unspecified; I10 Essential (primary) hypertension; J44.9 Chronic obstructive pulmonary disease, unspecified; Z87.442 Personal history of urinary calculi; Z72.0 Tobacco use
CPT/HCPCS: 74176; 80053; 81001; 83690; 85025; 96361; 96374; 96375; 96376; 99285; J1170; J2405; J7030

== ENCOUNTER 2024-05-23 19:36 | Emergency (ER) | payer MEDICARE, MEDICAID, SELFPAY ==
[2024-05-23 19:39] VITALS: BP 176/106; PULSE 86; RESP 20; TEMP 36.7; O2SAT 98
[2024-05-23 19:59] LABS: Basophils # 0.1 10^3/uL (0.0-0.1); Basophils % 0.8 %; Eosinophils # 0.2 10^3/uL (0.0-0.8); Eosinophils % 3.6 %; Hematocrit 37.3 % (36-47); Lymphocytes # 1.7 10^3/uL (0.8-4.8); Lymphocytes % 28.4 %; Mean Corpuscular Hemoglobin 32.2 pg (27-33); Mean Corpuscular Volume 94.7 fl (85-98); Mean Platelet Volume 9.3 fL (7.4-10.4); Monocytes # 0.4 10^3/uL (0.2-0.9); Monocytes % 7.1 %; Neutrophils # 3.62 10^3/uL (1.8-7.7); Neutrophils % 60.1 %; Nucleated Red Blood Cells % 0 %; Platelet Count 177 10^3/cmm (157-399); Red Blood Count 3.94 10^6/uL (3.85-5.65); Red Cell Distribution Width 13.6 % (12.1-15.1); White Blood Count 6.03 10^3/uL (3.29-11.43)
[2024-05-23 20:19] LABS: Alanine Aminotransferase 11 U/L (0-33); Alkaline Phosphatase 100 U/L (35-105); Anion Gap 16.1 (5-19); Aspartate Amino Transferase 13 U/L (0-32); Blood Urea Nitrogen 20 mg/dL (6-20); Calcium 8.6 mg/dL (8.5-10.5); Carbon Dioxide 24 mmol/L (22-29); Chloride 101 mmol/L (98-107); Creatinine Clr Calc Pharmacy 83.7487; Globulin 2.9 g/dL (1.3-4.6); Glomerular Filtration Rate 64.8 mL/min (90-130); Glucose 134 mg/dL (65-115); Lipase 28 U/L (13-60); Osmolality Calculated 291 mOsm/kg (285-295); Potassium 3.1 mmol/L (3.5-5.1); Sodium 138 mmol/L (136-145); Total Bilirubin 0.2 mg/dL (0.15-1.2); Total Protein 6.9 g/dL (6.6-8.7)
--- NOTE | 2024-05-23 21:39 | W.ED.FEMALGU ---
HPI - Female Genitourinary General: Chief complaint: Urogenital-Female Stated complaint: Lower right abd pain Time Seen by Provider: 05/23/24 21:37 History of Present Illness: Patient presents to the ER with complaints of right-sided abdominal pain. Patient was just here about 2 days ago and diagnosed with kidney stones. She just pain feels about the same as that except more in her abdomen this time instead of her flank. Patient has had nausea vomiting. Patient does look extremely uncomfortable. Patient has had no fever chills coughs colds diarrhea constipation pain burning frequency with urination. Review of Systems General: Reports: 10 or more systems reviewed and unremarkable except in HPI and below PFSH ED PFSH: Medical History Right ureteral calculus Right flank pain BRAYDON (obstructive sleep apnea) Hyperlipidemia HTN (hypertension) Bilateral pulmonary embolism GERD (gastroesophageal reflux disease) COPD (chronic obstructive pulmonary disease) Right ureteral calculus Left mid/distal Large obstructing ureteral stone complicated by UTI. Treated with urgent ureteroscopy laser lithotripsy 10/06/20 Renal calculi Recurrent UTI Surgical History Hx of hysterectomy Hx of section X4 Status post extracorporeal shock wave therapy Hx of cholecystectomy H/O lithotripsy Family History Mother , at age 53 Heart attack Father No problems noted. Other CAD (coronary artery disease) Cancer Chronic kidney disease (CKD) Hypertension Social History Smoking and tobacco/nicotine status: current every day tobacco/nicotine user Alcohol intake: current Alcohol intake frequency: holidays/special occasions only Adopted: No Caregiver/support person: No Lives independently: No Household members: spouse Marital status: Current occupational status: retired Physical Exam Const: COMMON NORMALS: no acute distress, average body habitus, patient oriented x3, no limitations, healthy appearing, alert and well nourished HENMT: COMMON NORMALS: normocephalic, atraumatic, hearing grossly normal bilaterally, external ears normal, Normal external nose present and moist oral mucous membranes HEAD & SCALP: normocephalic and atraumatic NOSE: Normal external nose present EXTERNAL EAR: Yes external ears normal Neck/C-Spine: COMMON NORMALS: no JVD Chest: COMMONS NORMALS: normal inspection of the chest and normal palpation of entire chest wall Resp: COMMON NORMALS: normal respiratory effort, No retractions, No use of accessory muscles and clear to auscultation bilaterally AUSCULTATION: clear to auscultation bilaterally Cardio: COMMON NORMALS: no JVD, regular rate, regular rhythm, S1 normal heart sound present, S2 normal heart sound present, No gallops present (Cardio), No clicks present (Cardio), No murmurs present (Cardio) and No rub (Cardio) RATE: regular rate RHYTHM: regular rhythm HEART SOUNDS: S1 normal heart sound present and S2 normal heart sound present GI: COMMON NORMALS: Normal to inspection, nondistended, normoactive bowel sounds present, Soft to palpation, non-tender, No hepatosplenomegaly present and no masses PALPATION: Yes Soft to palpation and Yes No hepatosplenomegaly present Neuro: COMMON NORMALS: patient oriented x3 SENSORIUM/ORIENTATION: Yes alert Course Vital Signs: Vital signs: Vital Signs Temperature 98.0 F 05/23/24 19:39 Pulse Rate 75 05/23/24 23:22 Respiratory Rate 16 05/23/24 23:39 Blood Pressure 156/94 05/23/24 23:22 Pulse Oximetry 98 05/23/24 23:22 MDM - Female Medical Decision Making Physical exam was performed lab work was obtained, revealed potassium 3.1, abdominal pelvic CT showed no obstructing renal calculi although there are bilateral numerous calculi in the kidney. Patient was given total of 2 mg of Dilaudid, 40 mEq oral potassium, and 1 L of normal saline, patient is feeling much better. Patient will be discharged home. Lab Data 05/23/24 19:54 05/23/24 19:54 Radiology Impressions Abdomen/Pelvis CT 05/23/24 21:40 IMPRESSION: 1. No obstructing renal calculi visualized. No hydronephrosis. There are numerous bilateral nonobstructing renal calculi. 2. Moderate hiatal hernia which causes mild mass effect on the posterior aspect of the heart. Laboratory Results WBC 6.03 10^3/uL (3.29-11.43) 05/23/24 19:54 RBC 3.94 10^6/uL (3.85-5.65) 05/23/24 19:54 Hgb 12.70 g/dL (11.27-16.99) 05/23/24 19:54 Hct 37.3 % (36-47) 05/23/24 19:54 MCV 94.7 fl (85-98) 05/23/24 19:54 MCH 32.2 pg (27-33) 05/23/24 19:54 MCHC 34.0 g/dL (30-55) 05/23/24 19:54 RDW 13.6 % (12.1-15.1) 05/23/24 19:54 Plt Count 177 10^3/cmm (157-399) 05/23/24 19:54 MPV 9.3 fL (7.4-10.4) 05/23/24 19:54 Neut % (Auto) 60.1 % 05/23/24 19:54 Lymph % (Auto) 28.4 % 05/23/24 19:54 [place] % (Auto) 7.1 % 05/23/24 19:54 Eos % (Auto) 3.6 % 05/23/24 19:54 Baso % (Auto) 0.8 % 05/23/24 19:54 Neut # (Auto) 3.62 10^3/uL (1.8-7.7) 05/23/24 19:54 Lymph # (Auto) 1.7 10^3/uL (0.8-4.8) 05/23/24 19:54 [place] # (Auto) 0.4 10^3/uL (0.2-0.9) 05/23/24 19:54 Eos # (Auto) 0.2 10^3/uL (0.0-0.8) 05/23/24 19:54 Baso # (Auto) 0.1 10^3/uL (0.0-0.1) 05/23/24 19:54 Nucleated RBC % (auto) 0 % 05/23/24 19:54 Nucleated RBCs # 0.0 /100WBC 05/23/24 19:54 Sodium 138 mmol/L (136-145) 05/23/24 19:54 Potassium 3.1 mmol/L (3.5-5.1) L 05/23/24 19:54 Chloride 101 mmol/L (98-107) 05/23/24 19:54 Carbon Dioxide 24 mmol/L (22-29) 05/23/24 19:54 Anion Gap 16.1 (5-19) 05/23/24 19:54 BUN 20 mg/dL (6-20) 05/23/24 19:54 Creatinine 0.9 mg/dL (0.5-0.9) 05/23/24 19:54 GFR Calculation 64.8 mL/min (90-130) L 05/23/24 19:54 Glucose 134 mg/dL (65-115) H 05/23/24 19:54 Calculated Osmolality 291 mOsm/kg (285-295) 05/23/24 19:54 Calcium 8.6 mg/dL (8.5-10.5) 05/23/24 19:54 Total Bilirubin 0.2 mg/dL (0.15-1.2) 05/23/24 19:54 AST 13 U/L (0-32) 05/23/24 19:54 ALT 11 U/L (0-33) 05/23/24 19:54 Alkaline Phosphatase 100 U/L (35-105) 05/23/24 19:54 Total Protein 6.9 g/dL (6.6-8.7) 05/23/24 19:54 Albumin 4.0 g/dL (3.5-5.2) 05/23/24 19:54 Globulin 2.9 g/dL (1.3-4.6) 05/23/24 19:54 Lipase 28 U/L (13-60) 05/23/24 19:54 Urine Color Yellow (Yellow) 05/23/24 22:19 Urine Appearance Slightly cloudy (CLEAR) 05/23/24 22:19 Urine pH 6 (5-7) 05/23/24 22:19 Ur Specific [place] 1.015 (1.005-1.030) 05/23/24 22:19 Urine Protein 1+ (Negative) H 05/23/24 22:19 Urine Glucose (UA) Norm (Normal) 05/23/24 22:19 Urine Ketones Negative (Negative) 05/23/24 22:19 Urine Blood 2+ (Negative) H 05/23/24 22:19 Urine Nitrate Negative (Negative) 05/23/24 22:19 Urine Bilirubin Neg (Negative) 05/23/24 22:19 Urine Urobilinogen Norm mg/dL (Negative) 05/23/24 22:19 Ur Leukocyte Esterase Negative (Negative) 05/23/24 22:19 Urine RBC 0-4 /hpf (0-2) H 05/23/24 22:19 Urine WBC 0-4 /hpf (0-5) H 05/23/24 22:19 Ur Squamous Epith Cells 0-4 /hpf (0-5) H 05/23/24 22:19 Amorphous Sediment Not Reportable 05/23/24 22:19 Urine Bacteria Trace /hpf (NONE) 05/23/24 22:19 All radiology interpretation(s) finalized by discharge Discharge Plan Discharge Patient Disposition: Home Clinical Impression: Abdominal wall pain in right flank, Acute hypokalemia Condition: Stable Prescriptions: No Action cetirizine [Zyrtec] 10 mg tablet 10 mg PO DAILY Qty: 30 0RF albuterol sulfate 90 mcg/actuation HFA aerosol inhaler 1 inh inhalation QID PRN (Reason: shortness of breath or wheezing) Qty: 8.5 0RF fluticasone propionate 50 mcg/actuation spray,suspension See Rx Instructions .ROUTE .COMPLEX Qty: 48 0RF Dose Instruction: SHAKE LIQUID AND USE 2 SPRAYS IN EACH NOSTRIL DAILY Rx Instructions: SHAKE LIQUID AND USE 2 SPRAYS IN EACH NOSTRIL DAILY fluticasone propion-salmeterol 250-50 mcg/dose blister with device See Rx Instructions .ROUTE .COMPLEX Qty: 180 0RF Dose Instruction: INHALE 1 PUFF BY MOUTH TWICE DAILY Rx Instructions: INHALE 1 PUFF BY MOUTH TWICE DAILY tizanidine 4 mg tablet 4 mg PO Q6H PRN (Reason: muscle spasticity) Qty: 20 0RF Rx Instructions: do not exceed 3 doses per 24 hrs diclofenac sodium 75 mg tablet,delayed release (DR/EC) 75 mg PO Q12H PRN (Reason: pain) Qty: 20 0RF Discharge Orders: Discharge ED (Routine); Ordered 05/23/24 Ordered By: Polo Dior Referrals: Shari Gray DO [Primary Care Provider] - 1 week Patient Instructions: Abdominal Pain (ED), Hypokalemia (ED) Activity Restrictions/Additional Instructions: [facility]. Please realize that you were seen in the emergency department and that we are providing you with an emergency medical screening exam and this may not be a complete and all exclusive of all testing and/or medical workup we may need to determine your element or severity of your illness. It is very important that you follow-up as instructed with your primary care provider or specialist for the additional evaluation and to discuss your medical treatment plan. You may return to the emergency department should you have concerns or if your condition changes or worsens in any way. Coding Level of Care Code ED Casing Builder for Tangela Reyes
--- NOTE | 2024-05-23 21:40 | CTR_ITS ---
PROCEDURE INFORMATION: Exam: CT Abdomen And Pelvis Without Contrast Exam date and time: 05/23/2024 9:46 PM Age: 58 years old Clinical indication: Abdominal pain; Right; Prior surgery; Surgery date: 6+ months; Surgery type: Gb. Hysterectomy; Patient HX: C/O RT flank pain. History of recurrent nephrolithiasis. ; Additional info: Right flank pain abnormal CT 05/03/2024 TECHNIQUE: Imaging protocol: Computed tomography of the abdomen and pelvis without contrast. Radiation optimization: All CT scans at this facility use at least one of these dose optimization techniques: automated exposure control; mA and/or kV adjustment per patient size (includes targeted exams where dose is matched to clinical indication); or iterative reconstruction. COMPARISON: CT kidney stone [id number] 05/03/2024 3:53 AM RADIATION DOSE METRICS: Total DLP (mGy-cm): 582.34 FINDINGS: Heart: Moderate hiatal hernia which causes mild mass effect on the posterior aspect of the heart. Liver: Normal. No mass. Gallbladder and biliary ducts: Status post cholecystectomy. Pancreas: Normal. No ductal dilation. Spleen: Normal. No splenomegaly. Adrenal glands: Normal. No mass. Kidneys and ureters: No obstructing renal calculi visualized. No hydronephrosis. There are numerous bilateral nonobstructing renal calculi. For example there is a 3 mm nonobstructing calculus within the midpole of the left kidney. Stomach and bowel: Unremarkable. No obstruction. No mucosal thickening. Appendix: No evidence of appendicitis. Intraperitoneal space: Unremarkable. No free air. No significant fluid collection. Vasculature: Moderate atherosclerotic calcifications. Lymph nodes: Unremarkable. No enlarged lymph nodes. Urinary bladder: Unremarkable as visualized. Reproductive: Unremarkable as visualized. Bones/joints: 0.8 cm anterolisthesis of L4 on L5. No acute fracture. Soft tissues: Unremarkable. CT/CT kidney stone [id number] IMPRESSION: 1. No obstructing renal calculi visualized. No hydronephrosis. There are numerous bilateral nonobstructing renal calculi. 2. Moderate hiatal hernia which causes mild mass effect on the posterior aspect of the heart.
[2024-05-23 22:07] VITALS: RESP 18
[2024-05-23] MEDS: HYDROmorphone 1 mg/mL INJ 1 mL IVP ×2 (22:07→23:39)
[2024-05-23] MEDS: ondansetron 2 mg/ML SDV 2 mL 4 MG IVP (22:09)
[2024-05-23] MEDS: sodium chloride 0.9% 1,000 ML 999 ML IV (22:12)
[2024-05-23 22:18] VITALS: BP 150/90; PULSE 73; RESP 18; O2SAT 97
[2024-05-23 22:41] LABS: Add Urine Microscopic? YES; Bilirubin Urine Neg (Negative); Blood Urine 2+ (Negative); Glucose Urine UA Norm (Normal); Ketones Urine Negative (Negative); Leukocyte Esterase Urine Negative (Negative); Nitrate Urine Negative (Negative); Protein Urine 1+ (Negative); RBC Urine 0-4 /hpf (0-2); Specific Gravity, Urine 1.015 (1.005-1.030); Squamous Epithelial Cell Urine 0-4 /hpf (0-5); Urine Appearance Slightly Cloudy (CLEAR); Urine Color Yellow (Yellow); Urobilinogen Urine Norm (Negative); WBC Urine 0-4 /hpf (0-5); pH Urine 6 (5-7)
[2024-05-23 22:42] LABS: Add Urine Culture? No; Bacteria Urine TRACE /hpf
[2024-05-23] MEDS: potassium chloride ER 20 mEq Tablet 40 MEQ PO (23:18)
[2024-05-23 23:22] VITALS: BP 156/94; PULSE 75; O2SAT 98
[2024-05-23 23:39] VITALS: RESP 16
[2024-05-24 00:24] VITALS: BP 162/93; PULSE 81; O2SAT 93
== END 2024-05-24 00:32 | disposition home or self-care (01) ==
PROVIDERS: Emergency Medicine; Emergency Provider Emergency Medicine; PCP Family Medicine
DX: R10.30 Lower abdominal pain, unspecified (principal); E87.6 Hypokalemia; Z72.0 Tobacco use; E78.5 Hyperlipidemia, unspecified; I10 Essential (primary) hypertension; J44.9 Chronic obstructive pulmonary disease, unspecified; Z87.442 Personal history of urinary calculi; Z87.440 Personal history of urinary (tract) infections
CPT/HCPCS: 36415; 74176; 80053; 81001; 83690; 85025; 96361; 96374; 96375; 96376; 99285; J1170; J2405; J7030

== ENCOUNTER 2024-06-29 03:59 | Emergency (ER) | payer MEDICARE, MEDICAID, SELFPAY ==
[2024-06-29 04:07] VITALS: BP 163/96; PULSE 89; RESP 16; TEMP 36.4; O2SAT 94; BMI 29.5
[2024-06-29 04:18] VITALS: BP 163/96; PULSE 86; RESP 16; O2SAT 93
[2024-06-29 04:36] VITALS: BP 157/91; PULSE 71; RESP 16; O2SAT 94
--- NOTE | 2024-06-29 04:46 | W.ED.EAR ---
HPI - Ear Problem General: Chief complaint: Ear Stated complaint: right ear pain Time Seen by Provider: 06/29/24 04:08 History of Present Illness: This patient is a 58-year-old white female who presents to the ER complaining of right ear pain. This has been bothering her for the past several days. No fever. No drainage. Associated symptoms: Reports ear or mastoid pain Related Data Previous Rx's Medication Instructions Recorded diclofenac sodium 75 mg 75 mg PO Q12H PRN pain #20 tabs 02/21/24 tablet,delayed release tizanidine 4 mg tablet 4 mg PO Q6H PRN muscle spasticity 02/21/24 #20 tabs cetirizine 10 mg tablet (Zyrtec) 10 mg PO DAILY #30 tabs 02/22/24 albuterol sulfate 90 mcg/actuation 1 inh inhalation QID PRN shortness 03/21/24 aerosol inhaler of breath or wheezing #8.5 grams fluticasone 250 mcg-salmeterol 50 See Rx Instructions .Route 03/21/24 mcg/dose blistr powdr for .COMPLEX #180 ea inhalation fluticasone propionate 50 See Rx Instructions .Route 03/21/24 mcg/actuation nasal .COMPLEX #48 grams spray,suspension ciprofloxacin 0.3 %-dexamethasone 4 drp otic (ear) BID 7 days #7.5 mL 06/29/24 0.1 % ear drops,suspension Allergies Allergy/AdvReac Type Severity Reaction Status Date / Time ketorolac [From Toradol] Allergy ALGY-Rash Verified 05/23/24 19:44 simvastatin Allergy ADR-Vomitin Verified 05/23/24 19:44 g Review of Systems General: Reports: 10 or more systems reviewed and unremarkable except in HPI and below ENMT: Reports: ear or mastoid pain PFSH ED PFSH: Medical History Right ureteral calculus Right flank pain BRAYDON (obstructive sleep apnea) Hyperlipidemia HTN (hypertension) Bilateral pulmonary embolism GERD (gastroesophageal reflux disease) COPD (chronic obstructive pulmonary disease) Right ureteral calculus Left mid/distal Large obstructing ureteral stone complicated by UTI. Treated with urgent ureteroscopy laser lithotripsy 10/06/20 Renal calculi Recurrent UTI Surgical History Hx of hysterectomy Hx of section X4 Status post extracorporeal shock wave therapy Hx of cholecystectomy H/O lithotripsy Family History Mother , at age 53 Heart attack Father No problems noted. Other CAD (coronary artery disease) Cancer Chronic kidney disease (CKD) Hypertension Social History Smoking and tobacco/nicotine status: current every day tobacco/nicotine user Alcohol intake: current Alcohol intake frequency: holidays/special occasions only Adopted: No Caregiver/support person: No Lives independently: No Household members: spouse Marital status: Current occupational status: retired Physical Exam Const: COMMON NORMALS: no acute distress, patient oriented x3 and no limitations GENERAL APPEARANCE: cooperative and comfortable HENMT: COMMON NORMALS: normocephalic, atraumatic, TM's normal bilaterally, Normal nasal mucous membranes and turbinates present, moist oral mucous membranes and oropharynx normal HEAD & SCALP: normal to inspection, normocephalic and atraumatic FACE & SINUS: normal facial exam NOSE: Normal nasal mucous membranes and turbinates present EXTERNAL EAR: Yes other (Right external auditory canal is swollen and tender.) TYMPANIC MEMBRANE: TM's normal bilaterally Eye: COMMON NORMALS: Equal, round and reactive pupils present, EOMs intact bilaterally and conjunctivae normal GENERAL EYE: appearance normal, both eyes and all related structures CONJUNCTIVA: Yes conjunctivae normal PUPIL: Yes Equal, round and reactive pupils present Neck/C-Spine: COMMON NORMALS: supple and no JVD Chest: COMMONS NORMALS: normal inspection of the chest Resp: COMMON NORMALS: normal respiratory effort and clear to auscultation bilaterally AUSCULTATION: clear to auscultation bilaterally Cardio: COMMON NORMALS: no JVD, regular rate, regular rhythm, No gallops present (Cardio), No murmurs present (Cardio) and No rub (Cardio) RATE: regular rate RHYTHM: regular rhythm GI: COMMON NORMALS: Normal to inspection, nondistended, normoactive bowel sounds present, Soft to palpation and non-tender AUSCULTATION: Yes normoactive bowel sounds PALPATION: Yes Soft to palpation : COMMON NORMALS: Yes no CVA tenderness BLADDER/KIDNEY EXAM: Yes no CVA tenderness Back/Pelvis: COMMON NORMALS: no CVA tenderness and thoracic and lumbar spine normal to inspection Extremity: COMMON NORMALS: normal to inspection Neuro: COMMON NORMALS: patient oriented x3 and CN's II-XII intact bilaterally Psych: COMMON NORMALS: mental status grossly normal, Normal thought process present and cooperative THOUGHT PROCESS: Normal thought process present Skin: COMMON NORMALS: no rashes or lesions noted, turgor normal and no jaundice GENERAL SKIN EXAM: no rashes or lesions noted and turgor normal Course Vital Signs: Vital signs: Vital Signs Temperature 97.5 F L 06/29/24 04:07 Pulse Rate 71 06/29/24 04:36 Respiratory Rate 16 06/29/24 04:36 Blood Pressure 157/91 06/29/24 04:36 Pulse Oximetry 94 06/29/24 04:36 Oxygen Delivery Me thod Room Air 06/29/24 04:18 MDM - Ear Medical Decision Making Patient appears to have right otitis externa. I did place her on Ciprodex otic and recommended she follow-up with her primary care physician in 1 week if not resolved. She was discharged in stable condition. No radiology studies performed this visit Discharge Plan Discharge Patient Disposition: Home Clinical Impression: Otitis externa Qualifiers: Otitis externa type: unspecified type Chronicity: acute Laterality: left Qualified Code(s): H60.502 - Unspecified acute noninfective otitis externa, left ear Condition: Stable Prescriptions: New ciprofloxacin-dexamethasone 0.3-0.1 % drops,suspension 4 drp otic (ear) BID 7 Days Qty: 7.5 0RF No Action cetirizine [Zyrtec] 10 mg tablet 10 mg PO DAILY Qty: 30 0RF albuterol sulfate 90 mcg/actuation HFA aerosol inhaler 1 inh inhalation QID PRN (Reason: shortness of breath or wheezing) Qty: 8.5 0RF fluticasone propionate 50 mcg/actuation spray,suspension See Rx Instructions .ROUTE .COMPLEX Qty: 48 0RF Dose Instruction: SHAKE LIQUID AND USE 2 SPRAYS IN EACH NOSTRIL DAILY Rx Instructions: SHAKE LIQUID AND USE 2 SPRAYS IN EACH NOSTRIL DAILY fluticasone propion-salmeterol 250-50 mcg/dose blister with device See Rx Instructions .ROUTE .COMPLEX Qty: 180 0RF Dose Instruction: INHALE 1 PUFF BY MOUTH TWICE DAILY Rx Instructions: INHALE 1 PUFF BY MOUTH TWICE DAILY tizanidine 4 mg tablet 4 mg PO Q6H PRN (Reason: muscle spasticity) Qty: 20 0RF Rx Instructions: do not exceed 3 doses per 24 hrs diclofenac sodium 75 mg tablet,delayed release (DR/EC) 75 mg PO Q12H PRN (Reason: pain) Qty: 20 0RF Discharge Orders: Discharge ED (Routine); Ordered 06/29/24 Ordered By: Lukas Andrews Referrals: Shari Gray DO [Primary Care Provider] - Patient Instructions: Pain Management Coding Level of Care Code ED Quality Liaison for Tangela Reyes
== END 2024-06-29 04:42 | disposition home or self-care (01) ==
PROVIDERS: Emergency Provider Emergency Medicine; PCP Family Medicine
DX: H60.502 Unspecified acute noninfective otitis externa, left ear (principal); Z72.0 Tobacco use; E78.5 Hyperlipidemia, unspecified; I10 Essential (primary) hypertension; J44.9 Chronic obstructive pulmonary disease, unspecified
CPT/HCPCS: 99283

== ENCOUNTER 2024-07-13 05:47 | Emergency (ER) | payer MEDICARE, MEDICAID, SELFPAY ==
[2024-07-13] VITALS (14 sets, daily range): BP systolic 127–174; BP diastolic 77–103; PULSE 75–89; RESP 18–26; TEMP 36.7; O2SAT 90–98; BMI 29.5
--- NOTE | 2024-07-13 05:49 | ECG_ITS ---
[facility] Test Date: 2024-07-13 Pat Name: Kush Cruz Department: Room: Gender: Female Swamper: : 1965 Requested By: Les Roblero Order Number: [id number] Reading MD: FABIANA LU Measurements Intervals [place] Rate: 83 P: 89 TX: 105 QRS: 76 QRSD: 106 T: 16 QT: 393 QTc: 463 Interpretive Statements SINUS RHYTHM WITH SHORT TX INTERVAL WITH OCCASIONAL SUPRAVENTRICULAR PREMATURE COMPLEXES SEPTAL MYOCARDIAL INFARCTION , PROBABLY OLD [40+ ms Q WAVE IN V1/V2] ST DEPRESSION, CONSIDER SUBENDOCARDIAL INJURY [0.1+ mV ST DEPRESSION] Compared to ECG 02/21/2024 15:04:36 Short TX interval now present Myocardial infarct finding now present Ventricular premature complex(es) no longer present ST (T wave) deviation still present Electronically Signed On 07-14-2024 11:55:05 CDT by FABIANA LU [id number]
--- NOTE | 2024-07-13 06:02 | XRR_ITS ---
PROCEDURE INFORMATION: Exam: XR Chest Exam date and time: 07/13/2024 6:33 AM Age: 58 years old Clinical indication: Cough and shortness of breath; Additional info: Dyspnea/cough TECHNIQUE: Imaging protocol: Radiologic exam of the chest. Views: 1 view. COMPARISON: CR (CHEST, ) 02/21/2024 3:19 PM FINDINGS: Lungs: Unremarkable. No consolidation. Pleural spaces: Unremarkable. No pleural effusion. No pneumothorax. Heart/Mediastinum: Unremarkable. No cardiomegaly. Bones/joints: Unremarkable. XR/XR chest 1V portable [id number] IMPRESSION: No acute findings.
[2024-07-13] MEDS: LORazepam 2 mg/mL INJ 1 mL 1 MG IVP (06:16)
[2024-07-13 06:27] LABS: ABG PCO2 40.1 mmHg (35-45); ABG PH Result 7.44 (7.35-7.45); Alveolar-Arterial Oxygen Gradi 3.7 mmHg (5-10); Arterial Blood Gas Hematocrit 38.1 % (37-47); Base Excess ABG 2.8 mmol/L (-2.0-2.0); Blood Gas Sample Site Brachial, left; Blood Gas Sample Type Arterial; Carboxyhemoglobin 2.5 %THgb (0.4-20.1); HCO3 ABG 27.1 mmol/L (22-26); HGB O2 Sat 92.2 % (95-100); Ionized Calcium Level - ABG 1.2 mmol/L (1.1-1.4); Methemoglobin 0.8 % (0.4-1.5); Oxygen Device ROOM AIR; Oxygen Saturation ABG 95.3; PO2 ABG 71.3 mmHg (80.0-100.0); Potassium Level - ABG 3.1 mmol/L (3.5-5.0); Total Hemoglobin 12.4 g/dL (12-16)
--- NOTE | 2024-07-13 06:27 | ED_ITS ---
HPI - SOB/Dyspnea 2 General: Chief Complaint: Shortness of Breath/Dyspnea Stated Complaint: sob Time Seen by Provider: 07/13/24 06:02 History of Present Illness: HPI Narrative: 58-year-old female presents emergency ro om with chest pain and shortness of breath. Patient is a smoker and has a history of COPD. She seems to be almost hyperventilating initially. She relates that there is some family issues at home discharged yesterday she was able to sleep a little bit less vibratory [place] [facility]. Mild chest heaviness. There is no known history of known coronary disease. She has had a nonproductive cough. Associated symptoms: Reports chest pain; Deny abdominal pain or fever(s) Related Data Previous Rx's Medication Instructions Recorded albuterol sulfate 90 mcg/actuation 1 inh inhalation QID PRN shortness 03/21/24 aerosol inhaler of breath or wheezing #8.5 grams albuterol sulfate 90 mcg/actuation 2 inh inhalation Q4H PRN shortness 07/13/24 aerosol inhaler of breath or wheezing #18 grams doxycycline hyclate 100 mg capsule 100 mg PO BID 10 days #20 caps 07/13/24 hydroxyzine HCl 25 mg tablet 25 mg PO Q8H PRN anxiety #10 tabs 07/13/24 methylprednisolone 4 mg tablets in See Rx Instructions PO .COMPLEX 07/13/24 a dose pack (Medrol (Ryan)) #21 ea Allergies Allergy/AdvReac Type Severity Reaction Status Date / Time ketorolac [From Toradol] Allergy ALGY-Rash Verified 07/13/24 05:53 simvastatin Allergy ADR-Vomitin Verified 07/13/24 05:53 g Review of Systems 2 Const: Denies: fever(s) or chills Card: Reports: chest pain; Denies: edema or swelling of feet/ankles Resp: Reports: dyspnea, non-productive cough and wheezing GI: Denies: abdominal pain : Denies: dysuria, urinary frequency or urinary urgency Musc: Denies: neck pain or back pain Skin/Breast: Denies: rash PFSH ED 2 PFSH: Medical History (Updated 07/13/24 @ 10:43 by Les Kebede DO) Pulmonary embolism Right ureteral calculus Right flank pain BRAYDON (obstructive sleep apnea) Hyperlipidemia HTN (hypertension) Bilateral pulmonary embolism GERD (gastroesophageal reflux disease) COPD (chronic obstructive pulmonary disease) Right ureteral calculus Left mid/distal Large obstructing ureteral stone complicated by UTI. Treated with urgent ureteroscopy laser lithotripsy 10/06/20 Renal calculi Recurrent UTI Surgical History Hx of hysterectomy Hx of section X4 Status post extracorporeal shock wave therapy Hx of cholecystectomy H/O lithotripsy Family History Mother , at age 53 Heart attack Father No problems noted. Other CAD (coronary artery disease) Cancer Chronic kidney disease (CKD) Hypertension Social History Smoking and tobacco/nicotine status: current every day tobacco/nicotine user Alcohol intake: current Alcohol intake frequency: holidays/special occasions only Adopted: No Caregiver/support person: No Lives independently: No Household members: spouse Marital status: Current occupational status: retired Physical Exam 2 Const: GENERAL APPEARANCE: cooperative ORIENTATION/CONSCIOUSNESS: Yes awake, Yes oriented to person, Yes oriented to place and Yes oriented to time HENMT: COMMON NORMALS: normocephalic, atraumatic and hearing grossly normal bilaterally HEAD & SCALP: normocephalic and atraumatic Resp: EFFORT & INSPECTION: Yes tachypneic AUSCULTATION: wheezes Cardio: COMMON NORMALS: regular rate, regular rhythm and No murmurs present (Cardio) RATE: regular rate RHYTHM: regular rhythm GI: COMMON NORMALS: Soft to palpation and No hepatosplenomegaly present A USCULTATION: Yes normoactive bowel sounds PALPATION: Yes Soft to palpation, No Tenderness to palpation present (GI), No Guarding due to palpation present (GI) and Yes No hepatosplenomegaly present Extremity: COMMON NORMALS: normal to inspection, capillary refill normal, no clubbing, cyanosis or edema, no calf tenderness and no pedal edema Neuro: SENSORIUM/ORIENTATION: Yes oriented to person, Yes oriented to place and Yes oriented to time Skin: COMMON NORMALS: no rashes or lesions noted GENERAL SKIN EXAM: no rashes or lesions noted Course 2 Vital Signs: Vital signs: Vital Signs Temperature 98.1 F 07/13/24 05:48 Pulse Rate 89 07/13/24 11:15 Respiratory Rate 20 H 07/13/24 10:30 Blood Pressure 148/77 07/13/24 11:15 Pulse Oximetry 94 07/13/24 11:15 Oxygen Delivery Me thod Room Air 07/13/24 11:08 Oxygen Flow Rate 1 07/13/24 06:48 MDM - SOB/Dyspnea Medical Decision Making The patient is feeling better after the Ativan and the breathing treatments. Wheezing is resolved. Cardiac enzymes negative white count normal EKG does not show any acute changes. Chest x-ray did not show any acute infiltrates she is reporting change in baseline cough. Will start her on steroid taper as well as doxycycline 100 twice daily for 10 days hydroxyzine as needed for nausea albuterol every 4 hours while awake as needed for symptoms and recheck with her primary care doctor in the next 3 to 5 days return if symptoms worsen Medical Records I reviewed the patient's medical records. Lab Data I reviewed the patient's lab results. 07/13/24 06:27 07/13/24 06:27 Labs/Radiology: Radiology Impressions Chest X-Ray 07/13/24 06:02 IMPRESSION: No acute findings. Laboratory Results WBC 5.90 10^3/uL (3.29-11.43) 07/13/24 06:27 RBC 3.84 10^6/uL (3.85-5.65) L 07/13/24 06:27 Hgb 12.50 g/dL (11.27-16.99) 07/13/24 06:27 Hct 38.2 % (36-47) 07/13/24 06:27 MCV 99.5 fl (85-98) H 07/13/24 06:27 MCH 32.6 pg (27-33) 07/13/24 06:27 MCHC 32.7 g/dL (30-55) 07/13/24 06:27 RDW 13.4 % (12.1-15.1) 07/13/24 06:27 Plt Count 182 10^3/cmm (157-399) 07/13/24 06:27 MPV 9.3 fL (7.4-10.4) 07/13/24 06:27 Neut % (Auto) 62.2 % 07/13/24 06:27 Lymph % (Auto) 24.2 % 07/13/24 06:27 [place] % (Auto) 8.6 % 07/13/24 06:27 Eos % (Auto) 4.1 % 07/13/24 06:27 Baso % (Auto) 0.7 % 07/13/24 06:27 Neut # (Auto) 3.67 10^3/uL (1.8-7.7) 07/13/24 06:27 Lymph # (Auto) 1.4 10^3/uL (0.8-4.8) 07/13/24 06:27 [place] # (Auto) 0.5 10^3/uL (0.2-0.9) 07/13/24 06:27 Eos # (Auto) 0.2 10^3/uL (0.0-0.8) 07/13/24 06:27 Baso # (Auto) 0.0 10^3/uL (0.0-0.1) 07/13/24 06:27 Nucleated RBC % (auto) 0 % 07/13/24 06:27 Nucleated RBCs # 0.0 /100WBC 07/13/24 06:27 Specimen Type Arterial 07/13/24 06:16 Sample Site Brachial, left 07/13/24 06:16 ABG pH 7.44 (7.35-7.45) 07/13/24 06:16 ABG pCO2 40.1 mmHg (35-45) 07/13/24 06:16 ABG pO2 71.3 mmHg (80.0-100.0) L 07/13/24 06:16 ABG HCO3 27.1 mmol/L (22-26) H 07/13/24 06:16 ABG O2 Saturation 95.3 07/13/24 06:16 ABG Base Excess 2.8 mmol/L (-2.0-2.0) H 07/13/24 06:16 Bernardo Test N/a 07/13/24 06:16 A-a O2 Gradient 3.7 mmHg (5-10) L 07/13/24 06:16 Hematocrit 38.1 % (37-47) 07/13/24 06:16 Hgb O2 Saturation 92.2 % (95-100) L 07/13/24 06:16 Carboxyhemoglobin 2.5 %THgb (0.4-20.1) 07/13/24 06:16 Methemoglobin 0.8 % (0.4-1.5) 07/13/24 06:16 Total Hemoglobin 12.4 g/dL (12-16) 07/13/24 06:16 Sodium 142.0 mmol/L (131-143) 07/13/24 06:16 Potassium 3.1 mmol/L (3.5-5.0) L 07/13/24 06:16 Glucose 96.0 mg/dL (70-115) 07/13/24 06:16 Ionized Calcium 1.2 mmol/L (1.1-1.4) 07/13/24 06:16 O2 Delivery Device Room air 07/13/24 06:16 Lip Cutter ID [email or web address] 07/13/24 06:16 Sodium 139 mmol/L (136-145) 07/13/24 06:27 Potassium 3.4 mmol/L (3.5-5.1) L 07/13/24 06:27 Chloride 101 mmol/L (98-107) 07/13/24 06:27 Carbon Dioxide 26 mmol/L (22-29) 07/13/24 06:27 Anion Gap 15.4 (5-19) 07/13/24 06:27 BUN 24 mg/dL (6-20) H 07/13/24 06:27 Creatinine 1.1 mg/dL (0.5-0.9) H 07/13/24 06:27 GFR Calculation 51.4 mL/min (90-130) L 07/13/24 06:27 Glucose 98 mg/dL (65-115) 07/13/24 06:27 Calculated Osmolality 292 mOsm/kg (285-295) 07/13/24 06:27 Calcium 8.8 mg/dL (8.5-10.5) 07/13/24 06:27 Total Bilirubin 0.4 mg/dL (0.15-1.2) 07/13/24 06:27 AST 18 U/L (0-32) 07/13/24 06:27 ALT 10 U/L (0-33) 07/13/24 06:27 Alkaline Phosphatase 94 U/L (35-105) 07/13/24 06:27 Troponin T Baseline 15 ng/L (0-10) H 07/13/24 06:25 Troponin T 120 Minute 13.22 ng/L (0-10) H 07/13/24 08:17 Delta Troponin T -1.78 ABS# (0-10) L 07/13/24 08:17 Total Protein 7.0 g/dL (6.6-8.7) 07/13/24 06:27 Albumin 4.0 g/dL (3.5-5.2) 07/13/24 06:27 Globulin 3.0 g/dL (1.3-4.6) 07/13/24 06:27 Coronavirus (PCR) Negative (Negative) 07/13/24 06:09 Influenza A (PCR) Negative (Negative) 07/13/24 06:09 Influenza Type B (PCR) Negative (Negative) 07/13/24 06:09 RSV (PCR) Negative (Negative) 07/13/24 06:09 All radiology interpretation(s) finalized by discharge Discharge Plan Discharge Patient Disposition: Home Clinical Impression: Acute exacerbation of chronic obstructive airways disease, Anxiety Condition: Stable Prescriptions: New doxycycline hyclate 100 mg capsule 100 mg PO BID 10 Days Qty: 20 0RF Medrol (Ryan) 4 mg tablets,dose pack See Rx Instructions .ROUTE .COMPLEX Qty: 21 0RF Rx Instructions: orally per package directions albuterol sulfate 90 mcg/actuation HFA aerosol inhaler 2 inh INHALATION Q4H PRN (Reason: shortness of breath or wheezing) Qty: 18 0RF hydroxyzine HCl 25 mg tablet 25 mg PO Q8H PRN (Reason: anxiety) Qty: 10 0RF No Action albuterol sulfate 90 mcg/actuation HFA aerosol inhaler 1 inh inhalation QID PRN (Reason: shortness of breath or wheezing) Qty: 8.5 0RF Discharge Orders: Discharge ED (Routine); Ordered 07/13/24 Ordered By: Les Kebede Discharge Diet: Usual diet Discharge Activity: Increase activity as tolerated Patient Instructions: COPD (Chronic Obstructive Pulmonary Disease) (ED), Opioid Safety, Pain Management Activity Restrictions/Additional Instructions: Thank you for choosing [facility] for your healthcare needs today. It is very important that you follow up as instructed or that you return to the Emergency Department should you have concerns or if your condition changes or worsens in any way. You were seen today for shortness of breath. Exam suggest that you have acute exacerbation of your COPD. It also brought up there is some component of anxiety related to some family stressors. Recommend use the albuterol every 4 hours as needed. I will start doxycycline 1 tablet twice a day for 10 days begin a steroid taper pack tomorrow. Examination of the left foot and ankle no pain with palpation or range of motion passively at the ankle or the forefoot no deformity. There is no redness erythema or deformity of the left great toe. No laceration no ecchymosis. Finally you can use hydroxyzine as needed for anxiety follow-up with your primary care doctor in the next few days. Coding Level of Care Code ED Bisque Finisher for Tangela Reyes
[2024-07-13 06:47] LABS: Basophils % 0.7 %; Eosinophils # 0.2 10^3/uL (0.0-0.8); Eosinophils % 4.1 %; Hematocrit 38.2 % (36-47); Lymphocytes # 1.4 10^3/uL (0.8-4.8); Lymphocytes % 24.2 %; Mean Corpuscular HGB Conc 32.7 g/dL (30-55); Mean Corpuscular Hemoglobin 32.6 pg (27-33); Mean Corpuscular Volume 99.5 fl (85-98); Mean Platelet Volume 9.3 fL (7.4-10.4); Monocytes # 0.5 10^3/uL (0.2-0.9); Monocytes % 8.6 %; Neutrophils # 3.67 10^3/uL (1.8-7.7); Neutrophils % 62.2 %; Nucleated Red Blood Cells % 0 %; Platelet Count 182 10^3/cmm (157-399); Red Blood Count 3.84 10^6/uL (3.85-5.65); Red Cell Distribution Width 13.4 % (12.1-15.1)
[2024-07-13] MEDS: methylPREDNISolone sod succ 125 mg/2 mL INJ IVP (06:51)
[2024-07-13 07:02] LABS: Alanine Aminotransferase 10 U/L (0-33); Alkaline Phosphatase 94 U/L (35-105); Anion Gap 15.4 (5-19); Aspartate Amino Transferase 18 U/L (0-32); Blood Urea Nitrogen 24 mg/dL (6-20); Calcium 8.8 mg/dL (8.5-10.5); Carbon Dioxide 26 mmol/L (22-29); Chloride 101 mmol/L (98-107); Creatinine Clr Calc Pharmacy 68.5216; Glomerular Filtration Rate 51.4 mL/min (90-130); Glucose 98 mg/dL (65-115); Osmolality Calculated 292 mOsm/kg (285-295); Potassium 3.4 mmol/L (3.5-5.1); Sodium 139 mmol/L (136-145); Total Bilirubin 0.4 mg/dL (0.15-1.2)
[2024-07-13 07:12] LABS: Covid PCR NEGATIVE (Negative); Influenza A NEGATIVE (Negative); Influenza B NEGATIVE (Negative); Respiratory Syncytial Virus Ce NEGATIVE (Negative)
[2024-07-13] MEDS: ipratropium-albuterol 3 mL Neb INHALATION (07:24)
--- NOTE | 2024-07-13 07:25 | ECG_ITS ---
[facility] Test Date: 2024-07-13 Pat Name: Kush Cruz Department: Room: Gender: Female Computer Aide: : 1965 Requested By: Les Roblero Order Number: [id number] Reading MD: FABIANA LU Measurements Intervals [place] Rate: 75 P: 92 [place]: 104 QRS: 31 QRSD: 114 T: 28 QT: 419 QTc: 469 Interpretive Statements SINUS RHYTHM WITH SHORT [place] INTERVAL WITH OCCASIONAL SUPRAVENTRICULAR PREMATURE COMPLEXES INCOMPLETE RIGHT BUNDLE BRANCH BLOCK [90+ ms QRS DURATION, TERMINAL R IN V1/V2, 40+ ms S IN I/aVL/V4/V5/V6] PROBABLE LATERAL MYOCARDIAL INFARCTION , PROBABLY OLD [35 ms Q WAVE IN I/aVL/V5/V6] Compared to ECG 07/13/2024 05:50:06 Incomplete right bundle-branch block now present ST (T wave) deviation no longer present Myocardial infarct finding still present Electronically Signed On 07-14-2024 11:54:57 CDT by FABIANA LU [id number]
[2024-07-13 07:43] LABS: Troponin(5th) Baseline 15 ng/L (0-10)
[2024-07-13 08:39] LABS: Troponin 5 2HR 13.22 ng/L (0-10)
[2024-07-13 08:47] LABS: Troponin 5 2HR Delta -1.78 ABS# (0-10)
--- NOTE | 2024-07-13 08:52 | PC.PHAR ---
Pt unable to verify current medications. previous notes state pt no longer takes any other medications. Pt does have a rescue inhaler last filled in January.
--- NOTE | 2024-07-13 09:37 | ECG_ITS ---
[facility] Test Date: 2024-07-13 Pat Name: Kush Cruz Department: Room: Gender: Female Child Support Specialist: : 1965 Requested By: Les Roblero Order Number: [id number] Reading MD: FABIANA LU Measurements Intervals [place] Rate: 82 P: 103 NC: 119 QRS: 29 QRSD: 102 T: 2 QT: 397 QTc: 466 Interpretive Statements SINUS RHYTHM WITH SHORT [place] INTERVAL INCOMPLETE RIGHT BUNDLE BRANCH BLOCK [90+ ms QRS DURATION, TERMINAL R IN V1/V2, 40+ ms S IN I/aVL/V4/V5/V6] NONSPECIFIC ST & T-WAVE ABNORMALITY Compared to ECG 07/13/2024 07:39:21 T-wave abnormality now present Myocardial infarct finding no longer present Electronically Signed On 07-14-2024 12:02:00 CDT by FABIANA LU [id number]
== END 2024-07-13 11:15 | disposition home or self-care (01) ==
PROVIDERS: Emergency Provider Family Medicine
DX: J44.1 Chronic obstructive pulmonary disease with (acute) exacerbation (principal); F41.9 Anxiety disorder, unspecified; E78.5 Hyperlipidemia, unspecified; I10 Essential (primary) hypertension; Z72.0 Tobacco use
CPT/HCPCS: 0241U; 36600; 71045; 80051; 80053; 82330; 82805; 84484; 85025; 93005; 94640; 96374; 96375; 99285; J2060; J2919

== ENCOUNTER 2024-07-24 03:22 | Emergency (ER) | payer MEDICARE, MEDICAID, SELFPAY ==
--- NOTE | 2024-07-24 03:34 | USR_ITS ---
PROCEDURE INFORMATION: Exam: US Duplex Right Upper Extremity Veins, Limited Exam date and time: 07/24/2024 5:02 AM Age: 58 years old Clinical indication: Pain; Arm, lower; Right TECHNIQUE: Imaging protocol: Real-time duplex ultrasound of the right Upper Extremity with 2-D heredia scale, color Doppler flow and spectral waveform analysis with image documentation. Limited exam focused on the right upper extremity veins. COMPARISON: CT kidney stone [id number] 06/07/2023 2:19 PM FINDINGS: Right deep veins: Unremarkable. Axillary and brachial veins are patent throughout without thrombus. Normal Doppler waveforms. Normal compressibility and/or augmentation response. Visualized internal jugular and subclavian veins are patent. Superficial veins: Obstructive thrombus in the cephalic vein extending from the antecubital fossa to the wrist. Soft tissues: Unremarkable. US/[place] [id number] IMPRESSION: 1. No evidence of deep vein thrombosis. 2. Superficial venous thrombus in the cephalic vein extending from the antecubital fossa to the wrist.
[2024-07-24 03:35] VITALS: PULSE 84; RESP 18; TEMP 36.6; O2SAT 97; BMI 29.5
--- NOTE | 2024-07-24 03:35 | W.ED.GENADLT ---
HPI - General Adult General: Chief complaint: Extremity Injury, Upper Stated complaint: vein in right arm is painful and hard Time Seen by Provider: 07/24/24 03:33 Source: patient Mode of arrival: ambulatory Limitations: no limitations History of Present Illness: 58-year-old female who states that she had an IV fluids on her right AC she states that she developed hardness and pain in the pain where the IV was placed. States that pain is much worse with movement and palpation rates pain a 3 out of 10 denies any fevers. Associated symptoms: Deny chest pain, dyspnea, headache(s), nausea, rash or vomiting Related Data Previous Rx's Medication Instructions Recorded albuterol sulfate 90 mcg/actuation 1 inh inhalation QID PRN shortness 03/21/24 aerosol inhaler of breath or wheezing #8.5 grams albuterol sulfate 90 mcg/actuation 2 inh inhalation Q4H PRN shortness 07/13/24 aerosol inhaler of breath or wheezing #18 grams hydroxyzine HCl 25 mg tablet 25 mg PO Q8H PRN anxiety #10 tabs 07/13/24 methylprednisolone 4 mg tablets in See Rx Instructions PO .COMPLEX 07/13/24 a dose pack (Medrol (Ryan)) #21 ea naproxen 500 mg tablet (Naprosyn) 500 mg PO BID PRN pain #20 tabs 07/24/24 Allergies Allergy/AdvReac Type Severity Reaction Status Date / Time ketorolac [From Toradol] Allergy ALGY-Rash Verified 07/13/24 05:53 simvastatin Allergy ADR-Vomitin Verified 07/13/24 05:53 g Review of Systems Const: Denies: fever(s), chills, body aches or change in appetite ENMT: Denies: throat pain or dental pain Card: Denies: chest pain Resp: Denies: dyspnea GI: Denies: abdominal pain, nausea, vomiting or diarrhea Musc: Reports: extremity pain; Denies: neck pain or back pain Skin/Breast: Denies: rash Neuro: Denies: headache(s) PFSH ED PFSH: Medical History Pulmonary embolism Right ureteral calculus Right flank pain BRAYDON (obstructive sleep apnea) Hyperlipidemia HTN (hypertension) Bilateral pulmonary embolism GERD (gastroesophageal reflux disease) COPD (chronic obstructive pulmonary disease) Right ureteral calculus Left mid/distal Large obstructing ureteral stone complicated by UTI. Treated with urgent ureteroscopy laser lithotripsy 10/06/20 Renal calculi Recurrent UTI Surgical History Hx of hysterectomy Hx of section X4 Status post extracorporeal shock wave therapy Hx of cholecystectomy H/O lithotripsy Family History Mother , at age 53 Heart attack Father No problems noted. Other CAD (coronary artery disease) Cancer Chronic kidney disease (CKD) Hypertension Social History Smoking and tobacco/nicotine status: current every day tobacco/nicotine user Alcohol intake: current Alcohol intake frequency: holidays/special occasions only Adopted: No Caregiver/support person: No Lives independently: No Household members: spouse Marital status: Current occupational status: retired Physical Exam Const: COMMON NORMALS: no acute distress, patient oriented x3 and healthy appearing HENMT: COMMON NORMALS: normocephalic and atraumatic HEAD & SCALP: normocephalic and atraumatic Neck/C-Spine: COMMON NORMALS: full ROM and supple Chest: COMMONS NORMALS: normal inspection of the chest Resp: COMMON NORMALS: normal respiratory effort Extremity: COMMON NORMALS: full ROM NARRATIVE EXTREMITY EXAM: Tenderness over right forearm no erythema or warmth to touch Neuro: COMMON NORMALS: patient oriented x3, moves all extremities and no focal motor deficits Psych: COMMON NORMALS: mental status grossly normal, Normal thought process present and cooperative THOUGHT PROCESS: Normal thought process present Skin: COMMON NORMALS: no rashes or lesions noted and no wounds GENERAL SKIN EXAM: no rashes or lesions noted Course Vital Signs: Vital signs: Vital Signs Temperature 97.9 F 07/24/24 03:35 Pulse Rate 70 07/24/24 05:00 Respiratory Rate 18 07/24/24 03:35 Blood Pressure 139/61 07/24/24 05:00 Pulse Oximetry 96 07/24/24 05:00 MDM - General Adult Medical Decision Making Patient presents here with a superficial thrombophlebitis no signs of DVT patient is doing warm compresses ibuprofen for pain follow-up PCP return if worsening. Medical Records I reviewed the patient's medical records. All radiology interpretation(s) finalized by discharge Discharge Plan Discharge Patient Disposition: Home Clinical Impression: Superficial thrombophlebitis Qualifiers: Superficial thrombophlebitis-Involved body area: upper extremity Laterality: right Qualified Code(s): I80.8 - Phlebitis and thrombophlebitis of other sites Condition: Stable Prescriptions: New naproxen [Naprosyn] 500 mg tablet 500 mg PO BID PRN (Reason: pain) Qty: 20 0RF No Action albuterol sulfate 90 mcg/actuation HFA aerosol inhaler 1 inh inhalation QID PRN (Reason: shortness of breath or wheezing) Qty: 8.5 0RF Medrol (Ryan) 4 mg tablets,dose pack See Rx Instructions .ROUTE .COMPLEX Qty: 21 0RF Rx Instructions: orally per package directions albuterol sulfate 90 mcg/actuation HFA aerosol inhaler 2 inh INHALATION Q4H PRN (Reason: shortness of breath or wheezing) Qty: 18 0RF hydroxyzine HCl 25 mg tablet 25 mg PO Q8H PRN (Reason: anxiety) Qty: 10 0RF Discharge Orders: Discharge ED (Routine); Ordered 07/24/24 Ordered By: Irvin Dang Referrals: Shari Gray DO [Primary Care Provider] - 4-7 days Discharge Diet: Advance as tolerated Discharge Activity: Resume usual activity Patient Instructions: Superficial Thrombophlebitis (ED) Coding Level of Care Code ED Rubber Stamp Assembler for Tangela Reyes
[2024-07-24] MEDS: HYDROcodone-acetaminophen 5-325 mg Tablet 1 TAB PO (04:08)
[2024-07-24] MEDS: hyDRALAzine 20 mg/mL INJ 1 mL 10 MG IM (04:08)
[2024-07-24 04:25] VITALS: BP 182/106; O2SAT 94
[2024-07-24 05:00] VITALS: BP 139/61; PULSE 70; O2SAT 96
[2024-07-24 05:27] VITALS: BP 157/100; PULSE 81; O2SAT 97
--- NOTE | 2024-07-25 08:49 | DCPLANNER ---
messaged ortho for er f/u
== END 2024-07-24 05:29 | disposition home or self-care (01) ==
PROVIDERS: Emergency Provider Emergency Medicine; PCP Family Medicine
DX: I80.8 Phlebitis and thrombophlebitis of other sites (principal); E78.5 Hyperlipidemia, unspecified; I10 Essential (primary) hypertension; J44.9 Chronic obstructive pulmonary disease, unspecified; Z72.0 Tobacco use
CPT/HCPCS: 93971; 96372; 99284; J0360

== ENCOUNTER 2024-08-26 07:39 | Emergency (ER) | payer MEDICARE, MEDICAID, SELFPAY ==
[2024-08-26 07:36] VITALS: BP 125/67; PULSE 95; RESP 19; TEMP 36.7; O2SAT 92; BMI 29.5
--- NOTE | 2024-08-26 07:38 | XR_ITS ---
WS: [id number] Exam: XR chest 1V portable [id number] Date/Time of Exam: 08/26/2024 7:39 AM Reason For Exam: sob There is focal infiltrate in the lateral aspect of the LEFT upper lobe suggesting pneumonia. Remainin g lung [place] are clear. No pneumothorax or pleural effusion. Normal cardiomediastinal silhouette. La rge hiatal hernia. Bony structures are intact. XR/XR chest 1V portable [id number] IMPRESSION: 1. LEFT upper lobe infiltrate suggesting pneumonia. Large hiatal hernia.
--- NOTE | 2024-08-26 07:40 | ED_ITS ---
HPI - SOB/Dyspnea 2 General: Chief Complaint: Shortness of Breath/Dyspnea Stated Complaint: SOB Source: patient and EMS Mode of arrival: EMS Limitations: no limitations History of Present Illness: HPI Narrative: 58-year-old female has a history of COPD states the last 2 days she been having increasing cough wheezing and shortness of breath. She states she is ran out of her albuterol. She denies any fever denies any worsening improving factors Associated symptoms: Deny abdominal pain, chest pain, fever(s), nausea or vomiting Related Data Home Medications Medication Instructions Recorded Confirmed ibuprofen 200 mg tablet (Advil) 600 mg PO Q6H PRN Pain 08/26/24 08/26/24 Previous Rx's Medication Instructions Recorded albuterol sulfate 90 mcg/actuation 2 inh inhalation Q6H PRN shortness 08/26/24 aerosol inhaler of breath or wheezing #8 grams doxycycline hyclate 100 mg tablet 100 mg PO BID 7 days #14 tabs 08/26/24 prednisone 50 mg tablet 50 mg PO DAILY #5 tabs 08/26/24 Allergies Allergy/AdvReac Type Severity Reaction Status Date / Time ketorolac [From Toradol] Allergy ALGY-Rash Verified 07/13/24 05:53 simvastatin Allergy ADR-Vomitin Verified 07/13/24 05:53 g Review of Systems 2 Const: Denies: fever(s), chills, body aches or change in appetite ENMT: Denies: throat pain or dental pain Card: Denies: chest pain Resp: Reports: dyspnea and productive cough GI: Denies: abdominal pain, nausea, vomiting or diarrhea Musc: Denies: neck pain or back pain Skin/Breast: Denies: rash Neuro: Denies: headache(s) PFSH ED 2 PFSH: Medical History Pulmonary embolism Right ureteral calculus Right flank pain BRAYDON (obstructive sleep apnea) Hyperlipidemia HTN (hypertension) Bilateral pulmonary embolism GERD (gastroesophageal reflux disease) COPD (chronic obstructive pulmonary disease) Right ureteral calculus Left mid/distal Large obstructing ureteral stone complicated by UTI. Treated with urgent ureteroscopy laser lithotripsy 10/06/20 Renal calculi Recurrent UTI Surgical History Hx of hysterectomy Hx of section X4 Status post extracorporeal shock wave therapy Hx of cholecystectomy H/O lithotripsy Family History Mother , at age 53 Heart attack Father No problems noted. Other CAD (coronary artery disease) Cancer Chronic kidney disease (CKD) Hypertension Social History Smoking and tobacco/nicotine status: current every day tobacco/nicotine user Alcohol intake: current Alcohol intake frequency: holidays/special occasions only Adopted: No Caregiver/support person: No Lives independently: No Household members: spouse Marital status: Current occupational status: retired Physical Exam 2 Const: COMMON NORMALS: patient oriented x3 HENMT: COMMON NORMALS: normocephalic and atraumatic HEAD & SCALP: n ormocephalic and atraumatic Eye: COMMON NORMALS: conjunctivae normal CONJUNCTIVA: Yes conjunctivae normal Neck/C-Spine: COMMON NORMALS: full ROM and supple Chest: COMMONS NORMALS: normal inspection of the chest Resp: COMMON NORMALS: No retractions AUSCULTATION: wheezes Cardio: COMMON NORMALS: regular rate, regular rhythm and No murmurs present (Cardio) RATE: regular rate RHYTHM: regular rhythm Extremity: COMMON NORMALS: normal to inspection and full ROM Neuro: COMMON NORMALS: patient oriented x3, moves all extremities and no focal motor deficits Psych: COMMON NORMALS: mental status grossly normal, Normal thought process present and cooperative THOUGHT PROCESS: Normal thought process present Skin: COMMON NORMALS: no rashes or lesions noted and no wounds GENERAL SKIN EXAM: no rashes or lesions noted Course 2 Vital Signs: Vital signs: Vital Signs Temperature 98.0 F 08/26/24 07:36 Pulse Rate 83 08/26/24 08:17 Respiratory Rate 20 H 08/26/24 08:11 Blood Pressure 125/67 08/26/24 07:36 Pulse Oximetry 93 08/26/24 08:11 Oxygen Delivery Me thod Room Air 08/26/24 08:11 MDM - SOB/Dyspnea Medical Decision Making Patient presents here with shortness of breath with a left-sided pneumonia with COPD exacerbation she is much improved here after breathing treatments pulse ox has been in the mid 90s will trial oral antibiotics at home informed her if she worsen she is to return place her on steroids and refill her albuterol as well she understands agrees to plan. Medical Records I reviewed the patient's medical records. Lab Data I reviewed the patient's lab results. 08/26/24 07:51 08/26/24 07:51 Labs/Radiology: Radiology Impressions Chest X-Ray 08/26/24 07:38 IMPRESSION: 1. LEFT upper lobe infiltrate suggesting pneumonia. Large hiatal hernia. Laboratory Results WBC 10.01 10^3/uL (3.29-11.43) 08/26/24 07:51 RBC 3.71 10^6/uL (3.85-5.65) L 08/26/24 07:51 Hgb 11.90 g/dL (11.27-16.99) 08/26/24 07:51 Hct 36.1 % (36-47) 08/26/24 07:51 MCV 97.3 fl (85-98) 08/26/24 07:51 MCH 32.1 pg (27-33) 08/26/24 07:51 MCHC 33.0 g/dL (30-55) 08/26/24 07:51 RDW 13.2 % (12.1-15.1) 08/26/24 07:51 Plt Count 191 10^3/cmm (157-399) 08/26/24 07:51 MPV 9.4 fL (7.4-10.4) 08/26/24 07:51 Neut % (Auto) 77.7 % 08/26/24 07:51 Lymph % (Auto) 13.5 % 08/26/24 07:51 Chicot % (Auto) 6.4 % 08/26/24 07:51 Eos % (Auto) 1.9 % 08/26/24 07:51 Baso % (Auto) 0.3 % 08/26/24 07:51 Neut # (Auto) 7.78 10^3/uL (1.8-7.7) H 08/26/24 07:51 Lymph # (Auto) 1.4 10^3/uL (0.8-4.8) 08/26/24 07:51 Chicot # (Auto) 0.6 10^3/uL (0.2-0.9) 08/26/24 07:51 Eos # (Auto) 0.2 10^3/uL (0.0-0.8) 08/26/24 07:51 Baso # (Auto) 0.0 10^3/uL (0.0-0.1) 08/26/24 07:51 Nucleated RBC % (auto) 0 % 08/26/24 07:51 Nucleated RBCs # 0.0 /100WBC 08/26/24 07:51 Sodium 141 mmol/L (136-145) 08/26/24 07:51 Potassium 3.0 mmol/L (3.5-5.1) L 08/26/24 07:51 Chloride 103 mmol/L (98-107) 08/26/24 07:51 Carbon Dioxide 26 mmol/L (22-29) 08/26/24 07:51 Anion Gap 15.0 (5-19) 08/26/24 07:51 BUN 14 mg/dL (6-20) 08/26/24 07:51 Creatinine 1.0 mg/dL (0.5-0.9) H 08/26/24 07:51 GFR Calculation 57.4 mL/min (90-130) L 08/26/24 07:51 Glucose 136 mg/dL (65-115) H 08/26/24 07:51 Calculated Osmolality 295 mOsm/kg (285-295) 08/26/24 07:51 Calcium 7.7 mg/dL (8.5-10.5) L 08/26/24 07:51 Total Bilirubin 0.4 mg/dL (0.15-1.2) 08/26/24 07:51 AST 11 U/L (0-32) 08/26/24 07:51 ALT 8 U/L (0-33) 08/26/24 07:51 Alkaline Phosphatase 91 U/L (35-105) 08/26/24 07:51 NT-Pro-B Natriuret Pep 429 pg/mL (0-125) H 08/26/24 07:51 Total Protein 6.4 g/dL (6.6-8.7) L 08/26/24 07:51 Albumin 3.6 g/dL (3.5-5.2) 08/26/24 07:51 Globulin 2.8 g/dL (1.3-4.6) 08/26/24 07:51 All radiology interpretation(s) finalized by discharge Discharge Plan Discharge Patient Disposition: Home Clinical Impression: Community acquired pneumonia, Acute exacerbation of chronic obstructive airways disease Condition: Stable Prescriptions: New prednisone 50 mg tablet 50 mg PO DAILY Qty: 5 0RF albuterol sulfate 90 mcg/actuation HFA aerosol inhaler 2 inh INHALATION Q6H PRN (Reason: shortness of breath or wheezing) Qty: 8 0RF doxycycline hyclate 100 mg tablet 100 mg PO BID 7 Days Qty: 14 0RF No Action ibuprofen [Advil] 200 mg Tablet 600 mg PO Q6H PRN (Reason: Pain) Discharge Orders: Discharge ED (Routine); Ordered 08/26/24 Ordered By: Irvin Dang Referrals: Shari Gray DO [Primary Care Provider] - 4-7 days Discharge Diet: Advance as tolerated Discharge Activity: Resume usual activity Patient Instructions: Bacterial Pneumonia (ED) Coding Level of Care Code ED Management Supervisor for Tangela Reyes
[2024-08-26] MEDS: methylPREDNISolone sod succ 125 mg/2 mL INJ IV (07:55)
[2024-08-26 07:59] LABS: Basophils % 0.3 %; Eosinophils # 0.2 10^3/uL (0.0-0.8); Eosinophils % 1.9 %; Hematocrit 36.1 % (36-47); Lymphocytes # 1.4 10^3/uL (0.8-4.8); Lymphocytes % 13.5 %; Mean Corpuscular Hemoglobin 32.1 pg (27-33); Mean Corpuscular Volume 97.3 fl (85-98); Mean Platelet Volume 9.4 fL (7.4-10.4); Monocytes # 0.6 10^3/uL (0.2-0.9); Monocytes % 6.4 %; Neutrophils # 7.78 10^3/uL (1.8-7.7); Neutrophils % 77.7 %; Nucleated Red Blood Cells % 0 %; Platelet Count 191 10^3/cmm (157-399); Red Blood Count 3.71 10^6/uL (3.85-5.65); Red Cell Distribution Width 13.2 % (12.1-15.1); White Blood Count 10.01 10^3/uL (3.29-11.43)
[2024-08-26] MEDS: albuterol 2.5 mg/3 mL Neb INHALATION (08:10)
[2024-08-26 08:11] VITALS: PULSE 89; RESP 20; O2SAT 93
[2024-08-26 08:17] VITALS: PULSE 83
--- NOTE | 2024-08-26 08:22 | PC.PHAR ---
Removed Albuterol Inhaler ,Patient states she doesn't have any more and she only takes Ibprofen as needed for pain or fever .
[2024-08-26 08:26] LABS: Alanine Aminotransferase 8 U/L (0-33); Albumin Level 3.6 g/dL (3.5-5.2); Alkaline Phosphatase 91 U/L (35-105); Aspartate Amino Transferase 11 U/L (0-32); Blood Urea Nitrogen 14 mg/dL (6-20); Calcium 7.7 mg/dL (8.5-10.5); Carbon Dioxide 26 mmol/L (22-29); Chloride 103 mmol/L (98-107); Creatinine Clr Calc Pharmacy 75.3738; Globulin 2.8 g/dL (1.3-4.6); Glomerular Filtration Rate 57.4 mL/min (90-130); Glucose 136 mg/dL (65-115); NT Pro B Type Natriuretic Pept 429 pg/mL (0-125); Osmolality Calculated 295 mOsm/kg (285-295); Sodium 141 mmol/L (136-145); Total Bilirubin 0.4 mg/dL (0.15-1.2); Total Protein 6.4 g/dL (6.6-8.7)
[2024-08-26 08:41] VITALS: BP 125/91; PULSE 90; O2SAT 94
[2024-08-26 09:06] LABS: Covid PCR NEGATIVE (Negative); Influenza A NEGATIVE (Negative); Influenza B NEGATIVE (Negative); Respiratory Syncytial Virus Ce NEGATIVE (Negative)
== END 2024-08-26 08:42 | disposition home or self-care (01) ==
PROVIDERS: Emergency Provider Emergency Medicine; PCP Family Medicine
DX: J18.9 Pneumonia, unspecified organism (principal); J44.0 Chronic obstructive pulmonary disease with (acute) lower respiratory infection; J44.1 Chronic obstructive pulmonary disease with (acute) exacerbation
CPT/HCPCS: 0241U; 71045; 80053; 83880; 85025; 94640; 96374; 99284; J2919; J7613

== ENCOUNTER 2025-07-13 11:28 | Emergency (ER) | payer MEDICARE, MEDICAID, SELFPAY ==
--- OUTSIDE RECORDS SUMMARY | 2024-08-27 04:00 | XMS_ITS ---
Author Organization [facility] Address [address] [place] [address] Care Team Providers Care Fryer Line Helper Name Role Phone Joao Laird Unavailable [phone] Migration, Provider Unavailable Unavailable REASON FOR VISIT EMR-Sunil Encounters Encounter Location Date Provider Diagnosis Migrated_Facility 0 0 08/27/2024 Provider Migration Plan Of Treatment Medication Medication Name Sig Start Date Stop Date Notes Percocet 5-325 MG Oral Tablet 1 Tablet Every 12 hours PRN 12/31/2020 01/15/2021 *Reorder from [facility] an for eRx and Interaction Alerts* SYMBICORT AER 160-4.5 12/30/2020 03/30/2021 [facility] QUETIAPINE TAB 100MG 12/27/2020 03/27/2021 [facility]* Progress Notes * Kush CRUZ ADOB:[birth year] (59 yo F)Acc No.[id number]:08/27/2024 Patient: Kush BURKETT :1965 A ge:58 Y S ex:Female Address:[address] [place] [address], [address] * Refills Stop Percocet 5-325 MG Oral Tablet, 1 Tablet Every 12 hours PRN Stop QUETIAPINE TAB 100MG Stop SYMBICORT AER 160-4.5 Subjective: * Chief Complaints: * E MR-Sunil * * Date:
--- OUTSIDE RECORDS SUMMARY | 2024-08-28 04:00 | XMS_ITS ---
Author Organization [facility] Address [address] [place] [address] Care Team Providers Care Foiling Machine Operator Name Role Phone Joao Laird Unavailable [phone] Migration, Provider Unavailable Unavailable Allergies Allergen (clinical [...] Information Progress Notes * Kush CRUZ ADOB:[birth year] (59 yo F)Acc No.[id number]:08/28/2024 Patient: Kush BURKETT :1965 A ge:58 Y S ex:Female Address:[address] [place] [address], [address] Subjective: * Chief Complaints: * E MR-Sunil [...]
--- NOTE | 2025-07-13 11:33 | XRR_ITS ---
PROCEDURE INFORMATION: Exam: XR Chest Exam date and time: 07/13/2025 11:54 AM Age: 59 years old Clinical indication: Shortness of breath TECHNIQUE: Imaging protocol: Radiologic exam of the chest. Views: 1 view. COMPARISON: CR XR chest 1V portable [id number] 08/26/2024 07:41 AM FINDINGS: Lungs: No airspace consolidation. Pleural spaces: No pleural effusion or pneumothorax. Heart/Mediastinum: Increased density in the left paraspinal region is consistent with previously documented hiatal hernia. Prominent cardiac silhouette, likely exaggerated by the lower lung volume. Vasculature: Atherosclerotic vascular disease. Bones/joints: Unremarkable. XR/XR chest 1V portable [id number] IMPRESSION: 1. No airspace disease. 2. Hiatal hernia. 3. Atherosclerotic vascular disease.
[2025-07-13 11:46] VITALS: BP 123/79; PULSE 94; RESP 18; TEMP 36.6; O2SAT 97; BMI 29.5
--- OUTSIDE RECORDS SUMMARY | 2025-07-13 11:57 | XMS_ITS | Patient Health Record ---
Author Organization [facility] Address [address] [place] [address] Care Team Providers Care Hinging Machine Operator Name Role Phone Joao Laird Unavailable [phone] Migration, Provider Unavailable Unavailable Allergies Allergen (clinical drug ingredient) Drug/Non Drug Allergy documented on EMR Reaction Allergy Type Onset Date Status simvastatin Simvastatin nausea Drug Allergy Act anny ketorolac Ketorolac Unknown Drug Allergy Active Reason For Referral No Information Medications Medication SIG (Take, Route, Frequency, Duration) Notes Start Date End Date Status Flovent HFA 110 MCG/ACT Aerosol Inhale 2 puff(s) bid Inhalation; Duration: 30 Flovent HFA (Fluticasone Propionate) 110mcg/1actuation Oral Inhaler Inhale 2 puff(s) bid #1 (One) 12 gm canister 07/20/2013 Active Aspirin 81 MG Tablet Chewable 1 tab(s) po qd Oral; Duration: 30 Aspirin (ASA) 81mg Chewable Tablet 1 tab(s) po qd 05/10/2014 Active ProAir HFA 108 (90 Base) MCG/ACT Aerosol Solution Inhale 2 puff(s) by mouth q 4 to 6 hr Inhalation; Duration: 30 Albuterol HFA 90mcg/1actuation Oral Inhaler Inhale 2 puff(s) by mouth q 4 to 6 hr #1 (One) inhaler refill 02/16/2014 Active Cymbalta 60 MG Capsule Delayed Release Particles Take 1 cap(s) po qd in the am Oral; Duration: 30 Cymbalta 60mg Capsules, Delayed Release Take 1 cap(s) po qd in the am 07/18/2013 Active Albuterol Sulfate (2.5 MG/3ML) 0.083% Nebulization Solution 1 vial(s) by nebulizer 3 to 4 x daily as directed Inhalation; Duration: 30 Albuterol 0.083% Nebulizer Solution 1 vial(s) by nebulizer 3 to 4 x daily as directed #120 (One [place] and Twenty) 3 ml vial 05/01/2014 Active LaMICtal 25 MG Tablet Take 1 tablet(s) by mouth bid Oral; Duration: 30 Lamictal (Lamotrigine) 25mg Tablet Take 1 tablet(s) by mouth bid #60 (Sixty) tablet(s) 03/10/2014 Active Enalapril Maleate 2.5 MG Tablet Take 1 tablet(s) by mouth daily Oral; Duration: 30 Enalapril Maleate 2.5mg Tablet Take 1 tablet(s) by mouth daily #30 (Thirty) tablet(s) 05/10/2014 Active Crestor 20 MG Tablet Take 1 tablet(s) by mouth daily in p.m. Oral; Duration: 30 Crestor (Rosuvastatin) 20mg Tablet Take 1 tablet(s) by mouth daily in p.m. #30 (Thirty) tablet(s) 03/22/2014 Active Metoprolol Succinate ER 25 MG Tablet Extended Release 24 Hour Take 1 tablet(s) by mouth daily Oral; Duration: 30 Metoprolol 25mg Tablets, Extended Release Take 1 tablet(s) by mouth daily #30 (Thirty) tablet(s) 02/15/2014 Active metFORMIN HCl 500 MG Tablet 1 tab(s) po bid with meals breakfast and supper Oral; Duration: 30 Metformin HCl 500mg Tablet 1 tab(s) po bid with meals breakfast and supper #60 (Sixty) tablet(s) 05/01/2014 Active Estrace 1 MG Tablet Take 1 tablet(s) by mouth daily Oral; Duration: 30 Estrace (Estradiol) 1mg Tablet Take 1 tablet(s) by mouth daily #30 (Thirty) tablet(s) 03/10/2014 Active Victoza 0.6 mg/0.1 mL (18 mg/3 mL) pen injector Inject 1.8mg SC once daily.; Duration: 30 *please review for potential update for e-prescription and drug interaction check* Victoza (Liraglutide) 6mg/1ml Injection Inject 1.8mg SC once daily. #3 (Three) prefilled pen 05/10/2014 Active Immunizations Vaccine Route Administration Date Status Comme nts Flu vaccine no Preserv 3 and > IM Intramuscular 08/26/2013 Administered Social History Social History Additional Details Category Social Info Options Details Migrated Social History Migrated Social History Alcoholic beverages? - No, Are you or is there a chance you could be - No, Currently on disability? - Yes, Involved in any legal proceedings or lawsuits? - No, Marital Status - , Smoking - 11/05 PPD, Smoking status (MU) - Current every day smoker, Working currently? - No Problems Problem Type SNOMED Code ICD Code Onset Dates Problem Status W/U Status Risk Notes Problem Type II diabetes mellitus without complication (341549467) Type 2 DM (250.00) 2013 Active confirmed [id number]- Problem Solitary nodule of lung (213586053) Lung nodule (518.89) 2014 Active confirmed [id number]- Problem Thyroid function tests abnormal (495371386) Abnormal thyroid findings (794.5) 2013 Active confirmed [id number]- Problem Acute frontal sinusitis (94896998) Acute frontal sinusitis (461.1) 2012 Problem resolved confirmed [id number]- Problem Acute ethmoidal sinusitis (40256513) Acute ethmoidal sinusitis (461.2) 2013 Problem resolved confirmed [id number]- Problem Constipation (32349319) Constipation (564.0) 2008 Problem resolved confirmed [id number]- Problem Female stress incontinence (62748925) Female stress incontinence (625.6) 2009 Problem resolved confirmed [id number]- Problem Edema (767405219) Edema (782.3) 2009 Problem resolved confirmed [id number]- Problem Headache (68350828) Headache (784.0) 092008 Problem resolved confirmed [id number]- Problem Palpitations (22877140) Palpitations (785.1) 2011 Problem resolved confirmed [id number]- Problem Wheezing (80229102) Wheezing (786.07) 2009 Problem resolved confirmed [id number]- Problem Cough (40122502) Cough (786.2) 2009 Problem resolved confirmed [id number]- Problem Dysphagia (09959061) Other dysph agia (787.29) 2014 Problem resolved confirmed [id number]- Problem Renal colic (5913937) Renal colic (788.0) 2013 Problem resolved confirmed [id number]- Problem Dysuria (83908970) Dysuria (788.1) 2013 Problem resolved confirmed [id number]- Problem Proteinuria (97583311) Proteinuria (791.0) 2009 Problem resolved confirmed [id number]- Problem Hiatal hernia (72415989) Hiatal hernia (553.3) 2010 Problem resolved confirmed [id number]- Problem Depression (068146147) Depression (311) 2013 Problem resolved confirmed [id number]- Problem Hypokalemia (60009440) Hypokalemia (276.8) 2014 Problem resolved confirmed [id number]- Problem Low back pain (075081787) Low back pain (724.2) 2009 Problem resolved confirmed [id number]- Problem Fatigue (71851194) Fatigue (780.79) 02/17 Problem resolved confirmed [id number]- Problem Kidney stone (53121554) Kidney stone (592.0) 2014 Problem resolved confirmed [id number]- Problem Vitamin D deficiency (38806276) Vitamin D deficiency (268.9) 2011 Problem resolved confirmed [id number]- Problem Hypercholesterolemia (52447425) Hypercholesterolemia (272.0) 2008 Problem resolved confirmed [id number]- Problem Sleep disturbance (18486051) Insomnia secondary to hot flashes (780.59) 2012 Problem resolved confirmed [id number]- Problem Cholesterol screenin g (353226964) Screening for cholesterol level (V77.91) 2008 Problem resolved confirmed [id number]- Problem Shoulder pain (36942939) Shoulder pain (719.41) 2014 Problem resolved confirmed [id number]- Problem Urinary tract infection (24341796) UTI (599.0) 2014 Problem resolved confirmed [id number]- Problem Candidal vulvovaginitis (42468049) Yeast vaginitis (112.1) 2014 Problem resolved confirmed [id number]- Problem Screening for breast cancer (128524204) Screening for breast cancer (V76.10) 2012 Problem resolved confirmed [id number]- Problem Allergic rhinitis caused by pollen (28993466) Allergies (477.0) 2009 Problem resolved confirmed [id number]- Problem Acute bronchitis (06133545) Bronchitis, acute (466.0) 2013 Problem resolved confirmed [id number]- Problem Disorder of hematopoietic system (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) Other abnormal findings on blood examination (790.99) 2014 Problem resolved confirmed [id number]- Problem Sore throat (977969924) Sore Throat (462) 2014 Problem resolved confirmed [id number]- Problem Acute exacerbation o f chronic obstructive airways disease (347693776) Acute exacerbation of chronic obstructive pulmonary disease (COPD) (491.21) 2012 Problem resolved confirmed [id number]- Problem Tobacco user (191647023) Cigarette smoking (305.1) 2009 Problem resolved confirmed [id number]- Problem Diastolic heart failure (079196503) Diastolic heart failure, unspecified (428.30) 2011 Problem resolved confirmed [id number]- Problem Furuncle (586198658) Furuncle (680.9) 2013 Problem resolved confirmed [id number]- Problem Generalized abdomina l pain (891949821) Generalized abdominal pain (789.07) 2010 Problem resolved confirmed [id number]- Problem Lab: Used to mat ch unlinked laboratory orders (V92) 2013 Problem resolved confirmed [id number]- Problem Impaired fasting glycaemia (853381345) Elevated fasting glucose (790.21) 2012 Problem resolved confirmed [id number]- Problem Hand pain (34192713) Hand pain (729.5) 2011 Problem resolved confirmed [id number]- Problem Insomnia (582213310) Insomnia (307.41) 2008 Problem resolved confirmed [id number]- Problem Precordial pain (64528876) Precordial chest pain (786.51) 2010 Problem resolved confirmed [id number]- Problem Acute maxillary sinusitis (89240194) Acute sinusitis, maxillary (461.0) 2010 Problem resolved confirmed [id number]- Problem Central sleep apnea (01843556) Central sleep apnea (327.21) 2011 Problem resolved confirmed [id number][id number]- Problem Serous otitis media (98855604) Serous otitis media (381.4) 2014 Problem resolved confirmed [id number]- Problem Needs influenza immunization (179573197) Vaccination against other viral diseases, Influenza (V04.81) 2012 Problem resolved confirmed [id number]- Problem Electrocardiogram abnormal (447645512) Abnormal EKG (794.31) 2011 Problem resolved confirmed [id number]- Problem Hormone replacement therapy (027723755) Post-menopausal HRT (V07.4) 2013 Problem resolved confirmed [id number]- Problem Acute otitis media (1668493) Acute otitis media (382.00) 2014 Problem resolved confirmed [id number]- Problem Arterial bruit (74505990) Arterial bruit (785.9) 2011 Problem resolved confirmed [id number][id number]- Problem Anxiety (40415600) Anxiety (300.02) 09/10 Problem resolved confirmed [id number]-[id number]- Problem Migraine with aura (2561324) Classic migraine (346.00) 2009 Problem resolved confirmed [id number]-[id number]- Problem Knee pain (9744287844) Knee pain (719.46) 2008 Problem resolved confirmed [id number]- Problem Acute sinusitis (88777324) Acute sinusitis (461.8) 2008 Problem resolved confirmed [id number]- Problem Gastroesophageal reflux disease (594559838) Acid reflux disease (530.81) 2010 Problem resolved confirmed [id number][id number]- Problem Chest discomfort (309440681) Chest discomfort (786.59) 2012 Problem resolved confirmed [id number]- Problem Dietary management surveillance (310198382) Dietary surveillance/bereavement counselor ing for obesity (V65.3) 2008 Problem resolved confirmed [id number]- Problem Generalized osteoarthritis (732758427) Generalized osteoarthritis (715.09) 2009 Problem resolved confirmed [id number]- Problem Kidney stone (44561262) kidney stones (592.0) 2011 Problem resolved confirmed [id number]-[id number]- Problem Essential hypertension (50029186) Essential hypertension (401.1) 2009 Problem resolved confirmed [id number]-[id number]- Problem Hypertension (39580688) HTN (401.1) 2009 Problem resolved confirmed [id number]-[id number]- Problem Primary hypercholesterolemia (940203601) Primary hypercholesterolemia (272.0) 2008 Problem resolved confirmed [id number]98 [id number]- Problem Tinea versicolor (78379028) Tinea versicolor (111.0) 2008 Problem resolved confirmed [id number]-98 5911- Encounters Encounter Location Date Provider Diagnosis Migrated_Facility 0 0 08/27/2024 Provider Migration Migrated_Facility 0 0 08/28/2024 Provider Migration Plan Of Treatment No Information Medical (General) History Surgical History Surgery Date(Month/Year) section Gallbladder surgery Kidney stone surgery
--- OUTSIDE RECORDS SUMMARY | 2025-07-13 11:57 | XMS_ITS | Encounter Summary ---
Author Organization [facility] Address [address] [place] [address] Care Team Providers Care Manager Of Transportation Name Role Phone Shari Gray DO Primary Care Provider [phone] Encounter Details Date Type Department Care Team (Late st Contact Info) Description 10/29/2018 Ancillary Orders [facility] [address] [place] [address] Shari Gray DO [address] [place] [address] Breast discharge Social History Tobacco Use Types Packs/Day Years Used Date Smoking Tobacco: Every Day Cigarettes 0.5 20 Smokeless Tobacco: Never Alcohol Use Standard Drinks/Week Comments No 0 (1 standard drink = 0.6 oz pur e alcohol) Comments No Sex and Gender Information Value Date Recorded Sex Assigned at Not on file Legal Sex Female 5:35 AM [employer] Gender Identity Not on file Sexual Orientation Not on file Occupation Industry Job Start Date Job End Date Not on file Not on file Not on file Not on file documented as of this encounter Plan of Treatment Not on file documented as of this encounter Visit Diagnoses Diagnosis Breast discharge Other sign and symptom in breast documented in this encounter Care Teams Manager Of Transportation Relationship Specialty Start Date End Date Shari Gray DO [address] [place] [address] PCP - General Family Practice 06/30/17 documented as of this encounter
--- OUTSIDE RECORDS SUMMARY | 2025-07-13 11:57 | XMS_ITS | Encounter Summary ---
Author Organization [facility] Address [address] 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
--- OUTSIDE RECORDS SUMMARY | 2025-07-13 11:57 | XMS_ITS | Encounter Summary ---
Author Organization [facility] Address [address] [place] [address] Care Team Providers Care Equipment Washer Name Role Phone Shari Gray Primary Care Provider Encounter Details Date Type Department Care Team (Late st Contact Info) Description 01/28/2006 Inpatient Historical HIS IN BED Dominic Tyler MD NO ADDRESS ON FILE Calculus of Ureter (Primary Dx) Social History Tobacco Use Types Packs/Day Years Used Date Smoking Tobacco: Never Assessed Comments Unknown Sex and Gender Information Value Date Recorded Sex Assigned at Not on file Legal Sex Female 5:35 AM ADVISOR TO COMMAND IN COMBAT Gender Identity Not on file Sexual Orientation Not on file documented as of this encounter Plan of Treatment Not on file documented as of this encounter Procedures Procedure Name Priority Date/Time Associated Diagnosis Comments CT URINARY CALCULI WO CONTRAST Routine 01/28/2006 12:01 AM ADVISOR TO COMMAND IN COMBAT XR ABDOMEN 1 VW Routine 01/28/2006 12:01 AM ADVISOR TO COMMAND IN COMBAT CBC WITH DIFFERENTIAL Routine 01/27/2006 8:41 PM ADVISOR TO COMMAND IN COMBAT LIPASE Routine 01/27/2006 8:41 PM ADVISOR TO COMMAND IN COMBAT COMPREHENSIVE METABOLIC PANEL Routine 01/27/2006 8:41 PM ADVISOR TO COMMAND IN COMBAT URINALYSIS MICROSCOPY ONLY Routine 01/27/2006 7:57 PM ADVISOR TO COMMAND IN COMBAT documented in this encounter Results * XR ABDOMEN 1 VW (01/28/2006 12:01 AM ADVISOR TO COMMAND IN COMBAT) Anatomical Region Laterality Modality Abdomen Other 01/28/2006 12:0 1 AM ADVISOR TO COMMAND IN COMBAT Narrative 01/28/2006 12:01 AM ADVISOR TO COMMAND IN COMBAT KUB 01/27/2006 HISTORY: Left flank pain. The abdominal gas pattern is nonspecific. There is no organomegaly. The psoas margins are well delineated. There are no identified renal stones. There is a 2 mm diameter calcification inferior to the left SI joint. There is a small calcification overlying the superior left side of the pubic symphysis. The bones appear intact. The SI joints are neither fused nor widened. The pelvis is slightly rotated. There is at least right protrusio acetabulum. There is probable also mild left protrusio. There is a probable hiatal hernia. IMPRESSION: 2 mm diameter calcification inferior to the left SI joint. Although this may be vascular, a ureteral stone is possible. Calcification overlying the superior left side of the pubic symphysis, unlikely to be within the urinary tract. Probable hiatal hernia. Right and probably also left protrusio acetabuli. RLS Dictated By: Pam Espino M.D. Electronically Signed By: Pam Espino M.D. Date Signed: 01/28/06 Procedure Note 09/21/2009 KUB 01/27/2006 HISTORY: Left flank pain. The abdominal gas pattern is nonspecific. There is no organomegaly. Thepsoas margins are well delineated. There are no identified renal stones. There is a 2 mmdiameter calcification inferior to the left SI joint. There is a small calcification overlying the superiorleft side of the pubic symphysis. The bones appear intact. The SI joints are neither fused norwidened. The pelvis is slightly rotated. There is at least right protrusio acetabulum. There isprobable also mild left protrusio. There is a probable hiatal hernia. IMPRESSION: 2 mm diameter calcification inferior to the left SI joint. Althoughthis may be vascular, a ureteral stone is possible. Calcification overlying the superior left side of thepubic symphysis, unlikely to be within the urinary tract. Probable hiatal hernia. Right and probablyalso left protrusio acetabuli. RLS Dictated By: Pam Espino M.D. Electronically Signed By: Pam Espino M.D. Date Signed: 01/28/06 RM Jose Goodman DIAGNOSTIC IMAGING ORDERABLES Fi nal Result * CT RENAL COLIC WO CONT (01/28/2006 12:01 AM ADVISOR TO COMMAND IN COMBAT) Anatomical Region Laterality Modality Abdomen Other 01/28/2006 12:0 1 AM ADVISOR TO COMMAND IN COMBAT Narrative 01/28/2006 12:01 AM ADVISOR TO COMMAND IN COMBAT CT RENAL COLIC, 01/27 REASON FOR STUDY: Bilateral flank pain and history of stones. Contiguous noncontrasted images were made throughout the urinary tracts. Several tiny foci of calcification are seen in the pyramids of both kidneys. The left kidney is mildly enlarged and shows mild to moderate hydronephrosis. The ureter is moderately dilated with a stone visualized at the UVJ measuring up to 4 x 6 mm in size. No stones are seen in the bladder or in the right ureter. The pelvis is unremarkable. The peritoneal cavity is grossly normal. Portions of the upper abdomen included on this noncontrast study are grossly normal. IMPRESSION: Bilateral tiny calcifications are seen in the kidneys. Mild to moderate hydronephrosis in the left kidney with mild renal enlargement is apparently secondary to a moderate sized stone at the left UVJ. amh / Dictated By: Joao Albright M.D. Electronically Signed By: Joao Albright M.D. Date Signed: 01/28/06 Procedure Note 09/21/2009 CT RENAL COLIC, 01/27 REASON FOR STUDY: Bilateral flank pain and history of stones. Contiguous noncontrasted images were made throughout the urinary tracts. Several tiny foci of calcification are seen in the pyramids of bothkidneys. The left kidney is mildly enlarged and shows mild to moderate hydronephrosis. The ureter ismoderately dilated with a stone visualized at the UVJ measuring up to 4 x 6 mm in size. No stones areseen in the bladder or in the right ureter. The pelvis is unremarkable. The peritoneal cavity is grossly normal.Portions of the upper abdomen included on this noncontrast study are grossly normal. IMPRESSION: Bilateral tiny calcifications are seen in the kidneys. Mild to moderatehydronephrosis in the left kidney with mild renal enlargement is apparently secondary to a moderatesized stone at the left UVJ. amh / Dictated By: Joao Albright M.D. Electronically Signed By: Joao Albright M.D. Date Signed: 01/28/[address] ORDERABLES Final Result * LIPASE (01/27/2006 8:41 PM ADVISOR TO COMMAND IN COMBAT) LIPASE 17 6 - 51 U/L INTERFACE SYSTEM Comment: As of 05 the [facility] has changed testing methods. The new reference range is 6-51 The old referance range was 23-300 01/27/2006 8:41 PM ADVISOR TO COMMAND IN COMBAT Basilia Blake MD CHEMISTRY ORDERABLES Final Result INTERFACE SYSTEM Refer to clinic/hospital department * (ABNORMAL) COMPREHENSIVE METABOLIC PANEL (01/27/2006 8:41 PM ADVISOR TO COMMAND IN COMBAT) GLUCOSE 85 70 - 110 mg/dL INTERFACE SYSTEM BUN 18(H) 7 - 17 mg/dL INTERFACE SYSTEM CREATININE 0.7 0.7 - 1.2 mg/dL INTERFACE SYSTEM SODIUM 145 136 - 145 mEq/L INTERFACE SYSTEM POTASSIUM 3.4(L) 3.5 - 5.0 mEq/L INTERFACE SYSTEM CHLORIDE 110 95 - 110 mEq/L INTERFACE SYSTEM CO2 28 22 - 32 mmol/l INTERFACE SYSTEM ANION GAP 10 9 - 20 mEq/L INTERFACE SYSTEM OSMOLALITY, CALCULATED 297(H) 275 - 295 mOsm/Kg INTERFACE SYSTEM CALCIUM 8.3(L) 8.4 - 10.5 mg/dL INTERFACE SYSTEM TOTAL PROTEIN 6.2(L) 6.3 - 8.2 g/dL INTERFACE SYSTEM ALBUMIN 3.8 3.5 - 5.0 g/dL INTERFACE SYSTEM GLOBULIN (CALC) 2.4 2.4 - 3.9 g/dL INTERFACE SYSTEM ALBUMIN/GLOBULIN RATIO 1.6 1.0 - 2.3 INTERFACE SYSTEM ALKALINE PHOSPHATASE 43 25 - 100 U/L INTERFACE SYSTEM Comment: As of 05 the [facility] has changed testing methods. The new reference range is 25-100 The old referance range was 38-126 AST 23 8 - 33 U/L INTERFACE SYSTEM Comment: As of 05 the [facility] has changed testing methods. The new reference range is 8-33 The old referance range was Males 17-59 Females 14-36 ALT 25 4 - 36 IU/L INTERFACE SYSTEM Comment: As of 05 the [facility] has changed testing methods. The new reference range is 4-36 The old referance range was Males 21-72 Females 9-52 BILIRUBIN TOTAL 0.3 0.3 - 1.2 mg/dL INTERFACE SYSTEM Comment: As of 05 the [facility] has changed testing methods. The new reference range is 0.3-1.2 The old referance range was 0.2-1.4 01/27/2006 8:41 PM ADVISOR TO COMMAND IN COMBAT Basilia Blake MD CHEMISTRY ORDERABLES Final Result INTERFACE SYSTEM Refer to clinic/hospital department * (ABNORMAL) CBC WITH DIFFERENTIAL (01/27/2006 8:41 PM ADVISOR TO COMMAND IN COMBAT) WBC 8.3 4.5 - 11.0 K/ul INTERFACE SYSTEM RBC 3.54(L) 4.20 - 5.40 Mil/ul INTERFACE SYSTEM HEMOGLOBIN 11.6(L) 12.0 - 16.0 g/dL INTERFACE SYSTEM HEMATOCRIT 33.7(L) 36.0 - 46.0 % INTERFACE SYSTEM MCV 95.2 84.0 - 103.0 Fl INTERFACE SYSTEM MCH 32.8 27.0 - 34.0 pg INTERFACE SYSTEM MCHC 34.4 30.0 - 35.0 g/dL INTERFACE SYSTEM RDW 13.1 11.0 - 14.5 % INTERFACE SYSTEM PLATELETS 256 140 - 440 K/ul INTERFACE SYSTEM MPV 9.2 8.9 - 12.8 Fl INTERFACE SYSTEM NEUTROPHILS 55.2 42.2 - 75.2 % INTERFACE SYSTEM LYMPHOCYTES 33.4 24.0 - 44.0 % INTERFACE SYSTEM MONOCYTES 8.2 2.0 - 10.0 % INTERFACE SYSTEM EOSINOPHILS 2.8 0.0 - 7.0 % INTERFACE SYSTEM BASOPHILS 0.4 0.0 - 1.0 % INTERFACE SYSTEM NEUTROPHIL ABSOLUTE 4.6 2.0 - 8.0 K/uL INTERFACE SYSTEM LYMPHOCYTE ABSOLUTE 2.8 1.2 - 4.0 K/ul INTERFACE SYSTEM MONOCYTE ABSOLUTE 0.7(H) 0.1 - 0.6 K/ul INTERFACE SYSTEM EOSINOPHIL ABSOLUTE 0.2 0.0 - 0.7 K/ul INTERFACE SYSTEM BASOPHILS ABSOLUTE 0.0 0.0 - 0.2 K/ul INTERFACE SYSTEM 01/27/2006 8:41 PM ADVISOR TO COMMAND IN COMBAT us Basilia Blake MD HEMATOLOGY ORDERABLES Melissa l Result INTERFACE SYSTEM Refer to clinic/hospital department * (ABNORMAL) URINALYSIS MICROSCOPY ONLY (01/27/2006 7:57 PM ADVISOR TO COMMAND IN COMBAT) WBC URINE None Seen 0 - 2 INTERFACE SYSTEM RBC UA 16-25(A) 0 - 2 INTERFACE SYSTEM HYALINE CAST None Seen 0 - 2 INTERFA CE SYSTEM BACTERIA UA None Seen None Seen INTERFAC E SYSTEM 01/27/2006 7:57 PM ADVISOR TO COMMAND IN COMBAT us Basilia Blake MD URINE ORDERABLES Final Res ult Performing Organization Address City/[facility]/ZIP Co de Phone Number INTERFACE SYSTEM Refer to clinic/hospital department documented in this encounter Visit Diagnoses Diagnosis Calculus of ureter- Primary documented in this encounter Care Teams Equipment Washer Relationship Specialty Start Date End Date Shari Gray DO [address] [place] [address] PCP - General Family Practice 06/30/17 documented as of this encounter
--- OUTSIDE RECORDS SUMMARY | 2025-07-13 11:57 | XMS_ITS | Encounter Summary ---
Author Organization [facility] Address [address] [place] [address] Care Team Providers Care Table Keeper Name Role Phone Shari Gray DO Primary Care Provider [phone] Encounter Details Date Type Department Care Team (Latest Contact Info) Description 02/24/2006 Outpatient Historical [facility] [place] [address] [address] [place] [id number] Dominic Tyler MD NO ADDRESS ON FILE Unspecified Urinary Calculus (Primary Dx) Social History Tobacco Use Types Packs/Day Years Used Date Smoking Tobacco: Never Assessed Comments Unknown Sex and Gender Information Value Date Recorded Sex Assigned at Not on file Legal Sex Female 5:35 AM RE DYE HAND Gender Identity Not on file Sexual Orientation Not on file documented as of this encounter Plan of Treatment Not on file documented as of this encounter Visit Diagnoses Diagnosis Urinary calculus, unspecified- Primary documented in this encounter Care Teams Table Keeper Relationship Specialty Start Date End Date Shari Gray DO [address] [place] [address] PCP - General Family Practice 06/30/17 documented as of this encounter
--- OUTSIDE RECORDS SUMMARY | 2025-07-13 11:58 | XMS_ITS | Clinical Summary ---
Author Organization [facility] Address [address] [place] [address] Care Team Providers Care Gas Appliance Installer Name Role Phone MarinaShari fischer Primary Care Provider Allergies Active Allergy Reactions Criticality Noted Date Comments Ketorolac Tromethamine Rash Low 05/12/2016 Simvastatin Nausea and Vomiting Low 05/12/2016 Telithromycin Rash Low 05/08/2009 Medications NEBULIZER ACCESSORIES (NEBULIZER MISC) Take by inhalation. Albuterol nebulizer prn Active acetaminophen (TYLENOL) 500 mg tablet Take 1,000 mg by mouth every 6 hours as needed. Active albuterol (PROVENTIL,SAADIA TANESHA) 2.5 mg /3 mL (0.083 %) Solution for Nebulization INHALE THE CONTENTS OF 1 VIAL BY MOUTH VIA NEBULIZER EVERY 6 HOURS NEEDED FOR SHORTNESS OF BREATH 150 mL 3 02/02/20 20 Active Nebulizer Accessories Kit Take by inhalation. Albuterol nebulizer prn 1 Kit 02/06/20 20 Active cpap medical reception specialist CPAP @ 07/15 cwp with heated humidifier. Length of need:99 months; full face mask with headgear every 6 months; mask only every 3 months; 1 cushions per month; Tubing heated 1 every 3 months, water chamber 1 every 6 months, chin strap 1 every 6 months, filters disposable 2 per month, filters reusable 1 per 6 months. 1 Each 02/06/20 20 Active CPAP / BIPAP suppliesIndicati ons:BRAYDON on CPAP Length of need: 99 months Mask Type: full face with headgear every 6 months, mask only every 3 months,1 cushions per month. Tubing: heated 1 every 3 months, water chamber 1 every 6 months, chin strap 1 every 6 months, filters disposable 2 per month, filters reusable 1 per 6 Months. HOME medical [place] 1 Each 02/06/20 20 Active cpap medical deviceIndication s:BRAYDON on CPAP CPAP @ 11 cwp with heated humidifier. Length of need:99 months; full face mask with headgear every 6 months; mask only every 3 months; 1 cushions per month; Tubing heated 1 every 3 months, water chamber 1 every 6 months, chin strap 1 every 6 months, filters disposable 2 per month, filters reusable 1 per 6 months. 1 Each 03/06/20 20 Active atorvastatin (LIPITOR) 20 mg tablet TAKE 1 TABLET BY MOUTH DAILY WITH SUPPER 90 Tablet 4 05/13/20 20 Active omeprazole (PriLOSEC) 40 mg Capsule, Delayed Release(E.C.)Ind ications:Gastroe sophageal reflux disease without esophagitis TAKE 1 CAPSULE EVERY DAY 90 Capsule 3 06/04/20 20 Active fluconazole (Diflucan) 100 mg tabletIndication s:Vaginal candidiasis Take 1 Tablet (100 mg) by mouth daily. 3 Tablet 1 10/16/20 20 Active QUEtiapine (SEROquel) 100 mg tabletIndication s:Major depressive disorder, recurrent, in full remission with anxious distress,General ized anxiety disorder TAKE 1 TABLET BY MOUTH TWICE A DAY 180 Tablet 2 10/23/20 20 Active Symbicort 160-4.5 mcg/actuation HFA Aerosol InhalerIndicatio ns:Chronic obstructive pulmonary disease with acute exacerbation (CMS/HCC) TAKE 2 PUFFS BY MOUTH TWICE A DAY 30.6 Gram 6 11/18/19 21 Active albuterol HFA 90 mcg inhalerIndicatio ns:Chronic obstructive pulmonary disease with acute exacerbation (CMS/HCC) INHALE 2 PUFFS EVERY SIX HOURS NEEDED FOR SHORTNESS OF BREATH . 8.5 Gram 6 12/24/19 21 Active aspirin (ECOTRIN EC) 81 mg Tablet, Delayed Release (E.C.) Take 81 mg by mouth daily. Active nicotine (NICODERM CQ) 14 mg/24 hr patch Apply 1 Patch to skin as directed every 24 hours. Active nicotine polacrilex (NICORETTE) 2 mg Gum 2 mg by See Admin Instructions route see administration instructions. Active metoprolol tartrate (LOPRESSOR) 25 mg tablet Take 12.5 mg by mouth 2 times daily. Active apixaban (Eliquis) 5 mg tabletIndication s:Bilateral pulmonary embolism (CMS/HCC) Take 1 Tablet (5 mg) by mouth 2 times daily. 60 Tablet 5 03/04/20 21 Active Active Problems Problem Noted Date Diagnosed Date BRAYDON on CPAP 01/26/2018 Carpal tunnel syndrome, bilateral 08/11/2012 Spondylolisthesis 11/15/2010 DDD (degenerative disc disease), lumbar 11/15/19 11 COPD (chronic obstructive pulmonary disease) 12/2009 Overview (10/04/2010): Moderate. Tobacco use disorder 10/04/2010 Unspecified essential hypertension 10/04/2010 Hyperlipidemia unspecified 10/04/2010 Obese 10/04/2010 Female stress incontinence 10/04/2010 Atelectasis 10/04/2010 Lung nodules 10/04/2010 Cough 10/04/2010 Immunizations Immunization Administration Dates Next Due (ADACEL/BOOSTRIX)(10 YR UP) TDAP VACCINE, 0.5ML, IM 06/30/2017 (PNEUMOVAX 23)(50 YRS UP) PN EUMOCOCCAL POLYSACCHARIDE (PPV23) 0.5 ML, IM 01/18/2021 Family History Medical History Relation Name Comments Breast Cancer Maternal Grandmother over 5 0-pos responses-see media tab Depression Mother Diabetes Mother Heart Disease Mother High Cholesterol Mother Hypertension Mother Breast Cancer Paternal Aunt 1 late 30s ea rly 40s Ovarian Cancer Paternal Aunt 1 Cancer Paternal Aunt 2 3 pat aunts Cancer Paternal Cousin 2 pat cousin s Depression Sister 1 Diabetes Sister 1 High Cholesterol Sister 1 Hypertension Sister 1 Kidney Disease Sister 1 Relation Name Status Comments Brother Alive Father Maternal Grandmother Mother Paternal Aunt 1 Paternal Aunt 2 Paternal Cousin Sister 1 Alive Sister 2 Alive Social History Tobacco Use Types Packs/Day Years Used Date Smoking Tobacco: Every Day Cigarettes 0.5 20 Smokeless Tobacco: Never Tobacco Cessation:Ready to Q uit: No Alcohol Use Standard Drinks/Week Comments Yes 1 (1 standard drink = 0.6 oz pur e alcohol) rarely Comments No Sex and Gender Information Value Date Recorded Sex Assigned at Not on file Legal Sex Female 5:35 AM TRACER POWDER BLENDER Gender Identity Not on file Sexual Orientation Not on file Occupation Industry Job Start Date Job End Date Not on file Not on file Not on file Not on file Last Filed Vital Signs Vital Sign Reading Time Taken Comments Blood Pressure 139/82 01/18/2021 8:10 AM CDT Pulse 87 01/18/2021 8:10 AM CDT Temperature 35.6 C (96.1 F) 01/18/2021 8:10 AM CDT Respiratory Rate 18 10/16/2020 11:38 AM TRACER POWDER BLENDER Oxygen Saturation 99% 01/18/2021 8:10 AM CDT Inhaled Oxygen Concentration - - Weight 91.6 kg (202 lb) 01/18/2021 8:10 AM CDT Height 175.3 cm (5' 9 ) 01/18/2021 8:10 AM CDT Body Mass Index 29.83 01/18/2021 8:10 AM CDT Plan of Treatment Health Maintenance Due Date Last Done Comments FIT/ DNA Q 3 YEARS (AUTO ORDER) 1985 FIT/FOBT Q 1 YEAR (AUTO ORDER) 1985 FLEX SIG/CT COLONOGRAPHY Q 5 YEARS (AUTO ORDER) 1984 HEPATITIS B VACCINES (1 of 3 - 19+ 3-dose series) 12/1985 HPV/Cotest (21-29) 1988 CERVICAL CANCER SCREENING 1997 HPV/Cotest (30-65) 1997 PAP SMEAR 1997 COLORECTAL CANCER SCREENING (AUTO ORDER) 2012 COLORECTAL SCREENING 2012 Colorectal Cancer Screening (AUTO ORDER) 2012 Colorectal Cancer Screening 2012 FIT-DNA Q 3 years 2012 FIT/FOBT Q 1 year 2012 Flex Sig/CT Colonography Q 5 years 2012 ZOSTER VACCINE (1 of 2) 2017 BREAST CANCER SCREENING 10/29/2019 10/29/2018 Traditional Medicare (ACO) Annual Wellness Visit 12/2012/19/2020 INFLUENZA VACCINE (#1) 2025 01/23/2018 DTAP/TDAP/TD VACCINES (2 - Td or Tdap) 06/30/2027 Medical Devices Implanted Type Area Spectrograph Operator Device Identifier Shelf Expiration Date Model / Serial / Lot Stent Contour [id number] - [id number] Implanted:Qty: 1 on 11/12/2018 by Raheem Shah MD at [facility] Stent Right: Ureter [employer]- UROLOGY/RETAIL SERVICE SPECIALIST 08/31/2021 [id number] / / [id number] Description:String intact Procedures Procedure Name Priority Date/Time Associated Diagnosis Comments MAMMO DIAGNOSTIC BILATERAL W OR WO CAD Routine 10/29/2018 11:48 AM TRACER POWDER BLENDER Breast discharge from Last 3 Months or Most Recently Relevant to Health Maintenance Results * MAMMO DIAGNOSTIC BILATERAL W OR WO CAD (10/29/2018 11:48 AM TRACER POWDER BLENDER) Anatomical Region Laterality Modality Breast Bilateral Mammography 10/29/2018 11:4 8 AM TRACER POWDER BLENDER Impressions 10/29/2018 1:45 PM TRACER POWDER BLENDER : Mammogram shows a suspected new nodule on the right which will require ultrasound. In addition, because of the historical nipple discharge bilaterally, ultrasound of the nipple and subareolar areas will be required. However, the patient left the department before these could be performed today. Therefore this evaluation is incomplete. I would recommend she be scheduled for bilateral breast ultrasound to complete the evaluation. Patient received a result/recommendation letter. [id number] Narrative 10/29/2018 1:45 PM TRACER POWDER BLENDER Bilateral Digital Diagnostic Mammogram: Repeat examination on this 53-year-old female is compared with previous 11/23/2013, 02/16/2012, 02/12/2011, and 12/15 2007. She presents today with 6 year history of bilateral green nipple discharge. Breast tissue is of average density. Left side appears unremarkable and stable. There is a suspected 10 mm ovoid nodule just inferior and lateral from the midportion of the left breast, mid depth. This may represent a benign intramammary lymph node but will require additional evaluation. No other abnormality or change on either side is seen, with special attention to the subareolar areas. This digital mammogram was also analyzed by the Computer Aided Detection System (CAD), Pathfinder App ImageChecker, Version 8.3. Ultrasound is necessary to evaluate the nodule on the right and the subareolar areas bilaterally, because of the nipple discharge reported by history. However, the patient left before the ultrasound examination could be performed. Shari Gray DO MAMMO ORDERABLES Final Resu lt from Last 3 Months or Most Recently Relevant to Health Maintenance Insurance MEDICARE PART A [place] B [place] Advance Directives For more information, please contact: [phone] * Full Code (Latest Code Status on File) Date Activated Date Inactivated Comments 11/12/2018 8:41 AM 11/12/2018 11:35 AM * Full Code Date Activated Date Inactivated Comments 11/12/2018 7:55 AM 11/12/2018 8:41 AM * Full Code Date Activated Date Inactivated Comments 09/09/2012 11:13 AM 09/10/2012 2:01 AM * Full Code Date Activated Date Inactivated Comments 09/09/2012 10:58 AM 09/09/2012 11:13 AM * Full Code Date Activated Date Inactivated Comments 08/26/2012 10:03 AM 08/27/2012 2:02 AM Care Teams Gas Appliance Installer Relationship Specialty Start Date End Date Shari Gray DO [address] [place] [address] PCP - General Family Practice 06/30/17
--- OUTSIDE RECORDS SUMMARY | 2025-07-13 11:58 | XMS_ITS | Patient Health Record ---
Author Organization [facility] Address [address] [place] [address] Care Team Providers Care [employer] Grade Teacher Name Role Phone EDUARDO RAINES [phone] Allergies Allergen (clinical drug ingredient) Drug/Non Drug Allergy documented on EMR Reaction Allergy Type Onset Date Status ketorolac Ketorolac Tromethamine hives Drug Allergy Active simvastatin Simvastatin vomiting Drug Allergy Act anny Reason For Referral No Information Medications Medication SIG (Take, Route, Frequency, Duration) Notes Start Date End Date Status Azithromycin 250 MG 2 tablets on day one , then 1 tablet daily on days 2-5 Orally Once a day with food; Duration: 5 days 10/13/2024 Active Benzonatate 200 MG 1 capsule as needed Orally Three times a day; Duration: 10 days 10/13/2024 Active Albuterol Sulfate HFA 108 (90 Base) MCG/ACT 2 puffs as needed Inhalation every 4 hrs; Duration: 30 days 10/13/2024 Active predniSONE 20 MG 1 tablet Orally Once a day; Duration: 5 days 10/13/2024 Active Albuterol Sulfate HFA 108 (90 Base) MCG/ACT Inhalation; Duration: 16 Days Active Social History Tobacco Use: Social History Observation Description Date Details (start date - stop date) Current Smoker NA - NA Tobacco Control (Standard) Question Answer Notes Tobacco use: Current smoker Problems Problem Type SNOMED Code ICD Code Onset Dates Problem Status W/U Status Risk Notes Problem Exacerbation of asthma (001324087) Exacerbation of asthma, unspecified asthma severity, unspecified whether persistent (J45.901) Active confirmed Vital Signs Height 69 in 10/13/2024 Patient Reported Normal Blood Pressure Patient Reported High Temperature Weight 180 lbs 10/13/2024 Patient Reported Normal Blood Pressure Patient Reported High Temperature BMI 26.58 kg/m2 10/13/2024 Patient Reported Normal Blood Pressure Patient Reported High Temperature Encounters Encounter Location Date Provider Diagnosis [facility] [address] [place] [address] 10/13/2024 EDUARDO RAINES Exacerbation of asthma, unspecified asthma severity, unspecified whether persistent J45.901 Assessments Encounter Date Diagnosis (ICD Code) Assessment Notes Treatment Notes Treatment Clinical Notes Section Notes 10/13/2024 Exacerbation of asthma, unspecified asthma severity, unspecified whether persistent (ICD-10 - J45.901) TREATMENT PLAN Patient presents with a history of asthma. Details and history of asthma severity are not known thoroughly, and details of daily, weekly, and monthly usage of rescue inhaler are limited to what has been provided by the patient. Symptoms provided to our service by the patient do not meet criteria for severe exacerbation of asthma, therefor treatment can be provided in a limited manner by our service until the patient can be seen by primary provider. 1. We will prescribe inhaled albuterol sulfate - either in handheld inhaler form or nebulizer solution. This can be used every 4-6 hours as needed for wheezing or shortness of breath. Be aware that if you use this multiple times per day or more than half of the days of the week, you may require further medical therapy for your asthma (inhaled steroids, oral steroids, anti-allergy medications, etc). Albuterol is designed to be a rescue inhaler but not a daily usage medication. 2. If you have provided us information on mild exacerbation symptoms, we can provide a short course of oral steroids. If you have a known trigger, please treat or avoid that trigger (animals, certain environments, seasonal allergies, plants, etc). 3. Please followup with your PCP for your asthma. Consider follow up with a shear operator helper as well. Consider pulmonary function testing.PATIENT EDUCATION Asthma makes it hard for you to breathe. During an asthma attack, the airways swell and narrow. Severe asthma attacks can be dangerous, but you can usually prevent them. Controlling asthma and treating symptoms before they get bad can help you avoid bad attacks. You may also avoid future trips to the doctor. Follow-up care is a coyle part of your treatment and safety. Be sure to make and go to all appointments, and call your doctor if you are having problems. It's also a good idea to know your test results and keep a list of the medicines you take. How can you care for yourself at home? Follow your asthma action plan so you can manage your symptoms at home. An asthma action plan will help you prevent and control airway reactions and will tell you what to do during an asthma attack. If you do not have an asthma action plan, work with your doctor to build one. Take your asthma medicine exactly as prescribed. Medicine plays an important role in controlling asthma. Talk to your doctor right away if you have any questions about what to take and how to take it. Use your quick-relief medicine when you have symptoms of an asthma attack. Some people need to use quick-relief medicine before they exercise to prevent asthma symptoms. Albuterol is a quick-relief medicine that is often used. In some cases, a certain type of controller inhaler is used as a quick-relief medicine. Ask your doctor what to use for quick relief. Take your controller medicine. If you have symptoms often, you will likely need to take it every day. Controller medicine usually includes an inhaled corticosteroid. The goal is to prevent problems before they occur. If your doctor prescribed corticosteroid pills to use during an attack, take them as directed. They may take hours to work, but they may shorten the attack and help you breathe better. Keep your quick-relief medicine with you at all times. Talk to your doctor before using other medicines. Some medicines, such as aspirin, can cause asthma attacks in some people. Check yourself for asthma symptoms to know which step to follow in your action plan. Watch for things like being short of breath, having chest tightness, coughing, and wheezing. Also notice if symptoms wake you up at night or if you get tired quickly when you exercise. If you have a peak flow meter, use it to check how well you are breathing. This can help you predict when an asthma attack is going to occur. Then you can take medicine to prevent the asthma attack or make it less severe. See your doctor regularly. These visits will help you learn more about asthma and what you can do to control it. Your doctor will monitor your treatment to make sure the medicine is helping you. Keep track of your asthma attacks and your treatment. After you have had an attack, write down what triggered it, what helped end it, and any concerns you have about your asthma action plan. Take your diary when you see your doctor. You can then review your asthma action plan and decide if it is working. Do not smoke or allow others to smoke around you. Avoid smoky places. Smoking makes asthma worse. If you need help quitting, talk to your doctor about stop-smoking programs and medicines. These can increase your chances of quitting for good. Learn what triggers an asthma attack for you, and avoid the triggers when you can. Common triggers include colds, smoke, air pollution, dust, pollen, mold, pets, cockroaches, stress, and cold air. Avoid infections such as COVID-19, colds, and the flu. Wash your hands often. Talk to your doctor about getting a pneumococcal vaccine. If you have had one before, ask your doctor if you need a second dose. Get a flu vaccine every fall. Stay up to date on your COVID-19 vaccines. When should you call for help? Call 911 anytime you think you may need emergency care. For example, call if: You have severe trouble breathing. Call your doctor now or seek immediate medical care if: Your symptoms do not get better after you have followed your asthma action plan. You cough up yellow, dark brown, or bloody mucus (sputum). 10/13/2024 Other Follow the treatment plan as indicated by the provider. Take any medications as prescribed. If you have any questions about your prescription, ask the pharmacist. Call 911 anytime you think you may need emergency care. For example, call if:You have severe trouble breathing.You have a seizure.Call your doctor now or seek immediate medical care if:You have trouble breathing.You have a fever with a stiff neck or a severe headache.You have pain or pressure in your chest or belly.You have a fever or cough that returns after getting better.You feel very sleepy, dizzy, or confused.You are not urinating.You have severe muscle pain.You have severe weakness, or you are unsteady.You have medical conditions that are getting worse.Watch closely for changes in your health, and be sure to contact your doctor if:You do not get better as expected.You are having a problem with your medicine. Risks, benefits, and side effects of medications (if any) discussed with patient, who agreed to the treatment plan.Patient's condition was stable at the end of the televisit. Follow-up instructions provided, including:Scheduling next appointmentMonitoring symptomsAdhering to treatment planContacting clinic with concernsPatient understood and agreed to comply with the follow-up plan. Plan Of Treatment No Information Insurance Providers Payer Name Payer Address Payer Phone Subscriber Number Group Number Insured Name Patient Relationship to Insured Coverage Start Date Coverage End Date [facility] [address] [address] [place] [address] [id number] Kush Moore Self - patient is the insured Medical (General) History Medical History History ICD Code Asthma 03/14/1996 Copd 03/03/2000 viral pneumonia (September 2024)
--- OUTSIDE RECORDS SUMMARY | 2025-07-13 11:58 | XMS_ITS | Encounter Summary ---
Author Organization [facility] Address [address] [place] [address] Care Team Providers Care T[employer] Supervisor Name Role Phone Shari Gray DO Primary Care Provider [phone] Reason for Referral * Radiology Services (Routine) - Closed Specialty Diagnoses / Procedures Referred By Myra church Referred To Contact Radiology Diagnoses Inconclusive mammography Procedures MAMMO BREAST US [facility] Shari Gray DO [address] [place] [address] Phone: tel: fax: [facility] [address] [facility] [address] [place] [address] Phone: tel: fax: Referral ID Status Reason Start Date Expiration Date Visits Requested Visits Authorized [id number] Closed Performing Department To Schedule (SGF) 12/06/2018 01/06/2020 1 1 [employer] Encounter Details Date Type Department Care Team (Latest Contact Info) Description 12/06/[address] [facility] [address] [address] Shari Gray DO [address] [place] [address] Inconclusive mammography Social History Tobacco Use Types Packs/Day Years Used Date Smoking Tobacco: Every Day Cigarettes 0.5 20 Smokeless Tobacco: Never Alcohol Use Standard Drinks/Week Comments Yes 1 (1 standard drink = 0.6 oz pur e alcohol) rarely Comments No Sex and Gender Information Value Date Recorded Sex Assigned at Not on file Legal Sex Female 5:35 AM [employer]AC[employer]ARD [employer] Gender Identity Not on file Sexual Orientation Not on file Occupation Industry Job Start Date Job End Date Not on file Not on file Not on file Not on file documented as of this encounter Plan of Treatment Not on file documented as of this encounter Results * MAMMO BREAST US [employer] (12/31/2018 10:55 AM JACQUARD [employer] WE[employer]) Anatomical Region Laterality Modality Bilateral Ultrasound 12/31/2018 10:0 7 AM [employer] Impressions 12/31/2018 10:59 AM [employer]AC[employer]ARD [employer] WE[employer] : Right breast mass on diagnostic mammogram performed 10/29/2018 corresponds to a benign cluster of microcysts. No abnormality visualized within the subareolar region of each breast in this patient with history of bilateral green nipple discharge. This is felt to be physiologic and benign in nature. Recommend annual screening mammography. BI-RADS: 2 Recommendation: Annual screening mammography Recommendation Laterality: Bilateral [id number] Narrative 12/31/2018 10:59 AM JACQUARD [employer] WE[employer] EXAM: MAMMO BREAST [place], 12/31/2018 10:07 AM CLINICAL INDICATIONS: Patient presents for further evaluation of right breast mass. She had her diagnostic mammogram on 10/29/2018, but was unable to stay for ultrasound. At that time, she was being seen for bilateral green nipple discharge. COMPARISON: 10/29/2018, 11/23/2013, 02/16/2012, 02/12/2011. TECHNIQUE: Multiple real-time heredia-scale images of the bilateral breasts are performed. Color Doppler was used to assess vascular flow. FINDINGS: Right breast: A benign cluster of microcysts is present within the 5:00 axis of the right breast, 3 cm from the nipple, measuring up to 0.7 cm. This corresponds to the mammographic finding. Normal fluid-filled ducts are present within the subareolar region of the right breast. There is no mass lesion, architectural distortion or abnormal vascularity seen. Left breast: Normal fluid filled ducts are present within the subareolar region of the left breast. There is no mass lesion, architectural distortion, or abnormal vascularity is seen. us Shari Gray DO MAMMO ORDERABLES Final Resu lt documented in this encounter Visit Diagnoses Diagnosis Inconclusive mammography Inconclusive mammogram Inconclusive mammography Inconclusive mammogram documented in this encounter Care Teams T[employer] Center Supervisor Relationship Specialty Start Date End Date Shari Gray DO [address] [place] [address] PCP - General Family Practice 06/30/17 documented as of this encounter
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
--- OUTSIDE RECORDS SUMMARY | 2025-07-13 11:58 | XMS_ITS | Encounter Summary ---
Author Organization [facility] Address [address] [place] [address] Care Team Providers Care Hand Tacker Name Role Phone Shari Gray DO Primary Care Provider Encounter Details Date Type Department Care Team (Latest Contact Info) Description 11/01/2018 Ancillary Orders [facility] [address] [address] Shari Gray DO [address] [place] [address] Inconclusive mammography Social History Tobacco Use Types Packs/Day Years Used Date Smoking Tobacco: Every Day Cigarettes 0.5 20 Smokeless Tobacco: Never Alcohol Use Standard Drinks/Week Comments No 0 (1 standard drink = 0.6 oz pur e alcohol) Comments No Sex and Gender Information Value Date Recorded Sex Assigned at Not on file Legal Sex Female 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
--- OUTSIDE RECORDS SUMMARY | 2025-07-13 11:58 | XMS_ITS | Encounter Summary ---
[facility] Address [address] [place] [address] Care Team Providers Care Vest Backer Name Role Phone Shari Gray Primary Care Provider Encounter Details Date Type Department Care Team (Late st Contact Info) Description 11/15/2010 Ancillary Orders [facility] [address] [place] [address] Sunny Powell MD NO ADDRESS ON FILE Hip pain Social History Tobacco Use Types Packs/Day Years Used Date Smoking Tobacco: Every Day Cigarettes 0.5 20 Smokeless Tobacco: Never Comments:occasionally Alcohol Use Standard Drinks/Week Comments No 0 (1 standard drink = 0.6 oz pur e alcohol) Comments No Sex and Gender Information Value Date Recorded Sex Assigned at Not on file Legal Sex Female 5:35 AM HIDE SPLITTER Gender Identity Not on file Sexual Orientation Not on file documented as of this encounter Plan of Treatment Not on file documented as of this encounter Results * XR HIP 2+ VW LEFT (11/15/2010 10:12 AM HIDE SPLITTER) Anatomical Region Laterality Modality Lower Extremity Left Computed Radiogr aphy 11/15/2010 9:56 AM HIDE SPLITTER Impressions 11/15/2010 4:14 PM HIDE SPLITTER Impression: Unremarkable study. ekp - uploaded from [employer] Narrative 11/15/2010 4:14 PM HIDE SPLITTER Exam: XR HIP 2+ VW LEFT Date/Time of Exam: Nov 15, 2010 10:12:00 AM History: HIP PAIN. Findings: Two views of the left hip show no displacement of the pericapsular fat pads. Hip joint space, obturator ring are intact. Femoral neck and trabecular structures are intact. Procedure Note Arley Calderón MD - 11/15/2010 Exam: XR HIP 2+ VW LEFT Date/Time of Exam: Nov 15, 2010 10:12:00 AM History: HIP PAIN. Findings: Two views of the left hip show no displacement of the pericapsular fat pads. Hip joint space, obturator ring are intact. Femoral neck and trabecular structures are intact. IMPRESSION Impression: Unremarkable study. ekp - uploaded from [employer] us Sunny Powell MD DIAGNOSTIC IMAGING ORDERABLES Final Result documented in this encounter Visit Diagnoses Diagnosis Hip pain Pain in joint, pelvic region and thigh Hip pain Pain in joint, pelvic region and thigh documented in this encounter Care Teams Vest Backer Relationship Specialty Start Date End Date Shari Gray DO [address] [place] [address] PCP - General Family Practice 06/30/17 documented as of this encounter
--- OUTSIDE RECORDS SUMMARY | 2025-07-13 11:58 | XMS_ITS | Encounter Summary ---
Author Organization [facility] Address [address] [place] [address] Care Team Providers Care Communications Technologist Name Role Phone Shari Gray DO Primary Care Provider Encounter Details Date Type Department Care Team (Latest Contact Info) Description 11/01/2018 Ancillary Orders [facility] [address] [place] [address] Shari Gray DO [address] [place] [address] Inconclusive mammography Social History Tobacco Use Types Packs/Day Years Used Date Smoking Tobacco: Every Day Cigarettes 0.5 20 Smokeless Tobacco: Never Alcohol Use Standard Drinks/Week Comments No 0 (1 standard drink = 0.6 oz pur e alcohol) Comments No Sex and Gender Information Value Date Recorded Sex Assigned at Not on file Legal Sex Female 5:35 AM ROOFING TECHNICIAN Gender Identity Not on file Sexual Orientation Not on file Occupation Industry Job Start Date Job End Date Not on file Not on file Not on file Not on file documented as of this encounter Plan of Treatment Not on file documented as of this encounter Visit Diagnoses Diagnosis Inconclusive mammography Inconclusive mammogram documented in this encounter Care Teams Communications Technologist Relationship Specialty Start Date End Date Shari Gray DO [address] [place] [address] PCP - General Family Practice 06/30/17 documented as of this encounter
--- OUTSIDE RECORDS SUMMARY | 2025-07-13 11:58 | XMS_ITS | Encounter Summary ---
Author Organization [facility] Address [address] [place] [address] Care Team Providers Care International Exchange Coordinator Name Role Phone MarinaShari fischer Annika AMARO Primary Care Provider [phone] Reason for Referral * Radiology Services (Routine) - Closed Specialty Diagnoses / Procedures Referred By Myra church Referred To Contact Diagnoses Other chronic pain Procedures XR FLUORO LESS THAN 1 HOUR Raheem Shah MD Phone: tel: fax: Referral ID Status Reason Start Date Expiration Date Visits Re quested Visits Authorized [id number] Closed 11/12/2018 12/13/2019 1 1 ING MACHINE OPERATOR Encounter Details Date Type Department Care Team (Late st Contact Info) Description 11/12/2018 Ancillary Orders [facility] [place] [address] [place] [id number] Raheem Shah MD [address] [place], [place] [address]A RANDELL OBREGON [phone] Other chronic pain Social History Tobacco Use Types Packs/Day Years Used Date Smoking Tobacco: Every Day Cigarettes 0.5 20 Smokeless Tobacco: Never Alcohol Use Standard Drinks/Week Comments Yes 1 (1 standard drink = 0.6 oz pur e alcohol) rarely Comments No Sex and Gender Information Value Date Recorded Sex Assigned at Not on file Legal Sex Female 5:35 AM PULPING MACHINE OPERATOR Gender Identity Not on file Sexual Orientation Not on file Occupation Industry Job Start Date Job End Date Not on file Not on file Not on file Not on file documented as of this encounter Plan of Treatment Not on file documented as of this encounter Results * XR FLUORO LESS THAN 1 HOUR (11/12/2018 11:45 AM PULPING MACHINE OPERATOR) Narrative 11/12/2018 11:18 PM PULPING MACHINE OPERATOR Order information only. Exam was auto-finalized. us Raheem Shah MD DIAGNOSTIC IMAGING ORDERABL ES Final Result documented in this encounter Visit Diagnoses Diagnosis Other chronic pain Other chronic pain documented in this encounter Care Teams International Exchange Coordinator Relationship Specialty Start Date End Date Shari Gray DO [address] [place] [address] PCP - General Family Practice 06/30/17 documented as of this encounter
--- NOTE | 2025-07-13 17:32 | ECG_ITS ---
[facility]: 2025-07-13 Pat Name: Kush Cruz Department: Room: Gender: Female Black Leather Buffer: : 1965 Requested By: Azalea Roblero Order Number: [id number] Reading MD: FABIANA LU Measurements Intervals [place] Rate: 91 P: 118 IN: 93 QRS: 14 QRSD: 114 T: 20 QT: 360 QTc: 444 Interpretive Statements SINUS RHYTHM WITH SHORT IN INTERVAL INCOMPLETE RIGHT BUNDLE BRANCH BLOCK [90+ ms QRS DURATION, TERMINAL R IN V1/V2, 40+ ms S IN I/aVL/V4/V5/V6] POSSIBLE LATERAL MYOCARDIAL INFARCTION , PROBABLY OLD [30 ms Q WAVE IN I/aVL/V5/V6] Compared to ECG 07/13/2024 09:37:55 Myocardial infarct finding now present T-wave abnormality no longer present Electronically Signed On 07-14-2025 20:19:18 CDT by FABIANA LU [email or web address]
== END 2025-07-13 13:19 | disposition left against medical advice (07) ==
LOC: ER 11:35
PROVIDERS: Emergency Provider Emergency Medicine
DX: Z01.89 Encounter for other specified special examinations (principal); Z53.21 Procedure and treatment not carried out due to patient leaving prior to being seen by health care provider; R06.02 Shortness of breath; R94.31 Abnormal electrocardiogram [ECG] [EKG]
CPT/HCPCS: 71045; 93005

== ENCOUNTER 2025-08-17 15:12 | Emergency (ER) | payer MEDICARE, MEDICAID, SELFPAY ==
[2025-08-17 15:15] VITALS: BP 162/86; PULSE 81; RESP 22; TEMP 36.7; O2SAT 92
--- NOTE | 2025-08-17 15:36 | CTR_ITS ---
PROCEDURE INFORMATION: Exam: CT Abdomen And Pelvis Without Contrast Exam date and time: 08/17/2025 4:44 PM Age: 59 years old Clinical indication: Abdominal pain; Localized; PT arrives by EMS with C/O right flank pain. PT has HX of kidney stones TECHNIQUE: Imaging protocol: Computed tomography of the abdomen and pelvis without contrast. Radiation optimization: All CT scans at this facility use at least one of these dose optimization techniques: automated exposure control; mA and/or kV adjustment per patient size (includes targeted exams where dose is matched to clinical indication); or iterative reconstruction. COMPARISON: CT kidney stone [id number] 05/23/2024 9:46 PM RADIATION DOSE METRICS: Total DLP (mGy-cm): 825.92 FINDINGS: Diaphragm: Large hiatal hernia again noted. Liver: Unchanged 11 mm focus of subcapsular fat in the dome of the right lobe of the liver. No other focal liver lesion. Gallbladder and biliary ducts: Post cholecystectomy. There is no evidence of biliary ductal dilation. Pancreas: The pancreas is normal. No mass. Spleen: The spleen is normal. Adrenal glands: The adrenal glands are normal. Kidneys and ureters: Bilateral intrarenal calculi are again noted, the largest in the left kidney measuring 8 mm and the largest in the right kidney measuring 5 mm. A ureteral calculus is not identified. Severe right hydronephrosis and moderate right hydroureter, without obstructing focus identified. Marked strand-like right perirenal and right periureteral edema. No left hydronephrosis. Stomach and bowel: Bowel caliber is normal. No paracolonic inflammatory changes. Appendix: Normal appendix. Intraperitoneal space: Unremarkable. No free air. No significant fluid collection. Vasculature: Moderate mural calcification of the aorta, without aneurysm. Lymph nodes: Unremarkable. No enlarged lymph nodes. Urinary bladder: No focal wall thickening of the urinary bladder. Reproductive: Previous hysterectomy. No adnexal mass identified. Bones/joints: 9 mm of L5 retrolisthesis relative to L4, unchanged. Severe degenerative facet disease persists at L4-L5. Moderate disc bulges again noted at L4-L5 and L5-S1. Severe spinal stenosis at L4-L5. Large subchondral cysts again noted in the right acetabulum. No suspicious lytic or sclerotic lesions. Soft tissues: Unremarkable. CT/CT kidney stone [id number] IMPRESSION: 1. Severe right hydronephrosis and moderate right hydroureter, without obstructing focus identified. The finding may represent recently passed calculus or noncalcified obstruction. Depending on clinical assessment, further assessment for obstruction could include CT follow-up with delayed intravenous contrast enhancement. 2. Bilateral nephrolithiasis 3. Persistent large hiatal hernia.
[2025-08-17 15:57] LABS: Glucose Urine UA Negative (Normal); Nitrate Urine Positive (Negative); Specific Gravity, Urine 1.019 (1.005-1.030)
[2025-08-17 16:14] LABS: Hematocrit 38.4 % (36-47); Hemoglobin 12.60 g/dL (11.27-16.99); Mean Corpuscular HGB Conc 32.8 g/dL (30-55); Mean Corpuscular Hemoglobin 30.8 pg (27-33); Mean Corpuscular Volume 93.9 fl (85-98); Nucleated Red Blood Cells % 0 %; Platelet Count 214 10^3/cmm (157-399); Red Blood Count 4.09 10^6/uL (3.85-5.65); White Blood Count 11.14 10^3/uL (3.29-11.43)
--- OUTSIDE RECORDS SUMMARY | 2025-08-17 16:16 | XMS_ITS | Encounter Summary ---
Author Organization [facility] Address [address] Lechuga: [place] [address] Care Team Providers Care Checkout Supervisor Name Role Phone Shari Gray DO Primary Care Provider [phone] Encounter Details Date Type Department Care Team (Latest Contact Info) Description 05/09/2002 Emergency Patric Vega MD [address] [place] [address] Social History Tobacco Use Types Packs/Day Years Used Date Smoking Tobacco: Never Assessed Comments Unknown Sex and Gender Information Value Date Recorded Sex Assigned at Not on file Legal Sex Female 5:35 AM HAND I CUTTER Gender Identity Not on file Sexual Orientation Not on file documented as of this encounter Plan of Treatment Not on file documented as of this encounter Visit Diagnoses Not on filedocumented in this encounter Care Teams Checkout Supervisor Relationship Specialty Start Date End Date Shari Gray DO [address] [place] [address] PCP - General Family Practice 06/30/17 documented as of this encounter
--- OUTSIDE RECORDS SUMMARY | 2025-08-17 16:16 | XMS_ITS | Encounter Summary ---
Author Organization [facility] Address [address] [place] [address] Care Team Providers Care Block Breaker Name Role Phone Shari Gray DO Primary Care Provider Encounter Details Date Type Department Care Team (Late st Contact Info) Description 10/29/2018 [facility] [address] [place] [address] Shari Gray DO [address] [place] [address] Breast discharge Social History Tobacco Use Types Packs/Day Years Used Date Smoking Tobacco: Every Day Cigarettes 0.5 20 Smokeless Tobacco: Never Alcohol Use Standard Drinks/Week Comments No 0 (1 standard drink = 0.6 oz pur e alcohol) Comments No Sex and Gender Information Value Date Recorded Sex Assigned at Not on file Legal Sex 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
--- OUTSIDE RECORDS SUMMARY | 2025-08-17 16:17 | XMS_ITS | Clinical Summary ---
Author Organization [facility] Address [address] [place] [address] Care Team Providers Care Concrete Wall Grinder Operator Name Role Phone Unavailable Primary Care Provider [...] 150 mL 3 02/02/20 20 Active cpap medical biller/coder CPAP @ 9/13 cwp with heated humidifier. [...] filters reusable 1 per 6 Months.HOME medical [place] 1 Each 0 02/06/20 20 Active HYDROcodone-acetam inophen (NORCO) 5-325 mg tabletIndications: Acute pyelonephritis Take 1 Tablet by mouth every 4 hours as needed for Pain, Moderate. Max Daily Amount: 6 Tablets 10 Tablet 11/24/19 24 Active naloxone (NARCAN) 4 mg/spray [place], Non-Aerosol EMERGENCY USE ONLY: Administer 1 spray [...] PNEUM OCOCCAL CONJUGATE VACCINE 20-VALENT (PCV20), POLYSACCHARIDE [id number] CONJUGATE, ADJUVANT 0.5 ML (PF) IM 11/24/2023 [...] on file Legal Sex Female 12:55 PM COMMERCIAL REAL ESTATE BROKER Gender Identity Not on file Sexual Orientation Not on file Last Filed Vital Signs Vital Sign Reading Time Taken Comments Blood Pressure 127/62 11/24/2023 7:23 AM COMMERCIAL REAL ESTATE BROKER Pulse 67 11/24/2023 7:23 AM COMMERCIAL REAL ESTATE BROKER Temperature 36.3 C (97.4 F) 11/24/2023 7:23 AM COMMERCIAL REAL ESTATE BROKER Respiratory Rate 17 11/24/2023 7:23 AM COMMERCIAL REAL ESTATE BROKER Oxygen Saturation 93% 11/24/2023 7:23 AM COMMERCIAL REAL ESTATE BROKER Inhaled Oxygen Concentration - - Weight 85.7 kg (189 lb) 11/20/2023 12:30 PM COMMERCIAL REAL ESTATE BROKER Height 175.3 cm (5' 9 ) 11/20/2023 12:30 PM COMMERCIAL REAL ESTATE BROKER Body Mass Index 27.91 11/20/2023 12:30 PM COMMERCIAL REAL ESTATE BROKER Plan of Treatment Health Maintenance Due Date Last Done Comments HEPATITIS B VACCINES (1 of 3 - 19+ 3-dose series) 1986 COLORECTAL SCREENING 2012 Colorectal Cancer Screening 2012 FIT-DNA Q 3 years 2012 FIT/FOBT Q 1 year 2012 Flex Sig/CT Colonography Q 5 years 2012 ZOSTER VACCINE (1 of 2) 2017 BREAST CANCER SCREENING 10/29/2019 10/29/2018, 10/29 INFLUENZA VACCINE (#1) 2025 01/23/2018 DTAP/TDAP/TD VACCINES (2 - Td or Tdap) 06/30/2027 Medical Devices Explanted Type Area Water Restoration Technician Device Identifier Shelf Expiration Date Model / Serial / Lot Stent Contour [id number] - [id number] Implanted:Qty: 1 on 11/12/2018 by Raheem Shah MD Explanted:Qty: 1 on 11/22/2023 by Speedy Nur MD at [facility] Stent Right: Ureter [employer]- UROLOGY/AGILE BUSINESS ANALYST 08/31/2021 [id number] / / [id number] Description:String intact Procedures Procedure Name Priority Date/Time Associated Diagnosis Comments MAMMO DIAGNOSTIC BILATERAL W OR WO CAD Routine 10/29/2018 11:48 AM COMMERCIAL REAL ESTATE BROKER Breast discharge from Last 3 Months or Most Recently Relevant to Health Maintenance Results * MAMMO DIAGNOSTIC BILATERAL W OR WO CAD (10/29/2018 11:48 AM COMMERCIAL REAL ESTATE BROKER) Anatomical Region Laterality Modality Breast Bilateral Other Impressions 10/29/2018 1:44 PM COMMERCIAL REAL ESTATE BROKER : Mammogram shows a suspected new nodule [...] the evaluation. Patient received a result/recommendation letter. [id number] Narrative 10/29/2018 1:44 PM COMMERCIAL REAL ESTATE BROKER Bilateral Digital Diagnostic Mammogram: Repeat examination on [...] by the Computer Aided Detection System (CAD), Servoycker, Version 8.3. Ultrasound is necessary to evaluate [...] by the Computer Aided Detection System (CAD), Mashaloter, Version 8.3. Ultrasound is necessary to evaluate [...] the evaluation. Patient received a result/recommendation letter. [id number] us Shari Gray DO MAMMO ORDERABLES Final Resu lt from Last 3 Months or Most Recently Relevant to Health Maintenance Insurance [place] [address] [address] DUAL COMPLETE PPO [facility] [id number] Advance Directives For more information, please contact: [phone] * Full Code (Latest Code Status on File) Date Activated Date Inactivated Comments 11/22/2023 7:20 AM 11/24/2023 6:21 PM * Full Code Date Activated Date Inactivated Comments 11/20/2023 12:33 PM 11/22/2023 7:20 AM
--- OUTSIDE RECORDS SUMMARY | 2025-08-17 16:17 | XMS_ITS | Encounter Summary ---
Author Organization [facility] Address [address] [place] [address] Care Team Providers Care Mask Inspector Name Role Phone Shari Gray Primary Care Provider Encounter Details Date Type Department Care Team (Late st Contact Info) Description 11/15/2010 Ancillary Orders [facility] [address] [place] [address] Sunny Powell MD NO ADDRESS [...] on file Legal Sex Female 5:35 AM AUTOMOTIVE ELECTRICAL HELPER Gender Identity Not on file Sexual Orientation Not on file documented as of this encounter Plan of Treatment Not on file documented as of this encounter Results * XR HIP 2+ VW LEFT (11/15/2010 10:12 AM AUTOMOTIVE ELECTRICAL HELPER) Anatomical Region Laterality Modality Lower Extremity Left Computed Radiogr aphy 11/15/2010 9:56 AM AUTOMOTIVE ELECTRICAL HELPER Impressions 11/15/2010 4:14 PM AUTOMOTIVE ELECTRICAL HELPER Impression: Unremarkable study. ekp - uploaded from [employer] Narrative 11/15/2010 4:14 PM AUTOMOTIVE ELECTRICAL HELPER Exam: XR HIP 2+ VW LEFT Date/Time [...] Impression: Unremarkable study. ekp - uploaded from [employer] us Sunny Powell MD DIAGNOSTIC IMAGING ORDERABLES Final Result documented in this encounter Visit Diagnoses Diagnosis Hip pain Pain in joint, pelvic region and thigh Hip pain Pain in joint, pelvic region and thigh documented in this encounter Care Teams Mask Inspector Relationship Specialty Start Date End Date Shari Gray DO [address] [place] [address] PCP - General Family Practice 06/30/17 documented as of this encounter
--- OUTSIDE RECORDS SUMMARY | 2025-08-17 16:17 | XMS_ITS | Encounter Summary ---
Author Organization [facility] Address [address] [place] [address] Care Team Providers Care Customer Complaint Service Supervisor Name Role Phone Shari Gray DO Primary Care Provider [phone] Reason for Referral * Radiology Services (Routine) - Closed Specialty Diagnoses / Procedures Referred By Myra church Referred To Contact Radiology Diagnoses Inconclusive mammography Procedures MAMMO BREAST US BILAT LTD Shari Gray DO [address] [place] [address] Phone: tel: fax: [facility] [address] [address] [place] [address] Phone: tel: fax: Referral ID Status Reason Start Date Expiration Date Visits Requested Visits Authorized [id number] Closed Performing Department To Schedule (SGF) 12/06/2018 01/06/2020 1 1 SHOP ESTIMATOR Encounter Details Date Type Department Care Team (Latest Contact Info) Description 12/06/[address] [facility] [address] [address] Shari Gray DO [address] [place] [address] Inconclusive mammography Social History Tobacco Use Types Packs/Day Years Used Date Smoking Tobacco: Every Day Cigarettes 0.5 20 Smokeless Tobacco: Never Alcohol Use Standard Drinks/Week Comments Yes 1 (1 standard drink = 0.6 oz pur e alcohol) rarely Comments No Sex and Gender Information Value Date Recorded Sex Assigned at Not on file Legal Sex Female 5:35 AM BODY SHOP ESTIMATOR Gender Identity Not on file Sexual Orientation Not on file Occupation Industry Job Start Date Job End Date Not on file Not on file Not on file Not on file documented as of this encounter Plan of Treatment Not on file documented as of this encounter Results * MAMMO BREAST US [employer] (12/31/2018 10:55 AM BODY SHOP ESTIMATOR) Anatomical Region Laterality Modality Bilateral Ultrasound 12/31/2018 10:0 7 AM BODY SHOP ESTIMATOR Impressions 12/31/2018 10:59 AM BODY SHOP ESTIMATOR : Right breast mass on diagnostic mammogram performed 10/29/2018 corresponds to a benign cluster of microcysts. No abnormality visualized within the subareolar region of each breast in this patient with history of bilateral green nipple discharge. This is felt to be physiologic and benign in nature. Recommend annual screening mammography. BI-RADS: 2 Recommendation: Annual screening mammography Recommendation Laterality: Bilateral [id number] Narrative 12/31/2018 10:59 AM BODY SHOP ESTIMATOR EXAM: MAMMO BREAST Collusion, 12/31/2018 10:07 AM CLINICAL INDICATIONS: Patient presents [...] mammogram documented in this encounter Care Teams Customer Complaint Service Supervisor Relationship Specialty Start Date End Date Shari Gray DO [address] [place] [address] PCP - General Family Practice 06/30/17 documented as of this encounter
--- OUTSIDE RECORDS SUMMARY | 2025-08-17 16:17 | XMS_ITS | Encounter Summary ---
Author Organization [facility] Address [address] [place] [address] Care Team Providers Care Floor Specialist Name Role Phone Shari Gray Primary Care Provider [phone] Encounter Details Date Type Department Care Team (Late st Contact Info) Description 01/28/2006 Inpatient Historical [facility] IN BED Dominic Tyler MD NO ADDRESS ON FILE Calculus of Ureter (Primary Dx) Social History Tobacco Use Types Packs/Day Years Used Date Smoking Tobacco: Never Assessed Comments Unknown Sex and Gender Information Value Date Recorded Sex Assigned at Not on file Legal Sex Female 5:35 AM PRIZER HAND Gender Identity Not on file Sexual Orientation Not on file documented as of this encounter Plan of Treatment Not on file documented as of this encounter Procedures Procedure Name Priority Date/Time Associated Diagnosis Comments CT URINARY CALCULI WO CONTRAST Routine 01/28/2006 12:01 AM PRIZER HAND XR ABDOMEN 1 VW Routine 01/28/2006 12:01 AM PRIZER HAND CBC WITH DIFFERENTIAL Routine 01/27/2006 8:41 PM PRIZER HAND LIPASE Routine 01/27/2006 8:41 PM PRIZER HAND COMPREHENSIVE METABOLIC PANEL Routine 01/27/2006 8:41 PM PRIZER HAND URINALYSIS MICROSCOPY ONLY Routine 01/27/2006 7:57 PM PRIZER HAND documented in this encounter Results * XR ABDOMEN 1 VW (01/28/2006 12:01 AM PRIZER HAND) Anatomical Region Laterality Modality Abdomen Other 01/28/2006 12:0 1 AM PRIZER HAND Narrative 01/28/2006 12:01 AM PRIZER HAND KUB 01/27/2006 HISTORY: Left flank pain. The [...] RENAL COLIC WO CONT (01/28/2006 12:01 AM PRIZER HAND) Anatomical Region Laterality Modality Abdomen Other 01/28/2006 12:0 1 AM PRIZER HAND Narrative 01/28/2006 12:[address] RENAL COLIC, 01/27 REASON FOR STUDY: [...] Final Result * LIPASE (01/27/2006 8:41 PM PRIZER HAND) LIPASE 17 6 - 51 U/L INTERFACE SYSTEM Comment: As of 05 the [facility] has changed testing methods. The new reference range is 6-51 The old referance range was 23-300 01/27/2006 8:41 PM PRIZER HAND Basilia Blake MD CHEMISTRY ORDERABLES Final Result INTERFACE SYSTEM Refer to clinic/hospital department * (ABNORMAL) COMPREHENSIVE METABOLIC PANEL (01/27/2006 8:41 PM PRIZER HAND) GLUCOSE 85 70 - 110 mg/dL INTERFACE [...] INTERFACE SYSTEM Comment: As of 05 the [facility] has changed testing methods. The new reference range is 25-100 The old referance range was 38-126 AST 23 8 - 33 U/L INTERFACE SYSTEM Comment: As of 05 the [facility] has changed testing methods. The new reference range is 8-33 The old referance range was Males 17-59 Females 14-36 ALT 25 4 - 36 IU/L INTERFACE SYSTEM Comment: As of 05 the [facility] has changed testing methods. The new reference range is 4-36 The old referance range was Males 21-72 Females 9-52 BILIRUBIN TOTAL 0.3 0.3 - 1.2 mg/dL INTERFACE SYSTEM Comment: As of [address] [facility] has changed testing methods. The new reference range is 0.3-1.2 The old referance range was 0.2-1.4 01/27/2006 8:41 PM PRIZER HAND Basilia Blake MD CHEMISTRY ORDERABLES Final Result INTERFACE SYSTEM Refer to clinic/hospital department * (ABNORMAL) CBC WITH DIFFERENTIAL (01/27/2006 8:41 PM PRIZER HAND) WBC 8.3 4.5 - 11.0 K/ul INTERFACE [...] 0.2 K/ul INTERFACE SYSTEM 01/27/2006 8:41 PM PRIZER HAND us Basilia Blake MD HEMATOLOGY ORDERABLES Melissa l Result INTERFACE SYSTEM Refer to clinic/hospital department * (ABNORMAL) URINALYSIS MICROSCOPY ONLY (01/27/2006 7:57 PM PRIZER HAND) WBC URINE None Seen 0 - 2 INTERFACE SYSTEM RBC UA 16-25(A) 0 - 2 INTERFACE SYSTEM HYALINE CAST None Seen 0 - 2 INTERFA CE SYSTEM BACTERIA UA None Seen None Seen INTERFAC E SYSTEM 01/27/2006 7:57 PM PRIZER HAND us Basilia Blake MD URINE ORDERABLES Final Res ult Performing Organization Address City/[facility]/ZIP Co de Phone Number INTERFACE SYSTEM Refer to clinic/hospital department documented in this encounter Visit Diagnoses Diagnosis Calculus of ureter- Primary documented in this encounter Care Teams Floor Specialist Relationship Specialty Start Date End Date Shari Gray DO [address] [place] [address] PCP - General Family Practice 06/30/17 documented as of this encounter
--- OUTSIDE RECORDS SUMMARY | 2025-08-17 16:17 | XMS_ITS | Encounter Summary ---
Author Organization [facility] Address [address] [place] [address] Care Team Providers Care Cemetery Worker Name Role Phone Shari Gray DO Primary Care Provider [phone] Encounter Details Date Type Department Care Team (Latest Contact Info) Description 02/24/2006 Outpatient Historical [facility] [place] [address] [address] [facility] [address] [place] [address] Dominic Tyler MD NO ADDRESS ON FILE Unspecified Urinary Calculus (Primary Dx) Social History Tobacco Use Types Packs/Day Years Used Date Smoking Tobacco: Never Assessed Comments Unknown Sex and Gender Information Value Date Recorded Sex Assigned at Not on file Legal Sex Female 5:35 AM PERSONNEL TRAINING OFFICER Gender Identity Not on file Sexual Orientation Not on file documented as of this encounter Plan of Treatment Not on file documented as of this encounter Visit Diagnoses Diagnosis Urinary calculus, unspecified- Primary documented in this encounter Care Teams Cemetery Worker Relationship Specialty Start Date End Date Shari Gray DO [address] [place] [address] PCP - General Family Practice 06/30/17 documented as of this encounter
--- OUTSIDE RECORDS SUMMARY | 2025-08-17 16:17 | XMS_ITS | Clinical Summary ---
Author Organization [facility] Address [address] [place] [address] Care Team Providers Care Machine Cutter Name Role Phone MarinaShari fischer Primary Care [...] prn 1 Kit 02/06/20 20 Active cpap certified medical asst CPAP @ 07/15 cwp with heated humidifier. [...] reusable 1 per 6 Months. HOME medical [place] 1 Each 02/06/20 20 Active cpap medical [...] on file Legal Sex Female 5:35 AM GUN FERTILIZER Gender Identity Not on file Sexual Orientation [...] CDT Respiratory Rate 18 10/16/2020 11:38 AM GUN FERTILIZER Oxygen Saturation 99% 01/18/2021 8:10 AM CDT [...] Tdap) 06/30/2027 Medical Devices Implanted Type Area Two Way Radio Technician Device Identifier Shelf Expiration Date Model / Serial / Lot Stent Contour [id number] - [id number] Implanted:Qty: 1 on 11/12/2018 by Raheem Shah MD at [facility] Stent Right: Ureter [employer]- UROLOGY/BROWNING PROCESSOR 08/31/2021 [id number] / / [id number] Description:String intact Procedures Procedure Name Priority Date/Time Associated Diagnosis Comments MAMMO DIAGNOSTIC BILATERAL W OR WO CAD Routine 10/29/2018 11:48 AM GUN FERTILIZER Breast discharge from Last 3 Months or Most Recently Relevant to Health Maintenance Results * MAMMO DIAGNOSTIC BILATERAL W OR WO CAD (10/29/2018 11:48 AM GUN FERTILIZER) Anatomical Region Laterality Modality Breast Bilateral Mammography 10/29/2018 11:4 8 AM GUN FERTILIZER Impressions 10/29/2018 1:45 PM GUN FERTILIZER : Mammogram shows a suspected new nodule [...] the evaluation. Patient received a result/recommendation letter. [id number] Narrative 10/29/2018 1:45 PM GUN FERTILIZER Bilateral Digital Diagnostic Mammogram: Repeat examination on [...] by the Computer Aided Detection System (CAD), [employer] ImageChecker, Version 8.3. Ultrasound is necessary to [...] Advance Directives For more information, please contact: [phone] * Full Code (Latest Code Status on [...] 10:03 AM 08/27/2012 2:02 AM Care Teams Machine Cutter Relationship Specialty Start Date End Date Shari Gray DO [address] [place] [address] PCP - General Family Practice 06/30/17
--- OUTSIDE RECORDS SUMMARY | 2025-08-17 16:17 | XMS_ITS | Encounter Summary ---
Author Organization [facility] Address [address] [place] [address] Care Team Providers Care Eyelet Operator Name Role Phone Shari Gray DO Primary Care Provider Encounter Details Date Type Department Care Team (Latest Contact Info) Description 11/01/2018 Ancillary Orders [facility] [address] [address] Shari Gray DO [address] [place] [address] Inconclusive mammography Social History Tobacco Use Types Packs/Day Years Used Date Smoking Tobacco: Every Day Cigarettes 0.5 20 Smokeless Tobacco: Never Alcohol Use Standard Drinks/Week Comments No 0 (1 standard drink = 0.6 oz pur e alcohol) Comments No Sex and Gender Information Value Date Recorded Sex Assigned at Not on file Legal Sex Female 5:35 AM HEDIS ABSTRACTOR Gender Identity Not on file Sexual Orientation Not on file Occupation Industry Job Start Date Job End Date Not on file Not on file Not on file Not on file documented as of this encounter Plan of Treatment Not on file documented as of this encounter Visit Diagnoses Diagnosis Inconclusive mammography Inconclusive mammogram documented in this encounter Care Teams Eyelet Operator Relationship Specialty Start Date End Date Shari Gray DO [address] [place] [address] PCP - General Family Practice 06/30/17 documented as of this encounter
--- OUTSIDE RECORDS SUMMARY | 2025-08-17 16:17 | XMS_ITS | Encounter Summary ---
Author Organization [facility] Address [address] [place] [address] Care Team Providers Care Yard Clerk Name Role Phone MarinaShari fischer Annika AMARO Primary Care Provider [phone] Reason for Referral * Radiology Services (Routine) - Closed Specialty Diagnoses / Procedures Referred By Myra church Referred To Contact Diagnoses Other chronic pain Procedures XR FLUORO LESS THAN 1 HOUR Raheem Shah MD Phone: tel: fax: Referral ID Status Reason Start Date Expiration Date Visits Re quested Visits Authorized [id number] Closed 11/12/2018 12/13/2019 1 1 M SETTER Encounter Details Date Type Department Care Team (Late st Contact Info) Description 11/12/2018 Ancillary Orders [facility] Radiology [place] [address] [place] [address] Raheem Shah MD [address] [place], [place] [address]A RANDELL [place]REG[place] [phone] Other chronic pain Social History Tobacco Use Types Packs/Day Years Used Date Smoking Tobacco: Every Day Cigarettes 0.5 20 Smokeless Tobacco: Never Alcohol Use Standard Drinks/Week Comments Yes 1 (1 standard drink = 0.6 oz pur e alcohol) rarely Comments No Sex and Gender Information Value Date Recorded Sex Assigned at Not on file Legal Sex Female 5:35 AM STEAM SETTER Gender Identity Not on file Sexual Orientation Not on file Occupation Industry Job Start Date Job End Date Not on file Not on file Not on file Not on file documented as of this encounter Plan of Treatment Not on file documented as of this encounter Results * XR FLUORO LESS THAN 1 HOUR (11/12/2018 11:45 AM STEAM SETTER) Narrative 11/12/2018 11:18 PM STEAM SETTER Order information only. Exam was auto-finalized. us Raheem Shah MD DIAGNOSTIC IMAGING ORDERABL ES Final Result documented in this encounter Visit Diagnoses Diagnosis Other chronic pain Other chronic pain documented in this encounter Care Teams Yard Clerk Relationship Specialty Start Date End Date Shari Gray DO [address] [place] [address] PCP - General Family Practice 06/30/17 documented as of this encounter
--- OUTSIDE RECORDS SUMMARY | 2025-08-17 16:17 | XMS_ITS | Encounter Summary ---
Author Organization [facility] Address [address] [place] [address] Care Team Providers Care Television Audio Engineer Name Role Phone Shari Gray DO Primary Care Provider Encounter Details Date Type Department Care Team (Latest Contact Info) Description 11/01/2018 [facility] [address] [place] [address] Shari Gray DO [address] [place] [address] Inconclusive mammography Social History Tobacco Use Types Packs/Day Years Used Date Smoking Tobacco: Every Day Cigarettes 0.5 20 Smokeless Tobacco: Never Alcohol Use Standard Drinks/Week Comments No 0 (1 standard drink = 0.6 oz pur e alcohol) Comments No Sex and Gender Information Value Date Recorded Sex Assigned at Not on file Legal Sex Female 5:35 AM HORTICULTURE PROFESSOR Gender Identity Not on file Sexual Orientation Not on file Occupation Industry Job Start Date Job End Date Not on file Not on file Not on file Not on file documented as of this encounter Plan of Treatment Not on file documented as of this encounter Visit Diagnoses Diagnosis Inconclusive mammography Inconclusive mammogram documented in this encounter Care Teams Television Audio Engineer Relationship Specialty Start Date End Date Shari Gray DO [address] [place] [address] PCP - General Family Practice 06/30/17 documented as of this encounter
[2025-08-17 16:23] LABS: UA Slide Review UA Slide Review Perf
[2025-08-17 16:33] LABS: Alanine Aminotransferase 10 U/L (0-33); Albumin Level 4.0 g/dL (3.5-5.2); Alkaline Phosphatase 85 U/L (35-105); Anion Gap 18.7 (5-19); Aspartate Amino Transferase 12 U/L (0-32); Blood Urea Nitrogen 14 mg/dL (6-20); Calcium 9.1 mg/dL (8.5-10.5); Carbon Dioxide 22 mmol/L (22-29); Chloride 104 mmol/L (98-107); Creatinine Clr Calc Pharmacy 69.3221; Globulin 2.9 g/dL (1.3-4.6); Glucose 127 mg/dL (65-115); Osmolality Calculated 294 mOsm/kg (285-295); Potassium 3.7 mmol/L (3.5-5.1); Sodium 141 mmol/L (136-145); Total Protein 6.9 g/dL (6.6-8.7)
--- NOTE | 2025-08-17 18:07 | PC.NURSE ---
patient has refused to keep cords and vitals machine on during stay. patient has been ambulating to the bathroom and refusing to keep cords plugged into monitor.
[2025-08-17] MEDS: HYDROmorphone 0.5 MG/0.5 ML INJ 1 MG IVP (18:36)
--- NOTE | 2025-08-17 20:00 | ED_ITS ---
HPI - Abdominal Pain 2 General: Chief Complaint: Abdominal Pain Stated Complaint: Lower back and stomach pain Time Seen by Provider: 08/17/25 15:36 History of Present Illness: 59 yo F with Hx of kidney stones present s with severe right-sided flank/abdominal pain, currently 08/11. Pain began about a week ago; pt initially thought it was a UTI. Pain localizes to the right side and radiates downward. Pt reports nausea. Movement reportedly worsens pain per pt history. En route, EMS administered 1 mg IV Dilaudid and 8 mg ondansetron. Prior imaging: CT A/P May 2024 reportedly showed no stones. CT A/P Jun 2023 showed marked right hydronephrosis without obstructing urolithiasis, left perinephric fat/fluid and thickening concerning for pyelonephritis, and multiple subcentimeter non- obstructing bilateral renal calculi. Provider discussed possible kidney stone. NSAID (ketorolac) was avoided. ROS otherwise limited in transcript. Related Data Home Medications ?Medication ?Instructions ?Recorded ?Confirmed ibuprofen 200 mg tablet (Advil) 600 mg PO Q6H PRN Pain 08/26/24 07/31/25 apixaban 5 mg tablet (Eliquis) mg PO 07/31/25 07/31/25 fluticasone fur. 200 mcg-umeclid inhalation 07/31/25 0 07/31/25 62.5 mcg-vilant 25 mcg inhalat.powder (Trelegy Ellipta) Previous Rx's ?Medication ?Instructions ?Recorded albuterol sulfate 90 mcg/actuation 2 inh inhalation Q6 H PRN shortness 08/26/24 aerosol inhaler of breath or wheezing #8 gra ms albuterol sulfate 2.5 mg/3 mL 2.5 mg (3 mL) inhalation Q4H PRN 07/31/25 (0.083 %) solution for nebulization shortness of breat h or wheezing #90 mL albuterol sulfate 90 mcg/actuation 2 puff inhalation Q 6H PRN 07/31/25 aerosol inhaler (Ventolin HFA) shortness of breath or wheezing #8.5 grams amoxicillin 875 mg-potassium 1 tab PO BID 7 days #14 t abs 07/31/25 clavulanate 125 mg tablet prednisone 20 mg tablet 20 mg PO BID 5 days #10 tabs 07/31/25 Allergies Allergy/AdvReac Type Severity Reaction Status Date / Time ketorolac (From Toradol) Allergy ALGY-Rash Verified 07/31/25 10:13 simvastatin Allergy ADR-Vomitin Verified 07/31/25 10:13 g PFSH ED 2 PFSH: Medical History (Updated 08/17/25 @ 20:05 by Franco Espino DO) Pulmonary embolism Right ureteral calculus Right flank pain BRAYDON (obstructive sleep apnea) Hyperlipidemia HTN (hypertension) Bilateral pulmonary embolism GERD (gastroesophageal reflux disease) COPD (chronic obstructive pulmonary disease) Right ureteral calculus Left mid/distal Large obstructing ureteral stone complicated by UTI. Treated with urgent ureteroscopy laser lithotripsy 10/06/20 Renal calculi Recurrent UTI Surgical History Hx of hysterectomy Hx of section X4 Status post extracorporeal shock wave therapy Hx of cholecystectomy H/O lithotripsy Family History Mother , at age 53 Heart attack Father No problems noted. Other CAD (coronary artery disease) Cancer Chronic kidney disease (CKD) Hypertension Social History Smoking and tobacco/nicotine status: current every day tobacco/nicotine user Alcohol intake: current Alcohol intake frequency: holidays/special occasions only Adopted: No Caregiver/support person: No Lives independently: No Household members: spouse Marital status: Current occupational status: retired Physical Exam 2 Narrative: EXAM NARRATIVE: Moderate distress due to pain Const: COMMON NORMALS: patient oriented x3 and alert HENMT: COMMON NORMALS: normocephalic and atraumatic HEAD & SCALP: n ormocephalic and atraumatic Eye: COMMON NORMALS: Equal, round and reactive pupils present, EOMs intact bilaterally and no scleral icterus PUPIL: Yes Equal, round and reactive pupils present Resp: COMMON NORMALS: normal respiratory effort and No retractions Cardio: COMMON NORMALS: regular rate, regular rhythm and No murmurs present (Cardio) RATE: regular rate RHYTHM: regular rhythm GI: OTHER: Pain with palpation of the right flank and right lower quadrant abdominal region. Neuro: COMMON NORMALS: patient oriented x3 SENSORIUM/ORIENTATION: Yes alert Skin: COMMON NORMALS: no rashes or lesions noted GENERAL SKIN EXAM: no rashes or lesions noted Course 2 Vital Signs: Vital signs: Vital Signs Temperature 98.1 F 08/17/25 15:15 Pulse Rate 81 08/17/25 15:15 Respiratory Rate 22 H 08/17/25 15:15 Blood Pressure 162/86 08/17/25 15:15 Pulse Oximetry 92 08/17/25 15:15 Oxygen Delivery Me thod Room Air 08/17/25 15:15 MDM - Abdominal Pain Medical Decision Making 59 yo F with known nephrolithiasis presents with 1 week of severe right flank pain radiating downward, nausea, and prior similar episodes. EMS gave IV Dilaudid and ondansetron. PE: Abdomen soft, non-tender. Right flank pain not reproducible with palpation. Prior studies: CT A/P May [address] A/P Jun 2023 with marked right hydronephrosis without obstructing stone, left perinephric inflammatory changes concerning for pyelonephritis, and multiple small non- obstructing bilateral renal calculi. Urinalysis is concerning for infection and CT scan shows hydronephrosis without obstructing ureteral stone. She has multiple nephrolithiasis bilaterally. I spoke with on-call urology at [place] who recommended patient be given IV antibiotics and admitted and shared that if the patient were to be transferred to his facility, he would not do anything different as there are no obstructing stones to be removed. He suspects she likely just passed a stone and the hydronephrosis persists. I shared all this with her and urged her to take IV ceftriaxone and be admitted but she states that she would like to leave. She appears to be of sound mind and competent to make such decisions that she will be allowed to leave AGAINST MEDICAL ADVICE. She knows that she is always welcome back in the emergency department if she changes her mind and would like to receive IV antibiotics and pain medicine Lab Data 08/17/25 16:03 08/17/25 16:03 Labs/Radiology: Radiology Impressions Abdomen/Pelvis CT 08/17/25 15:36 IMPRESSION: 1. Severe right hydronephrosis and moderate right hydroureter, without obstructing focus identified. The finding may represent recently passed calculus or noncalcified obstruction. Depending on clinical assessment, further assessment for obstruction could include CT follow-up with delayed intravenous contrast enhancement. 2. Bilateral nephrolithiasis 3. Persistent large hiatal hernia. Laboratory Results WBC 11.14 10^3/uL (3.29-11.43) 08/17/25 16:03 RBC 4.09 10^6/uL (3.85-5.65) 08/17/25 16:03 Hgb 12.60 g/dL (11.27-16.99) 08/17/25 16:03 Hct 38.4 % (36-47) 08/17/25 16:03 MCV 93.9 fl (85-98) 08/17/25 16:03 MCH 30.8 pg (27-33) 08/17/25 16:03 MCHC 32.8 g/dL (30-55) 08/17/25 16:03 RDW 13.1 % (12.1-15.1) 08/17/25 16:03 Plt Count 214 10^3/cmm (157-399) 08/17/25 16:03 MPV 9.7 fL (7.4-10.4) 08/17/25 16:03 Neut % (Auto) 82.7 % 08/17/25 16:03 Lymph % (Auto) 9.2 % 08/17/25 16:03 [place] % (Auto) 6.6 % 08/17/25 16:03 Eos % (Auto) 0.8 % 08/17/25 16:03 Baso % (Auto) 0.3 % 08/17/25 16:03 Neut # (Auto) 9.23 10^3/uL (1.8-7.7) H 08/17/25 16:03 Lymph # (Auto) 1.0 10^3/uL (0.8-4.8) 08/17/25 16:03 [place] # (Auto) 0.7 10^3/uL (0.2-0.9) 08/17/25 16:03 Eos # (Auto) 0.1 10^3/uL (0.0-0.8) 08/17/25 16:03 Baso # (Auto) 0.0 10^3/uL (0.0-0.1) 08/17/25 16:03 Nucleated RBC % (auto) 0 % 08/17/25 16:03 Nucleated RBCs # 0.0 /100WBC 08/17/25 16:03 Sodium 141 mmol/L (136-145) 08/17/25 16:03 Potassium 3.7 mmol/L (3.5-5.1) 08/17/25 16:03 Chloride 104 mmol/L (98-107) 08/17/25 16:03 Carbon Dioxide 22 mmol/L (22-29) 08/17/25 16:03 Anion Gap 18.7 (5-19) 08/17/25 16:03 BUN 14 mg/dL (6-20) 08/17/25 16:03 Creatinine 1.1 mg/dL (0.5-0.9) H 08/17/25 16:03 GFR Calculation 51.2 mL/min (90-130) L 08/17/25 16:03 Glucose 127 mg/dL (65-115) H 08/17/25 16:03 Calculated Osmolality 294 mOsm/kg (285-295) 08/17/25 16:03 Calcium 9.1 mg/dL (8.5-10.5) 08/17/25 16:03 Total Bilirubin 0.6 mg/dL (0.15-1.2) 08/17/25 16:03 AST 12 U/L (0-32) 08/17/25 16:03 ALT 10 U/L (0-33) 08/17/25 16:03 Alkaline Phosphatase 85 U/L (35-105) 08/17/25 16:03 Total Protein 6.9 g/dL (6.6-8.7) 08/17/25 16:03 Albumin 4.0 g/dL (3.5-5.2) 08/17/25 16:03 Globulin 2.9 g/dL (1.3-4.6) 08/17/25 16:03 Urine Color Cancelled 08/17/25 15:38 Urine Color Dark yellow (Yellow) A 08/17/25 15:38 Urine Appearance Cancelled 08/17/25 15:38 Urine Appearance Turbid (CLEAR) A 08/17/25 15:38 Urine pH 6.5 (5-7) 08/17/25 15:38 Urine pH Cancelled 08/17/25 15:38 Ur Specific [place] 1.019 (1.005-1.030) 08/17/25 15:38 Ur Specific [place] Cancelled 08/17/25 15:38 Urine Protein 3+ (Negative) A 08/17/25 15:38 Urine Protein Cancelled 08/17/25 15:38 Urine Glucose (UA) Cancelled 08/17/25 15:38 Urine Glucose (UA) Negative (Normal) 08/17/25 15:38 Urine Ketones Cancelled 08/17/25 15:38 Urine Ketones Negative (Negative) 08/17/25 15:38 Urine Blood 3+ (Negative) A 08/17/25 15:38 Urine Blood Cancelled 08/17/25 15:38 Urine Nitrate Cancelled 08/17/25 15:38 Urine Nitrate Positive (Negative) A 08/17/25 15:38 Urine Bilirubin 1+ (Negative) H 08/17/25 15:38 Urine Bilirubin Cancelled 08/17/25 15:38 Prot Sulfosalicylic Acd Cancelled 08/17/25 15:38 Urine Urobilinogen 1.0 mg/dL (Negative) 08/17/25 15:38 Urine Urobilinogen Cancelled 08/17/25 15:38 Ur Leukocyte Esterase 3+ (Negative) A 08/17/25 15:38 Ur Leukocyte Esterase Cancelled 08/17/25 15:38 Urine RBC >100 /hpf (0-2) H 08/17/25 15:38 Urine RBC Cancelled 08/17/25 15:38 Urine WBC >100 /hpf (0-5) H 08/17/25 15:38 Urine WBC Cancelled 08/17/25 15:38 Ur Squamous Epith Cells 0-5 /hpf (0-5) 08/17/25 15:38 Ur Squamous Epith Cells Cancelled 08/17/25 15:38 Ur Transition Epith Cell Cancelled 08/17/25 15:38 Ur Renal Epithelial Cell Cancelled 08/17/25 15:38 Calcium Oxalate Crystal Cancelled 08/17/25 15:38 Uric Acid Crystals Cancelled 08/17/25 15:38 Triple Phos Crystals Cancelled 08/17/25 15:38 Other Crystals Cancelled 08/17/25 15:38 Amorphous Sediment Cancelled 08/17/25 15:38 Amorphous Sediment Not Reportable 08/17/25 15:38 Urine Bacteria 4+ /hpf (NONE) H 08/17/25 15:38 Urine Bacteria Cancelled 08/17/25 15:38 Hyaline Casts 3.33 /lpf 08/17/25 15:38 Hyaline Casts Cancelled 08/17/25 15:38 Fine Granular Casts Cancelled 08/17/25 15:38 Coarse Granular Casts Cancelled 08/17/25 15:38 RBC Casts Cancelled 08/17/25 15:38 Other Casts Cancelled 08/17/25 15:38 Urine Mucus Cancelled 08/17/25 15:38 Urine Trichomonas Cancelled 08/17/25 15:38 Urine Yeast Cancelled 08/17/25 15:38 Urine Sperm Cancelled 08/17/25 15:38 Ur Oval Fat Bodies Cancelled 08/17/25 15:38 All radiology interpretation(s) finalized by discharge Discharge Plan Discharge Patient Disposition: Left Against Medical Advice Clinical Impression: Hydronephrosis of right kidney, Pyelonephritis Prescriptions: No Action Eliquis 5 mg tablet PO Trelegy Ellipta 200-62.5-25 mcg blister with device inhalation albuterol sulfate 2.5 mg /3 mL (0.083 %) solution for nebulization 2.5 mg inhalation Q4H PRN (Reason: shortness of breath or wheezing) Qty: 90 0RF prednisone 20 mg tablet 20 mg PO BID 5 Days Qty: 10 0RF albuterol sulfate [Ventolin HFA] 90 mcg/actuation HFA aerosol inhaler 2 puff inhalation Q6H PRN (Reason: shortness of breath or wheezing) Qty: 8.5 0RF amoxicillin-pot clavulanate 875-125 mg tablet 1 tab PO BID 7 Days Qty: 14 0RF ibuprofen [Advil] 200 mg Tablet 600 mg PO Q6H PRN (Reason: Pain) albuterol sulfate 90 mcg/actuation HFA aerosol inhaler 2 inh INHALATION Q6H PRN (Reason: shortness of breath or wheezing) Qty: 8 0RF Print Language: Upper Sorbian Coding Level of Care Code ED Audio Visual Coordinator for Tangela Reyes
== END 2025-08-17 19:09 | disposition left against medical advice (07) ==
PROVIDERS: Family Medicine; Emergency Provider Student in an Organized Health Care Education/Training Program
DX: N13.30 Unspecified hydronephrosis (principal); N12 Tubulo-interstitial nephritis, not specified as acute or chronic; Z79.01 Long term (current) use of anticoagulants; Z72.0 Tobacco use; E78.5 Hyperlipidemia, unspecified; I10 Essential (primary) hypertension; J44.9 Chronic obstructive pulmonary disease, unspecified
CPT/HCPCS: 36415; 74176; 80053; 81001; 85025; 87077; 87086; 87186; 96374; 99285; J1171; J7030

== ENCOUNTER 2025-08-18 09:04 | Emergency (ER) | payer MEDICARE, MEDICAID, SELFPAY ==
[2025-08-18 09:14] VITALS: BP 154/71; PULSE 99; RESP 20; TEMP 36.7; O2SAT 90; BMI 31.0
--- NOTE | 2025-08-18 09:16 | W.ED.FEMALGU ---
HPI - Female Genitourinary General: Chief complaint: Urogenital-Female Stated complaint: kidney pain Time Seen by Provider: 08/18/25 09:07 Source: patient Mode of arrival: ambulatory Limitations: no limitations History of Present Illness: Patient is a 59-year-old female presents to ED today with complaint of severe right sided flank pain. She has a longstanding history of nephroureterolithiasis. She was seen here in our emergency department yesterday and underwent CT imaging showing severe right sided hydro and ureter nephrosis. They did not see an obstructing calculus. Her urine at that time was grossly infected. The ED provider had consulted with urology in [place] who would recommended admission with IV antibiotics. Patient unfortunately left AGAINST MEDICAL ADVICE. She returns today with continued severe discomfort. She is reporting nausea has not had any episodes of emesis. She has not been running fevers. MD elicited complaint: dysuria, UTI , back pain and flank pain Pertinent past history: recurrent UTIs Onset (ago): day(s) Severity: severe Female Urogenital Radiation: R Flank Severity scale (1-10): 10 Consistency: constant Vaginal discharge: none Vaginal bleeding: none Urinary symptoms: Difficulty Urinating, Dysuria, Flank Pain, Frequency and Urgency Relieving factors: none Associated symptoms: Reports abdominal pain and nausea; Deny headache(s) Treatment prior to arrival: none Patient : No Related Data Home Medications ?Medication ?Instructions ?Recorded ?Confirmed ibuprofen 200 mg tablet (Advil) 600 mg PO Q6H PRN Pain 08/26/24 07/31/25 apixaban 5 mg tablet (Eliquis) mg PO 07/31/25 07/31/25 fluticasone fur. 200 mcg-umeclid inhalation 07/31/25 07/31/25 62.5 mcg-vilant 25 mcg inhalat.powder (Trelegy Ellipta) Previous Rx's ?Medication ?Instructions ?Recorded albuterol sulfate 90 mcg/actuation 2 inh inhalation Q6H PRN shortness 08/26/24 aerosol inhaler of breath or wheezing #8 grams albuterol sulfate 2.5 mg/3 mL 2.5 mg (3 mL) inhalation Q4H PRN 07/31/25 (0.083 %) solution for nebulization shortness of breath or wheezing #90 mL albuterol sulfate 90 mcg/actuation 2 puff inhalation Q6H PRN 07/31/25 aerosol inhaler (Ventolin HFA) shortness of breath or wheezing #8.5 grams amoxicillin 875 mg-potassium 1 tab PO BID 7 days #14 tabs 07/31/25 clavulanate 125 mg tablet prednisone 20 mg tablet 20 mg PO BID 5 days #10 tabs 07/31/25 Allergies Allergy/AdvReac Type Severity Reaction Status Date / Time ketorolac (From Toradol) Allergy ALGY-Rash Verified 07/31/25 10:13 simvastatin Allergy ADR-Vomitin Verified 07/31/25 10:13 g Review of Systems Const: Denies: fever(s), chills, body aches, fatigue or malaise Card: Denies: chest pain Resp: Denies: dyspnea GI: Reports: abdominal pain and nausea; Denies: vomiting, change in bowel habits, hematochezia or melena : Reports: flank pain, dysuria, urinary frequency, urinary urgency and urinary hesitancy; Denies: hematuria Musc: Reports: back pain (R flank); Denies: neck pain, extremity pain, extremity swelling, joint pain, joint swelling or joint redness Skin/Breast: Denies: rash Neuro: Denies: headache(s), numbness in extremities, weakness in extremities, sensory changes or dizziness PFSH ED PFSH: Medical History Pulmonary embolism Right ureteral calculus Right flank pain BRAYDON (obstructive sleep apnea) Hyperlipidemia HTN (hypertension) Bilateral pulmonary embolism GERD (gastroesophageal reflux disease) COPD (chronic obstructive pulmonary disease) Right ureteral calculus Left mid/distal Large obstructing ureteral stone complicated by UTI. Treated with urgent ureteroscopy laser lithotripsy 10/06/20 Renal calculi Recurrent UTI Surgical History Hx of hysterectomy Hx of section X4 Status post extracorporeal shock wave therapy Hx of cholecystectomy H/O lithotripsy Family History Mother , at age 53 Heart attack Father No problems noted. Other CAD (coronary artery disease) Cancer Chronic kidney disease (CKD) Hypertension Social History Smoking and tobacco/nicotine status: current every day tobacco/nicotine user Alcohol intake: current Alcohol intake frequency: holidays/special occasions only Adopted: No Caregiver/support person: No Lives independently: No Household members: spouse Marital status: Current occupational status: retired Physical Exam Const: COMMON NORMALS: average body habitus, patient oriented x3, no limitations, healthy appearing, alert and well nourished GENERAL APPEARANCE: cooperative and in distress (appears uncomfortable secondary to pain) ORIENTATION/CONSCIOUSNESS: Yes awake, Yes oriented to person, Yes oriented to place and Yes oriented to time Resp: COMMON NORMALS: normal respiratory effort and clear to auscultation bilaterally AUSCULTATION: clear to auscultation bilaterally Cardio: COMMON NORMALS: regular rate and regular rhythm RATE: regular rate RHYTHM: regular rhythm GI: COMMON NORMALS: Normal to inspection, nondistended, normoactive bowel sounds present, Soft to palpation, No hepatosplenomegaly present and no masses INSPECTION: Yes normal to inspection AUSCULTATION: Yes normoactive bowel sounds PALPATION: Yes Soft to palpation, Yes Tenderness to palpation present (GI) (throughout R side of abdomen ), No Guarding due to palpation present (GI), No Rigid due to palpation and Yes No hepatosplenomegaly present : BLADDER/KIDNEY EXAM: Yes CVA tenderness on the right Back/Pelvis: COMMON NORMALS: thoracic and lumbar spine normal to inspection, no thoracic nor lumbar tenderness, thoraco-lumbar ROM normal and straight leg raise negative bilaterally GENERAL BACK: Yes CVA tenderness Extremity: GENERAL: Yes normal exam except as noted Neuro: RICKY COMA SCALE: document GCS findings [place] coma scale eye opening: Spontaneous [place] coma scale verbal response: Orientated [place] coma scale motor response: Obey commands Ricky coma scale total score: 15 COMMON NORMALS: patient oriented x3, moves all extremities, no focal motor deficits and no sensory deficits noted SENSORIUM/ORIENTATION: Yes alert, Yes oriented to person, Yes oriented to place and Yes oriented to time Skin: COMMON NORMALS: no rashes or lesions noted GENERAL SKIN EXAM: no rashes or lesions noted Course Consultations: Consultation #1: Dr. Pérez-urology [facility] transfer-will have [facility] hospitalist reach out to accept patient Consultation #2: Dr. Chew-hospitalist at [facility] patient Consultation #3: Dr. Gross/hospitalist-recommending transfer for urology Vital Signs: Vital signs: Vital Signs Temperature 98.1 F 08/18/25 09:14 Pulse Rate 999 H 08/18/25 09:14 Respiratory Rate 20 H 08/18/25 09:14 Blood Pressure 154/71 08/18/25 09:14 Pulse Oximetry 90 08/18/25 09:14 Oxygen Delivery Me thod Room Air 08/18/25 09:14 MDM - Female Medical Decision Making Patient is a 59-year-old female here for severe right flank pain. She was seen here in our emergency department yesterday evening and left AMA. She is back with concerns of continued significant discomfort as well as nausea. Today she has a white count of 17.8 up from 11.1 yesterday. Her urine is grossly infected. Culture from yesterday growing gram-negative rods. I had originally spoken to Dr. Gross who recommends transfer to a facility with urology. She has concerns about a noncalcified ureter obstruction. I spoke to Dr. Ivey with urology at [facility] who is accepting patient. I spoke to Dr. Chew the hospitalist at [facility] who also accepts patient. Patient has been started on IV antibiotics. Differential Diagnosis Likely calculus of kidney Medical Records I reviewed the patient's medical records. Lab Data I reviewed the patient's lab results. 08/18/25 09:21 08/18/25 09:21 Radiology Impressions Chest X-Ray 08/18/25 09:26 IMPRESSION: Stable chest without acute abnormality. Laboratory Results WBC 17.83 10^3/uL (3.29-11.43) H 08/18/25 09:21 RBC 3.96 10^6/uL (3.85-5.65) 08/18/25 09:21 Hgb 12.40 g/dL (11.27-16.99) 08/18/25 09:21 Hct 37.8 % (36-47) 08/18/25 09:21 MCV 95.5 fl (85-98) 08/18/25 09:21 MCH 31.3 pg (27-33) 08/18/25 09:21 MCHC 32.8 g/dL (30-55) 08/18/25 09:21 RDW 13.2 % (12.1-15.1) 08/18/25 09:21 Plt Count 192 10^3/cmm (157-399) 08/18/25 09:21 MPV 9.7 fL (7.4-10.4) 08/18/25 09:21 Neut % (Auto) 88.8 % 08/18/25 09:21 Lymph % (Auto) 5.1 % 08/18/25 09:21 [place] % (Auto) 5.0 % 08/18/25 09:21 Eos % (Auto) 0.1 % 08/18/25 09:21 Baso % (Auto) 0.3 % 08/18/25 09:21 Neut # (Auto) 15.85 10^3/uL (1.8-7.7) H 08/18/25 09:21 Lymph # (Auto) 0.9 10^3/uL (0.8-4.8) 08/18/25 09:21 [place] # (Auto) 0.9 10^3/uL (0.2-0.9) 08/18/25 09:21 Eos # (Auto) 0.0 10^3/uL (0.0-0.8) 08/18/25 09:21 Baso # (Auto) 0.1 10^3/uL (0.0-0.1) 08/18/25 09:21 Nucleated RBC % (auto) 0 % 08/18/25 09:21 Nucleated RBCs # 0.0 /100WBC 08/18/25 09:21 Sodium 134 mmol/L (136-145) L 08/18/25 09:21 Potassium 4.3 mmol/L (3.5-5.1) 08/18/25 09:21 Chloride 97 mmol/L (98-107) L 08/18/25 09:21 Carbon Dioxide 23 mmol/L (22-29) 08/18/25 09:21 Anion Gap 18.3 (5-19) 08/18/25 09:21 BUN 18 mg/dL (6-20) 08/18/25 09:21 Creatinine 1.2 mg/dL (0.5-0.9) H 08/18/25 09:21 GFR Calculation 46.3 mL/min (90-130) L 08/18/25 09:21 Glucose 185 mg/dL (65-115) H 08/18/25 09:21 Calculated Osmolality 285 mOsm/kg (285-295) 08/18/25 09:21 Lactic Acid 1.7 mmol/L (0.5-2.2) 08/18/25 09:21 Calcium 8.5 mg/dL (8.5-10.5) 08/18/25 09:21 Total Bilirubin 0.9 mg/dL (0.15-1.2) 08/18/25 09:21 AST 13 U/L (0-32) 08/18/25 09:21 ALT 9 U/L (0-33) 08/18/25 09:21 Alkaline Phosphatase 78 U/L (35-105) 08/18/25 09:21 Total Protein 6.2 g/dL (6.6-8.7) L 08/18/25 09:21 Albumin 3.6 g/dL (3.5-5.2) 08/18/25 09:21 Globulin 2.6 g/dL (1.3-4.6) 08/18/25 09:21 Urine Color Dark yellow (Yellow) A 08/18/25 10:00 Urine Appearance Cloudy (CLEAR) A 08/18/25 10:00 Urine pH 5.5 (5-7) 08/18/25 10:00 Ur Specific [place] 1.015 (1.005-1.030) 08/18/25 10:00 Urine Protein 3+ (Negative) A 08/18/25 10:00 Urine Glucose (UA) Negative (Normal) 08/18/25 10:00 Urine Ketones Negative (Negative) 08/18/25 10:00 Urine Blood 2+ (Negative) A 08/18/25 10:00 Urine Nitrate Positive (Negative) A 08/18/25 10:00 Urine Bilirubin 1+ (Negative) H 08/18/25 10:00 Urine Urobilinogen 1.0 mg/dL (Negative) 08/18/25 10:00 Ur Leukocyte Esterase 2+ (Negative) A 08/18/25 10:00 Urine RBC 51-100 /hpf (0-2) H 08/18/25 10:00 Urine WBC >100 /hpf (0-5) H 08/18/25 10:00 Ur Squamous Epith Cells 0-5 /hpf (0-5) 08/18/25 10:00 Amorphous Sediment Not Reportable 08/18/25 10:00 Urine Bacteria 4+ /hpf (NONE) H 08/18/25 10:00 Hyaline Casts 5.77 /lpf 08/18/25 10:00 All radiology interpretation(s) finalized by discharge Discharge Plan Discharge Patient Disposition: Xfer Short-Term Hosp Clinical Impression: Pyelonephritis, Hydronephrosis Condition: Stable Print Language: Slovenian Coding Level of Care Code ED Combine Inspector for Tangela Reyes
[2025-08-18 09:26] LABS: Hematocrit 37.8 % (36-47); Hemoglobin 12.40 g/dL (11.27-16.99); Mean Corpuscular HGB Conc 32.8 g/dL (30-55); Mean Corpuscular Hemoglobin 31.3 pg (27-33); Mean Corpuscular Volume 95.5 fl (85-98); Nucleated Red Blood Cells % 0 %; Platelet Count 192 10^3/cmm (157-399); Red Blood Count 3.96 10^6/uL (3.85-5.65); White Blood Count 17.83 10^3/uL (3.29-11.43)
--- NOTE | 2025-08-18 09:26 | XR_ITS ---
WS: [id number] XR chest 1V portable [id number] REASON FOR EXAM: sob FINDINGS: The chest is unchanged compared to the previous examination of 07/13/2025. Mild tortuosity of the ascending and descending thoracic aorta with calcification of the aortic arch. Cardiomegaly. Large hiatal hernia. Calcified granulomatous disease bilaterally. No acute pulmonary parenchymal or pleural abnormality. Moderate degenerative spondylosis of the thoracic spine. Moderate osteoarthritis of the shoulders bilaterally. XR/XR chest 1V portable [id number] IMPRESSION: Stable chest without acute abnormality.
[2025-08-18] MEDS: ondansetron 2 mg/ML SDV 2 mL 4 MG IVP (09:40)
[2025-08-18] MEDS: HYDROmorphone 0.5 MG/0.5 ML INJ 1 MG IVP (09:40)
[2025-08-18 09:43] LABS: Alanine Aminotransferase 9 U/L (0-33); Albumin Level 3.6 g/dL (3.5-5.2); Alkaline Phosphatase 78 U/L (35-105); Aspartate Amino Transferase 13 U/L (0-32); Blood Urea Nitrogen 18 mg/dL (6-20); Calcium 8.5 mg/dL (8.5-10.5); Carbon Dioxide 23 mmol/L (22-29); Chloride 97 mmol/L (98-107); Creatinine Clr Calc Pharmacy 63.5453; Globulin 2.6 g/dL (1.3-4.6); Glucose 185 mg/dL (65-115); Lactic Sepsis W/Reflex 1.7 mmol/L (0.5-2.2); Osmolality Calculated 285 mOsm/kg (285-295); Sodium 134 mmol/L (136-145); Total Protein 6.2 g/dL (6.6-8.7)
[2025-08-18 09:45] LABS: Anion Gap 18.3 (5-19); Potassium 4.3 mmol/L (3.5-5.1)
--- NOTE | 2025-08-18 09:56 | PC.NURSE ---
antibiotic delayed d/t blood cultures not being obtained
[2025-08-18 10:17] LABS: Glucose Urine UA Negative (Normal); Nitrate Urine Positive (Negative); Specific Gravity, Urine 1.015 (1.005-1.030)
[2025-08-18 10:22] LABS: Add Urine Microscopic? YES
[2025-08-18] MEDS: cefTRIAXone 1,000 mg SDV 1000 MG IVP (11:05)
[2025-08-18 11:06] VITALS: BP 112/78; PULSE 87; RESP 18; O2SAT 98
--- NOTE | 2025-08-18 11:23 | PC.NURSE ---
Report called to GUERRERO Blevins at [facility]. Report number . Room #[id number]
[2025-08-18] MEDS: morphine 4 mg/mL SDV 1 mL IVP (11:39)
[2025-08-18 13:00] VITALS: BP 117/68; PULSE 77; O2SAT 99
--- NOTE | 2025-08-19 13:10 | PC.NURSE ---
contaminated blood culture report faxed to [facility]
== END 2025-08-18 12:20 | disposition short-term general hospital (02) ==
PROVIDERS: Emergency Provider Physician Assistant
DX: N13.30 Unspecified hydronephrosis (principal); N12 Tubulo-interstitial nephritis, not specified as acute or chronic; Z72.0 Tobacco use; J44.9 Chronic obstructive pulmonary disease, unspecified; E78.5 Hyperlipidemia, unspecified; I10 Essential (primary) hypertension
CPT/HCPCS: 36415; 71045; 80053; 81001; 83605; 85025; 87040; 87077; 87086; 87150; 87186; 87205; 96374; 96375; 99285; J0696; J1171; J2270; J2405

== ENCOUNTER → 2025-10-06 13:57 | Outpatient (BNVA) | payer MEDICAID, OTHER, SELFPAY | PROVIDERS: Visit Provider Emergency Medicine | DX: R30.0 Dysuria (principal) | CPT/HCPCS: 81000; 87086 ==

== ENCOUNTER 2025-10-10 21:18 | Emergency (ER) | payer MEDICARE, MEDICAID, SELFPAY ==
--- OUTSIDE RECORDS SUMMARY | 2024-08-27 03:00 | XMS_ITS ---
Author Organization [facility] Address [address] [place] [address] Care Team Providers Care Retirement Plan Specialist Name Role Phone Joao Laird Unavailable [phone] Migration, Provider Unavailable Unavailable REASON FOR VISIT EMR-Sunil Encounters Encounter Location Date Provider Diagnosis Migrated_Facility 0 0 08/27/2024 Provider Migration Plan Of Treatment Medication Medication Name Sig Start Date Stop Date Notes Percocet 5-325 MG Oral Tablet 1 Tablet Every 12 hours PRN 12/31/2020 01/15/2021 *Reorder from [facility] an for eRx and Interaction Alerts* SYMBICORT AER 160-4.5 12/30/2020 03/30/2021 [facility] QUETIAPINE TAB 100MG 12/27/2020 03/27/2021 [facility]* Progress Notes * Kush CRUZ ADOB:[birth year] (60 yo F)Acc No.[id number]:08/27/2024 Patient: Kush BURKETT :1965 A ge:58 Y S ex:Female Address:[address] [place] [address], [address] * Refills Stop Percocet 5-325 MG Oral Tablet, 1 Tablet Every 12 hours PRN Stop QUETIAPINE TAB 100MG Stop SYMBICORT AER 160-4.5 Subjective: * Chief Complaints: * E MR-Sunil * * Date:
--- OUTSIDE RECORDS SUMMARY | 2024-08-28 03:00 | XMS_ITS ---
Author Organization [facility] Address [address] [place] [address] Care Team Providers Care Regional Forester Name Role Phone Joao Laird Unavailable [phone] Migration, Provider Unavailable Unavailable Allergies Allergen (clinical drug ingredient) Drug/Non Drug Allergy documented on EMR Reaction Allergy Type Onset Date Status ketorolac Toradol (uncoded) Unknown Allergy Ac tive simvastatin Simvastatin nausea Drug Allergy Act anny REASON FOR VISIT EMR-Sunil Social History Social History Additional Details Category Social Info Options Details Migrated Social History Migrated Social History Alcoholic beverages? - No, Are you or is there a chance you could be - No, Currently on disability? - Yes, Involved in any legal proceedings or lawsuits? - No, Marital Status - , Smoking - / PPD, Smoking status (MU) - Current every day smoker, Working currently? - No Encounters Encounter Location Date Provider Diagnosis Migrated_Facility 0 0 08/28/2024 Provider Migration Plan Of Treatment No Information Progress Notes * Kush CRUZ ADOB:[birth year] (60 yo F)Acc No.[id number]:08/28/2024 Patient: Kush BURKETT :1965 A ge:58 Y S ex:Female Address:[address] [place] [address], [address] Subjective: * Chief Complaints: * E MR-Sunil * Surgical History: section Gallbladder surgery Kidney stone surgery * Family History: M igrated Family History: : Cancer, H eart disease. * Social History: M igrated Social History: M igrated Social History: Alcoholic beverages? - No, A re you or is there a chance you could be - No, Kris galindotly on disability? - Yes, I nvolved in any legal proceedings or lawsuits? - No, M arital Status - , S moking - 11/05 PPD, S moking status (MU) - Current every day smoker, W orking currently? - No. * Allergies: S imvastatin: nausea - AllergyToradol: Allergy * * Date:
--- OUTSIDE RECORDS SUMMARY | 2025-08-24 07:30 | XMS_ITS ---
Author Organization [facility] Address [address] [place] [address] Care Team Providers Care Director Presales Name Role Phone YOSI TURNER Unavailable [phone] REASON FOR VISIT will need cysto w/stent removal Encounters Encounter Location Date Provider Diagnosis [facility] [address] [facility] [place] [address] 08/24/2025 YOSI TURNER Plan Of Treatment No Information Progress Notes * Corby CRUZOB: [birth year] (60 yo F)Acc No.[id number]:08/24/2025 Patient: Kush BURKETT Provider: Ruby TURNER MD :1965 A ge:59 Y S ex:Female Date:08/24/2025 Address:[address] [place], [place] [id number] Subjective: * Chief Complaints: * 1 . Will need cysto w/stent removal. * HPI: M igrated HPI: Patient is a 59 y/o F who is here today to establish care. Presented to ER on 08/18/25 with right flank pain. CT obtained resulting in right pyelonephritis, right hydroureter and right hydronephrosis. Underwent R stent placement. Here today to discuss plan of care. * Medical History: Objective: * Vitals: Assessment: Plan: * Treatment: * Billing Information: * Visit Code: * Procedure Codes: * Electronic signature of AUST IN MD YUE on 10/10/2025 at 09:26 PM BUCKLE FRAME SHAPER Sign off status: Pending * Provider: Ruby TURNER MD Date: Generated for Adalgisa alvarez/Bernie/eTransmitting on: 1 12/11/2024 09:26 PM BUCKLE FRAME SHAPER History and Physical Notes * HPI (History of Present Illness) Category Sub-Category Detail Notes Category Not es Migrated HPI Patient is a 59 y/o F who is here today to establish care. Presented to ER on 08/18/25 with right flank pain. CT obtained resulting in right pyelonephritis, right hydroureter and right hydronephrosis. Underwent R stent placement. Here today to discuss plan of care.
--- OUTSIDE RECORDS SUMMARY | 2025-10-10 21:26 | XMS_ITS | Encounter Summary ---
Author Organization [facility] Address [address] [place]: [place] [address] Care Team Providers Care Hardening Machine Operator Name Role Phone Shari Gray DO Primary Care Provider [phone] Encounter Details Date Type Department Care Team (Latest Contact Info) Description 05/09/2002 Emergency Patric Vega MD [address] [facility] [place] [address] Social History Tobacco Use Types Packs/Day Years Used Date Smoking Tobacco: Never Assessed Comments Unknown Sex and Gender Information Value Date Recorded Sex Assigned at Not on file Legal Sex Female 5:35 AM EDITOR DEPARTMENT Gender Identity Not on file Sexual Orientation Not on file documented as of this encounter Plan of Treatment Not on file documented as of this encounter Visit Diagnoses Not on filedocumented in this encounter Care Teams Hardening Machine Operator Relationship Specialty Start Date End Date Shari Gray DO [address] [place] [address] PCP - General Family Practice 06/30/17 documented as of this encounter
--- OUTSIDE RECORDS SUMMARY | 2025-10-10 21:26 | XMS_ITS | Encounter Summary ---
Author Organization [facility] Address [address] [place] [address] Care Team Providers Care Research Manufacturing Operator Name Role Phone Shari Gray DO Primary Care Provider [phone] Encounter Details Date Type Department Care Team (Late st Contact Info) Description 10/29/2018 Ancillary Orders [facility] [address] [place] [address] Shari Gray DO [address] [place] [address] Breast discharge Social History Tobacco Use Types Packs/Day Years Used Date Smoking Tobacco: Every Day Cigarettes 0.5 20 Smokeless Tobacco: Never Alcohol Use Standard Drinks/Week Comments No 0 (1 standard drink = 0.6 oz pur e alcohol) Comments No Sex and Gender Information Value Date Recorded Sex Assigned at Not on file Legal Sex Female 5:35 AM SUBSTITUTE CROSSING GUARD Gender Identity Not on file Sexual Orientation Not on file Occupation Industry Job Start Date Job End Date Not on file Not on file Not on file Not on file documented as of this encounter Plan of Treatment Not on file documented as of this encounter Visit Diagnoses Diagnosis Breast discharge Other sign and symptom in breast documented in this encounter Care Teams Research Manufacturing Operator Relationship Specialty Start Date End Date Shari Gray DO [address] [place] [address] PCP - General Family Practice 06/30/17 documented as of this encounter
--- OUTSIDE RECORDS SUMMARY | 2025-10-10 21:26 | XMS_ITS | Encounter Summary ---
Author Organization [facility] Address [address] [place] [address] Care Team Providers Care Supervisor Laboratory Animal Facility Name Role Phone Shari Gray DO Primary Care Provider [phone] Encounter Details Date Type Department Care Team (Latest Contact Info) Description 02/24/2006 Outpatient Historical [facility]- [place] [address] Entrance B, 3rd [place] [address] Dominic Tyler MD NO ADDRESS ON FILE Unspecified Urinary Calculus (Primary Dx) Social History Tobacco Use Types Packs/Day Years Used Date Smoking Tobacco: Never Assessed Comments Unknown Sex and Gender Information Value Date Recorded Sex Assigned at Not on file Legal Sex Female 5:35 AM SUEDE CLEANER Gender Identity Not on file Sexual Orientation Not on file documented as of this encounter Plan of Treatment Not on file documented as of this encounter Visit Diagnoses Diagnosis Urinary calculus, unspecified- Primary documented in this encounter Care Teams Supervisor Laboratory Animal Facility Relationship Specialty Start Date End Date Shari Gray DO [address] [place] [address] PCP - General Family Practice 06/30/17 documented as of this encounter
--- OUTSIDE RECORDS SUMMARY | 2025-10-10 21:26 | XMS_ITS | Encounter Summary ---
Author Organization [facility] Address [address] [place] [address] Care Team Providers Care Medical Accountant Name Role Phone Shari Gray Primary Care [...] on file Legal Sex Female 5:35 AM SENIOR ACCOUNTING ANALYST Gender Identity Not on file Sexual Orientation Not on file documented as of this encounter Plan of Treatment Not on file documented as of this encounter Procedures Procedure Name Priority Date/Time Associated Diagnosis Comments CT URINARY CALCULI WO CONTRAST Routine 01/28/2006 12:01 AM SENIOR ACCOUNTING ANALYST XR ABDOMEN 1 VW Routine 01/28/2006 12:01 AM SENIOR ACCOUNTING ANALYST CBC WITH DIFFERENTIAL Routine 01/27/2006 8:41 PM SENIOR ACCOUNTING ANALYST LIPASE Routine 01/27/2006 8:41 PM SENIOR ACCOUNTING ANALYST COMPREHENSIVE METABOLIC PANEL Routine 01/27/2006 8:41 PM SENIOR ACCOUNTING ANALYST URINALYSIS MICROSCOPY ONLY Routine 01/27/2006 7:57 PM SENIOR ACCOUNTING ANALYST documented in this encounter Results * XR ABDOMEN 1 VW (01/28/2006 12:01 AM SENIOR ACCOUNTING ANALYST) Anatomical Region Laterality Modality Abdomen Other 01/28/2006 12:0 1 AM SENIOR ACCOUNTING ANALYST Narrative 01/28/2006 12:01 AM SENIOR ACCOUNTING ANALYST KUB 01/27/2006 HISTORY: Left flank pain. The [...] RENAL COLIC WO CONT (01/28/2006 12:01 AM SENIOR ACCOUNTING ANALYST) Anatomical Region Laterality Modality Abdomen Other 01/28/2006 12:0 1 AM SENIOR ACCOUNTING ANALYST Narrative 01/28/2006 12:[address] RENAL COLIC, 01/27 REASON FOR STUDY: [...] Final Result * LIPASE (01/27/2006 8:41 PM SENIOR ACCOUNTING ANALYST) LIPASE 17 6 - 51 U/L INTERFACE SYSTEM Comment: As of 05 the [facility] has changed testing methods. The new reference range is 6-51 The old referance range was 23-300 01/27/2006 8:41 PM SENIOR ACCOUNTING ANALYST Basilia Blake MD CHEMISTRY ORDERABLES Final Result INTERFACE SYSTEM Refer to clinic/hospital department * (ABNORMAL) COMPREHENSIVE METABOLIC PANEL (01/27/2006 8:41 PM SENIOR ACCOUNTING ANALYST) GLUCOSE 85 70 - 110 mg/dL INTERFACE [...] INTERFACE SYSTEM Comment: As of 05 the [facility] has changed testing methods. The new reference range is 25-100 The old referance range was 38-126 AST 23 8 - 33 U/L INTERFACE SYSTEM Comment: As of 05 the [facility] has changed testing methods. The new reference range is 8-33 The old referance range was Males 17-59 Females 14-36 ALT 25 4 - 36 IU/L INTERFACE SYSTEM Comment: As of 05 the [facility] has changed testing methods. The new reference range is 4-36 The old referance range was Males 21-72 Females 9-52 BILIRUBIN TOTAL 0.3 0.3 - 1.2 mg/dL INTERFACE SYSTEM Comment: As of 05 the [facility] has changed testing methods. The new reference range is 0.3-1.2 The old referance range was 0.2-1.4 01/27/2006 8:41 PM SENIOR ACCOUNTING ANALYST Basilia Blake MD CHEMISTRY ORDERABLES Final Result INTERFACE SYSTEM Refer to clinic/hospital department * (ABNORMAL) CBC WITH DIFFERENTIAL (01/27/2006 8:41 PM SENIOR ACCOUNTING ANALYST) WBC 8.3 4.5 - 11.0 K/ul INTERFACE [...] 0.2 K/ul INTERFACE SYSTEM 01/27/2006 8:41 PM SENIOR ACCOUNTING ANALYST us Basilia Blake MD HEMATOLOGY ORDERABLES Melissa l Result INTERFACE SYSTEM Refer to clinic/hospital department * (ABNORMAL) URINALYSIS MICROSCOPY ONLY (01/27/2006 7:57 PM SENIOR ACCOUNTING ANALYST) WBC URINE None Seen 0 - 2 INTERFACE SYSTEM RBC UA 16-25(A) 0 - 2 INTERFACE SYSTEM HYALINE CAST None Seen 0 - 2 INTERFA CE SYSTEM BACTERIA UA None Seen None Seen INTERFAC E SYSTEM 01/27/2006 7:57 PM SENIOR ACCOUNTING ANALYST us Basilia Blake MD URINE ORDERABLES Final Res ult Performing Organization Address City/[facility]/ZIP Co de Phone Number INTERFACE SYSTEM Refer to clinic/hospital department documented in this encounter Visit Diagnoses Diagnosis Calculus of ureter- Primary documented in this encounter Care Teams Medical Accountant Relationship Specialty Start Date End Date Shari Gray DO [address] [place] [address] PCP - General Family Practice 06/30/17 documented as of this encounter
--- OUTSIDE RECORDS SUMMARY | 2025-10-10 21:27 | XMS_ITS | Encounter Summary ---
Author Organization [facility] Address [address] [place] [address] Care Team Providers Care Triage Specialist Name Role Phone MarinaShari fischer Annika AMARO Primary Care Provider [phone] Reason for Referral * Radiology Services (Routine) - Closed Specialty Diagnoses / Procedures Referred By Myra church Referred To Contact Diagnoses Other chronic pain Procedures XR FLUORO LESS THAN 1 HOUR Raheem Shah MD Phone: tel: fax: Referral ID Status Reason Start Date Expiration Date Visits Re quested Visits Authorized [id number] Closed 11/12/2018 12/13/2019 1 1 ITY ASSURANCE ASSOCIATE Encounter Details Date Type Department Care Team (Late st Contact Info) Description 11/12/2018 Ancillary Orders [facility] [place] [address] [place] [address] Raheem Shah MD [address] [place], [place] [address] RANDELL OBREGON [phone] Other chronic pain Social History Tobacco Use Types Packs/Day Years Used Date Smoking Tobacco: Every Day Cigarettes 0.5 20 Smokeless Tobacco: Never Alcohol Use Standard Drinks/Week Comments Yes 1 (1 standard drink = 0.6 oz pur e alcohol) rarely Comments No Sex and Gender Information Value Date Recorded Sex Assigned at Not on file Legal Sex Female 5:35 AM QUALITY ASSURANCE ASSOCIATE Gender Identity Not on file Sexual Orientation Not on file Occupation Industry Job Start Date Job End Date Not on file Not on file Not on file Not on file documented as of this encounter Plan of Treatment Not on file documented as of this encounter Results * XR FLUORO LESS THAN 1 HOUR (11/12/2018 11:45 AM QUALITY ASSURANCE ASSOCIATE) Narrative 11/12/2018 11:18 PM QUALITY ASSURANCE ASSOCIATE Order information only. Exam was auto-finalized. us Raheem Shah MD DIAGNOSTIC IMAGING ORDERABL ES Final Result documented in this encounter Visit Diagnoses Diagnosis Other chronic pain Other chronic pain documented in this encounter Care Teams Triage Specialist Relationship Specialty Start Date End Date Shari Gray DO [address] [place] [address] PCP - General Family Practice 06/30/17 documented as of this encounter
--- OUTSIDE RECORDS SUMMARY | 2025-10-10 21:27 | XMS_ITS | Encounter Summary ---
Author Organization [facility] Address [address] [place] [address] Care Team Providers Care Automotive Worker Foreman Name Role Phone Shari Gray DO Primary Care Provider Encounter Details Date Type Department Care Team (Latest Contact Info) Description 11/01/2018 Ancillary Orders [facility] [address] [place] [address] Shari Gray DO [address] [place] [address] Inconclusive mammography Social History Tobacco Use Types Packs/Day Years Used Date Smoking Tobacco: Every Day Cigarettes 0.5 20 Smokeless Tobacco: Never Alcohol Use Standard Drinks/Week Comments No 0 (1 standard drink = 0.6 oz pur e alcohol) Comments No Sex and Gender Information Value Date Recorded Sex Assigned at Not on file Legal Sex Female 5:35 AM MOTOR TRANSPORT INSPECTOR Gender Identity Not on file Sexual Orientation Not on file Occupation Industry Job Start Date Job End Date Not on file Not on file Not on file Not on file documented as of this encounter Plan of Treatment Not on file documented as of this encounter Visit Diagnoses Diagnosis Inconclusive mammography Inconclusive mammogram documented in this encounter Care Teams Automotive Worker Foreman Relationship Specialty Start Date End Date Shari Gray DO [address] [place] [address] PCP - General Family Practice 06/30/17 documented as of this encounter
--- OUTSIDE RECORDS SUMMARY | 2025-10-10 21:27 | XMS_ITS | Encounter Summary ---
Author Organization [facility] Address [address] [place] [address] Care Team Providers Care Hand Candle Molder Name Role Phone Shari Gray DO Primary Care Provider Encounter Details Date Type Department Care Team (Latest Contact Info) Description 11/01/2018 Ancillary Orders [facility] [address] [address] Shari Gray DO [address] [place] [address] Inconclusive mammography Social History Tobacco Use Types Packs/Day Years Used Date Smoking Tobacco: Every Day Cigarettes 0.5 20 Smokeless Tobacco: Never Alcohol Use Standard Drinks/Week Comments No 0 (1 standard drink = 0.6 oz pur e alcohol) Comments No Sex and Gender Information Value Date Recorded Sex Assigned at Not on file Legal Sex Female 5:35 AM STRIP ROLLER Gender Identity Not on file Sexual Orientation Not on file Occupation Industry Job Start Date Job End Date Not on file Not on file Not on file Not on file documented as of this encounter Plan of Treatment Not on file documented as of this encounter Visit Diagnoses Diagnosis Inconclusive mammography Inconclusive mammogram documented in this encounter Care Teams Hand Candle Molder Relationship Specialty Start Date End Date Shari Gray DO [address] [place] [address] PCP - General Family Practice 06/30/17 documented as of this encounter
--- OUTSIDE RECORDS SUMMARY | 2025-10-10 21:27 | XMS_ITS | Patient Health Record ---
Author Organization [facility] Address [address] [place] [address] Care Team Providers Care Supervisor Irrigation Name Role Phone Joao Laird Unavailable [phone] Allergies Allergen (clinical drug ingredient) Drug/Non Drug [...] 4 x daily as directed #120 (One [place] and Twenty) 3 ml vial 05/01/2014 Active [...] Problem Status W/U Status Risk Notes Problem Ureteral stent present (Z96.0) Active confirmed Problem Type II diabetes mellitus without complication (224776979) Type 2 DM (250.00) 2013 Active confirmed [id number]- Problem Solitary nodule of lung (364853664) Lung nodule (518.89) 2014 Active confirmed [id number]- Problem Thyroid function tests abnormal (746075822) Abnormal thyroid findings (794.5) 2013 Active confirmed [id number]- Problem Acute frontal sinusitis (88299550) Acute frontal sinusitis (461.1) 2012 Problem resolved confirmed [id number]- Problem Acute ethmoidal sinusitis (55427342) Acute ethmoidal sinusitis (461.2) 2013 Problem resolved confirmed [id number]- Problem Constipation (64488031) Constipation (564.0) 2008 Problem resolved confirmed [id number]- Problem Female stress incontinence (57792416) Female stress incontinence (625.6) 2009 Problem resolved confirmed [id number]- Problem Edema (276743994) Edema (782.3) 2009 Problem resolved confirmed [id number]- Problem Headache (62747254) Headache (784.0) 2008 Problem resolved confirmed [id number]- Problem Palpitations (80421235) Palpitations (785.1) 2011 Problem resolved confirmed [id number]- Problem Wheezing (43573421) Wheezing (786.07) 2009 Problem resolved confirmed [id number]- Problem Cough (51833142) Cough (786.2) 2009 Problem resolved confirmed [id number]- Problem Dysphagia (18691577) Other dysph agia (787.29) 2014 Problem resolved confirmed [id number]- Problem Renal colic (9033906) Renal colic (788.0) 2013 Problem resolved confirmed [id number]- Problem Dysuria (29820456) Dysuria (788.1) 2013 Problem resolved confirmed [id number]- Problem Proteinuria (64841229) Proteinuria (791.0) 2009 Problem resolved confirmed [id number]- Problem Hiatal hernia (24598589) Hiatal hernia (553.3) 2010 Problem resolved confirmed [id number]- Problem Depression (720327922) Depression (311) 2013 Problem resolved confirmed [id number]- Problem Hypokalemia (87157285) Hypokalemia (276.8) 2014 Problem resolved confirmed [id number]- Problem Low back pain (303900660) Low back pain (724.2) 2009 Problem resolved confirmed [id number]- Problem Fatigue (92504189) Fatigue (780.79) 02/17 Problem resolved confirmed [id number]- Problem Kidney stone (07417863) Kidney stone (592.0) 2014 Problem resolved confirmed [id number]- Problem Vitamin D deficiency (63939112) Vitamin D deficiency (268.9) 2011 Problem resolved confirmed [id number]- Problem Hypercholesterolemia (18191286) Hypercholesterolemia (272.0) 2008 Problem resolved confirmed [id number]- Problem Sleep disturbance (30370843) Insomnia secondary to hot flashes (780.59) 2012 Problem resolved confirmed [id number]- Problem Cholesterol screenin g (313433661) Screening for cholesterol level (V77.91) 2008 Problem resolved confirmed [id number]- Problem Shoulder pain (49963817) Shoulder pain (719.41) 2014 Problem resolved confirmed [id number]- Problem Urinary tract infection (50451666) UTI (599.0) 2014 Problem resolved confirmed [id number]- Problem Candidal vulvovaginitis (79351683) Yeast vaginitis (112.1) 2014 Problem resolved confirmed [id number]- Problem Screening for breast cancer (799013545) Screening for breast cancer (V76.10) 2012 Problem resolved confirmed [id number]- Problem Allergic rhinitis caused by pollen (11150992) Allergies (477.0) 2009 Problem resolved confirmed [id number]- Problem Acute bronchitis (59642369) Bronchitis, acute (466.0) 2013 Problem resolved confirmed [id number]- Problem Disorder of hematopoietic system (01305486) Other abnormal findings on blood examination (790.99) 2014 Problem resolved confirmed [id number]- Problem Sore throat (155386378) Sore Throat (462) 2014 Problem resolved confirmed [id number]- Problem Acute exacerbation o f chronic obstructive airways disease (412115289) Acute exacerbation of chronic obstructive pulmonary disease (COPD) (491.21) 2012 Problem resolved confirmed [id number]- Problem Tobacco user (489312070) Cigarette smoking (305.1) 2009 Problem resolved confirmed [id number]- Problem Diastolic heart failure (407540896) Diastolic heart failure, unspecified (428.30) 2011 Problem resolved confirmed [id number]- Problem Furuncle (556023333) Furuncle (680.9) 2013 Problem resolved confirmed [id number]- Problem Generalized abdomina l pain (186610438) Generalized abdominal pain (789.07) 2010 Problem resolved confirmed [id number]- Problem Lab: Used to mat ch unlinked laboratory orders (V92) 2013 Problem resolved confirmed [id number]- Problem Impaired fasting glycaemia (246696512) Elevated fasting glucose (790.21) 2012 Problem resolved confirmed [id number]- Problem Hand pain (79740708) Hand pain (729.5) 2011 Problem resolved confirmed [id number]- Problem Insomnia (995979156) Insomnia (307.41) 2008 Problem resolved confirmed [id number]- Problem Precordial pain (53494814) Precordial chest pain (786.51) 2010 Problem resolved confirmed [id number]- Problem Acute maxillary sinusitis (23239067) Acute sinusitis, maxillary (461.0) 2010 Problem resolved confirmed [id number]- Problem Central sleep apnea (59314165) Central sleep apnea (327.21) 2011 Problem resolved confirmed [id number]- Problem Serous otitis media (21966106) Serous otitis media (381.4) 2014 Problem resolved confirmed [id number]- Problem Needs influenza immunization (558577078) Vaccination against other viral diseases, Influenza (V04.81) 2012 Problem resolved confirmed [id number]- Problem Electrocardiogram abnormal (632025381) Abnormal EKG (794.31) 2011 Problem resolved confirmed [id number]- Problem Hormone replacement therapy (347332583) Post-menopausal HRT (V07.4) 2013 Problem resolved confirmed [id number]- Problem Acute otitis media (7443461) Acute otitis media (382.00) 2014 Problem resolved confirmed [id number]- Problem Arterial bruit (14925772) Arterial bruit (785.9) 2011 Problem resolved confirmed [id number]- Problem Anxiety (41679897) Anxiety (300.02) 09/10 Problem resolved confirmed [id number]- Problem Migraine with aura (4519502) Classic migraine (346.00) 2009 Problem resolved confirmed [id number]- Problem Knee pain (4448621728) Knee pain (719.46) 2008 Problem resolved confirmed [id number]- Problem Acute sinusitis (27828445) Acute sinusitis (461.8) 2008 Problem resolved confirmed [id number]- Problem Gastroesophageal reflux disease (459564006) Acid reflux disease (530.81) 2010 Problem resolved confirmed [id number]- Problem Chest discomfort (163982889) Chest discomfort (786.59) 2012 Problem resolved confirmed [id number]- Problem Dietary management surveillance (636901546) Dietary surveillance/senior counsel ing for obesity (V65.3) 2008 Problem resolved confirmed [id number]- Problem Generalized osteoarthritis (120687759) Generalized osteoarthritis (715.09) 2009 Problem resolved confirmed [id number]- Problem Kidney stone (34322508) kidney stones (592.0) 2011 Problem resolved confirmed [id number]- Problem Essential hypertension (35997783) Essential hypertension (401.1) 2009 Problem resolved confirmed [id number]- Problem Hypertension (32127980) HTN (401.1) 2009 Problem resolved confirmed [id number]- Problem Primary hypercholesterolemia (606889394) Primary hypercholesterolemia (272.0) 2008 Problem resolved confirmed [id number]- Problem Tinea versicolor (23347762) Tinea versicolor (111.0) 2008 Problem resolved confirmed [id number]- Plan Of Treatment No Information Insurance Providers Payer Name Payer Address Payer Phone Subscriber Number Group Number Insured Name Patient Relationship to Insured Coverage Start Date Coverage End Date [employer] [facility] Medicare Replacement [address] [place] [address] [id number] Zepeda Kush maria Self - patient is the insured [place] Medicaid [address] [place] [address] [id number] Zepeda Kush maria Self - patient is the insured Medical (General) History Surgical History Surgery Date(Month/Year) Kidney stone surgery Gallbladder surgery section
--- OUTSIDE RECORDS SUMMARY | 2025-10-10 21:27 | XMS_ITS | Clinical Summary ---
Author Organization [facility] Address [address] [place] [address] Care Team Providers Care Flake Miller Wheat And Oats Name Role Phone MarinaShari fischer Primary Care Provider [phone] Allergies Active Allergy Reactions Criticality Noted Date [...] 1 Kit 02/06/20 20 Active cpap medical bill processor CPAP @ 07/15 cwp with heated humidifier. [...] reusable 1 per 6 Months. HOME medical [place] 1 Each 02/06/20 20 Active cpap medical [...] on file Legal Sex Female 5:35 AM INCIDENT HANDLER Gender Identity Not on file Sexual Orientation [...] CDT Respiratory Rate 18 10/16/2020 11:38 AM INCIDENT HANDLER Oxygen Saturation 99% 01/18/2021 8:10 AM CDT [...] Tdap) 06/30/2027 Medical Devices Implanted Type Area Crop Roller Device Identifier Shelf Expiration Date Model / Serial / Lot Stent Contour [id number] - [id number] Implanted:Qty: 1 on 11/12/2018 by Raheem Shah MD at [facility] Stent Right: Ureter [employer]/POOL HAND 08/31/2021 [id number] / / [id number] Description:String intact Procedures Procedure Name Priority Date/Time Associated Diagnosis Comments MAMMO DIAGNOSTIC BILATERAL W OR WO CAD Routine 10/29/2018 11:48 AM INCIDENT HANDLER Breast discharge from Last 3 Months or Most Recently Relevant to Health Maintenance Results * MAMMO DIAGNOSTIC BILATERAL W OR WO CAD (10/29/2018 11:48 AM INCIDENT HANDLER) Anatomical Region Laterality Modality Breast Bilateral Mammography 10/29/2018 11:4 8 AM INCIDENT HANDLER Impressions 10/29/2018 1:45 PM INCIDENT HANDLER : Mammogram shows a suspected new nodule [...] the evaluation. Patient received a result/recommendation letter. [id number] Narrative 10/29/2018 1:45 PM INCIDENT HANDLER Bilateral Digital Diagnostic Mammogram: Repeat examination on [...] by the Computer Aided Detection System (CAD), Dat[employer] ImageChecker, Version 8.3. Ultrasound is necessary to [...] Advance Directives For more information, please contact: [phone] * Full Code (Latest Code Status on [...] 10:03 AM 08/27/2012 2:02 AM Care Teams Flake [employer] Relationship Specialty Start Date End Date Shari Gray DO [address] [place] [address] PCP - General Family Practice 06/30/17
--- OUTSIDE RECORDS SUMMARY | 2025-10-10 21:28 | XMS_ITS | Encounter Summary ---
Author Organization [facility] Address [address] [place] [address] Care Team Providers Care Cad Drafter Name Role Phone Shari Gray DO Primary Care Provider [phone] Reason for Referral * Radiology Services (Routine) - Closed Specialty Diagnoses / Procedures Referred By Myra chucrh Referred To Contact Radiology Diagnoses Inconclusive mammography Procedures MAMMO BREAST US BILAT LTD Shari Gray DO [address] [place] [address] Phone: tel: fax: [facility] [address] [facility] [address] [place] [address] Phone: tel: fax: Referral ID Status Reason Start Date Expiration Date Visits Requested Visits Authorized [id number] Closed Performing Department To Schedule (SGF) 12/06/2018 01/06/2020 1 1 L HANGER Encounter Details Date Type Department Care Team (Latest Contact Info) Description 12/06/2018 Ancillary Orders [facility] [address] [address] Shari Gray DO [address] [place] [address] Inconclusive mammography Social History Tobacco Use Types Packs/Day Years Used Date Smoking Tobacco: Every Day Cigarettes 0.5 20 Smokeless Tobacco: Never Alcohol Use Standard Drinks/Week Comments Yes 1 (1 standard drink = 0.6 oz pur e alcohol) rarely Comments No Sex and Gender Information Value Date Recorded Sex Assigned at Not on file Legal Sex Female 5:35 AM VINYL HANGER Gender Identity Not on file Sexual Orientation Not on file Occupation Industry Job Start Date Job End Date Not on file Not on file Not on file Not on file documented as of this encounter Plan of Treatment Not on file documented as of this encounter Results * MAMMO BREAST US Zady (12/31/2018 10:55 AM VINYL HANGER) Anatomical Region Laterality Modality Bilateral Ultrasound 12/31/2018 10:0 7 AM VINYL HANGER Impressions 12/31/2018 10:59 AM VINYL HANGER : Right breast mass on diagnostic mammogram performed 10/29/2018 corresponds to a benign cluster of microcysts. No abnormality visualized within the subareolar region of each breast in this patient with history of bilateral green nipple discharge. This is felt to be physiologic and benign in nature. Recommend annual screening mammography. BI-RADS: 2 Recommendation: Annual screening mammography Recommendation Laterality: Bilateral [id number] Narrative 12/31/2018 10:59 AM VINYL HANGER EXAM: MAMMO BREAST [employer], 12/31/2018 10:07 AM CLINICAL INDICATIONS: Patient presents [...] mammogram documented in this encounter Care Teams Cad Drafter Relationship Specialty Start Date End Date Shari Gray DO [address] [place] [address] PCP - General Family Practice 06/30/17 documented as of this encounter
--- OUTSIDE RECORDS SUMMARY | 2025-10-10 21:28 | XMS_ITS | Encounter Summary ---
Author Organization [facility] Address [address] [place] [address] Care Team Providers Care Tent Assembler Name Role Phone Shari Gray Primary Care Provider Encounter Details Date Type Department Care Team (Late st Contact Info) Description 11/15/2010 Ancillary Orders [facility] [address] [place] [address] Sunny Powell MD NO ADDRESS [...] on file Legal Sex Female 5:35 AM JUNIOR PARALEGAL Gender Identity Not on file Sexual Orientation Not on file documented as of this encounter Plan of Treatment Not on file documented as of this encounter Results * XR HIP 2+ VW LEFT (11/15/2010 10:12 AM JUNIOR PARALEGAL) Anatomical Region Laterality Modality Lower Extremity Left Computed Radiogr aphy 11/15/2010 9:56 AM JUNIOR PARALEGAL Impressions 11/15/2010 4:14 PM JUNIOR PARALEGAL Impression: Unremarkable study. ekp - uploaded from [employer] Narrative 11/15/2010 4:14 PM JUNIOR PARALEGAL Exam: XR HIP 2+ VW LEFT Date/Time [...] Impression: Unremarkable study. ekp - uploaded from [employer] us Sunny Powell MD DIAGNOSTIC IMAGING ORDERABLES Final Result documented in this encounter Visit Diagnoses Diagnosis Hip pain Pain in joint, pelvic region and thigh Hip pain Pain in joint, pelvic region and thigh documented in this encounter Care Teams Tent Assembler Relationship Specialty Start Date End Date Shari Gray DO [address] [place] [address] PCP - General Family Practice 06/30/17 documented as of this encounter
--- OUTSIDE RECORDS SUMMARY | 2025-10-10 21:28 | XMS_ITS | Patient Health Record ---
Author Organization [facility] Address [address] [place] [address] Care Team Providers Care Cold Working Inspector Name Role Phone YOSI TURNER [phone] Reason For Referral No Information Encounters Encounter Location Date Provider Diagnosis [facility] [address] [facility] [place] [address] 08/29/2025 YOSI TURNER Plan Of Treatment No Information Insurance Providers Payer Name Payer Address Payer Phone Subscriber Number Group Number Insured Name Patient Relationship to Insured Coverage Start Date Coverage End Date [facility] Medicare Advantage HMO [address] [address] [place], [place] [id number] [facility] [id number] Kush German Self - patient is the insured [place] Medicaid [address] [place], [place] [id number] Kush German Self - patient is the insured
--- OUTSIDE RECORDS SUMMARY | 2025-10-10 21:29 | XMS_ITS | Patient Health Record ---
Author Organization [facility] Address [address] [place] [address] Care Team Providers Care Computer Systems Consultant Name Role Phone EDUARDO RAINES [phone] Allergies Allergen (clinical drug ingredient) Drug/Non Drug [...] Status Risk Notes Problem Exacerbation of asthma (382085165) Exacerbation of asthma, unspecified asthma severity, unspecified whether persistent (J45.901) Active confirmed Vital Signs Height 69 in 10/13/2024 Patient Reported Normal Blood Pressure Patient Reported High Temperature Weight 180 lbs 10/13/2024 Patient Reported Normal Blood Pressure Patient Reported High Temperature BMI 26.58 kg/m2 10/13/2024 Patient Reported Normal Blood Pressure Patient Reported High Temperature Encounters Encounter Location Date Provider Diagnosis [facility] [address] [place] [address] 10/13/2024 EDUARDO RAINES Exacerbation of asthma, unspecified [...] your asthma. Consider follow up with a wood router hand as well. Consider pulmonary function testing.PATIENT EDUCATION [...] Coverage Start Date Coverage End Date [facility] [address] [address] [place] [address] [id number] Kush Moore Self - patient is the insured Medical (General) History Medical History History ICD Code Asthma 03/14/1996 Copd 03/03/2000 viral pneumonia (September 2024)
--- OUTSIDE RECORDS SUMMARY | 2025-10-10 21:29 | XMS_ITS | Clinical Summary ---
Author Organization [facility] Address [address] [place] [address] Care Team Providers Care Service Line Layer Name Role Phone Unavailable Primary Care Provider [...] mL 3 02/02/20 20 Active cpap medical data analyst CPAP @ 9/13 cwp with heated humidifier. [...] Strength: 90 mcg 8.5 Gram 2 07/25/20 Active furosemide (LASIX) 20 mg tablet Take 20 mg by mouth daily. Active QUEtiapine (SEROquel) 100 mg tabletIndications: Major depressive disorder, recurrent, in full remission with anxious distress,Generaliz ed anxiety disorder TAKE 1 TABLET BY MOUTH TWICE A DAY 60 Tablet 10/18/20 22 Active CPAP / BIPAP suppliesIndication s:BRAYDON on CPAP Length of need: 99 monthsMask Type: full face with headgear every 6 months, mask only every 3 months,1 cushions per month. Tubing: heated 1 every 3 months, water chamber 1 every 6 months, chin strap 1 every 6 months, filters disposable 2 per month, filters reusable 1 per 6 Months.HOME medical [place] 1 Each 0 02/06/20 20 Active HYDROcodone-acetam inophen (NORCO) 5-325 mg tabletIndications: Acute pyelonephritis Take 1 Tablet by mouth every 4 hours as needed for Pain, Moderate. Max Daily Amount: 6 Tablets 10 Tablet 11/24/19 24 Active naloxone (NARCAN) 4 mg/spray [place], Non-Aerosol EMERGENCY USE ONLY: Administer 1 spray [...] 10/04/2010 Cough 10/04/2010 Female stress incontinence 10/04/2010 Encounters Date Type Department Care Team Description 08/21/2025 Orders Only [facility] Health Information Management [facility] [address] [place] [address] Provider, Abstract from Last 3 Months Immunizations Immunization Administration Dates Next Due (ADACEL/BOOSTRIX)(10 YR UP) TDAP VACCINE, 0.5ML, IM 06/30/2017 (PNEUMOVAX 23)(50 YRS UP) PN EUMOCOCCAL POLYSACCHARIDE (PPV23) 0.5 ML, IM 01/18/2021 (PREVNAR 20)(6 WKS UP) PNEUM OCOCCAL CONJUGATE VACCINE 20-VALENT (PCV20), POLYSACCHARIDE [id number] CONJUGATE, ADJUVANT 0.5 ML (PF) IM 11/24/2023 [...] on file Legal Sex Female 12:55 PM THREADER OPERATOR Gender Identity Not on file Sexual Orientation Not on file Last Filed Vital Signs Vital Sign Reading Time Taken Comments Blood Pressure 127/62 11/24/2023 7:23 AM THREADER OPERATOR Pulse 67 11/24/2023 7:23 AM THREADER OPERATOR Temperature 36.3 C (97.4 F) 11/24/2023 7:23 AM THREADER OPERATOR Respiratory Rate 17 11/24/2023 7:23 AM THREADER OPERATOR Oxygen Saturation 93% 11/24/2023 7:23 AM THREADER OPERATOR Inhaled Oxygen Concentration - - Weight 85.7 kg (189 lb) 11/20/2023 12:30 PM THREADER OPERATOR Height 175.3 cm (5' 9 ) 11/20/2023 12:30 PM THREADER OPERATOR Body Mass Index 27.91 11/20/2023 12:30 PM THREADER OPERATOR Plan of Treatment Health Maintenance Due Date [...] Tdap) 06/30/2027 Medical Devices Explanted Type Area Master Plumber Device Identifier Shelf Expiration Date Model / Serial / Lot Stent Contour [id number] - [id number] Implanted:Qty: 1 on 11/12/2018 by Raheem Shah MD Explanted:Qty: 1 on 11/22/2023 by Speedy Nur MD at [facility] Stent Right: Ureter [employer]/DRAGGER 08/31/2021 [id number] / / [id number] Description:String intact Procedures Procedure Name Priority Date/Time Associated Diagnosis Comments BASIC METABOLIC PANEL Routine 08/20/2025 11:52 AM CDT BASIC METABOLIC PANEL Routine 08/19/2025 11:52 AM CDT MAMMO DIAGNOSTIC BILATERAL W OR WO CAD Routine 10/29/2018 11:48 AM THREADER OPERATOR Breast discharge from Last 3 Months or Most Recently Relevant to Health Maintenance Results * BASIC METABOLIC PANEL (08/20/2025 11:52 AM CDT) Only the most recent of2 resultswithin the time period is included. Blood us Abstract Provider CHEMISTRY ORDERABLES Final Res ult * MAMMO DIAGNOSTIC BILATERAL W OR WO CAD (10/29/2018 11:48 AM THREADER OPERATOR) Anatomical Region Laterality Modality Breast Bilateral Other Impressions 10/29/2018 1:44 PM THREADER OPERATOR : Mammogram shows a suspected new nodule [...] the evaluation. Patient received a result/recommendation letter. [id number] Narrative 10/29/2018 1:44 PM THREADER OPERATOR Bilateral Digital Diagnostic Mammogram: Repeat examination on [...] by the Computer Aided Detection System (CAD), Merklecker, Version 8.3. Ultrasound is necessary to evaluate [...] by the Computer Aided Detection System (CAD), [employer]em[employer] Discoverycker, Version 8.3. Ultrasound is necessary to evaluate [...] the evaluation. Patient received a result/recommendation letter. [id number] Shari Gray DO MAMMO ORDERABLES Final Resu lt from Last 3 Months or Most Recently Relevant to Health Maintenance Insurance MEDICAID [facility] DUAL COMPLETE [facility] [id number] Advance Directives For more information, please contact: [phone] * Full Code (Latest Code Status on File) Date Activated Date Inactivated Comments 11/22/2023 7:20 AM 11/24/2023 6:21 PM * Full Code Date Activated Date Inactivated Comments 11/20/2023 12:33 PM 11/22/2023 7:20 AM
[2025-10-10 21:48] VITALS: BP 164/105; PULSE 94; RESP 22; TEMP 36.8; O2SAT 96; BMI 26.6
--- NOTE | 2025-10-10 22:50 | W.ED.FEMALGU ---
HPI - Female Genitourinary General: Chief complaint: Urogenital-Female Stated complaint: back pain/ pain with urination Time Seen by Provider: 10/10/25 22:50 History of Present Illness: 60-year-old female with a history of kidney stones and a stent placed in August at [facility] [place] and [place], history of pulmonary embolism, hyperlipidemia, hypertension, COPD and obstructive sleep apnea who presents to the emergency room with flank pain. Said she has been having low back pain and painful urination for 2 weeks. Says she went to walk-in clinic and was given antibiotics for UTI but feels like the stent in her ureter may be obstructed or that has been in for too long. She says she lost her insurance and then when she regained insurance they would not take it at [facility] anymore. No known fevers. No vomiting. Related Data Previous Rx's ?Medication ?Instructions ?Recorded albuterol sulfate 90 mcg/actuation 2 inh inhalation Q6H PRN shortness 08/26/24 aerosol inhaler of breath or wheezing #8 grams albuterol sulfate 2.5 mg/3 mL 2.5 mg (3 mL) inhalation Q4H PRN 07/31/25 (0.083 %) solution for nebulization shortness of breath or wheezing #90 mL albuterol sulfate 90 mcg/actuation 2 puff inhalation Q6H PRN 07/31/25 aerosol inhaler (Ventolin HFA) shortness of breath or wheezing #8.5 grams hydrocodone 5 mg-acetaminophen 325 1 tab PO Q6H PRN pain 3 days #8 10/06/25 mg tablet tabs levofloxacin 500 mg tablet 500 mg PO DAILY 7 days #7 tabs 10/06/25 cefdinir 300 mg capsule 300 mg PO BID 10 days #20 caps 10/11/25 hydrocodone 5 mg-acetaminophen 325 1 tab PO Q6H PRN pain #20 tabs 10/11/25 mg tablet phenazopyridine 100 mg tablet 100 mg PO Q8H 6 doses #6 tabs 10/11/25 (Pyridium) polyethylene glycol 3350 17 17 g PO DAILY #510 grams 10/11/25 gram/dose oral powder (Miralax) Allergies Allergy/AdvReac Type Severity Reaction Status Date / Time ketorolac (From Toradol) Allergy ALGY-Rash Verified 10/06/25 13:51 simvastatin Allergy ADR-Vomitin Verified 10/06/25 13:51 g telithromycin (From Ketek) Allergy ALGY-Hives Verified 10/06/25 13:51 Review of Systems Narrative: Constitutional symptoms: Negative except as documented in HPI. Skin symptoms: Negative except as documented in HPI. Eye symptoms: Negative except as documented in HPI. ENMT symptoms: Negative except as documented in HPI. Respiratory symptoms: Negative except as documented in HPI. Cardiovascular symptoms: Negative except as documented in HPI. Gastrointestinal symptoms: Negative except as documented in HPI. Genitourinary symptoms: Negative except as documented in HPI. Musculoskeletal symptoms: Negative except as documented in HPI. Neurologic symptoms: Negative except as documented in HPI. Psychiatric symptoms: Negative except as documented in HPI. Endocrine symptoms: Negative except as documented in HPI. PFSH ED PFSH: Medical History (Updated 10/11/25 @ 01:08 by Azalea Padgett MD) Pulmonary embolism Right ureteral calculus Right flank pain BRAYDON (obstructive sleep apnea) Hyperlipidemia HTN (hypertension) Bilateral pulmonary embolism GERD (gastroesophageal reflux disease) COPD (chronic obstructive pulmonary disease) Right ureteral calculus Left mid/distal Large obstructing ureteral stone complicated by UTI. Treated with urgent ureteroscopy laser lithotripsy 10/06/20 Renal calculi Recurrent UTI Surgical History Hx of hysterectomy Hx of section X4 Status post extracorporeal shock wave therapy Hx of cholecystectomy H/O lithotripsy Family History Mother , at age 53 Heart attack Father No problems noted. Other CAD (coronary artery disease) Cancer Chronic kidney disease (CKD) Hypertension Social History Smoking and tobacco/nicotine status: current every day tobacco/nicotine user Alcohol intake: current Alcohol intake frequency: holidays/special occasions only Adopted: No Caregiver/support person: No Lives independently: No Household members: spouse Marital status: Current occupational status: retired Physical Exam Narrative: EXAM NARRATIVE: General: Alert, no acute distress. Skin: Warm, dry. Head: Normocephalic, atraumatic. Neck: Supple, trachea midline. Eye: Extraocular movements are intact. Ears, nose, mouth and throat: mucosa moist. Cardiovascular: Regular, Normal peripheral perfusion. Respiratory: Lungs are clear to auscultation, respirations are non-labored, breath sounds are equal, Symmetrical chest wall expansion. Gastrointestinal: Soft, Nontender, Non distended Musculoskeletal: Normal ROM, no deformity. Neurological: Alert and oriented, No focal neurological deficit observed. Psychiatric: Cooperative, appropriate mood & affect. Course Vital Signs: Vital signs: Vital Signs Temperature 98.2 F 10/10/25 21:48 Pulse Rate 85 10/11/25 00:49 Respiratory Rate 18 10/11/25 00:17 Blood Pressure 175/87 10/11/25 00:49 Pulse Oximetry 93 10/11/25 00:49 Oxygen Delivery Me thod Room Air 10/11/25 00:49 MDM - Female Medical Decision Making Medical decision making Patient's reason for coming to the emergency room: Flank pain/low back pain/dysuria Social determinants: Patient is disabled. I reviewed the patient's medical record. Patient was seen in urgent care and sent home on Levaquin about 4 days ago. I reviewed the patient's current home meds PDM: Patient had 1 prescription for acetaminophen/hydrocodone in the past year. Alternate historians: None Differential diagnosis including but not limited to and based on the above HPI, review of systems and physical exam: In this patient with flank pain would have concern for: Ureterolithiasis. Urinary tract infection. Appendicitis. Cholecystitis. Musculoskeletal / back pain. Pyelonephritis. Orders placed to evaluate differential diagnosis based on the above differential, HPI and physical exam Lab Review: Laboratory results were reviewed and interpreted by myself the emergency room physician. No leukocytosis. Mild anemia with a hemoglobin 9.7. No renal failure. Urinalysis does still show some white cells but no bacteria. Nitrate negative. Mild leukocyte esterase. CT of the abdomen pelvis: Large hiatal hernia, cholecystectomy, hysterectomy, diverticulosis, stent in place, multiple stones in the kidneys. No hydronephrosis. Reexamination: Patient remained stable. No increased work of breathing. No altered mental status. No focal motor deficits. Assessment and plan: Urinary tract infection Nephrolithiasis Ureteral stent in place ?IV morphine, IV Zofran and IV Rocephin in the emergency room. She is been on Levaquin for a few days now and still has some signs and symptoms of infection so we will change her over to Omnicef. - Discharged home - Discussed plan with patient. Answered any questions. - Evaluation and treatment of this problem were appropriate in the emergency setting. Lab Data 10/10/25 23:45 10/10/25 23:45 Radiology Impressions Abdomen/Pelvis CT 10/10/25 22:52 IMPRESSION: 1. Large hiatal hernia which contains the proximal stomach. 2. Cholecystectomy. 3. Hysterectomy. 4. Diverticulosis, without acute diverticulitis. No small bowel obstruction. No free air. Laboratory Results WBC 7.21 10^3/uL (3.29-11.43) 10/10/25 23:45 RBC 3.27 10^6/uL (3.85-5.65) L 10/10/25 23:45 Hgb 9.70 g/dL (11.27-16.99) L 10/10/25 23:45 Hct 30.2 % (36-47) L 10/10/25 23:45 MCV 92.4 fl (85-98) 10/10/25 23:45 MCH 29.7 pg (27-33) 10/10/25 23:45 MCHC 32.1 g/dL (30-55) 10/10/25 23:45 RDW 13.7 % (12.1-15.1) 10/10/25 23:45 Plt Count 248 10^3/cmm (157-399) 10/10/25 23:45 MPV 9.4 fL (7.4-10.4) 10/10/25 23:45 Neut % (Auto) 61.3 % 10/10/25 23:45 Lymph % (Auto) 26.8 % 10/10/25 23:45 [place] % (Auto) 7.4 % 10/10/25 23:45 Eos % (Auto) 3.6 % 10/10/25 23:45 Baso % (Auto) 0.8 % 10/10/25 23:45 Neut # (Auto) 4.42 10^3/uL (1.8-7.7) 10/10/25 23:45 Lymph # (Auto) 1.9 10^3/uL (0.8-4.8) 10/10/25 23:45 [place] # (Auto) 0.5 10^3/uL (0.2-0.9) 10/10/25 23:45 Eos # (Auto) 0.3 10^3/uL (0.0-0.8) 10/10/25 23:45 Baso # (Auto) 0.1 10^3/uL (0.0-0.1) 10/10/25 23:45 Nucleated RBC % (auto) 0 % 10/10/25 23:45 Nucleated RBCs # 0.0 /100WBC 10/10/25 23:45 Sodium 142 mmol/L (136-145) 10/10/25 23:45 Potassium 4.2 mmol/L (3.5-5.1) 10/10/25 23:45 Chloride 106 mmol/L (98-107) 10/10/25 23:45 Carbon Dioxide 28 mmol/L (22-29) 10/10/25 23:45 Anion Gap 12.2 (5-19) 10/10/25 23:45 BUN 24 mg/dL (6-20) H 10/10/25 23:45 Creatinine 0.9 mg/dL (0.5-0.9) 10/10/25 23:45 GFR Calculation 64.3 mL/min (90-130) L 10/10/25 23:45 Glucose 104 mg/dL (65-115) 10/10/25 23:45 Calculated Osmolality 298 mOsm/kg (285-295) H 10/10/25 23:45 Lactic Acid 1.0 mmol/L (0.5-2.2) 10/10/25 23:45 Calcium 8.9 mg/dL (8.5-10.5) 10/10/25 23:45 Total Bilirubin 0.2 mg/dL (0.15-1.2) 10/10/25 23:45 AST 12 U/L (0-32) 10/10/25 23:45 ALT 7 U/L (0-33) 10/10/25 23:45 Alkaline Phosphatase 85 U/L (35-105) 10/10/25 23:45 C-Reactive Protein 3.0 mg/L (0.0-4.9) 10/10/25 23:45 Total Protein 6.3 g/dL (6.6-8.7) L 10/10/25 23:45 Albumin 3.9 g/dL (3.5-5.2) 10/10/25 23:45 Globulin 2.4 g/dL (1.3-4.6) 10/10/25 23:45 Urine Color Yellow (Yellow) 10/11/25 00:21 Urine Appearance Clear (CLEAR) 10/11/25 00:21 Urine pH 6.5 (5-7) 10/11/25 00:21 Ur Specific [place] 1.018 (1.005-1.030) 10/11/25 00:21 Urine Protein 1+ (Negative) A 10/11/25 00: Urine Glucose (UA) Negative (Normal) 10/11/25 00: Urine Ketones Negative (Negative) 10/11/25 00: Urine Blood 2+ (Negative) A 10/11/25 00: Urine Nitrate Negative (Negative) 10/11/25 00: Urine Bilirubin Negative (Negative) 10/11/25 00: Urine Urobilinogen 0.2 mg/dL (Negative) 10/11/25 00:21 Ur Leukocyte Esterase 1+ (Negative) A 10/11/25 00: Urine RBC 21-50 /hpf (0-2) H 10/11/25 00:21 Urine WBC 21-50 /hpf (0-5) H 10/11/25 00:21 Ur Squamous Epith Cells 0-5 /hpf (0-5) 10/11/25 00: Amorphous Sediment Not Reportable 10/11/25 00: Urine Bacteria None seen /hpf (NONE) 10/11/25 00: Hyaline Casts 1.21 /lpf 10/11/25 00:21 All radiology interpretation(s) finalized by discharge Discharge Plan Discharge Patient Disposition: Home Clinical Impression: Urinary tract infection, Nephrolithiasis, Ureteral stent present Condition: Stable Prescriptions: New phenazopyridine [Pyridium] 100 mg tablet 100 mg PO Q8H Qty: 6 0RF cefdinir 300 mg capsule 300 mg PO BID 10 Days Qty: 20 0RF hydrocodone-acetaminophen 5-325 mg tablet 1 tab PO Q6H PRN (Reason: pain) Qty: 20 0RF polyethylene glycol 3350 [Miralax] 17 gram/dose powder 17 g PO DAILY Qty: 510 0RF Rx Instructions: Take 1 scoop daily while taking pain medications. No Action hydrocodone-acetaminophen 5-325 mg tablet 1 tab PO Q6H PRN (Reason: pain) 3 Days Qty: 8 0RF levofloxacin 500 mg tablet 500 mg PO DAILY 7 Days Qty: 7 0RF albuterol sulfate 2.5 mg /3 mL (0.083 %) solution for nebulization 2.5 mg inhalation Q4H PRN (Reason: shortness of breath or wheezing) Qty: 90 0RF albuterol sulfate [Ventolin HFA] 90 mcg/actuation HFA aerosol inhaler 2 puff inhalation Q6H PRN (Reason: shortness of breath or wheezing) Qty: 8.5 0RF albuterol sulfate 90 mcg/actuation HFA aerosol inhaler 2 inh INHALATION Q6H PRN (Reason: shortness of breath or wheezing) Qty: 8 0RF Discharge Orders: Discharge ED (Routine); Ordered 10/11/25 Ordered By: Azalea Padgett Discharge Diet: Usual diet Discharge Activity: Increase activity as tolerated Patient Instructions: Urinary Tract Infection in Women (ED), Opioid Safety, Pain Management, Patient Portal & [facility] Instructions Activity Restrictions/Additional Instructions: You need to have a follow-up with urology. Most likely [facility] in [place] would be your best chance to get an appointment. I have consulted case management and they will attempt to get you an appointment but if you do not hear from them please call them and set up an appointment Call for appointment with urology. If fever (temp >100.4) develops return to the emergency room immediately, as this is an emergency. Take nausea medication prior to taking pain medications. Thank you for choosing [facility] for your healthcare needs today. You have been screened and evaluated and felt safe for discharge. Health conditions do change or evolve sometimes and as such it is important that you follow up with your Primary Doctor to be re checked, 3-5 days is a general good time frame for follow up. You are always welcome to return to the ED for re assessment if your symptoms are worsening or you have new concerns Print Language: Frisian Coding Level of Care Code ED [employer] Designer for Tangela Reyes
--- NOTE | 2025-10-10 22:52 | CTR_ITS ---
PROCEDURE INFORMATION: Exam: CT Abdomen And Pelvis Without Contrast Exam date and time: 10/10/2025 11:23 PM Age: 60 years old Clinical indication: Abdominal pain; Additional info: Flank pain TECHNIQUE: Imaging protocol: Computed tomography of the abdomen and pelvis without contrast. Radiation optimization: All CT scans at this facility use at least one of these dose optimization techniques: automated exposure control; mA and/or kV adjustment per patient size (includes targeted exams where dose is matched to clinical indication); or iterative reconstruction. COMPARISON: CT kidney stone [id number] 08/17/2025 4:44 PM RADIATION DOSE METRICS: Total DLP (mGy-cm): 802.93 FINDINGS: Lungs: Atelectasis in the right middle lobe and lingula. Liver: Normal. No mass. Gallbladder and biliary ducts: Cholecystectomy. Pancreas: Normal. No ductal dilation. Spleen: Normal. No splenomegaly. Adrenal glands: Normal. No mass. Kidneys and ureters: Right nephroureteral stent terminates in the urinary bladder. Atrophy of the right kidney. Multiple bilateral nonobstructing renal stones, measuring up to 5 mm in the left kidney upper pole. Stomach and bowel: Large hiatal hernia which contains the proximal stomach. Diverticulosis, without acute diverticulitis. No small bowel obstruction. No free air. Appendix: No evidence of appendicitis. Intraperitoneal space: See Stomach and bowel finding. Vasculature: Unremarkable. No abdominal aortic aneurysm. Lymph nodes: Unremarkable. No enlarged lymph nodes. Urinary bladder: Unremarkable as visualized. Reproductive: Hysterectomy. Bones/joints: Grade 1 anterolisthesis of L4 on L5, measures 9 mm. Soft tissues: Unremarkable. CT/CT kidney stone [id number] IMPRESSION: 1. Large hiatal hernia which contains the proximal stomach. 2. Cholecystectomy. 3. Hysterectomy. 4. Diverticulosis, without acute diverticulitis. No small bowel obstruction. No free air.
[2025-10-11] LABS: Hematocrit 30.2 % (36-47); Hemoglobin 9.70 g/dL (11.27-16.99); Mean Corpuscular HGB Conc 32.1 g/dL (30-55); Mean Corpuscular Hemoglobin 29.7 pg (27-33); Mean Corpuscular Volume 92.4 fl (85-98); Nucleated Red Blood Cells % 0 %; Platelet Count 248 10^3/cmm (157-399); Red Blood Count 3.27 10^6/uL (3.85-5.65); White Blood Count 7.21 10^3/uL (3.29-11.43)
[2025-10-11 00:03] VITALS: BP 130/106; PULSE 83; O2SAT 96
[2025-10-11 00:17] VITALS: RESP 18
[2025-10-11] MEDS: morphine 4 mg/mL SDV 1 mL IVP (00:17)
[2025-10-11] MEDS: ondansetron 2 mg/ML SDV 2 mL 4 MG IVP (00:17)
[2025-10-11 00:27] LABS: Alanine Aminotransferase 7 U/L (0-33); Albumin Level 3.9 g/dL (3.5-5.2); Alkaline Phosphatase 85 U/L (35-105); Anion Gap 12.2 (5-19); Aspartate Amino Transferase 12 U/L (0-32); Blood Urea Nitrogen 24 mg/dL (6-20); Calcium 8.9 mg/dL (8.5-10.5); Carbon Dioxide 28 mmol/L (22-29); Chloride 106 mmol/L (98-107); Creatinine Clr Calc Pharmacy 77.8519; Globulin 2.4 g/dL (1.3-4.6); Glucose 104 mg/dL (65-115); Lactic Sepsis W/Reflex 1.0 mmol/L (0.5-2.2); Osmolality Calculated 298 mOsm/kg (285-295); Potassium 4.2 mmol/L (3.5-5.1); Sodium 142 mmol/L (136-145); Total Protein 6.3 g/dL (6.6-8.7)
[2025-10-11 00:39] LABS: Glucose Urine UA Negative (Normal); Nitrate Urine Negative (Negative); Specific Gravity, Urine 1.018 (1.005-1.030)
[2025-10-11 00:49] VITALS: BP 175/87; PULSE 85; O2SAT 93
[2025-10-11] MEDS: cefTRIAXone 1,000 mg SDV 1000 MG IVP (01:51)
[2025-10-11 01:52] VITALS: BP 174/88; PULSE 88; O2SAT 94
--- NOTE | 2025-10-12 09:12 | DCPLANNER ---
faxed outpatient urology referral to [facility]
== END 2025-10-11 02:14 | disposition home or self-care (01) ==
PROVIDERS: Emergency Provider Emergency Medicine
DX: N39.0 Urinary tract infection, site not specified (principal); N20.0 Calculus of kidney; Z87.442 Personal history of urinary calculi; Z96.0 Presence of urogenital implants; J44.9 Chronic obstructive pulmonary disease, unspecified; E78.5 Hyperlipidemia, unspecified; I10 Essential (primary) hypertension; Z72.0 Tobacco use
CPT/HCPCS: 36415; 74176; 80053; 81001; 83605; 85025; 86140; 87040; 87086; 96361; 96374; 96375; 99285; J0696; J2270; J2405; J7030